=== PATIENT | male | born 1950 | race Caucasian/White ===

== ENCOUNTER 2024-02-10 13:30 | Inpatient (IN) | payer OTHER, SELFPAY ==
[2024-02-10] VITALS (14 sets, daily range): BP systolic 127–181; BP diastolic 72–92; BMI 24.4; BMI 24.9
--- NOTE | 2024-02-10 11:52 | ED.GENMED ---
History of Present Illness
General
Chief Complaint: Skin Problem
Source: patient
Time Seen by Provider: 02/10/24 11:40
History of Present Illness
History of Present Illness:
73yoM with no significant past medical history presenting for evaluation of left great toe discoloration. He started with a small scab/wound to the distal aspect of the L great toe about 1.5 weeks ago. He started to notice the toe become black in
color over the past few days. He does not have any sensation in the toe. He denies any fevers or chills. He is not currently on any medications. He denies any history of diabetes or peripheral vascular disease.
Phy Exam
General Physical Exam
General Presentation: well appearing and no apparent distress
General age: appears stated age
General Skin: warm and dry
General Habitus: normal
General Mental: alert
Cardiovascular Exam
Cardiovascular Exam: regular rate/rhythm
Pulmonary Exam
Pulmonary Exam: no respiratory distress
Musculoskeletal Exam
Musculoskeletal Exam: other (Left great toe necrotic with a small area of surrounding cellulitis at the base of the toe. No sensation present to toe. Doppler DP pulse present. )
Psychiatric Exam
Psychiatric Exam: normal mood/affect
Course
Orders/Labs/Results
Orders:
Orders
02/10/24 11:49
CR Foot - Left Min 3 Views Urgent
Comment:
Reason For Exam: Necrotic L great toe
02/10/24 12:05
Complete Blood Count/With Diff Urgent
Comprehensive Metabolic Panel Urgent
PTT Urgent
Prothrombin Time Urgent
02/10/24 12:36
CeFAZolin SODIUM [Ancef] 2,000 mg IM NOW STA
02/10/24 13:13
Admit/Transfer Patient As Directed
Co-Sign Provider:
Level of Care: Inpatient admission
Assign to:: Medical/Surgical
Physician / Group: Hospitalist
Diagnosis: Infection
Reason for Hospitalization: .
Expected length of stay greater than two midnights?: Yes
ELOS- Estimated Length of Stay in days: 3
I certify the patient meets the requirements for IP care: Yes
02/10/24 13:14
CeFAZolin 2 GRAM [Ancef] 2 grams in 10 ml IV NOW
Abnormal Lab Results
02/10/24
12:05
WBC 16.7 H 10^3/uL
(4.8-10.8)
RBC 4.24 L 10^6/uL
(4.70-6.10)
Hgb 11.3 L g/dL
(13.0-18.0)
Hct 33.7 L %
(39.0-52.0)
MCV 79.5 L fL
(80.0-94.0)
MCH 26.7 L pg
(27.0-31.0)
Plt Count 489 H 10^3/uL
(130-400)
Abs Immat Gran (auto) 0.1 H 10^3/uL
(0-0.05)
Absolute Neuts (auto) 11.3 H 10^3/uL
(1.4-6.5)
Absolute Lymphs (auto) 3.9 H 10^3/uL
(1.2-3.4)
Absolute Monos (auto) 1.1 H 10^3/uL
(0.1-0.6)
Sodium 132 L mmol/L
(135-145)
Glucose 214 H mg/dl
(70-99)
02/10/24 12:05
02/10/24 12:05
Vital Signs
Initial and Last Documented VS:
Initial Vital Signs
Temp Pulse Resp BP Pulse Ox
97.2 F 98 18 127/89 98
02/10/24 11:04 02/10/24 11:04 02/10/24 11:04 02/10/24 11:04 02/10/24 11:04
Last Documented Vital Signs
Temp Pulse Resp BP Pulse Ox
97.2 F 79 18 179/92 99
02/10/24 11:04 02/10/24 14:47 02/10/24 14:47 02/10/24 14:47 02/10/24 14:47
MDM/Problems Addressed
Differential Diagnosis Includes:
73yoM here with L great toe discoloration. Started as a scab/small wound about 1.5 weeks ago. No f/c. The L great toe is obviously necrotic on exam and sensation is absent. No crepitus. Doppler DP signal present. Vitals are stable. Differential
diagnosis includes but is not limited to: necrosis, peripheral vascular disease, cellulitis, NSTI
Initial ED plan: Check CBC, CMP, coags, and left foot x-rays.
*Critical Care Note
Total Time (30-74mins, 75-104mins- exclusive of procedures): Not Applicable
Update Note
Update Note:
Labs reveal a leukocytosis with a WBC of 16.7. Glucose is 214, no known history of diabetes. No acute abnormalities or soft tissue gas on x-ray. Patient given IV Ancef and was admitted for further management.
ED Attending Note
-
Portions of this chart may have been created with voice recognition software.� Occasional wrong word or��sound alike� substitutions may have occurred due to the inherent limitations of voice recognition software.
Discharge Plan
Departure
Patient Disposition: Admit
Date of Disposition: 02/10/24
Time of Disposition: 12:49
Presentation/result/management discussed w/ accepting MD/DO: Hospitalist
Discharge Problem:
Necrosis of toe
Interventions
Interventions:
*Risk Screen - Suicide Last Done: 02/10/24 11:04
*General Assessment Last Done: 02/10/24 11:04
*Neglect/Abuse Screening Last Done: 02/10/24 11:04
ED- Fall Risk Assessment Last Done: 02/10/24 11:47
*ED COVID-19 Vaccine History Last Done: 02/10/24 11:48
*Nursing Disposition Last Done: 02/10/24 15:00
ED-Skin Assessment Last Done: 02/10/24 11:46
Discharge Date and Time
Discharge Date/Time: 02/10/24 15:00
[2024-02-10 12:18] LABS: % Basophils 0.7 % (0-2); % Eosinophils 1.4 % (0-6); % Immature Granulocytes 0.4 % (0-0.5); % Lymphocytes 23.5 % (20.5-51.1); % Monocytes 6.7 % (1.7-9.3); % Neutrophils 67.3 % (42.2-75.2); Absolute Basophils 0.1 10^3/uL (0-0.2); Absolute Eosinophils 0.2 10^3/uL (0-0.7); Absolute Immature Granulocytes 0.1 10^3/uL (0-0.05); Absolute Lymphocytes 3.9 10^3/uL (1.2-3.4); Absolute Monocytes 1.1 10^3/uL (0.1-0.6); Absolute Neutrophils 11.3 10^3/uL (1.4-6.5); Hematocrit 33.7 % (39.0-52.0); Hemoglobin 11.3 g/dL (13.0-18.0); Mean Corp Hgb Conc. 33.5 g/dL (33.0-37.0); Mean Corpuscular Hgb 26.7 pg (27.0-31.0); Mean Corpuscular Volume 79.5 fL (80.0-94.0); Mean Platelet Volume 8.3 fL (7.4-10.4); Nucleated Red Blood Cells % 0 % (-); Platelet Count 489 10^3/uL (130-400); Red Blood Cell Count 4.24 10^6/uL (4.70-6.10); Red Cell Dist. Width 13.7 % (11.5-14.5); White Blood Cell Count 16.7 10^3/uL (4.8-10.8)
[2024-02-10 12:24] LABS: INR 1.08
[2024-02-10 12:25] LABS: APTT 28.4 Sec (23.4-35.0)
[2024-02-10 12:33] LABS: ALT (SGPT) 15 U/L (0-50); AST (SGOT) 21 U/L (17-59); Albumin 3.6 g/dl (3.5-5.0); Alkaline Phosphatase 95 U/L (38-126); Blood Urea Nitrogen 17 mg/dl (9-20); Calcium 9.3 mg/dl (8.4-10.2); Carbon Dioxide 28 mmol/L (22-30); Chloride 98 mmol/L (98-107); Glucose 214 mg/dl (70-99); Potassium 4.8 mmol/L (3.5-5.1); Sodium 132 mmol/L (135-145); Total Bilirubin 0.7 mg/dl (0.2-1.3); Total Protein 6.9 g/dl (6.3-8.2); eGFR > 60.00
--- NOTE | 2024-02-10 13:15 | HPS.HSE ---
Family Physician
-
Family Physician: PHYSICIAN PRIVATE
Chief Complaint
-
Left toe turning black for two weeks duration
History of Present Illness
73 years old male who presented to the ER with left toe turning black. Patient reported that it started as a small black spot then increased to whole toe. Denies fever or chills. Patient initially denied significant medical history with no
medications intake but later reported history of coronary artery disease with stent. He is former smoker. Patient reported family history of diabetes . Patient denied pain in the foot. Denied injury
Medical History
Past Medical History
Past Medical History: Reports CAD
Past Surgical History: Reports Other (No recent major surgery)
Social History
Tobacco: Former Smoker
Alcohol: Former
Drug: None
Personal: Single
Living: Alone
Employment: Retired
Family History
Family History: Diabetes
Allergies / Home Medications
Allergies reflects when Allergies were last updated in [facility].
Home Medications with original date entered in [employer]
Allergy/Medication List:
Allergies
Allergy/AdvReac Type Severity Reaction Status Date / Time
No Known Allergies Allergy Verified 02/10/24 11:04
Home Medications
No Meds [No Current Medications] 02/10/24
Review of Systems
-
History Source: Patient
A 12 point ROS was completed and negative except as noted: Yes
Constitutional: Denies Fever or Chills
EENT: Denies Sore Throat
Respiratory: Denies Cough
Cardiac: Denies Chest Pain
Abdomen/GI: Denies Abdominal Pain
: Denies Dysuria
Musculoskeletal: Reports Other (Left toe discoloration )
Skin: Denies Rash
Neurological: Denies Numbness
Endocrine: Denies Temp Intolerance
Hematologic/Lymphatic: Denies Bruising
Psych: Denies Panic Disorder
Physical Exam
Vital Signs
Vital Signs
Temp Pulse Resp BP Pulse Ox
97.2 F 98 18 127/89 98
02/10/24 11:04 02/10/24 11:04 02/10/24 11:04 02/10/24 11:04 02/10/24 11:04
Physical Exam
General: No Apparent Distress and Comfortable
HEENT: Moist mucous membranes and Atraumatic
Respiratory: Clear
Cardiac: S1/S2
GI: Soft and Non Tender
Rectal: No Maroon Stools
Genito-urinary: No costovertebral tender
Musculoskeletal: Other (left toe dry gangrene )
Skin: Warm and Dry
Neuro: AO x 3 and Nonfocal/grossly intact
Psych: Calm and Intact Judgment/Insight
Laboratory Results
-
02/10/24 12:05
02/10/24 12:05
Laboratory Results
PT 14.0 Sec (11.4-14.6) 02/10/24 12:05
INR 1.08 02/10/24 12:05
APTT 28.4 Sec (23.4-35.0) 02/10/24 12:05
Total Bilirubin 0.7 mg/dl (0.2-1.3) 02/10/24 12:05
AST 21 U/L (17-59) 02/10/24 12:05
ALT 15 U/L (0-50) 02/10/24 12:05
Alkaline Phosphatase 95 U/L (38-126) 02/10/24 12:05
Impression/Plan
-
73 years old male presented with left first toe dry gangrene
#Left big toe dry gangrene
Admit the patient to the hospital
Patient denied fever or chills
Positive leukocytosis on admission
Patient does not follow with doctors. Does not take medications despite history of coronary artery disease
Former smoker
Will consult vascular surgery and podiatry for further intervention
Empiric IV antibiotics
Blood culture
Appreciate podiatry and vascular help
# Leukocytosis, will do blood culture
# Hyponatremia, mild
# Hyperglycemia, possible underlying diabetes undiagnosed. Positive family history. Check hemoglobin A1c
# DVT prophylaxis
Total time spent to see the patient, examine the patient on the floor, review data and lab results, discuss treatment plan with patient, ER doctor, consultants, nursing staff around 75 minutes
[2024-02-10] MEDS: ANCEF 10 IV (13:36)
--- NOTE | 2024-02-10 14:17 | CON.VAS ---
Addendum entered and electronically signed by Jose Luis Vega MD 02/10/24 15:24:
Seen and examined with NABIL Tam. Agree with findings as noted below. 73-year-old male with history of coronary artery disease/coronary stents. Notes that he just found out he was diabetic today on admission but did not have any prior knowledge or
history of this. He was a former tobacco smoker quit in his 60s (about 10 years ago) prior smoking a pack a day. He does have a family history of lower extremity amputation procedures (aunts and uncles). He presents with 10 days of a left first
toe cotton that never healed and then the toe turned black. Therefore presented to the emergency room. No prior lower extremity revascularization procedures. Unclear but he seems to report some prior claudication possibly in both legs.
On exam/she is awake and alert. Head is normocephalic and atraumatic. Eyes are anicteric. Neck is soft without jugular venous distention. Breathing is unlabored. Abdomen is soft. Lower extremity with 2+ femoral pulses palpable bilaterally. 1+
weak popliteal pulses right greater than left. Nonpalpable distally bilaterally. Feet are warm bilaterally. Left first toe clear-cut demarcated dry gangrene. Mild cellulitis at the base of the toe. See picture below.
Plan/ Chronic limb threatening ischemia. Left lower extremity. Discussed recommendation for angiography/revascularization. Discussed procedure at length. Discussed potential outcomes/scenarios to be: #1 successful endovascular revascularization,
#2 need for staged surgical intervention/bypass, #3 no unreconstructable small vessel disease with persistent threat to the limb. Discussed procedural risks including but elevated to bleeding, arterial injury/worsened or acute limb ischemia, renal
failure. He understands all these things and wishes to proceed with left lower extremity arteriogram. Will proceed with the procedure today. Consult podiatry for first toe amputation. Communicated plan with hospitalist.
Original Note:
Consultation
Consultation Request
Date/Time Consultation Performed: 02/10/24 1400
Requesting Provider: Felicia Pineda MD
Performing Provider: Brielle Tam, AUTO REPAIR TECHNICIAN-C for Jose Luis Vega MD
Reason for Consultation: Left hallux dry gangrene
Medical History
-
Chief Complaint: Left foot hallux dry gangrene
History of Present Illness:
This is a 73-year-old male who initially reported no significant past medical history but then did note CAD with cardiac stent placement who presented to [facility] reporting left great hallux wound/infection. Patient notes roughly 10 days ago
he had cut to the distal aspect of his left hallux that continued to progress and nonhealed to the point of complete discoloration, thus prompting him to seek evaluation. He does note that the toe is not painful or have any sensation. He denies
personal history of diabetes or peripheral arterial disease, but does note he had an aunt and uncle with poorly controlled diabetes and peripheral arterial disease which resulted in lower extremity amputations for both family members. He denies
fever, chills, nausea, and vomiting. He endorses that he currently is not on any daily medications.
Past Medical History
Past Medical History: CAD
Past Surgical History: Cardiac (Cardiac catheterization with percutaneous intervention)
Social History
Tobacco: Former Smoker (Reports daily smoker but quit in his early 60s)
Drug: None
Allergies / Home Medications
Allergy/AdvReac Type Severity Reaction Status Date / Time
No Known Allergies Allergy Verified 02/10/24 11:04
�Medication �Instructions �Recorded �Confirmed �Type
No Meds [No Current Medications] 02/10/24 02/10/24 History
Review of Systems
-
History Source: Patient
Constitutional: Reports No Symptoms
EENT: Reports No Symptoms
Respiratory: Reports No Symptoms
Cardiac: Reports No Symptoms
Vascular: Denies Leg Pain / Claudication (But endorses sedentary lifestyle)
Abdomen/GI: Reports No Symptoms
: Reports No Symptoms
Musculoskeletal: Reports No Symptoms
Skin: Reports Other (Left hallux discoloration)
Neurological: Reports No Symptoms
Physical Exam
Vital Signs
Temp Pulse Resp BP Pulse Ox
97.2 F 98 18 127/89 98
07/25/24 11:04 02/10/24 11:04 02/10/24 11:04 02/10/24 11:04 02/10/24 11:04
Lab Results
02/10/24 12:05
02/10/24 12:05
Physical Exam
General: No Apparent Distress and Comfortable
HEENT: Normocephalic, Anicteric and Atraumatic
Respiratory: Negative Non Labored Respirations
Cardiac: Negative JVD
GI: Soft, Non Tender and Non Distended
Musculoskeletal: No Edema and Other (Unable to palpate bilateral PT/DP pulses)
Skin: Warm, Dry and Other (Left hallux with dry gangrene)
Neuro: AO x 3
Pulses: Bilateral Femoral: +1
Assessment / Plan
-
Assessment: 73-year-old male presenting to ER with left hallux dry gangrene, diminished pulse exam at bilateral feet, high suspicion for chronic limb threatening ischemia
Plan:
Recommend urgent arteriogram for evaluation of peripheral arterial disease
N.p.o.
Consultation to podiatry for amputation
IV antibiotics
I performed this shared service with the attending. I evaluated the patient [id number] and have entered clinical documentation as shown in the encounter note. I performed the following component(s): history and physical exam. Note that medical
decision making is not final until attested by vascular attending.
--- NOTE | 2024-02-10 15:25 | W.SUR.PREOP ---
Pre-Operative Surgical Note
-
I have examined this patient prior to the performance of the scheduled procedure.
The patient's condition is unchanged from the time of the current History and
Physical and the patient is able to undergo the scheduled procedure.
--- NOTE | 2024-02-10 16:46 | W.SUR.POST ---
Surgical Immediate Post Op
Note
Pre Op Diagnosis: Necrotic left great toe
Post Op Diagnosis: same
Procedure Performed: LLE angiogram, left common to external iliac balloon angioplasty/stent, SFA balloon angioplasty/stent x2, TP trunk and peroneal angioplasty, anterior tibial long segment angioplasty, right groin Perclose
Primary Surgeon: Gary
Anesthesia: local and sedation
Estimated Blood Loss: <2cc
Fluids: see anesthesia flow sheet
Drains/Shunts: none
Specimens/Cultures: none
Doppler/Duplex/Angio (Y/N): Y
Complications: none
Operative Findings: doppler DP
--- NOTE | 2024-02-10 17:42 | OR.RPT ---
Operative Report
Operative Report
PROCEDURE DATE: 02/10/2024
Preoperative diagnosis:Chronic limb threatening ischemia left lower extremity with dry gangrene left first toe.
Postoperative diagnosis: Same
Procedure:
1. Duplex assisted right common femoral artery cannulation.
2. Aortogram and pelvic angiogram.
3. Left lower extremity arteriogram with third order vessel catheterization of left dorsalis pedis artery via right common femoral artery puncture.
4. Balloon angioplasty of distal superficial femoral artery with 4 mm angioplasty balloon.
5. Placement of Cook Zilver PTX 6 mm x 120 mm drug-eluting self-expanding stent distal superficial femoral artery.
6. Balloon angioplasty and placement of Cook Zilver PTX 6 mm x 40 mm drug-eluting self-expanding stent proximal superficial femoral artery.
7. Balloon angioplasty of tibioperoneal trunk and proximal peroneal artery occlusion with 2.5 mm angioplasty balloon.
8. Balloon angioplasty of long segment anterior tibial artery occlusion/stenoses with 2.5 mm angioplasty balloon.
9. Balloon angioplasty and placement of Cook Zilver PTX 8 mm x 40 mm drug-eluting self-expanding stent left common iliac artery into external iliac artery.
10. Right femoral angiogram and Perclose percutaneous suture closure of right common femoral artery.
11. Supervision and interpretation.
Surgeon: Gary
Chair And Couch Maker: None
Complications: None
Anesthesia: Local, sedation
Fluoroscopy:
19.9 min
95 mGy
19.54 Gy.cm2
Indications for procedure:
Left first toe extensive desiccated dry gangrene. Findings suggestive of peripheral arterial disease. Risk/benefits/alternatives of angiography were fully discussed. Patient understood all wish to proceed.
Description of procedure:
Patient was identified, brought to the operating room. Placed on the table in the supine position. After the adequate administration of anesthesia, the patient was prepped and draped in the standard surgical fashion. A standard preoperative
timeout was undertaken and everybody was in agreement with the plan.
The right common femoral artery was accessed with a micropuncture kit under direct duplex ultrasound guidance. A 5 Australian sheath was then advanced over a 0.035 inch wire, and a mak's hook catheter was advanced into the abdominal aorta.
Aortogram and pelvic angiogram was obtained. Findings as follows:
Infrarenal aorta: Patent distal infrarenal aorta with no significant stenosis.
Right common iliac artery: Patent with no significant stenosis but luminal irregularities and plaque noted.
Right external iliac artery: Patent with luminal irregularities and mild stenosis but no severe stenosis. Moderate atherosclerotic plaque.
Left common iliac artery: Patent with moderate to severe stenosis distal common iliac artery into external iliac artery at the bifurcation.
Left external iliac artery: See above.
Using a floppy angled hydrophilic wire, the left common femoral artery was cannulated and the catheter was advanced. Left lower extremity arteriogram was obtained. Findings as follows:
Common femoral artery: Patent with mild stenosis with atherosclerosis proximally.
Profunda femoris artery: Patent with no significant stenosis.
Superficial femoral artery: Patent with moderate to high-grade proximal stenosis in the proximal third focally over about 2 to 4 cm. The mid to distal superficial femoral artery over the course of about 8 to 10 cm had severe heavy plaque stenosis
diffusely. This extended into an existing distal SFA stent with very proximal severe in-stent restenosis. The remainder of the stent was reasonably patent.
Popliteal artery: Patent with luminal irregularities and mild stenosis above the knee but no severe stenosis.
Anterior tibial artery: Proximally patent for about 4 to 6 cm. Beyond here the artery was occluded with reconstitution in the mid segment with areas of alternating stenoses that were high-grade. Reconstituted more normal flow lumen noted at the
very distal anterior tibial artery at the ankle at the tibial flare. Gave rise to the dorsalis pedis which was a moderate artery into the foot but relatively weak collateralization.
Tibial peroneal trunk: Occluded in its mid segment into the peroneal artery origin.
Peroneal artery: Occluded at the origin with reconstitution just beyond. Other areas of mild stenoses noted but relatively reasonable flow. Relatively poor collateralization distally.
Posterior tibial artery: Occluded throughout its course.
At this point I then selectively cannulated the superficial femoral artery and then exchanged for a Storq wire and then an up and over 6 Australian sheath over the Storq wire. The patient was given 6000 units of intravenous heparin. Next under roadmap
assisted guidance I was able to traverse the severe SFA stenoses with a flopping on hydrophilic wire. With some difficulty I was then able to advance a CXI catheter into the popliteal artery. I exchanged back for a Storq wire. I performed balloon
angioplasty of the severely stenotic area using a 4 mm angioplasty balloon. This was done to predilate the stenosis. Based on the severity of the plaque and the degree of stenosis, I felt stenting was indicated and therefore I used a Cook Zilver
PTX 6 mm x 120 mm self-expanding drug-eluting stent. This was post angioplasty with a 5 mm angioplasty balloon. I then similarly placed a primary Cook Zilver PTX 6 mm x 40 mm stent in the proximal SFA stenosis. This was also post angioplasty with
a 5 mm balloon. Completion angiogram now demonstrated excellent result with excellent flow through the treated SFA segments into the popliteal into the below-knee runoff. Next using a flap angled hydrophilic wire and a CXI catheter I was able to
engage the peroneal artery under roadmap assisted guidance. This proved very challenging because the patient kept moving. Despite adequate sedation he had extensive movement. However I finally was able to gain wire access into the distal peroneal
with the 0.035 inch floppy wire. I try to advance my CXI catheter but was unable to do so due to the severity of the occlusion/stenosis. I therefore then exchanged out for a quick cross catheter. I was able to advance a quick cross distally into
the peroneal artery. I then exchanged for a 0.014 inch EX CHEF wire. I then performed balloon angioplasty of the TP trunk/peroneal artery occlusion area. This was done with a 2.5 mm x 40 mm angioplasty balloon. Completion angiogram demonstrated good
result with good flow through the peroneal. Now I withdrew my wire and exchanged for a 0.014 inch quick cross catheter. I was able to use a steerable 0.014 inch wire now in exchange (Julian wire) and was with some difficulty actually able to gain
wire access into the dorsalis pedis proximally on the foot. I then exchanged for a EX CHEF wire. Next I performed long segment balloon angioplasty of the entire anterior tibial artery back to the point of occlusion with a 2.5 mm angioplasty long
balloon (2.5 mm x 200 mm) with overlapping inflations. Prolonged inflations were undertaken. Completion angiogram demonstrated excellent result with good flow now through the anterior tibial into the dorsalis pedis artery. Again I difficulty
imaging completion due to the patient's excessive movement. However I could see good filling and no severe residual stenosis. At this point I was satisfied. I then withdrew my sheath to the common iliac artery and reimaged the iliac bifurcation
stenosis. I then exchanged for a 0.035 inch wire and placed a MonkeyFinder 8 mm x 40 mm drug-eluting self-expanding stent across the iliac bifurcation. This was post angioplasty with a 7 mm balloon. Completion angiogram demonstrated excellent
result. At this point is very satisfied. I withdrew my sheath to the right external iliac artery. Angiogram demonstrated good puncture in the right common femoral artery. I therefore then used a Perclose percutaneous suture to seal the common
femoral artery. Manual pressure was also applied. Hemostasis was fully achieved.
The patient tolerated procedure well. He had an excellent dopplerable DP signal in the left foot upon completion.
[2024-02-10] MEDS: PROTONIX 40 MG PO (17:57)
[2024-02-10] MEDS: PLAVIX 300 MG PO (17:57)
[2024-02-10] MEDS: NSS 1000 IV (17:59)
[2024-02-10] MEDS: ASPIRIN 325 MG PO (17:59)
[2024-02-10] MEDS: HEPARIN 5000 UNITS SC (20:24)
[2024-02-10] MEDS: LIPITOR 10 MG PO (20:24)
[2024-02-10] MEDS: ANCEF 5 IV (20:25)
[2024-02-10 21:35] LABS: Glucose - Point of Care 177 mg/dl (70-99)
[2024-02-11] VITALS (10 sets, daily range): BP systolic 134–176; BP diastolic 62–81
[2024-02-11] MEDS: ANCEF 5 IV ×3 (04:04→21:39)
--- NOTE | 2024-02-11 07:33 | CON.MD ---
Consultation - Medical
-
CC/HPI: Podiatry consulted for Left hallux dry gangrene. Per Patient, his left toe turning black for two weeks duration. He is a 73 year old male who presented to the ER with left toe turning black. Patient reported that it started as a small
black spot then increased to whole toe. Patient under wnet angioplasty with stenting yesterday with Dr. Vega.
Past Medical History
Reports CAD
Past Surgical History: Angioplasty with stent
Social History
Tobacco: Former Smoker
Alcohol: Former
Drug: None
Personal: Single
Living: Alone
Employment: Retired
Family History
Diabetes
Allergies
Allergy/AdvReac Type Severity Reaction Status Date / Time
No Known Allergies Allergy Verified 02/10/24 11:04
Home Medications
No Meds [No Current Medications] 02/10/24
Vital Signs
Temp Pulse Resp BP Pulse Ox
97.2 F 98 18 127/89 98
02/10/24 11:04 02/10/24 11:04 02/10/24 11:04 02/10/24 11:04 02/10/24 11:04
Physical Exam
Right LE with audible pulses, normal proximal to distal cooling. Left hallux is dry dry and gangrenous. No signs of active infection. It si demarcated at the level of the MPJ
I
-
Impression/Plan:
Left lower extremity with dry gangrene left first toe.
NIDDM
PAD
Discussed results of vascular procedure with Dr. Vega. Plan for left great toe amputation tomorrow morning. Surgical consent reviewed and discussed at bedside.
All questions, concerns, risks, benefits and complications of surgery discussed at bedside.
continue Ancef
[2024-02-11 08:36] LABS: Glucose - Point of Care 217 mg/dl (70-99)
[2024-02-11] MEDS: PLAVIX 75 MG PO (08:40)
[2024-02-11] MEDS: NOVOLOG FLEXPEN-MODERATE RESISTANCE 3 UNITS SC (08:40)
[2024-02-11] MEDS: PROTONIX 40 MG PO (08:40)
[2024-02-11] MEDS: HEPARIN 5000 UNITS SC ×2 (08:40→21:39)
[2024-02-11] MEDS: LOW STRENGTH ASPIRIN 81 MG PO (08:40)
[2024-02-11 09:25] LABS: Glycohemoglobin (HgbA1c) 8.2 % (4.0-5.6)
--- NOTE | 2024-02-11 09:29 | W.PN.HOSP.TC ---
Addendum entered and electronically signed by Kostas Pineda MD 02/11/24 13:26:
Addendum
I spoke with PCP Woodrow Enrique
reviewed PMH and medications
PCP reported an episode of hemoptysis few months ago but patient declined workup
I order chest x-ray, reviewed with radiologist, left lung mass noted
Will do IV fluid and order CT with contrast
Updated Dr. Payton
Will follow
End
Original Note:
Today's Communication/Plan
-
Trying to get records from PCP ( unknown to us)
c/w aspirin, Plavix, Statin
Added ISS, eventual DM TX
Echo of heart
High BP, to treat after echo resulted.
Assessment / Plan
Assessment / Plan
Physical Exam
General: No Apparent Distress and Comfortable
HEENT: Moist mucous membranes and Atraumatic
Respiratory: Clear
Cardiac: S1/S2
GI: Soft and Non Tender
Rectal: No Maroon Stools
Genito-urinary: No costovertebral tender
Musculoskeletal: Other (left toe dry gangrene )
Skin: Warm and Dry
Neuro: AO x 3 and Nonfocal/grossly intact
Psych: Calm and Intact Judgment/Insight
73 years old male presented with left first toe dry gangrene
#Chronic limb threatening ischemia left lower extremity with dry gangrene left first toe.
Status post aortogram/pelvic angiogram/lower extremity arteriogram with balloon angioplasty and stent placement in superficial femoral artery/left common iliac artery by Dr. Vega on 02/09.
No complications reported
c/w Plavix, aspirin, statin therapy
Appreciate vascular surgery help
#Left big toe dry gangrene
Plan for amputation on 02/11
Empiric IV Ancef
Appreciate podiatry help
# Leukocytosis, f/w blood culture
# Essential HTN
I do not think it is newly diagnosed. Pt was on meds post coronary stenting in 2014 but he stopped them ( 3-5 meds at the time)
Will start him on BP meds once I get echo result.
# Hyponatremia, mild
# Newly diagnosed DM
Presented with Hyperglycemia
Positive family history.
Hemoglobin A1c 8.2
Continue ISS for now
# DVT prophylaxis
Total time spent to see the patient, examine the patient on the floor, review data and lab results, discuss treatment plan with patient, nursing staff around 59 minutes
Anticipated Discharge: > 48 hours
Subjective/Interval History
-
Date of Service: February 11, 2024
No pain or sob
No chest pain
Objective Data
-
Vital Signs:
Vital Signs
Temp Pulse Resp BP Pulse Ox
98.3 F 70 18 168/72 98
02/11/24 07:47 02/11/24 07:47 02/11/24 07:47 02/11/24 07:47 02/11/24 07:47
I&O
02/10/24 02/11/24 02/12/24
06:59 06:59 06:59
Intake Total 150 / 150
Balance 150 / 150
--- NOTE | 2024-02-11 09:38 | W.PN.VS ---
Today's Communication / Plan
-
Discussed with Dr. Prater
Assessment/Plan
-
Postop day 1
Left lower extremity arteriogram with third order vessel catheterization of left dorsalis pedis artery via right common femoral artery puncture.
Balloon angioplasty of distal superficial femoral artery with 4 mm angioplasty balloon.
Placement of Cook Zilver PTX 6 mm x 120 mm drug-eluting self-expanding stent distal superficial femoral artery.
Balloon angioplasty and placement of Cook Zilver PTX 6 mm x 40 mm drug-eluting self-expanding stent proximal superficial femoral artery.
Balloon angioplasty of tibioperoneal trunk and proximal peroneal artery occlusion with 2.5 mm angioplasty balloon.
Balloon angioplasty of long segment anterior tibial artery occlusion/stenoses with 2.5 mm angioplasty balloon.
Balloon angioplasty and placement of Cook Zilver PTX 8 mm x 40 mm drug-eluting self-expanding stent left common iliac artery into external iliac artery.
Right femoral angiogram and Perclose percutaneous suture closure of right common femoral artery.
Plan:
-Podiatry for toe amputation
-ABIs and TBI's today for new baseline
-Continue aspirin, Plavix, and statin at home
-Office follow-up added to chart
-Call with questions
Subjective Data
-
Date of Service: February 11, 2024
Patient did bedside this a.m. resting comfortably. Offers no complaints at this time. No events overnight
Objective Data
-
Vital Signs
Temp Pulse Resp BP Pulse Ox
98.3 F 70 18 168/72 98
02/11/24 07:47 02/11/24 07:47 02/11/24 07:47 02/11/24 07:47 02/11/24 07:47
Intake and Output
02/10/24 02/11/24 02/12/24
06:59 06:59 06:59
Intake Total 150 / 150
Balance 150 / 150
Intake:
IV fluids (Total) 150 / 150
NSS 150 / 150
Other:
Number of approximated MODERATE 3
amounts of urine
Lab Results
02/10/24 12:05
02/10/24 12:05
Calcium 9.3 mg/dl (8.4-10.2) 02/10/24 12:05
Total Bilirubin 0.7 mg/dl (0.2-1.3) 02/10/24 12:05
AST 21 U/L (17-59) 02/10/24 12:05
ALT 15 U/L (0-50) 02/10/24 12:05
Alkaline Phosphatase 95 U/L (38-126) 02/10/24 12:05
Total Protein 6.9 g/dl (6.3-8.2) 02/10/24 12:05
Albumin 3.6 g/dl (3.5-5.0) 02/10/24 12:05
Physical Exam
-
AAOx3
No tachypnea
No tachycardia
Abdomen soft
Groin site clean, dry, intact, soft, no drainage
Feet warm
Doppler signal present
[2024-02-11] MEDS: APRESOLINE 5 MG PO ×2 (10:19→22:19)
[2024-02-11] MEDS: TYLENOL 650 MG PO (10:20)
[2024-02-11 12:24] LABS: Glucose - Point of Care 172 mg/dl (70-99)
[2024-02-11] MEDS: NOVOLOG FLEXPEN-MODERATE RESISTANCE SC ×2 (12:42→16:15)
[2024-02-11] MEDS: TOPROL XL 25 MG PO (14:00)
[2024-02-11] MEDS: NSS 1000 IV (14:01)
--- NOTE | 2024-02-11 14:24 | CON.PUL ---
Consultation
Consultation Request
Date/Time Consultation Requested: 02/11/24
Date/Time Consultation Performed: 02/11/24
Performing Provider: Favian
Reason for Consultation: Abnl CXR
Medical History
-
History of Present Illness:
Patient is a 73 year old male with history of CAD, former smoker who presented to the ER with left toe turning black. Patient reported that it started as a small black spot then increased to whole toe. Admitted 02/10/24 and underwent angiogram
02/10/24 showing dry gangrene of L 1st toe. Incidentally noted to have abnormal CXR with ADRIAN opacification.
Denies history of lung disease in past, former smoker of about 40 pack years, quit in 2014 but never underwent yearly screening.
Denies family history of lung cancer.
CT chest obtained confirmed large ADRIAN opacity concerning for mass. He denies any active lung complaints.
Past Medical History
Past Medical History: CAD
Social History
Tobacco: Former Smoker
Alcohol: None
Drug: None
Family History
Family History: Reviewed & Not Pertinent
Allergies / Home Medications
Allergies
Allergy/AdvReac Type Severity Reaction Status Date / Time
No Known Allergies Allergy Verified 02/10/24 11:04
Home Medications
�Medication �Instructions �Recorded �Confirmed �Last Taken �Type
aspirin 81 mg chewable tablet 81 mg PO DAILY #120 tabs 02/11/24 Unknown Rx
atorvastatin 10 mg tablet 10 mg PO QPM #120 tabs 02/11/24 Unknown Rx
clopidogrel 75 mg tablet 75 mg PO DAILY #120 tabs 02/11/24 Unknown Rx
Review of Systems
-
History Source: Patient
All other systems: Negative unless noted
Vitals / Labs / Diagnostic Testing
Vital Signs
Temp Pulse Resp BP Pulse Ox
98.6 F 70 18 166/72 99
02/11/24 12:01 02/11/24 12:01 02/11/24 12:01 02/11/24 12:01 02/11/24 12:01
Lab Data
02/10/24 12:05
02/10/24 12:05
Diagnostic Testing:
Physical Exam
-
HEENT: Normocephalic, Anicteric and Moist Mucous Membranes
Cardiovascular: S1/S2, Regular Rhythm and Murmur
Respiratory: Clear and Non-Labored Respirations
GI: Soft, Non Distended and Non Tender
Neurology: Awake, Alert, Oriented and No Motor Deficits
Skin: Warm, Dry and Good Color
General: Comfortable and Other (NAD)
Assessment
-
Patient is a 73 year old male with history of CAD, former smoker who presented to the ER with left toe turning black. Patient reported that it started as a small black spot then increased to whole toe. Admitted 02/10/24 and underwent angiogram
02/10/24 showing dry gangrene of L 1st toe. Incidentally noted to have abnormal CXR with ADRIAN opacification. We are consulted for evaluation 02/11/24.
Incidental ADRIAN opacification on CXR
L 1st toe dry gangrene
Mild-mod on ECHO, murmur on exam
Conditions present [employer]
CAD s/p stent
Former smoker
Plan
No oxygen was needed on admission, currently saturating >95% on RA
Denies history of lung disease in past, former smoker of about 40 pack years, quit in 2014 but never underwent yearly screening.
Denies family history of lung cancer.
CXR showing incidental finding
CT chest obtained confirmed large ADRIAN opacity concerning for mass. He denies any active lung complaints.
We reviewed need for biopsy, this can be arranged as OP as earliest place on schedule can be done likely late next week
He was in agreement with this
L toe gangrene s/p vasc eval
Pod eval for amputation today
CAD history
Murmur noted on exam
ECHO results are reviewed indicating mild-mod
Needs outpatient cardiac FU
Smoking history noted
Will need outpatient pulmonary evaluation in our office for PFTs and 6MWT
Reviewed with patient
Can discharge post procedure and evaluate for biopsy as OP
Reviewed plan of care with primary team
We will follow
Diagnostic Data
Chest X-Ray: 02/11/24- Approximate 10 cm homogeneous opacity occupying a majority of the apex of the left chest without prior chest radiograph for comparison. Findings could represent a mass. Chest CT with IV contrast recommended for more complete
evaluation.
CT Scan:
Echo: 02/11/24- Normal left ventricular size and systolic function. No regional wall motion abnormalities are seen. LV ejection fraction is 60-65% by Roblero's method of discs. Mild concentric left ventricular hypertrophy. Normal diastolic function.
Normal right ventricular size. Normal right ventricular systolic function. Normal atria. Mild mitral regurgitation. Thickened aortic valve with restricted leaflet motion. Mild to moderate aortic stenosis. Peak/mean gradients are 32/17mmHg. The valve
area by continuity equation is 1.0cm sq. No aortic regurgitation is seen. Trace tricuspid regurgitation. Estimated pulmonary artery pressure of 20-25 mmHg. Assuming a right atrial pressure of 3 mmHg. No prior study for comparison.
PFT's:
Reports and relevant images were personally reviewed.
Total time spent on this consultation __76__ includes review of history, physical exam, medications, laboratory data, personal review of imaging, extensive review of outpatient records, discussion with care team and respiratory therapy.
[2024-02-11 16:17] LABS: Glucose - Point of Care 173 mg/dl (70-99)
[2024-02-11] MEDS: LIPITOR PO (17:05)
[2024-02-11 18:25] LABS: Glucose - Point of Care 172 mg/dl (70-99)
[2024-02-11] MEDS: NSS IV (20:30)
[2024-02-11] MEDS: MELATONIN 3 MG PO (21:56)
[2024-02-11 22:07] LABS: Glucose - Point of Care 260 mg/dl (70-99)
--- NOTE | 2024-02-12 01:34 | PTCARENOTE ---
Pt aaox 3 able to make his needs known.Pt was post op at change of shift pt was encouraged not to get oob without RN help.Upon doing rounds RN saw pt oob to BR without calling for help. Pt stated he forgot. Pt placed on bed alarm. Pt asking for food
upon admission to floor, pt was provided with box lunch & milk. Pt angry & frustrated about meals, nursing care, having issues with old room mate & unable to sleep. Pt wants something for sleep refuses melatonin at first when explained,unable to
give other meds ok to take it. Pt was provided with emotional & psychological support as needed.Explained about post op care, IV antibiotics, pain meds as needed.Weight bearing as tolerated.Call marx in reach.
[2024-02-12 03:00] VITALS: BP 151/58
[2024-02-12] MEDS: NSS IV (04:46)
[2024-02-12] MEDS: ANCEF 5 IV ×3 (05:26→20:06)
[2024-02-12 07:20] VITALS: BP 174/77
[2024-02-12 07:33] LABS: Blood Urea Nitrogen 11 mg/dl (9-20); Calcium 8.6 mg/dl (8.4-10.2); Carbon Dioxide 26 mmol/L (22-30); Chloride 99 mmol/L (98-107); Estimated Creatinine Clearance 106 ml/min; Glucose 168 mg/dl (70-99); Potassium 4.4 mmol/L (3.5-5.1); Sodium 131 mmol/L (135-145); eGFR > 60.00
[2024-02-12 07:41] LABS: Hematocrit 27.2 % (39.0-52.0); Hemoglobin 9.1 g/dL (13.0-18.0); Mean Corp Hgb Conc. 33.5 g/dL (33.0-37.0); Mean Corpuscular Hgb 25.7 pg (27.0-31.0); Mean Corpuscular Volume 76.8 fL (80.0-94.0); Mean Platelet Volume 8.3 fL (7.4-10.4); Platelet Count 356 10^3/uL (130-400); Red Blood Cell Count 3.54 10^6/uL (4.70-6.10); Red Cell Dist. Width 13.8 % (11.5-14.5); White Blood Cell Count 13.6 10^3/uL (4.8-10.8)
[2024-02-12] MEDS: ROXICODONE 5 MG PO ×2 (08:16→16:13)
[2024-02-12] MEDS: PROTONIX 40 MG PO (08:17)
[2024-02-12] MEDS: PLAVIX 75 MG PO (08:17)
[2024-02-12] MEDS: TOPROL XL 25 MG PO (08:18)
[2024-02-12] MEDS: HEPARIN 5000 UNITS SC ×2 (08:19→20:21)
--- NOTE | 2024-02-12 08:24 | W.PN.POD ---
Today's Communication
Today's Communication
S/P left hallux amputation
Assessment / Plan
-
S/P Left hallux amputation
PAD
Type 2 Diabetes - Newly diagnosed
Bandages were changed at bedside.
Weight bear at tolerated in a surgical shoe - limit activity
Patient should follow up with me outpatient next week
Subjective
Chief Complaint
S/P Left hallux amputation
Subjective
Patient seen at bedside - resting comfortably
Objective
Temp Pulse Resp BP Pulse Ox
98.2 F 66 16 174/77 98
02/12/24 07:20 02/12/24 08:18 02/12/24 07:20 02/12/24 08:18 02/12/24 07:20
02/12/24 06:55
02/12/24 06:55
Vital Signs and Lab results were reviewed.
Physical Exam
Physical Exam
Left foot with bandages intact. Small amount of bloody strikethrough present. Sutures are in place along the surgical amputation incision there is a small amount of bloody drainage along the incision line. Foot feels warm and perfused, CFT WNL.
Lesser digital ROM intact. Calves are supple, Non tender no pain with compression
--- NOTE | 2024-02-12 08:30 | W.PN.HOSP.TC ---
Today's Communication/Plan
-
He wants to leave but will need another day for IV Abx, to be able to adjust BP and glucose control
Assessment / Plan
Assessment / Plan
Physical Exam
General: No Apparent Distress and Comfortable
HEENT: Moist mucous membranes and Atraumatic
Respiratory: Clear
Cardiac: S1/S2
GI: Soft and Non Tender
Rectal: No Maroon Stools
Genito-urinary: No costovertebral tender
Musculoskeletal: Left foot dressing.
Skin: Warm and Dry
Neuro: AO x 3 and Nonfocal/grossly intact
Psych: Calm and Intact Judgment/Insight
73 years old male presented with left first toe dry gangrene
#Chronic limb threatening ischemia left lower extremity with dry gangrene left first toe.
Status post aortogram/pelvic angiogram/lower extremity arteriogram with balloon angioplasty and stent placement in superficial femoral artery/left common iliac artery by Dr. Vega on 02/09.
No complications reported
c/w Plavix, aspirin, statin therapy
Appreciate vascular surgery help
# Mild acute blood loss anemia
no hypotension
#Left big toe dry gangrene
S/P left hallux amputation by Dr Smith 02/10
Empiric IV Ancef
Appreciate podiatry help
# Left lung mass
d/w radiologist
Possible malignant with history of heavy tobacco use, infrequent hemoptysis history , weight loss
d/w pulmonary doctor, plan for OP biopsy and work up
# Leukocytosis, f/w blood culture
# Essential HTN
Uncontrolled
Pt was on meds post coronary stenting in 2014 but he stopped them
d/w his PCP, restarted on Toprol
Start also on Lisinopril
# Hyponatremia, mild
# Newly diagnosed DM
Presented with Hyperglycemia
Positive family history.
Hemoglobin A1c 8.2
Continue ISS for now
Start on Januvia
Start the patient on metformin in am ( Allow 48 hours post contrast)
# DVT prophylaxis
Total time spent to see the patient, examine the patient on the floor, review data and lab results, discuss treatment plan with patient, nursing staff around 57 minutes
Anticipated Discharge: Within 24 hours
Subjective/Interval History
-
Date of Service: February 12, 2024
He wants to go home
Pain in foot after dressing change
Objective Data
-
Labs:
Laboratory Results
02/12/24
06:55
WBC 13.6 H
Hgb 9.1 L
Hct 27.2 L
Plt Count 356 D
Sodium 131 L
Potassium 4.4
Chloride 99
Carbon Dioxide 26
BUN 11
Creatinine 0.7
Glucose 168 H
Calcium 8.6
Vital Signs:
Vital Signs
Temp Pulse Resp BP Pulse Ox
98.2 F 66 16 174/77 98
02/12/24 07:20 02/12/24 08:18 02/12/24 07:20 02/12/24 08:18 02/12/24 07:20
I&O
02/11/24 02/12/24 02/13/24
06:59 06:59 06:59
Intake Total 150 / 150 480 / 480
Balance 150 / 150 480 / 480
[2024-02-12] MEDS: LOW STRENGTH ASPIRIN 81 MG PO (09:01)
[2024-02-12 09:20] LABS: Glucose - Point of Care 223 mg/dl (70-99)
[2024-02-12] MEDS: NOVOLOG FLEXPEN-MODERATE RESISTANCE 3 UNITS SC ×2 (09:20→12:16)
[2024-02-12] MEDS: ZESTRIL 5 MG PO (10:44)
[2024-02-12] MEDS: JANUVIA 50 MG PO (10:47)
--- NOTE | 2024-02-12 12:11 | W.PN.PUL.V3 ---
Today's Communication / Plan
-
Respiratory status stable
Outpatient pulmonary follow-up with biopsy
Assessment
-
Patient is a 73 year old male with history of CAD, former smoker who presented to the ER with left toe turning black. Patient reported that it started as a small black spot then increased to whole toe. Admitted 02/10/24 and underwent angiogram
02/10/24 showing dry gangrene of L 1st toe. Incidentally noted to have abnormal CXR with ADRIAN opacification. We are consulted for evaluation 02/11/24.
Incidental ADRIAN opacification on CXR
L 1st toe dry gangrene
Mild-mod on ECHO, murmur on exam
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
CAD s/p stent
Former smoker
Plan
Respiratory status relatively stable
Supplemental oxygen as needed-currently on room air
Nebulizers as needed-currently not bronchospastic
Aspiration precautions
Incentive spirometry
Denies history of lung disease in past, former smoker of about 40 pack years, quit in 2014 but never underwent yearly screening.
Denies family history of lung cancer.
CXR showing incidental finding
CT chest obtained confirmed large ADRIAN opacity concerning for mass. He denies any active lung complaints.
We reviewed need for biopsy, this can be arranged as OP as earliest place on schedule can be done likely late next week
He was in agreement with this
L toe gangrene s/p vasc eval
Podiatry evaluation ongoing
CAD history
Murmur noted on exam
ECHO results are reviewed indicating mild-mod
Needs outpatient cardiac FU
Smoking history noted
Will need outpatient pulmonary evaluation in our office for PFTs and 6MWT
Can discharge post procedure and evaluate for biopsy as OP
Diagnostic Data
Chest X-Ray: 02/11/24- Approximate 10 cm homogeneous opacity occupying a majority of the apex of the left chest without prior chest radiograph for comparison. Findings could represent a mass. Chest CT with IV contrast recommended for more complete
evaluation.
CT Scan: 02/11/2024-Approximate 10 cm 'mass' in the left upper chest with differential slightly low attenuation densities within, slightly greater density centrally than peripherally and which extends to the left hilum. Unfortunately, as a result of
the size of this lesion, determining the exact origin and etiology is somewhat limited, pleural versus parenchymal based. Although this may represent a large lesion such as an atypical hematoma, both benign and malignant masses are also possible
including mesenchymal tumors as there appears to be a few small left hilar lymph nodes. Hemorrhage into a lesion is also possible.
Echo: 02/11/24- Normal left ventricular size and systolic function. No regional wall motion abnormalities are seen. LV ejection fraction is 60-65% by Roblero's method of discs. Mild concentric left ventricular hypertrophy. Normal diastolic function.
Normal right ventricular size. Normal right ventricular systolic function. Normal atria. Mild mitral regurgitation. Thickened aortic valve with restricted leaflet motion. Mild to moderate aortic stenosis. Peak/mean gradients are 32/17mmHg. The valve
area by continuity equation is 1.0cm sq. No aortic regurgitation is seen. Trace tricuspid regurgitation. Estimated pulmonary artery pressure of 20-25 mmHg. Assuming a right atrial pressure of 3 mmHg. No prior study for comparison.
Reports and relevant images were personally reviewed.
Subjective Data
-
Date of Service:
Date of Service: February 12, 2024
Chief Complaint: Pulmonary Follow Up, Dyspnea Follow Up and Other (Lung mass)
Subjective:
Patient denies any worsening shortness of breath, hemoptysis, chest congestion, productive cough, abdominal pain or lower extremity swelling that is increased
Review of Systems
General: Other (Per HPI)
Objective Data
Data Reviewed
Vital Signs / I&O:
Vital Signs
Temp Pulse Resp BP Pulse Ox
98.2 F 63 16 132/50 98
02/12/24 07:20 02/12/24 10:44 02/12/24 07:20 02/12/24 10:44 02/12/24 08:15
Intake and Output
02/11/24 02/12/2424
06:59 06:59 06:59
Intake Total 150 / 150 480 / 480
Balance 150 / 150 480 / 480
SaO2: 98
Physical Exam
General: Respiratory Distress (n) and Comfortable
HEENT: Normocephalic, Anicteric and Moist Mucous Membranes
Cardiovascular: Regular Rhythm
Respiratory: Wheeze (n), Crackles (Few basilar), Rhonchi ( few expiratory), Non-Labored Respirations, Accessory Resp Muscle Use (n) and Stridor (n)
GI: Soft, Non Distended and Non Tender
Neurology: Awake, Alert and No Motor Deficits
Skin: Warm, Good Color, Cyanosis (n), Jaundice (n) and Rash (n)
Labs/Micro/Reports
Lab Data
02/12/24 06:55
02/12/24 06:55
Microbiology
02/10/24 19:46 Blood/Venous Blood Culture - Preliminary
No Growth in 24 hours- Final report to follow
[2024-02-12 12:15] LABS: Glucose - Point of Care 214 mg/dl (70-99)
[2024-02-12 15:15] VITALS: BP 148/66
[2024-02-12 16:28] LABS: Glucose - Point of Care 161 mg/dl (70-99)
--- NOTE | 2024-02-12 16:44 | CM ---
Patient seen at bedside. Patient stated that he lives alone in an apartment 15 steps to enter and PCP is Dr. Briggs. Patient uses [facility] on [address]. Patient friend Tylor helps with needs and driving. CM will continue to follow for discharge planning
needs.
Plan; home with VN/watch for home IV needs vs no needs.
[2024-02-12] MEDS: LIPITOR 20 MG PO (17:41)
[2024-02-12] MEDS: NOVOLOG FLEXPEN-MODERATE RESISTANCE 1 UNITS SC (17:41)
[2024-02-12 21:38] LABS: Glucose - Point of Care 210 mg/dl (70-99)
[2024-02-12] MEDS: MELATONIN 3 MG PO (23:29)
[2024-02-12 23:30] VITALS: BP 129/55
[2024-02-13] MEDS: ANCEF 5 IV (03:42)
[2024-02-13 07:15] VITALS: BP 147/66
[2024-02-13 07:55] LABS: Glucose - Point of Care 184 mg/dl (70-99)
[2024-02-13] MEDS: NOVOLOG FLEXPEN-MODERATE RESISTANCE 1 UNITS SC ×2 (08:43→12:04)
[2024-02-13] MEDS: ZESTRIL 5 MG PO (08:43)
[2024-02-13] MEDS: LOW STRENGTH ASPIRIN 81 MG PO (08:43)
[2024-02-13] MEDS: GLUCOPHAGE 1000 MG PO (08:43)
[2024-02-13] MEDS: HEPARIN 5000 UNITS SC (08:44)
[2024-02-13] MEDS: PLAVIX 75 MG PO (08:44)
[2024-02-13] MEDS: DULCOLAX 10 MG PO (08:44)
[2024-02-13] MEDS: TOPROL XL 25 MG PO (08:44)
[2024-02-13] MEDS: JANUVIA 50 MG PO (08:44)
[2024-02-13] MEDS: PROTONIX 40 MG PO (08:44)
--- NOTE | 2024-02-13 08:45 | W.PN.HOSP.TC ---
Today's Communication/Plan
-
Discharge today
Assessment / Plan
Assessment / Plan
Physical Exam
General: No Apparent Distress and Comfortable
HEENT: Moist mucous membranes and Atraumatic
Respiratory: Clear
Cardiac: S1/S2
GI: Soft and Non Tender
Rectal: No Maroon Stools
Genito-urinary: No costovertebral tender
Musculoskeletal: Left foot dressing.
Skin: Warm and Dry
Neuro: AO x 3 and Nonfocal/grossly intact
Psych: Calm and Intact Judgment/Insight
73 years old male presented with left first toe dry gangrene
#Chronic limb threatening ischemia left lower extremity with dry gangrene left first toe.
Status post aortogram/pelvic angiogram/lower extremity arteriogram with balloon angioplasty and stent placement in superficial femoral artery/left common iliac artery by Dr. Vega on 02/09.
No complications reported
c/w Plavix, aspirin, statin therapy. I re-enforced the need to continue with his treatment and follow with vascular.
Appreciate vascular surgery help
# Mild acute blood loss anemia
no hypotension
#Left big toe dry gangrene
S/P left hallux amputation by Dr Smith 02/10
s/p IV Ancef
dc on oral Keflex to finish 7 total days.
Appreciate podiatry help
# Left lung mass
d/w radiologist and pulmonary doctors.
Possible malignant with history of heavy tobacco use, infrequent hemoptysis history , weight loss
d/w pulmonary doctor, plan for OP biopsy and work up
Pt verbalized under standing to need to follow.
# Leukocytosis, f/w blood culture
# Essential HTN
Was Uncontrolled
Pt was on meds post coronary stenting in 2014 but he stopped them
I d/w his PCP, most recent medicine was Toprol. restarted on Toprol
Started also on Lisinopril
# Hyponatremia, mild
# Newly diagnosed DM
Presented with Hyperglycemia
Positive family history.
Hemoglobin A1c 8.2
Continue ISS for now
Started on Januvia, metformin ( Allowed 48 hours post contrast). he does not wish to be on insulin, also hope he wont need insulin due to compliance issue.
# hx of non compliance
I d/w pt the importance of taking medications, not stopping them without physician's supervision, and following instructions. He verbalized understand
# DVT prophylaxis
6
Total discharge time spent to see the patient, examine the patient on the floor, review data and lab results, discuss discharge plan with patient, nursing staff around 67 minutes
Anticipated Discharge: Today
Subjective/Interval History
-
Date of Service: February 13, 2024
Pain in foot is better controlled
No chest pain
No sob
No abd pain
Objective Data
-
Vital Signs:
Vital Signs
Temp Pulse Resp BP Pulse Ox
98.7 F 63 16 147/66 97
02/13/24 07:15 02/13/24 07:15 02/13/24 07:15 02/13/24 07:15 02/13/24 07:15
I&O
02/12/24 02/13/24 02/14/24
06:59 06:59 06:59
Intake Total 480 / 480 1080 / 1080
Balance 480 / 480 1080 / 1080
--- NOTE | 2024-02-13 10:28 | CM ---
Patient seen at bedside. IMM reviewed patient requested CM email form to him as he does not have his glasses and he states he understood his rights. CM sent referral to [facility] for PT/OT and await response. Patient states he has a ride home and will
call friends. CM will continue to follow for discharge planning needs.
Plan; home with VN to follow pending acceptance
--- NOTE | 2024-02-13 10:47 | W.DCSUMMARY ---
Discharge Summary
Discharge Data
Date of Admission: 02/10/24
Date of Discharge: 02/13/24
-
Pending Results: No
Hospital Course
73 years old male admitted with left toe gangrene. Patient reported that he stopped taking his medications including aspirin while ago. He was not following with his primary care doctor regularly. Patient reported that he had history of
coronary artery disease and had a stent before. Patient was seen immediately by vascular surgeon. He underwent aortogram/pelvic angiogram/lower extremity arteriogram with balloon angioplasty and stent placement in superficial femoral artery/left
common iliac artery by Dr. Vega on 02/09. No complications reported. Patient was started on aspirin and Plavix with statin therapy. He was evaluated by foundry patternmaker and he had left hallux amputation by Dr. Payton on 02/10. Echocardiogram showed
left ventricular ejection fraction of 60 to 65% with no regional wall motion abnormality, mild concentric left ventricular hypertrophy with normal diastolic function, mild mitral regurgitation, mild to moderate aortic stenosis with Peak/mean
gradients are 32/17mmHg. The valve area by continuity equation is 1.0cm sq. No aortic regurgitation is seen.
His primary care doctor was contacted to get more information's about patient's medical history, and he reported that patient was having hemoptysis in the past but he did not follow workup. Chest radiography showed left lung mass. Scan of the chest
with contrast confirmed large left upper lobe opacity concerning for mass. Patient was seen by pulmonary doctor who recommended outpatient follow-up for biopsy. Patient did not have active respiratory complaints. Patient did not have hypoxia or
cough. Patient received intravenous antibiotic for left toe dry gangrene. He was tapered to oral cephalexin to finish 7 days course. Blood culture did not show any growth. Patient was noted to have high blood pressure and was placed back on
metoprolol. Lisinopril was added with good blood pressure control. He was noted to have hyperglycemia and hemoglobin A1c was 8.2. Patient had family history of diabetes. Patient expressed his wishes to avoid insulin treatment. He was started on
oral hypoglycemic agents gradually with good blood glucose control. He was counseled and educated regarding diabetes in addition to potential side effects of the new medications, He verbalized understanding. Patient had noncompliant issue with
medications, he verbalized understanding to the importance of medical compliance. Patient remained hemodynamically stable and was discharged with home care services in a stable condition.
Discharge Plan
-
Patient Disposition: Home with Home Care
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
Primary hypertension.
Newly diagnosed diabetes
Left lung mass, you will need to follow with lung doctor for biopsy.
You were started on new medications:
-Aspirin and Plavix as antiplatelet therapy, SE: Bleeding , gastric irritation.
-Lipitor, Lower the cholesterol
- Toprol, blood pressure medicine. Beta alvin, Potential side effects ( SE): Hypotension, low heart rate, fatigue.
- Lisinopril, blood pressure medicine, EVELYN inhibitor, SE: Hypotension, renal injury, high potassium.
- Keflex( Cephalexin): Antibiotic.
- Januvia, diabetes medicine, SE: low glucose
- Metformin, diabetes medicine, SE: acidosis.
You will need to check your blood pressure daily and keep diary to share it with your family doctor.
You will need to check your blood glucose at least twice a day and share the recording with your family doctor to adjust your medications.
Diet: As tolerated and Diabetic, Carb Controlled
Others Tests: Ultrasound: 03/24 @ 8:00am and 9:00am
Stand Alone Forms: DC Instr - Vascular OR
Referrals:
Bonita Ballesteros DO [Active] - in one to two weeks (PFT, Bronch set up)
Lynn Andrew CRNP [Specified Professional Personl] - 03/27/24 1:30 pm (Vascular follow up)
Woodrow Bynum MD [Non-Admitting Privileges] - in one to two weeks
Prescriptions:
New
aspirin 81 mg Tablet,Chewable
81 mg PO DAILY Qty: 120 0RF
clopidogrel 75 mg Tablet
75 mg PO DAILY Qty: 120 0RF
acetaminophen 325 mg Tablet
650 mg PO Q4HPRN PRN (Reason: mild pain or temp >/= 100.4 F) Qty: 10 0RF
atorvastatin 10 mg Tablet
20 mg PO QPM Qty: 30 0RF
cephalexin 500 mg Capsule
500 mg PO QID Qty: 16 0RF
metformin 1,000 mg Tablet
1,000 mg PO BID@0800,1700 Qty: 60 0RF
metoprolol succinate 25 mg Tablet Extended Release 24 Hr
25 mg PO DAILY Qty: 30 0RF
Januvia 50 mg Tablet
50 mg PO DAILY Qty: 30 0RF
lisinopril 5 mg Tablet
5 mg PO DAILY Qty: 30 0RF
tramadol 50 mg tablet
50 mg PO BID PRN (Reason: moderate to severe pain) Qty: 10 0RF
(DME) Blood Glucose Test Strip
See Rx Instructions .Route Qty: 50 0RF
Rx Instructions:
As directed
(DME) lancet-gluc xbsqw-xgjzlz-wxlpy Kit
See Rx Instructions .Route Qty: 1 0RF
Rx Instructions:
As directed
(DME) blood-glucose meter Misc
See Rx Instructions .Route Qty: 1 0RF
Rx Instructions:
As directed
Discharge Orders:
Discharge Patient (As Directed); Ordered 02/13/24
Ordered By: Kostas Pineda
Discharge Date and Time
Discharge Date/Time: 02/13/24 13:54
Print Language: MOZAMBICAN
--- NOTE | 2024-02-13 11:46 | W.PN.PUL.V3 ---
Today's Communication / Plan
-
Stable for proposed discharge
Outpatient pulmonary follow-up
Assessment
-
Patient is a 73 year old male with history of CAD, former smoker who presented to the ER with left toe turning black. Patient reported that it started as a small black spot then increased to whole toe. Admitted 02/10/24 and underwent angiogram
02/10/24 showing dry gangrene of L 1st toe. Incidentally noted to have abnormal CXR with ADRIAN opacification. We are consulted for evaluation 02/11/24.
Incidental ADRIAN opacification on CXR
L 1st toe dry gangrene
Mild-mod on ECHO, murmur on exam
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
CAD s/p stent
Former smoker
Plan
Respiratory status stable
Supplemental oxygen as needed-currently on room air
Nebulizers as needed-currently not bronchospastic
Aspiration precautions
Incentive spirometry
Denies history of lung disease in past, former smoker of about 40 pack years, quit in 2014 but never underwent yearly screening.
Denies family history of lung cancer.
CXR showing incidental finding
CT chest obtained confirmed large ADRIAN opacity concerning for mass. He denies any active lung complaints.
We reviewed need for biopsy, this can be arranged as OP as earliest place on schedule can be done likely late next week
He was in agreement with this
L toe gangrene s/p vasc eval
Podiatry evaluation ongoing
CAD history
Murmur noted on exam
ECHO results are reviewed indicating mild-mod
Needs outpatient cardiac FU
Smoking history noted
Will need outpatient pulmonary evaluation in our office for PFTs and 6MWT
Can discharge post procedure and evaluate for biopsy as OP
Diagnostic Data
Chest X-Ray: 02/11/24- Approximate 10 cm homogeneous opacity occupying a majority of the apex of the left chest without prior chest radiograph for comparison. Findings could represent a mass. Chest CT with IV contrast recommended for more complete
evaluation.
CT Scan: 02/11/2024-Approximate 10 cm 'mass' in the left upper chest with differential slightly low attenuation densities within, slightly greater density centrally than peripherally and which extends to the left hilum. Unfortunately, as a result of
the size of this lesion, determining the exact origin and etiology is somewhat limited, pleural versus parenchymal based. Although this may represent a large lesion such as an atypical hematoma, both benign and malignant masses are also possible
including mesenchymal tumors as there appears to be a few small left hilar lymph nodes. Hemorrhage into a lesion is also possible.
Echo: 02/11/24- Normal left ventricular size and systolic function. No regional wall motion abnormalities are seen. LV ejection fraction is 60-65% by Roblero's method of discs. Mild concentric left ventricular hypertrophy. Normal diastolic function.
Normal right ventricular size. Normal right ventricular systolic function. Normal atria. Mild mitral regurgitation. Thickened aortic valve with restricted leaflet motion. Mild to moderate aortic stenosis. Peak/mean gradients are 32/17mmHg. The valve
area by continuity equation is 1.0cm sq. No aortic regurgitation is seen. Trace tricuspid regurgitation. Estimated pulmonary artery pressure of 20-25 mmHg. Assuming a right atrial pressure of 3 mmHg. No prior study for comparison.
Reports and relevant images were personally reviewed.
Subjective Data
-
Date of Service:
Date of Service: February 13, 2024
Chief Complaint: Pulmonary Follow Up, Dyspnea Follow Up and Other (Lung mass)
Subjective:
No complaints of worsening shortness of breath, chest congestion, minimal hemoptysis, no abdominal pain
Review of Systems
General: Other (Per HPI)
Objective Data
Data Reviewed
Vital Signs / I&O:
Vital Signs
Temp Pulse Resp BP Pulse Ox
98.7 F 63 16 147/66 97
02/13/24 07:15 02/13/24 08:43 02/13/24 07:15 02/13/24 08:43 02/13/24 08:42
Intake and Output
02/12/24 02/13/24 02/14/24
06:59 06:59 06:59
Intake Total 480 / 480 1080 / 1080
Balance 480 / 480 1080 / 1080
SaO2: 97
Physical Exam
General: Respiratory Distress (n) and Comfortable
HEENT: Normocephalic, Anicteric and Moist Mucous Membranes
Cardiovascular: Regular Rhythm
Respiratory: Wheeze (n), Crackles (Few basilar), Rhonchi ( few expiratory), Non-Labored Respirations, Accessory Resp Muscle Use (n) and Stridor (n)
GI: Soft, Non Distended and Non Tender
Neurology: Awake, Alert and No Motor Deficits
Skin: Warm, Good Color, Cyanosis (n), Jaundice (n) and Rash (n)
Labs/Micro/Reports
Lab Data
02/12/24 06:55
02/12/24 06:55
Microbiology
02/10/24 19:46 Blood/Venous Blood Culture - Preliminary
No Growth in 48 hours- Final report to follow
[2024-02-13 11:53] LABS: Glucose - Point of Care 196 mg/dl (70-99)
[2024-02-13] MEDS: KEFLEX 500 MG PO (13:35)
== END 2024-02-13 13:54 | disposition home health service (06) | DRG 253 ==
LOC: 4 EAST ACU 13:30
PROVIDERS: Physician Assistant; ADMITTING PHYSICIAN Internal Medicine; CONSULT PHYSICIAN Internal Medicine; CONSULT PHYSICIAN Podiatrist; EMERGENCY PHYSICIAN Emergency Medicine; OTHER PHYSICIAN Surgery Vascular Surgery
PROC: 047D34Z Dilation of Left Common Iliac Artery with Drug-eluting Intraluminal Device, Percutaneous Approach (ICD-10-PCS; 2024-02-10)
PROC: 047Q3ZZ Dilation of Left Anterior Tibial Artery, Percutaneous Approach (ICD-10-PCS; 2024-02-10)
PROC: 047L35Z Dilation of Left Femoral Artery with Two Drug-eluting Intraluminal Devices, Percutaneous Approach (ICD-10-PCS; 2024-02-10)
PROC: 047U3ZZ Dilation of Left Peroneal Artery, Percutaneous Approach (ICD-10-PCS; 2024-02-10)
PROC: 0Y6Q0Z0 Detachment at Left 1st Toe, Complete, Open Approach (ICD-10-PCS; 2024-02-10)
PROC: 047N3ZZ Dilation of Left Popliteal Artery, Percutaneous Approach (ICD-10-PCS; 2024-02-10)
PROC: B41D1ZZ Fluoroscopy of Aorta and Bilateral Lower Extremity Arteries using Low Osmolar Contrast (ICD-10-PCS; 2024-02-11)
DX: E11.52 Type 2 diabetes mellitus with diabetic peripheral angiopathy with gangrene (principal); E87.1 Hypo-osmolality and hyponatremia; I70.262 Atherosclerosis of native arteries of extremities with gangrene, left leg; Z87.891 Personal history of nicotine dependence; I10 Essential (primary) hypertension; E11.65 Type 2 diabetes mellitus with hyperglycemia; R91.8 Other nonspecific abnormal finding of lung field; K31.89 Other diseases of stomach and duodenum
CPT/HCPCS: 88305; 88311; 37221; 37226; 37228; 37232; 71046; 71260; 73630; 75625; 75716; 76937; 80048; 80053; 82962; 83036; 85025; 85027; 85610; 85730; 87040; 93306; 93922; 99285; C1725; C1760; C1769; C1874; C1887; C1894; Q9967

== ENCOUNTER 2024-03-01 11:29 | Inpatient (IN) | payer OTHER, SELFPAY ==
[2024-03-01] VITALS (14 sets, daily range): BP systolic 99–170; BP diastolic 55–112; BMI 24.2; BMI 23.6
--- NOTE | 2024-03-01 09:32 | EDRN ---
Dr. Emmanuel in room w/pt at this time.
--- NOTE | 2024-03-01 09:40 | ED.GENMED ---
History of Present Illness
General
Chief Complaint: Chest Pain
Time Seen by Provider: 03/01/24 09:13
History of Present Illness
History of Present Illness:
Patient is a 73-year-old male with history of CAD status post stents, diabetes, recent admission for dry gangrene of his left first toe status post amputation on February 10, angioplasty and stent placement of the left superficial femoral artery/left
common iliac artery, lung mass presenting to the emergency department with chest pain. Patient states that this morning around 3 AM he was trying to go to sleep when he developed midsternal pressure. It did not radiate anywhere. He tried to wait
for the pain to get better however it did not so he called medics this morning around 7 AM. He states that the pain was about 6 out of 10. He was given aspirin and nitro with some improvement to about 2 out of 10. No shortness of breath nausea
vomiting diaphoresis. No radiation. This does feel similar to when he needed the stents placed back in 2014. No leg swelling Hemoptysis orthopnea. No shortness of breath. He has not seen his senior business manager in a few years. Of note he also had a
left great toe amputation on February 10 by podiatry. He states that has been red with some drainage for the past few days. Has been having some pain. No fevers or chills.he has been compliant with the antibiotics he was post to take after discharge
Phy Exam
Physical Exam
Physical Exam:
GENERAL: in no acute distress, pale
HEENT: normocephalic, extraocular movements intact, moist oral mucosa
NECK: normal inspection
RESPIRATORY: no respiratory distress, clear to auscultation bilaterally
CARDIOVASCULAR: regular rate and rhythm, 2+ radial pulses bilaterally
ABDOMEN/: soft, non-distended, non-tender to palpation, no rebound or guarding
EXTREMITIES: Left foot with open wound over the left great toe amputation with surrounding erythema and some purulent drainage. No crepitus. Foot is warm. Cap refill is normal
NEUROLOGIC: awake and alert, moves all extremities
SKIN: warm
Scores
Heart Score for Chest Pain Patients
STEMI patient?: No
History: Slightly or Non-Suspicious
ECG: Significant ST-Depression
Age: >/= 65 years
Risk Factors: >/= 3 Risk Factors or History of CAD
Troponin: >1 - <3 x Normal Limit
Heart Score for Chest Pain Patients: 7
Heart Score Risk: 72.7 % MACE over next 6 weeks
Course
Orders/Labs/Results
Orders:
Orders
03/01/24 09:14
Electrocardiogram (*1) Urgent
Reason for Study: Chest Pain
Cardiac Monitoring- Treatment ONCE
EKG- Treatment ONCE
IV Insert/Care/Rem.- Treatment PRN
03/01/24 09:24
Type+Screen Urgent
Complete Blood Count/With Diff Urgent
Comprehensive Metabolic Panel Urgent
Troponin I Urgent
03/01/24 09:35
CR Chest - 2 Views Urgent
Comment:
Reason For Exam: chest pain
CR Foot - Left 2 Views Urgent
Comment:
Reason For Exam: wound, toe pain s/p amputation
03/01/24 09:54
Cefepime HCl [Maxipime] 2,000 mg IV NOW STA
03/01/24 10:18
Vancomycin [Vancocin] 2,000 mg 0.9% Sodium Chloride 500 ml [Nss] 500 ml IV NOW
03/01/24 10:24
Lactic Acid Urgent
Blood Culture Urgent
JOSHUA Source: Blood/Venous
Specimen Description:
03/01/24 10:33
PTT Urgent
Comment: Obtain baseline before beginning heparin infusion if not already collected
Heparin 4,000 units IV NOW STA
Pharmacy Request to Place See Dose Instructions PO NOW STA
Discontinue all Active Warfarin orders?: Yes
Nursing to Place Non Medication Order As Directed
Physician Order: PTT 6 hours after initial start of Heparin infusion
03/01/24 10:45
Heparin 24216 Units/250 ml 25,000 units in 250 ml IV PER PROTOCOL
Weight to be used for heparin protocol in kilograms (kg):: 81
Protocol:: Cardiac Tx/Acute Coronary
PTT Goal Range to be used:: PTT 73 to 111 seconds
Order type:: Initial
INITIAL Infusion Dose (UNITS/KG/hr) & then follow protocol:: 12 units/kg/hr
Infusion Dose in UNITS/hr & then follow protocol (UNITS/hr):: 950
INFUSION RATE in mL/hr & then follow protocol (mL/hr):: 9.5
PTT less than or equal to 64 seconds:: Increase rate by 200 units/hr (+ 2 mL/hr)
PTT 64.1 to 72.9 seconds:: Increase rate by 100 units/hr (+ 1 mL/hr)
PTT 73 to 111 seconds:: Target Range. No change in rate.
PTT 111.1 to 130.9 seconds:: Decrease rate by 100 units/hr (- 1 mL/hr)
PTT 131 to 199.9 seconds:: HOLD for 1 hr. Then decrease rate by 200 units/hr (- 2 mL/hr)
PTT greater than or equal to 200 seconds:: HOLD for 2 hrs & Notify Provider. Then decrease by 200 units/hr (-
2 mL/hr)
Lab follow-up:: Each change, PTT q6h until 2 consecutive are therapeutic. Then PTT
daily.
03/01/24 11:[address] See Dose Instructions IV DIRECTED
Abnormal Lab Results
03/01/24
09:24
WBC 18.4 H 10^3/uL
(4.8-10.8)
RBC 3.41 L 10^6/uL
(4.70-6.10)
Hgb 8.5 L g/dL
(13.0-18.0)
Hct 26.3 L %
(39.0-52.0)
MCV 77.1 L fL
(80.0-94.0)
MCH 24.9 L pg
(27.0-31.0)
MCHC 32.3 L g/dL
(33.0-37.0)
RDW 15.0 H %
(11.5-14.5)
Plt Count 604 H 10^3/uL
(130-400)
Abs Immat Gran (auto) 0.1 H 10^3/uL
(0-0.05)
Absolute Neuts (auto) 10.8 H 10^3/uL
(1.4-6.5)
Absolute Lymphs (auto) 5.8 H 10^3/uL
(1.2-3.4)
Absolute Monos (auto) 1.1 H 10^3/uL
(0.1-0.6)
Sodium 131 L mmol/L
(135-145)
Glucose 234 H mg/dl
(70-99)
Troponin I 0.078 H* ng/ml
Albumin 3.4 L g/dl
(3.5-5.0)
03/01/24 09:24
03/01/24 09:24
Vital Signs
Initial and Last Documented VS:
Initial Vital Signs
Temp Pulse Resp BP Pulse Ox
97.9 F 85 16 114/99 98
03/01/24 09:15 03/01/24 09:15 03/01/24 09:15 03/01/24 09:15 03/01/24 09:15
Last Documented Vital Signs
Temp Pulse Resp BP Pulse Ox
97.9 F 74 10 99/64 100
03/01/24 09:15 03/01/24 10:04 03/01/24 10:04 03/01/24 10:03 03/01/24 10:04
MDM/Problems Addressed
Differential Diagnosis Includes:
73-year-old male with medical comorbidities including diabetes, CAD with stents, recent angioplasty/stent placement, recent left great toe amputation, new lung mass presenting to the emergency department with chest pain and foot pain. Vitals are
unremarkable and exam does show normal regular rate and rhythm with 2+ radial pulses. On exam of the amputation site it is an open wound with surrounding erythema and purulent drainage with some tenderness but no crepitus. Chest pain does concern
me for ACS or NSTEMI. EKG per my interpretation with lateral depressions. History and exam not consistent with dissection. Less likely to be PE as he is not hypoxic or tachycardic. Could be from anemia given he does appear pale. I am concerned
about an ongoing infection of the amputation site with possible osteomyelitis. Unclear of how long it has been open 4. Will check blood work as well as chest x-ray and foot x-ray. Will discuss with podiatry. Patient will need admission
*Critical Care Note
Total Time (30-74mins, 75-104mins- exclusive of procedures): Not Applicable
Update Note
Update Note:
Blood work is notable for leukocytosis. Will give him IV antibiotics. His hemoglobin is 8.5 which is downtrending. He does not meet criteria for transfusion at this time.
Chest x-ray per my interpretation with stable left lung mass. X-ray of the foot without any gas or signs of osteomyelitis. I did notify podiatry.
Troponin is elevated. No prior to compare to. Given the EKG changes concern for NSTEMI. Discussed with DCA. Heparin started. Discussed with medicine who accepted patient for admission.
ED Attending Note
-
Portions of this chart may have been created with voice recognition software.� Occasional wrong word or��sound alike� substitutions may have occurred due to the inherent limitations of voice recognition software.
Discharge Plan
Departure
Patient Disposition: Admit
Date of Disposition: 03/01/24
Time of Disposition: 10:37
Admit to doctor: Lore
Presentation/result/management discussed w/ accepting MD/DO: Hospitalist
Discharge Problem:
Amputation stump infection, Acute non-ST elevation myocardial infarction (NSTEMI)
Prescriptions:
No Action
aspirin 81 mg Tablet,Chewable
81 mg PO DAILY Qty: 120 0RF
clopidogrel 75 mg Tablet
75 mg PO DAILY Qty: 120 0RF
acetaminophen 325 mg Tablet
650 mg PO Q4HPRN PRN (Reason: mild pain or temp >/= 100.4 F) Qty: 10 0RF
metformin 1,000 mg Tablet
1,000 mg PO BID@0800,1700 Qty: 60 0RF
metoprolol succinate 25 mg Tablet Extended Release 24 Hr
25 mg PO DAILY Qty: 30 0RF
Januvia 50 mg Tablet
50 mg PO DAILY Qty: 30 0RF
lisinopril 5 mg Tablet
5 mg PO DAILY Qty: 30 0RF
atorvastatin 10 mg tablet
20 mg PO DAILY
Referrals:
Woodrow Bynum MD [Family Provider] -
Interventions
Interventions:
*Risk Screen - Suicide Last Done: 03/01/24 09:15
*General Assessment Last Done: 03/01/24 09:15
*Neglect/Abuse Screening Last Done: 03/01/24 09:15
ED- Fall Risk Assessment Last Done: 03/01/24 09:15
*ED COVID-19 Vaccine History Last Done: 03/01/24 09:23
ED- Cardiac Assessment Last Done: 03/01/24 09:30
Discharge Date and Time
Print Language: KAZAKH
[2024-03-01 09:41] LABS: % Basophils 0.8 % (0-2); % Eosinophils 2.4 % (0-6); % Immature Granulocytes 0.5 % (0-0.5); % Lymphocytes 31.6 % (20.5-51.1); % Neutrophils 58.7 % (42.2-75.2); Absolute Basophils 0.1 10^3/uL (0-0.2); Absolute Eosinophils 0.5 10^3/uL (0-0.7); Absolute Immature Granulocytes 0.1 10^3/uL (0-0.05); Absolute Lymphocytes 5.8 10^3/uL (1.2-3.4); Absolute Monocytes 1.1 10^3/uL (0.1-0.6); Absolute Neutrophils 10.8 10^3/uL (1.4-6.5); Hematocrit 26.3 % (39.0-52.0); Hemoglobin 8.5 g/dL (13.0-18.0); Mean Corp Hgb Conc. 32.3 g/dL (33.0-37.0); Mean Corpuscular Hgb 24.9 pg (27.0-31.0); Mean Corpuscular Volume 77.1 fL (80.0-94.0); Mean Platelet Volume 8.3 fL (7.4-10.4); Nucleated Red Blood Cells % 0 % (-); Platelet Count 604 10^3/uL (130-400); Red Blood Cell Count 3.41 10^6/uL (4.70-6.10); White Blood Cell Count 18.4 10^3/uL (4.8-10.8)
[2024-03-01 09:47] LABS: ALT (SGPT) 19 U/L (0-50); AST (SGOT) 25 U/L (17-59); Albumin 3.4 g/dl (3.5-5.0); Alkaline Phosphatase 91 U/L (38-126); Blood Urea Nitrogen 20 mg/dl (9-20); Calcium 9.1 mg/dl (8.4-10.2); Carbon Dioxide 24 mmol/L (22-30); Chloride 100 mmol/L (98-107); Estimated Creatinine Clearance 93 ml/min; Glucose 234 mg/dl (70-99); Potassium 4.6 mmol/L (3.5-5.1); Sodium 131 mmol/L (135-145); Total Bilirubin 0.6 mg/dl (0.2-1.3); Total Protein 6.5 g/dl (6.3-8.2); eGFR > 60.00
[2024-03-01 10:03] LABS: Troponin I 0.078 ng/ml
--- NOTE | 2024-03-01 10:33 | WOUNDNOTE ---
WOUND/SKIN CARE NOTE: Pt identified by name and .
L great toe area 2 weeks post amputation
L great toe post amputation
L great toe amputation wound
[2024-03-01] MEDS: MAXIPIME 2000 MG IV ×2 (10:42→21:30)
[2024-03-01] MEDS: VANCOCIN 540 MG IV (10:45)
[2024-03-01] MEDS: HEPARIN 4000 UNITS IV (10:50)
--- NOTE | 2024-03-01 10:59 | EDRN ---
Dr. Bowers in room w/ pt
[2024-03-01 11:00] LABS: Lactic Acid 1.6 mmol/L (0.7-2.0)
--- NOTE | 2024-03-01 11:07 | HPS.HSE ---
Family Physician
-
Family Physician: Woodrow Bynum
Chief Complaint
-
Chest pain
History of Present Illness
Patient 73 years old male with history of PVD, CAD, diabetes mellitus, hypertension, hyperlipidemia, presented to the hospital with chest pain and found elevated troponin. Patient was recently in the hospital with a left first toe dry gangrene
status post amputation left hallux and was discharged home on 02/12. Patient tells me he had chest pain since last night, moderate to severe intensity, pressure-like on mid sternum, no radiation, associated with shortness of breath, no nausea
vomiting or palpitations or diaphoresis or syncope. Patient also has been dealing with left toe erythema with purulent discharge right after recent amputation and podiatry as outpatient has recommended that he might require further debridement and
might need hospitalization as well. He denies fevers or chills. He currently still has chest pain and has been initiated on heparin drip and cardiology consulted. He was referred to hospitalist for further evaluation.
Medical History
Past Medical History
Past Medical History: Reports Other (Hypertension, hyperlipidemia diabetes mellitus type 2, PVD, probable CAD, recent left toe gangrene.)
Past Surgical History: Reports Other (Left hallux amputation, lower extremities revascularization.)
Social History
Tobacco: Former Smoker
Alcohol: Former
Drug: None
Personal: Single
Living: Alone
Employment: Retired
Family History
Family History: Diabetes
Allergies / Home Medications
Allergies reflects when Allergies were last updated in [employer].
Home Medications with original date entered in [employer]
Allergy/Medication List:
Allergies
Allergy/AdvReac Type Severity Reaction Status Date / Time
No Known Allergies Allergy Verified 03/01/24 09:15
Home Medications
aspirin 81 mg chewable tablet 81 mg PO DAILY #120 tabs 02/11/24
clopidogrel 75 mg tablet 75 mg PO DAILY #120 tabs 02/11/24
acetaminophen 325 mg tablet 650 mg (2 x 325 mg) PO Q4HPRN PRN mild pain or temp >/= 100.4 F #10 tabs 02/13/24
lisinopril 5 mg tablet 5 mg PO DAILY #30 tabs 02/13/24
metformin 1,000 mg tablet 1,000 mg PO BID@0800,1700 #60 tabs 02/13/24
metoprolol succinate 25 mg tablet,extended release 24 hr 25 mg PO DAILY #30 tabs 02/13/24
sitagliptin phosphate 50 mg tablet (Januvia) 50 mg PO DAILY #30 tabs 02/13/24
atorvastatin 10 mg tablet 20 mg PO DAILY 03/01/24
Review of Systems
-
A 12 point ROS was completed and negative except as noted: Yes
Physical Exam
Vital Signs
Vital Signs
Temp Pulse Resp BP Pulse Ox
97.9 F 74 10 99/64 100
03/01/24 09:15 03/01/24 10:04 03/01/24 10:04 03/01/24 10:03 03/01/24 10:04
Physical exam:
General: Acutely ill, toxic appearance
HEENT: Normocephalic, Atraumatic and Moist Mucous Membranes
Respiratory: Clear to Auscultation; Negative Wheezes, Rales or Rhonchi
Cardiac: Regular Rhythm and S1/S2
GI: Soft, Nontender and Nondistended
Musculoskeletal: Left toe with purulent discharge and erythema surrounded postop area. No Clubbing, No Cyanosis and No Edema
Neuro: Awake, Alert and Oriented, no gross neurodeficits
Psych: Calm
Physical Exam
General: Other
Laboratory Results
-
03/01/24 09:24
03/01/24 09:24
Laboratory Results
Lactic Acid 1.6 mmol/L (0.7-2.0) 03/01/24 10:24
Total Bilirubin 0.6 mg/dl (0.2-1.3) 03/01/24 09:24
AST 25 U/L (17-59) 03/01/24 09:24
ALT 19 U/L (0-50) 03/01/24 09:24
Alkaline Phosphatase 91 U/L (38-126) 03/01/24 09:24
Troponin I 0.078 ng/ml H* 03/01/24 09:24
Data Reviewed
-
Diagnostic Radiology: Image Personally Visualized and interpreted
Lab Data: Labs Reviewed by me
Impression/Plan
-
IMPRESSION:
Patient 73 years old male diabetic, recent left toe infection status post partial amputation, PVD, presented to the hospital with chest pain and elevated troponin consistent with acute non-STEMI. Patient also has features of sepsis. Patient
increased risk morbidity mortality due to acute presentation and multiple complex comorbidities therefore he will need to be treated in the hospital and manage accordingly.
PLAN:
Acute NSTEMI:
Heparin drip
If chest pain persists or recurs we will add IV nitroglycerin drip
Beta-blockers if tolerated
Dual antiplatelet aspirin plan
Statin
Keep n.p.o. for now in case he needs to go to cardiac procedure or podiatry needs to take him to the OR.
Cardiology consult-communicated with cardiology today.
Sepsis due to left toe infection:
Check blood cultures and lactate
IV antibiotics, cefepime and vancomycin
Podiatry consult-Might need further amputation down the road
He had a left hallux amputation on 02/[address] Licha Payton-I messaged both Petr and Tata today.
ID consult-texted ID today as well.
Chronic limb ischemia:
Status post vascular intervention on 02/[address] Vega
Diabetes mellitus type 2:
Insulin sliding scale
Last hemoglobin A1c on 02/09 was 8.2
Hold oral hypoglycemics for now
Left lung mass:
Pulmonary saw him during last admission and was going to set up outpatient follow-up. I discussed with pulmonary and there has been some issues with follow-up so that is better to have them on board to iron things out during this hospital stay. I
discussed with pulmonary to have them see him outpatient but they prefer to see him as an inpatient.
Pulm consult as above.
Hypertension:
Continue home antihypertensives.
Monitor blood pressure and adjust medications accordingly.
Hyperlipidemia:
Continue home statins
DVT prophylaxis:
Heparin drip
CODE STATUS:
Full code
Time spent 75 minutes
[2024-03-01 11:16] LABS: APTT 28.1 Sec (23.4-35.0)
[2024-03-01] MEDS: HEPARIN 25000 UNITS/250 ML IV (11:22)
[2024-03-01] MEDS: NSS 1000 IV ×2 (11:41→21:29)
--- NOTE | 2024-03-01 11:47 | EDRN ---
Blue top for PTT lab tube was labeled as drawn at 920.
--- NOTE | 2024-03-01 11:53 | CON.CAR ---
Addendum entered and electronically signed by Patrick Mooney MD 03/01/24 17:04:
I personally performed a history and physical exam of the patient and discussed management with the resident. I reviewed the resident's note and agree with the documented findings and plan of care HPI/CC.
Addendum entered and electronically signed by Patrick Mooney MD 03/01/24 16:56:
I saw and examined the patient.
The Market Developer's note was reviewed and I agree with the note.
Comment: Briefly, 73-year-old man past medical history of coronary artery disease with prior PCI, PAD, recent hospitalization for toe amputation who presents following an episode of substernal chest discomfort
Patient tells me that this morning he developed substernal chest pain which improved with nitroglycerin
Troponin was found to be mildly elevated 0.078 and then trended down to 0.075
Twelve-lead ECG with nonspecific ST changes
Limited echo today with hypokinesis of the septum which is new from prior study
Was resting comfortably at the time of my exam without ongoing chest discomfort
Cont medical management with aspirin/plavix, statin, beta-alvin and heparin drip
Will discuss timing of ischemic evaluation given that he is planned for debridement of his foot wound and also requires biopsy of a large lung mass
Original Note:
Consultation
Consultation Request
Date/Time Consultation Requested: 03/01/24
Date/Time Consultation Performed: 03/01/24
Requesting Provider:
Performing Provider:
Medical History
-
Chief Complaint: chest pain
History of Present Illness:
This is a 73 year old male patient with PMH of PAD, cardiac stent 2016, NIDDM, recent admission for dry gangrene of his left first toe status post amputation on 02/10, cardiac stent in 2016 and stent placement of the left superficial femoral
artery/left common iliac artery in 2017, lung mass with concerns of chest pain. He states that at 3AM he started to feel midsternal chest pain while sleeping which he described as a dull ache. He called EMS and felt that his chest pain improved upon
being given nitroglycerin. He also has concerns of left big toe pain. He denies CP, palpitations, SOB on exertion or dizziness.
His troponin was elevated at 0.078. Cardiology consulted.
Past Medical History
Past Medical History: CAD, NIDDM and Other (PAD)
Past Surgical History: Cardiac (cardiac stent in 2016 and stent placement of the left superficial femoral artery/left common iliac artery in 2017) and Other (hx of lung mass found recently)
Social History
Tobacco: Former Smoker
Alcohol: Occasional
Family History
Family History: Reviewed & Not Pertinent
Allergies / Home Medications
Allergy/AdvReac Type Severity Reaction Status Date / Time
No Known Allergies Allergy Verified 03/01/24 09:15
�Medication �Instructions �Recorded �Confirmed �Type
acetaminophen 325 mg tablet 650 mg (2 x 325 mg) PO Q4HPRN PRN 02/13/24 03/01/24 Rx
mild pain or temp >/= 100.4 F #10
tabs
aspirin 81 mg chewable tablet 81 mg PO DAILY Blood Clot 03/01/24 03/01/24 History
Prevention/Tx
atorvastatin 10 mg tablet 20 mg PO DAILY High Cholesterol 03/01/24 03/01/24 History
clopidogrel 75 mg tablet 75 mg PO DAILY Blood Clot 03/01/24 03/01/24 History
Prevention/Tx
lisinopril 5 mg tablet 5 mg PO DAILY Blood Pressure 03/01/24 03/01/24 History
metformin 1,000 mg tablet 1,000 mg PO BID@0800,1700 Diabetes 03/01/24 03/01/24 History
metoprolol succinate 25 mg 25 mg PO DAILY Blood Pressure 03/01/24 03/01/24 History
tablet,extended release 24 hr
sitagliptin phosphate 50 mg tablet 50 mg PO DAILY Diabetes 03/01/24 03/01/24 History
(Januvia)
Review of Systems
-
Respiratory: No Symptoms
Cardiac: No Symptoms
Abdomen/GI: No Symptoms
Musculoskeletal: Other (left hallux toe pain)
Physical Exam
Vital Signs
Temp Pulse Resp BP Pulse Ox
97.9 F 69 17 122/87 99
03/01/24 09:15 03/01/24 11:15 03/01/24 11:15 03/01/24 11:00 03/01/24 11:15
Lab Results
03/01/24 09:24
03/01/24 09:24
Troponin I 0.078 ng/ml H* 03/01/24 09:24
Physical Exam
General: No Apparent Distress
Respiratory: Clear
Cardiac: S1/S2 and Regular Rhythm
GI: Soft, Non Tender and Non Distended
Musculoskeletal: No Clubbing, No Edema and Other (Left foot with open wound over the left great toe amputation)
Skin: Warm and Dry
Neuro: Awake, Alert and Oriented
Psych: Calm
Impression / Plan
-
Impression: This is a 73 year old male patient with PMH of PAD, cardiac stent 2016, NIDDM, recent admission for dry gangrene of his left first toe status post amputation on 02/10, cardiac stent in 2016 and stent placement of the left superficial
femoral artery/left common iliac artery in 2017, lung mass with concerns of chest pain. He states that at 3AM he started to feel midsternal chest pain while sleeping which he described as a dull ache. He called EMS and felt that his chest pain
improved upon being given nitroglycerin. He also has concerns of left big toe pain. He denies CP, palpitations, SOB on exertion or dizziness.
His troponin was elevated at 0.078. Cardiology consulted.
Assessment:
NSTEMI
Elevated Trop
Left great toe amputation
ADRIAN Lung Mass
PAD
Cardiac stent 2015
Echo on 01/2024: LV ejection fraction is 60-65% by Roblero's method of discs. Mild concentric left ventricular hypertrophy. Mild mitral regurgitation.Mild to moderate aortic stenosis. Trace tricuspid regurgitation. Estimated pulmonary artery pressure
of 20-25 mmHg.
Plan:
- EKG on adm: NSR, ST wave abnormality
- Trend trop ( currently trending down)
- Will try to obtain records regarding stent placement in [facility]
- Continue ASA, statin, lisinopril, metoprolol, plavix, heparin
- Currently asymptomatic regarding chest pain
- Consider catheterization but need to assess lung mass initially as this may be possible partial cause of chest pain
- Limited echo ordered and pending for possible wall motion abnormality
--- NOTE | 2024-03-01 12:20 | EDRN ---
Buttocks were reddened and blanchable. Pt complaining of buttock pain on stretcher since 11:00. Pt stood up twice to relieve the pain in his buttocks.
--- NOTE | 2024-03-01 13:26 | PHA.VAN.IN ---
Assessment
- Assessment
Renal Function: Appears similar to baseline
Concomitant Antimicrobials: cefepime
AUC Dosing Plan
- Dosing Variables
Dosing Weight (kg): 81
Dosing CrCl (ml/min): 93
Vd coefficient (L/kg): 0.7
- Empiric Dosing
Initial / Loading Dose: 2000mg - 03/01 10:45
Maintenance Regimen: Vanc 1000mg Q12H - first dose at 2000 then 03/02 0600
Estimated AUC (mcg*h/mL): 450
Estimated Peak (mcg*h/mL): 28.2
Estimated Trough (mcg/ml): 11.5
Estimated Half Life (H): 8.5
- Monitoring
No levels ordered at this time: consider levels in next few days
Pharmacokinetics Vancomycin I
- -
Patient Age: 73
Patient Sex: Male
Vancomycin Day #: 1
Indication: Skin And Soft Tissue
Requesting Provider: Dr. Chavira
Pertinent Antimicrobial Allergies:
NKDA
Height / Weight:
Height 6 ft
Actual Weight 81 kg
Pertinent Past Medical History: DM
- Vital Signs / Lab Results
Temp Pulse Resp BP Pulse Ox
97.9 F 69 16 148/57 97
03/01/24 09:15 03/01/24 13:00 03/01/24 13:00 03/01/24 13:00 03/01/24 13:00
Lab Results - Hematology
03/01/24
09:24
WBC 18.4 H
Lab Results - Chemistry
03/01/24
09:24
BUN 20
Creatinine 0.8
Estimated Creat Clear 93
Albumin 3.4 L
03/01/24
10:24
Lactic Acid 1.6
Microbiology Results
03/01/24 10:56 Gram Stain - Preliminary
Abscess
[2024-03-01 13:38] LABS: Glucose - Point of Care 169 mg/dl (70-99)
[2024-03-01 13:39] LABS: Troponin I 0.075 ng/ml
--- NOTE | 2024-03-01 14:40 | CON.PUL ---
Consultation
Consultation Request
Date/Time Consultation Requested: 03/01
Date/Time Consultation Performed: 03/01
Reason for Consultation: Abnormal imaging
Medical History
-
History of Present Illness:
History obtained from the chart, patient and reviewing outpatient records. Patient is a pleasant 73-year-old male who was recently hospitalized January 2024, discharged 02/13/2024, treated for left first toe dry gangrene. At that time, patient was
found to have left upper lobe mass, was to follow-up as outpatient for further testing, biopsy. Unfortunately canceled his visit on 02/23, and then was readmitted 03/01 when he presented with increased midsternal chest pressure. There was no
radiation. He called EMS. Was given aspirin, nitroglycerin. Patient states chest discomfort is similar to prior stent placement in 2014. He has persistent left lung mass, we are asked to comment on this. Throughout this he denies fevers,
chills, sweats he admits to mild intermittent hemoptysis which has been present for the last few weeks. Denies any falls, syncope, diarrhea, nausea, abdominal pain. He is lost 100 pounds over the last year, initially intentionally but this
continues. Review of systems otherwise negative
.
PMH: History of peripheral arterial disease, angioplasty/stent with left superficial femoral artery and iliac artery, recent left first toe gangrene status post amputation 02/10, history of coronary disease with stents in 2014, hypertension,
hyperlipidemia, diabetes.
Past Medical History
Past Medical History: None (See above)
Past Surgical History: None (See above)
Social History
Tobacco: Former Smoker (20+ pack-year, quit 2017)
Alcohol: Former (None for past 7 to 8 years)
Drug: None
Personal: Single
Living: Alone
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
Family History
Family History: Other (No children. Father 80s decade from staphylococcal infection/sepsis, mother Alzheimer's dementia 90+. 1 brother healthy)
Allergies / Home Medications
Allergies
Allergy/AdvReac Type Severity Reaction Status Date / Time
No Known Allergies Allergy Verified 03/01/24 09:15
Home Medications
�Medication �Instructions �Recorded �Confirmed �Last Taken �Type
acetaminophen 325 mg tablet 650 mg (2 x 325 mg) PO Q4HPRN PRN 02/13/24 03/01/24 02/29/24 Rx
mild pain or temp >/= 100.4 F #10
tabs
aspirin 81 mg chewable tablet 81 mg PO DAILY Blood Clot 03/01/24 03/01/24 03/01/24 History
Prevention/Tx
atorvastatin 10 mg tablet 20 mg PO DAILY High Cholesterol 03/01/24 03/01/24 03/01/24 History
clopidogrel 75 mg tablet 75 mg PO DAILY Blood Clot 03/01/24 03/01/24 03/01/24 History
Prevention/Tx
lisinopril 5 mg tablet 5 mg PO DAILY Blood Pressure 03/01/24 03/01/24 03/01/24 History
metformin 1,000 mg tablet 1,000 mg PO BID@0800,1700 Diabetes 03/01/24 03/01/24 03/01/24 History
metoprolol succinate 25 mg 25 mg PO DAILY Blood Pressure 03/01/24 03/01/24 03/01/24 History
tablet,extended release 24 hr
sitagliptin phosphate 50 mg tablet 50 mg PO DAILY Diabetes 03/01/24 03/01/24 03/01/24 History
(Januvia)
Review of Systems
-
All other systems: Negative unless noted
Vitals / Labs / Diagnostic Testing
Vital Signs
Temp Pulse Resp BP Pulse Ox
98.0 F 69 16 148/57 97
03/01/24 13:28 03/01/24 13:00 03/01/24 13:00 03/01/24 13:00 03/01/24 13:00
Lab Data
03/01/24 09:24
03/01/24 09:24
Laboratory Results
03/01/24
10:56
APTT 28.1
Microbiology
03/01/24 10:56 Abscess Gram Stain - Preliminary
Diagnostic Testing:
Physical Exam
-
HEENT: Normocephalic and Anicteric
Cardiovascular: S1/S2, Regular Rhythm, Murmur ( 2/6 systolic murmur), Rub (n) and Peripheral Edema (n)
Respiratory: Wheeze (n), Rales (n), Rhonchi (n) and Non-Labored Respirations
GI: Soft, Non Distended and Non Tender
Neurology: Awake, Alert and No Motor Deficits
Skin: Good Color
General: Comfortable
Assessment
-
73-year-old male with history of peripheral arterial disease, status post recent left toe amputation, treated for diagram gain, history of coronary disease with stent placement 2014, and lower extremity PAD stents 2016 at [facility], now
presents with increased chest discomfort similar to prior cardiac pain. Patient started on heparin therapy. We are asked to comment on his pulmonary process
Acute onset midsternal chest discomfort
Elevated troponin
History of coronary disease with stent placement at [facility]
Leukocytosis
Anemia
Peripheral vascular disease
Peripheral arterial disease, stent placement lower extremity 2015 [facility]
Recent left first hallux amputation 02/11/2024
Hyponatremia
Hyperglycemia
10 cm left upper lobe mass
Mild left hilar adenopathy
Hemoptysis times few weeks
Moderate , valve area 1 cm�
Conditions present prior to admission
Hypertension/hyperlipidemia
Diabetes
20+ tobacco history, quit around 2015
100 pound weight loss over the past year
Plan/recommendations
At this time, patient is chest pain-free. He presents with acute onset chest pain this morning, found to have elevated troponin
EKG nonspecific
Presently on heparin therapy. Received aspirin and nitroglycerin in the field
History of coronary disease with stent in the past noted
Moving forward
Reviewed imaging findings with patient. He will require left upper lobe mass biopsy
At this point, I would recommend transthoracic needle biopsy.
Once he is stable from a cardiac standpoint, would like to pursue biopsy prior to discharge
patient canceled outpatient pulmonary appointment 02/23
He may require additional testing in the future such as bronchoscopy but outpatient PET scan will eventually need to be obtained
Reviewed with patient high suspicion for cancer
This also predisposes him to high risk for thromboembolic disease
Check lower extremity Dopplers bilaterally
He remains on heparin therapy
Recent echocardiogram normal RV size function, normal PA pressure
Follow blood sugars
Antibiotics per primary service
Reviewed with patient, primary service, interventional radiology
We will follow
[2024-03-01] MEDS: NOVOLOG FLEXPEN-MODERATE RESISTANCE 1 UNITS SC (14:41)
--- NOTE | 2024-03-01 15:32 | WOUNDNOTE ---
[facility] RN NOTE: Received new consult for left great toe amputation wound. Picture and chart reviewed. At time of assessment patient was about to be transported to [facility]. Dressing was clean, dry and intact. Patient states he follows with Dr. Payton as
an outpatient. A podiatry consult has been ordered for this admission. Plan is for [facility] RN to follow up with patient tomorrow. Will confirm order for Dakins and dry dressing with hospitalist until assessment. WINNIE Borden given update.
--- NOTE | 2024-03-01 16:49 | W.PN.UPDATE ---
Update Note
Progress Note Update
Patient seen at bedside
-Will plan for operative debridement, partial 1st ray amputation tomorrow
-Hold Heparin at 0500
-Strict glycemic control
-ID consult for IV ABx recommendations
-NPO after midnight
[2024-03-01] MEDS: DAKIN'S SOLUTION 0.125% 1/4 STRENGTH TOPICAL (17:19)
[2024-03-01 17:26] LABS: Glucose - Point of Care 141 mg/dl (70-99)
[2024-03-01] MEDS: NOVOLOG FLEXPEN-MODERATE RESISTANCE SC (17:27)
--- NOTE | 2024-03-01 17:28 | PTCARENOTE ---
Received patient from ED into room 3354 approx 1300. Patient is aaox3, pleasant. Heparin gtt infusing per protocol, see flowsheet. Pt denies any chest pain or foot pain. Care performed to wound from L amputated great toe. Patient asking for a diet.
Confirmed with all providers patient is not going for any procedure tonight. Pt given diet. Pt is tentatively going to OR tomorrow per Podiatry, order to hold Heparin at 0500. Assessment, care and VS as charted.
[2024-03-01 17:42] LABS: APTT 41.1 Sec (23.4-35.0)
[2024-03-01 17:51] LABS: Troponin I 0.069 ng/ml
[2024-03-01] MEDS: VANCOCIN 200 IV (20:15)
--- NOTE | 2024-03-01 20:24 | CON.ID ---
Consultation
-
Date/Time Consultation Requested: 03/01/24 13:06
Date/Time Consultation Performed: 03/01/25 17:07
Requesting Provider: Dr Chavira
Performing Provider: Dr Goss
Reason for Consultation: toe infection
Chief Complaint / Past History
Chief Complaint
chest pain
History of Present Illness
Mr Cotton is a 73 year old male with history of PVD/CAD, left upper lobe lung mass undergoing workup, diabetes mellitus, who presented to the hospital with chest pain. He had a recent admission for left first toe dry gangrene status post
amputation left hallux and was discharged home on 02/12. On arrival he reported chest pain constant since the night before , moderate/severe ub intensity, pressure-like on mid sternum without radiation. Also associated with shortness of breath. He
had no nausea vomiting or palpitations or diaphoresis or syncope. Reports 100 lb weight loss over a year - ongoing.
Of note patient also has left toe erythema with purulent discharge at the surgical site and dehiscence of the site. Reportedly his choker hooker has recommended further debridement. He denies fevers or chills.
Past History
Additional Past Medical History:
History of peripheral arterial disease, angioplasty/stent with left superficial femoral artery and iliac artery, recent left first toe gangrene status post amputation 02/10, history of coronary disease with stents in 2014, hypertension,
hyperlipidemia, diabetes.
Additional Past Surgical History:
as above
Allergy History:
No Known Allergies Allergy (Verified 03/01/24 09:15)
Medications Reviewed: Yes
Social History
Tobacco: Former Smoker
Alcohol: None
Drug: None
Family History
Family History: Not Pertinent
Review of Systems
Review of Systems
General: Negative Fever or Chills
All systems: All other systems were reviewed and were negative
Vital Signs
Temp Pulse Resp BP Pulse Ox
98.3 F 71 21 159/68 99
03/01/24 20:09 03/01/24 19:00 03/01/24 19:00 03/01/24 18:00 03/01/24 19:00
Physical Exam
Physical Exam
Constitutional: No Acute Distress
Cardiovascular: Regular Rate and S1/S2; Negative Murmur or Rub
Pulmonary: Clear and Symmetric; Negative Wheezes, Rales or Rhonchi
Gastrointestinal: Soft, Non Tender, Non Distended and Normal Bowel Sounds
Skin: Warm and Dry; Negative Rash or Jaundice
Wound: Other (left first toe surgical site dehisced, red, swollen tender with slough in the wound)
Lab / Diagnostic Study Results
03/01/24 09:24
03/01/24:24
Abs Immat Gran (auto) 0.1 10^3/uL (0-0.05) H 03/01/24 09:24
Absolute Neuts (auto) 10.8 10^3/uL (1.4-6.5) H 03/01/24 09:24
Absolute Lymphs (auto) 5.8 10^3/uL (1.2-3.4) H 03/01/24 09:24
Absolute Monos (auto) 1.1 10^3/uL (0.1-0.6) H 03/01/24 09:24
Absolute Basos (auto) 0.1 10^3/uL (0-0.2) 03/01/24:24
Immature Gran % 0.5 % (0-0.5) 03/01/24:24
Neutrophils % 58.7 % (42.2-75.2) 03/01/24:24
Lymphocytes % 31.6 % (20.5-51.1) 03/01/24:24
Monocytes % 6.0 % (1.7-9.3) 03/01/24:24
Eosinophils % 2.4 % (0-6) 03/01/24:24
Basophils % 0.8 % (0-2) 03/01/24 09:24
Lactic Acid 1.6 mmol/L (0.7-2.0) 03/01/24 10:24
Microbiology Results
Micro:
03/01/24 13:38 MRSA Screen - Pending
Nose
03/01/24 10:56 Wound Culture - Pending
Abscess Gram Stain - Preliminary
03/01/24 10:24 Blood Culture - Pending
Blood/Venous
Assessment / Plan
Diabetic Foot Infection/Surgical Site Infection
DM2 uncontrolled
- single blood culture in progress
- wound culture in progress: gram stain rare GPCs, rare GNR
- MRSA screen pending
- agree with vanc/cefepime; added metronidazole
- agree with amputation, if infection all resected then will stop antibiotics
follow clinically
[2024-03-01] MEDS: STERILE WATER FOR INJECTION 10 ML IV (21:30)
[2024-03-01 21:32] LABS: Glucose - Point of Care 234 mg/dl (70-99)
--- NOTE | 2024-03-01 21:35 | PTCARENOTE ---
Received pt at change of shift. Pt AAOx3. C/o 09/25 chest pain that is consistent but not worsening; no SOB. Heparin gtt running at 1150 u/hr; next PTT scheduled for 00:30. Pt currently coughing up blood but states this is not a new occurrence
and that it's been going on for weeks. Notified house CERTIFIED MASTER LOCKSMITH; specimen cup at bedside to measure amount. Resting in bed with call marx in reach.
[2024-03-01] MEDS: NITROSTAT (SUBLINGUAL) 0.4 MG SL (23:48)
[2024-03-01] MEDS: FLAGYL 500 MG PO (23:48)
[2024-03-01] MEDS: MORPHINE SULFATE 2 MG IV (23:49)
[2024-03-02] VITALS (27 sets, daily range): BP systolic 98–151; BP diastolic 46–89; BMI 25.1
[2024-03-02] MEDS: TYLENOL 650 MG PO
[2024-03-02 00:03] LABS: Glucose - Point of Care 183 mg/dl (70-99)
[2024-03-02] MEDS: NITROSTAT (SUBLINGUAL) 0.4 MG SL ×3 (00:04→06:34)
[2024-03-02 00:33] LABS: APTT 43.6 Sec (23.4-35.0)
[2024-03-02 00:52] LABS: Troponin I 0.072 ng/ml
--- NOTE | 2024-03-02 03:42 | PTCARENOTE ---
Chest pain increased to 7/10 with chest feeling heavy. Rhythm change on tele monitor. Notified House TEST ANALYST. Trop and EKG ordered and obtained. Rectal temp 100.1; Tylenol given. Morphine given for CP (see SEP). Ntg sublingual ordered and
administered (see SEP).
--- NOTE | 2024-03-02 03:45 | PTCARENOTE ---
Order placed for Heparin gtt to be held at 05:00 to prep for OR. PTT cancelled.
[2024-03-02 05:35] LABS: Hematocrit 24.8 % (39.0-52.0); Hemoglobin 8.1 g/dL (13.0-18.0); Mean Corp Hgb Conc. 32.7 g/dL (33.0-37.0); Mean Corpuscular Hgb 24.9 pg (27.0-31.0); Mean Corpuscular Volume 76.3 fL (80.0-94.0); Mean Platelet Volume 8.3 fL (7.4-10.4); Platelet Count 434 10^3/uL (130-400); Red Blood Cell Count 3.25 10^6/uL (4.70-6.10); Red Cell Dist. Width 15.1 % (11.5-14.5); White Blood Cell Count 15.9 10^3/uL (4.8-10.8)
[2024-03-02] MEDS: VANCOCIN 200 IV ×2 (05:38→17:44)
[2024-03-02] MEDS: PROTONIX IV 40 MG IV (05:52)
[2024-03-02] MEDS: MORPHINE SULFATE 2 MG IV ×2 (05:52→13:06)
[2024-03-02 05:59] LABS: Glucose - Point of Care 177 mg/dl (70-99)
[2024-03-02 06:00] LABS: ALT (SGPT) 17 U/L (0-50); AST (SGOT) 29 U/L (17-59); Albumin 3.2 g/dl (3.5-5.0); Alkaline Phosphatase 84 U/L (38-126); Blood Urea Nitrogen 17 mg/dl (9-20); Calcium 8.9 mg/dl (8.4-10.2); Carbon Dioxide 23 mmol/L (22-30); Chloride 103 mmol/L (98-107); Estimated Creatinine Clearance 106 ml/min; Glucose 172 mg/dl (70-99); Potassium 4.6 mmol/L (3.5-5.1); Sodium 132 mmol/L (135-145); Total Bilirubin 0.6 mg/dl (0.2-1.3); Total Protein 6.1 g/dl (6.3-8.2); eGFR > 60.00
[2024-03-02 06:08] LABS: % Basophils 0.8 % (0-2); % Eosinophils 2.7 % (0-6); % Immature Granulocytes 0.4 % (0-0.5); % Lymphocytes 32.2 % (20.5-51.1); % Monocytes 6.5 % (1.7-9.3); % Neutrophils 57.4 % (42.2-75.2); Absolute Basophils 0.1 10^3/uL (0-0.2); Absolute Eosinophils 0.4 10^3/uL (0-0.7); Absolute Immature Granulocytes 0.1 10^3/uL (0-0.05); Absolute Lymphocytes 5.1 10^3/uL (1.2-3.4); Absolute Neutrophils 9.2 10^3/uL (1.4-6.5); Nucleated Red Blood Cells % 0 % (-)
--- NOTE | 2024-03-02 06:15 | PTCARENOTE ---
Pt chest pain increased to 8/10 with SOB. Not diaphoretic. BP 146/66 HR 63 POx 99%; does not appear to be in distress. Notified House TRANSPORTATION SOLUTIONS MANAGER. Morphine given (see MAR) and protonix IV ordered and administered.
--- NOTE | 2024-03-02 06:46 | W.PN.UPDATE ---
Update Note
Progress Note Update
Patient with intermittent CP overnight. Troponin climbed, peaked, went down and then climbed to 1.170. Heparin was held at 0500 for toe amputation but will restart Heparin infusion now.
[2024-03-02 07:21] LABS: APTT 31.2 Sec (23.4-35.0)
--- NOTE | 2024-03-02 07:46 | W.PN.HOSP.TC ---
Today's Communication/Plan
-
IV heparin drip. Nitroglycerin drip. IV antibiotics. Cardiac cath possibly
Assessment / Plan
Assessment / Plan
Physical exam:
General: Acutely ill, toxic appearance
HEENT: Normocephalic, Atraumatic and Moist Mucous Membranes
Respiratory: Clear to Auscultation; Negative Wheezes, Rales or Rhonchi
Cardiac: Regular Rhythm and S1/S2
GI: Soft, Nontender and Nondistended
Musculoskeletal: Left toe with purulent discharge and erythema surrounded postop area. No Clubbing, No Cyanosis and No Edema
Neuro: Awake, Alert and Oriented, no gross neurodeficits
Psych: Calm
A/P:
Acute NSTEMI:
Continue heparin drip
Will add IV nitroglycerin drip
Troponin up to 1.17 today and continue to trend
Seen reviewed twelve-lead EKG ?dynamic changes
Beta-blockers if tolerated
Dual antiplatelet aspirin Plavix
Statin
Keep n.p.o. for now, likely diagnostic cardiac cath today
Discussed with attending RN
Discussed with cardiology today
Transfer to IVU
Sepsis due to left toe infection:
IV antibiotics, cefepime and vancomycin
Podiatry consult-Might need further amputation down the road or local debridement but cardiac issues are a significant priority.
He had a left hallux amputation on 02/[address] Licah Payton-I messaged both Petr and Tata today.
ID consult appreciated continue current antibiotics and added anaerobic coverage, metronidazole
IV fluids
Blood cultures no growth
MRSA screen pending
Wound culture gram-positive cocci and gram-negative rods
Updated podiatry today of his cardiac issues
Chronic limb ischemia:
Status post vascular intervention on 02/[address] Vega
Diabetes mellitus type 2:
Insulin sliding scale
Last hemoglobin A1c on 02/09 was 8.2
Hold oral hypoglycemics for now
Left lung mass:
Pulmonary saw him during last admission and was going to set up outpatient follow-up. I discussed with pulmonary and there has been some issues with follow-up so that is better to have them on board to iron things out during this hospital stay. I
discussed with pulmonary to have them see him outpatient but they prefer to see him as an inpatient.
Pulm consult as above.
Needs to be sort out between cardio and pulmonary in terms of testing and prognosis. Overall a challenging situation.
Hypertension:
Continue home antihypertensives.
Monitor blood pressure and adjust medications accordingly.
Hyperlipidemia:
Continue home statins
DVT prophylaxis:
Heparin drip
CODE STATUS:
Full code
Total time spent on today's encounter was 52 minutes which included time spent in counseling the patient/family regarding diagnosis and treatment plan as listed above, goals of care, and symptom management. Case was discussed with nursing staff,
specialists, and care coordinators/case management. All labs and imaging personally reviewed by me. Remainder the time spent in detailed review of previous records, lab data, imaging, and other medical provider documentation.
Anticipated Discharge: > 48 hours
Subjective/Interval History
-
Date of Service: March 02, 2024
Patient continues to have chest pain. No shortness of breath. Afebrile.
Objective Data
-
Labs:
Laboratory Results
03/02/24 03/02/24 03/02/24
00:10 05:18 06:45
WBC 15.9 H
Hgb 8.1 L
Hct 24.8 L
Plt Count 434 H D
APTT 43.6 H Cancelled
Sodium 132 L
Potassium 4.6
Chloride 103
Carbon Dioxide 23
BUN 17
Creatinine 0.7
Glucose 172 H
Calcium 8.9
Total Bilirubin 0.6
AST 29
ALT 17
Alkaline Phosphatase 84
03/02/24
06:55
WBC
Hgb
Hct
Plt Count
APTT 31.2
Sodium
Potassium
Chloride
Carbon Dioxide
BUN
Creatinine
Glucose
Calcium
Total Bilirubin
AST
ALT
Alkaline Phosphatase
Vital Signs:
Vital Signs
Temp Pulse Resp BP Pulse Ox
97.9 F 80 12 138/57 98
03/02/24 07:00 03/02/24 05:00 03/02/24 05:00 03/02/24 06:34 03/02/24 05:00
I&O
03/01/24 03/02/24 03/03/24
06:59 06:59 06:59
Intake Total 2483 / 2483
Output Total 1200 / 1200
Balance 1283 / 1283
[2024-03-02] MEDS: NOVOLOG FLEXPEN-MODERATE RESISTANCE SC (07:50)
--- NOTE | 2024-03-02 08:04 | VNURNOTE ---
Chart reviewed, [facility] Will continue to follow hospital course.
--- NOTE | 2024-03-02 08:17 | W.PN.CARDCBS ---
Addendum entered and electronically signed by Jennifer Polanoc DO 03/02/24 10:17:
I saw and examined the patient.
The Blue Line Trimmer's note was reviewed and I agree with the note.
Comment: Patient seen and examined with cardiac PA. Reported chest discomfort intermittently overnight and this morning. No discrete pain right now but 'feels his chest '. Ongoing hemoptysis with clots. Case reviewed with pulmonary and
interventional cardiology.
General: No acute distress, AAOX3. On room air laying supine
Neck: Negative JVD
Heart: Regular, positive S1/S2, Negative S4, 2/6 BONIFACIO
Lungs: Bronchovesicular breath sounds, decreased left side. No wheezes. No crackles.
Abd: Positive BS, NT/ND, neg rebound/rigidity/guarding
Ext: No edema
Neuro: nonfocal
Plan:
Known multivessel coronary artery disease with prior multivessel stenting in 2012 at [facility] with PCI to proximal LAD and proximal and distal RCA
-Chest pain suggestive of angina with elevated troponin consistent NSTEMI
-Difficult situation given new left upper lobe lung mass concerning for malignancy and active hemoptysis with microcytic anemia
-Currently nearly chest pain-free.
-Will start IV nitroglycerin. Trend cardiac troponins and serial EKGs.
-Patient is currently on aspirin and Plavix [Plavix started in January following complex s/p left common to external iliac balloon angioplasty/stent, SFA balloon angioplasty/stent x2, TP trunk and peroneal angioplasty, anterior tibial long segment
angioplasty 02/10/24].
-Cautiously continue IV heparin
-Records from [facility] being obtained
-Will need to discuss definitive plan with pulmonary, vascular surgery and interventional cardiology. Consider diagnostic left heart catheterization as patient will need left upper lobe lung mass biopsy which will require 5 days of Plavix washout.
He also is being considered for extension of left hallux amputation for dry gangrene.
Original Note:
Today's Communication / Plan
-
Start Nitro gtt
Move to IVU
Got records from prior operator bearer systems
Impression / Plan
-
PCP: Dr. Woodrow Bynum
Cardiology: Dr. Santosh Zepeda with [facility] associated [phone]
Impression:
Chest pain
NSTEMI with Troponin 1.17 and trending
CAD
s/p 3.5 mm Xience to prox LAD05/12/13
s/p2.75 mm Xience distal RCA 05/12/13
s/p 3.0 mm Xience to prox RCA at [facility] 05/12/13
PAD s/p left common to external iliac balloon angioplasty/stent, SFA balloon angioplasty/stent x2, TP trunk and peroneal angioplasty, anterior tibial long segment angioplasty 02/10/24
s/p left hallux amputation 02/11/24
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
Hemoptysis
Smoker
Echo on 02/11/24: LV ejection fraction is 60-65% by Roblero's method of discs. Mild concentric left ventricular hypertrophy. Mild mitral regurgitation.Mild to moderate aortic stenosis. Trace tricuspid regurgitation. Estimated pulmonary artery
pressure of 20-25 mmHg.
Echo 03/01/24: EF 60-65%, hypokinesis mid to distal septum
Plan:
-Patient with chest pain on admission to [facility] 03/01/24 that he says has been happing intermittently for the last week, but was more intense on the morning of admission. Initial Troponin 0.078 and has trended up to 1.17 on 03/02/24 AM. Patient was
scheduled for a left partial 1st ray amputation 03/02/24 and Heparin gtt was turned off. Patient reports chest pain 03/02/24 from the time he awoke described as a substernal discomfort that improved a bit with resumption of Heparin gtt. No change with
deep breath.
-Start Nitro gtt now
-Transfer orders for IVU written by me
-Check ECG now
-Check next Troponin now
-Called his previous operator bearer systems for records, he has not been seen in their office since 06/22/14. Records including last cath report from 2012 obtained, reviewed and outlined above.
-Hemoptysis and lung mass noted and Pulm note reviewed. Patient will need a lung biopsy, but will have to hold Plavix for 5 days. Biopsy cannot be performed on DAPT.
-Patient also needs left partial 1st ray amputation
-Might need to consider a diagnostic cath
-54 minutes face to face with patient, chart prep, getting old records, talking with Pulm and Hosp attendings
HPI: This is a 73 year old male patient with PMH of PAD, cardiac stent 2016, NIDDM, recent admission for dry gangrene of his left first toe status post amputation on 02/10, cardiac stent in 2015 and stent placement of the left superficial femoral
artery/left common iliac artery in 2017, lung mass with concerns of chest pain. He states that at 3AM he started to feel midsternal chest pain while sleeping which he described as a dull ache. He called EMS and felt that his chest pain improved upon
being given nitroglycerin. He also has concerns of left big toe pain. He denies CP, palpitations, SOB on exertion or dizziness.
His troponin was elevated at 0.078. Cardiology consulted.
Progress Note - Cold Working Inspector
Subjective
Date of Service: March 02, 2024
He has had chest pain since this AM
Objective
Labs:
03/02/24 05:18
03/02/24 05:18
Labs
Hgb 8.1 g/dL (13.0-18.0) L 03/02/24 05:18
Hct 24.8 % (39.0-52.0) L 03/02/24 05:18
Plt Count 434 10^3/uL (130-400) H D 03/02/24 05:18
APTT 31.2 Sec (23.4-35.0) 03/02/24 06:55
Sodium 132 mmol/L (135-145) L 03/02/24 05:18
Potassium 4.6 mmol/L (3.5-5.1) 03/02/24 05:18
BUN 17 mg/dl (9-20) 03/02/24 05:18
Creatinine 0.7 mg/dL (0.7-1.3) 03/02/24 05:18
Glucose 172 mg/dl (70-99) H 03/02/24 05:18
Troponins
03/01/24 03/01/24 03/01/24
09: 12:54 16:00
Troponin I 0.078 H* 0.075 H* Cancelled
03/01/24 03/01/24 03/02/24
17:16 22:00 00:10
Troponin I 0.069 H* Cancelled 0.072 H*
03/02/24
05:18
Troponin I 1.170 H* D
Vital Signs and I&O:
Vital Signs
Temp Pulse Resp BP Pulse Ox
97.9 F 62 11 141/64 97
03/02/24 07:00 03/02/24 07:02 03/02/24 07:02 03/02/24 07:02 03/02/24 07:02
Vital Signs
Temp Pulse Resp BP Pulse Ox
97.9 F 62 11 141/64 97
03/02/24 07:00 03/02/24 07:02 03/02/24 07:02 03/02/24 07:02 03/02/24 07:02
Intake & Output
02/29/24 03/01/24 03/02/24 03/03/24
06:59 06:59 06:59 06:59
Intake Total 2483 / 2483
Output Total 1200 / 1200
Balance 1283 / 1283
Physical Exam
Physical Exam
GEN: AAOx3
HEENT: mmm
LUNGS: No audible wheeze
CV: SR on tele
ABD: ND
EXT: No edema
NEURO: Gross non-focal
SKIN: No rash
[2024-03-02] MEDS: HEPARIN 25000 UNITS/250 ML IV (08:25)
[2024-03-02] MEDS: NSS 1000 IV ×2 (08:27→21:02)
[2024-03-02] MEDS: LOW STRENGTH ASPIRIN 81 MG PO (08:32)
[2024-03-02] MEDS: TOPROL XL 25 MG PO (08:32)
[2024-03-02] MEDS: LIPITOR 20 MG PO (08:32)
[2024-03-02] MEDS: FLAGYL 500 MG PO ×3 (08:32→23:36)
[2024-03-02] MEDS: PLAVIX 75 MG PO (08:32)
--- NOTE | 2024-03-02 08:41 | PTCARENOTE ---
Addendum entered by Jacqueline Celaya 03/02/24 11:21:
Report called to receiving RN. Belongings collected from room. Transferred to 2243 via bed.
Addendum entered by Jacqueline Celaya 03/02/24 09:48:
Order received for Nitro gtt for chest pain. Pt for transfer to IVU per orders. Nitro gtt initiated pending transfer- see intervention. Pt updated on plan of care.
Original Note:
Pt received from welder 2nd shift. Aox3, angry regarding NPO status. Pt educated on plan of care. Reports 7/10 chest pain but denies SOB. Dr. Trejo notified via TT. Currently NSR on tele monitor. Heparin resumed per orders at initial rate of 950u, see
intervention. Medications administered as ordered, see SEP. Cardiology at bedside.
--- NOTE | 2024-03-02 08:43 | W.PN.PUL3 ---
Today's Communication / Plan
-
Quantify hemoptysis
Send sputum for cytology
Treatment for chest pain, cardiology following
Remains on heparin/aspirin/Plavix
Toe amputation has been delayed
Remains on antibiotics
Assessment
-
73-year-old male with history of peripheral arterial disease, status post recent left toe amputation, treated for diagram gain, history of coronary disease with stent placement 2014, and lower extremity PAD stents 2016 at [facility], now
presents with increased chest discomfort similar to prior cardiac pain. Patient started on heparin therapy. We are asked to comment on his pulmonary process
Acute onset midsternal chest discomfort
Elevated troponin
Gross hemoptysis
History of coronary disease with stent placement at [facility]
Leukocytosis
Anemia
Peripheral vascular disease
Peripheral arterial disease, stent placement lower extremity 2015 [facility]
Recent left first hallux amputation 02/11/2024
Hyponatremia
Hyperglycemia
10 cm left upper lobe mass
Mild left hilar adenopathy
Moderate , valve area 1 cm�
Conditions present prior to admission
Hypertension/hyperlipidemia
Diabetes
20+ tobacco history, quit around 2015
100 pound weight loss over the past year
Plan/recommendations
At this time, patient clinical status is tenuous
He appears nontoxic but continues to have intermittent chest pain overnight
Troponin rising, heparin resumed
Hemoptysis quantified at bedside. It is roxanna blood, old blood
This is more bloody than patient description over the past few weeks, described blood mixed with mucus
History of coronary disease with stent in the past noted
Present on aspirin/Plavix/heparin therapy
Moving forward
Reviewed imaging findings with patient. He will require left upper lobe mass biopsy
At this point, I would recommend transthoracic needle biopsy. However per discussion with interventional radiology, they are unable to do this on DAPT
We are also unable to do bronchoscopy on DAPT
Primary goal presently is to stabilize from cardiac standpoint
Echocardiogram with new wall motion abnormalities
Plan for cardiac catheterization per discussion with cardiology
Depending on findings, may need to plan appropriate intervention
Send sputum cytology at bedside
Will not be able to pursue any type of lung/tissue biopsy at this time. This to be an ongoing discussion with cardiology
Reviewed with patient likelihood of underlying cancer
This also predisposes him to high risk for thromboembolic disease
Check lower extremity Dopplers bilaterally, pending
He remains on heparin therapy
Follow blood sugars
Antibiotics per primary service
Reviewed with patient, primary service, interventional radiology, cardiology
Remains high risk situation
Subjective Data
-
Date of Service:
Date of Service: March 02, 2024
Subjective:
Patient continues with intermittent chest discomfort through the night. He denies nausea, abdominal pain, pleurisy. He continues to have hemoptysis. Hemoptysis quantified at the bedside, much worse than description. Appears to be roxanna blood,
hold blood. Patient on room air
Objective Data
Data Reviewed
Vital Signs / I&O / Oxygen:
Vital Signs
Temp Pulse Resp BP Pulse Ox
97.9 F 62 11 151/68 97
03/02/24 07:00 03/02/24 07:02 03/02/24 07:02 03/02/24 08:32 03/02/24 07:02
Intake and Output
03/01/24 03/02/24 03/03/24
06:59 06:59 06:59
Intake Total 2483 / 2483
Output Total 1200 / 1200
Balance 1283 / 1283
SaO2 97
Physical Exam
General: Comfortable
HEENT: Normocephalic and Anicteric
Cardiovascular: S1-S2, Regular Rhythm, Murmur (2/6), Rub (n) and Peripheral Edema (n)
Respiratory: Wheeze (n), Crackles (n), Rhonchi (n), Non-Labored Respirations and Other (Slight decreased left apex)
GI: Soft, Non Distended and Non Tender
Neurology: Awake and Alert
Skin: Cyanosis (n), Jaundice (n), Rash (n) and Other (Did not examine lower extremity toe, socks in place)
Labs/Micro/Reports
Lab Data
03/02/24 05:18
03/02/24 05:18
Laboratory Results
03/01/24 03/01/24 03/02/24
10:56 17:16 00:10
APTT 28.1 41.1 H 43.6 H
03/02/24 03/02/24
06:45 06:55
APTT Cancelled 31.2
Microbiology
03/01/24 10:56 Abscess Wound Culture - Preliminary
03/01/24 10:56 Abscess Gram Stain - Preliminary
[2024-03-02] MEDS: NITROGLYCERIN PREMIX 250 IV (09:41)
[2024-03-02] MEDS: MAXIPIME 2000 MG IV ×2 (09:45→21:26)
[2024-03-02] MEDS: DAKIN'S SOLUTION 0.125% 1/4 STRENGTH 473 ML TOPICAL (09:45)
[2024-03-02] MEDS: STERILE WATER FOR INJECTION 10 ML IV ×2 (09:45→21:22)
--- NOTE | 2024-03-02 10:43 | W.PN.UPDATE ---
Update Note
Progress Note Update
Repeat ECG for this morning reviewed by me, lateral ST changes seen on ECG from yesterday look better to me. Troponin drawn and pending. Nitro gtt started and patient to be moved to IVU shortly.
--- NOTE | 2024-03-02 11:27 | PTCARENOTE ---
Patient admitted to IVU. Nitro and heparin infusing per MAR. Increased Nitro to 20 mcg.min, chest pain 6 out 10. VSS, denies shortness of breath. NPO maintained, call marx in reach
[2024-03-02 11:56] LABS: Glucose - Point of Care 195 mg/dl (70-99)
--- NOTE | 2024-03-02 12:32 | W.PN.UPDATE ---
Update Note
Progress Note Update
Called to see patient for ongoing chest pain. Patient was started on Nitro gtt and moved to IVU 2243. Nitro gtt running at 20 mcg and patient reports minimal improvement in chest pain. Heparin gtt running. ECG without acute ischemic changes.
Troponin was 1.17 early this AM and is now 2.57. Patient is hungry and he is visibly angry about not eating. Tried to talk to patient about complicated medical situation with lung mass concerning for cancer, hemoptysis, toe infection and NSTEMI, but
he is not in a place to have a conversation like that, he just wants to eat. Urgent cup of tea ordered plus diet order placed for him to call down to order, diet order placed at 1249. Will also add morphine 2 mg IV x1 now. 33 minutes face to face
time with patient, talking with his RN, ordering labs and meds.
--- NOTE | 2024-03-02 12:48 | PTCARENOTE ---
Nitroglycerin increased to 25 mcg/min 5 out 10 chest pain
--- NOTE | 2024-03-02 13:01 | W.PN.SURGUPD ---
Surgical Update
Surgical Update
Patient seen and left foot wound evaluated at bedside. WBC improving on IV antibiotics and foot stable at this time with no soft tissue emphysema or palpable fluctuance/crepitus. Given cardiac needs, will defer surgery, tentatively planned for 03/06.
[2024-03-02] MEDS: NOVOLOG FLEXPEN-MODERATE RESISTANCE 1 UNITS SC (13:07)
--- NOTE | 2024-03-02 13:11 | CM ---
Reviewed chart. Mr. Cotton was transferred to IVU. Met with Mr. Cotton to review discharge plans. He states prior to admission he resides alone in a second floor condo with fourteen steps to enter. He states he has a one level once he is in the
condo. He states prior to admission he was independent with ambulation and adls. He states he has a single point cane at home but currently not using it. He states he is current with [facility]. He states he has a prescription plan
and uses [facility]. Will need to see his current functional status to seeif he will have any skilled care needs. Medical work-up in progress. The discharge plan is to return home with resumption of [facility] when medically stable.
--- NOTE | 2024-03-02 13:11 | PTCARENOTE ---
Patient expressing his frustration with not being able to eat. Diet ordered, order placed and physicians at bedside reviewing plan of care. Morphine given for 5 out 10 chest pressure not pain.
--- NOTE | 2024-03-02 14:04 | PTCARENOTE ---
Patient ate lunch in better spirts. Chest pressure improved after morphine but pressure really unchanged when asked him to rate it using a pain scale 'its not pain its pressure' still 4 out of 10. Increased to nitro to 35mcg/min. Patients lights
dimed and wanted to finally get some sleep
--- NOTE | 2024-03-02 15:30 | WOUNDNOTE ---
LEFT GREAT TOE AMPUTATION SITE
--- NOTE | 2024-03-02 15:30 | WOUNDNOTE ---
[facility] RN NOTE: Reviewed chart, met with patient. Podiatry is following and plan is for OR debridement of left great toe amputation site. Per chart review, debridement has been deferred due to cardiac status. Wound currently covered with thick,
adherent yellow slough with scatted black necrotic areas. Wound care provided as ordered. Sacrum and heels intact. Patient turns self and ambulates to . WINNIE Roach given update. Will follow peripherally.
--- NOTE | 2024-03-02 15:35 | PTCARENOTE ---
Patient sent to ultrasound on a stretcher.
--- NOTE | 2024-03-02 15:59 | PHA.VAN.FU ---
Vancomycin Assessment / Plan
- Assessment
Renal Function: Stable
WBC's are: Trending Down
In the past 24 hrs, patient has been: Afebrile
Concomitant Antimicrobials: cefepime, metronidazole
- Dosing Plan
Continue: Vanc 1000mg Q12H
- Monitoring Plan
No level(s) ordered at this time: consider levels in next few days
- Follow Up
Pharmacy will continue to follow.
Vancomycin Follow UP
- -
Patient Age: 73
Patient Sex: Male
Vancomycin Day #: 2
Indication: Skin And Soft Tissue
Requesting Provider: Dr. Chavira
Pertinent Antimicrobial Allergies:
NKDA
Height / Weight:
Height 6 ft
Actual Weight 83.8 kg
Pertinent Past Medical History: DM
- Vital Signs / Lab Results
Temp Pulse Resp BP Pulse Ox
99.2 F 74 20 123/60 99
03/02/24 11:25 03/02/24 14:00 03/02/24 11:25 03/02/24 14:00 03/02/24 11:30
Lab Results - Hematology
03/01/24 03/02/24
05:18
WBC 18.4 H 15.9 H
Lab Results - Chemistry
03/01/24 03/02/24
05:18
BUN 20 17
Creatinine 0.8 0.7
Estimated Creat Clear 93 106
Albumin 3.4 L 3.2 L
03/01/24
10:24
Lactic Acid 1.6
Microbiology Results
03/01/24 13:38 MRSA Screen - Final
Nose No Methicillin Resistant Staphylococcus aureus isolated.
03/01/24 10:24 Blood Culture - Preliminary
Blood/Venous No Growth in 24 hours- Final report to follow
03/01/24 10:56 Wound Culture - Preliminary
Abscess Gram Stain - Preliminary
[2024-03-02 18:01] LABS: Glucose - Point of Care 231 mg/dl (70-99)
[2024-03-02] MEDS: NOVOLOG FLEXPEN-MODERATE RESISTANCE 3 UNITS SC (18:23)
[2024-03-02 18:33] LABS: Hepatitis C Antibody Reactive (Negative)
[2024-03-02] MEDS: COMPAZINE 5 MG IV (21:23)
--- NOTE | 2024-03-02 21:59 | PTCARENOTE ---
Received patient at change of shift. Awake, alert and oriented in bed. Heparin drip running at 1150 units/hr. Nitro running at 35 mcg/min. NSS running at 100mL/hr. HR mid 80s, normal sinus rhythm, BP 127/62 and 144/77. Patient denies any pain at
this time. C/O of nausea. Reached out to Tawanna Qrueshi NP, order for 5mg IV Compazine Q6HPRN-- see SEP. Ambulatory, but to ask for assistance with all drips running. Call marx within reach.
[2024-03-02 22:34] LABS: Glucose - Point of Care 243 mg/dl (70-99)
[2024-03-02 22:54] LABS: APTT 47.8 Sec (23.4-35.0)
[2024-03-02 23:03] LABS: Troponin I 0.924 ng/ml
[2024-03-03] VITALS (38 sets, daily range): BP systolic 93–140; BP diastolic 55–86; BMI 25.5
--- NOTE | 2024-03-03 | PTCARENOTE ---
Addendum entered by Nadira Knox RN 03/03/24 01:29:
Currently HR 90s, BP 114/63, 97% on 2L.
Addendum entered by Nadira Knox RN 03/03/24 01:28:
Patient called RN because he felt like he 'could not catch his breath'. Became tachypnic with belly breathing, respirations 30s-40s. Updated Tawanna Qureshi NP. Came to bedside. Ordered labs and chest x-ray. COVID tested.
Original Note:
Patient called RN c/o 'feeling like something was stuck in his chest and that he needed to vomit,' but nothing to throw up. Pt now tachy 110-115 and his BP dropped (98/46) . On room air he was 88%, put him on oxygen-- 2L and 97%. Temperature 99.0.
He is coughing up some blood, which is not new. He has no chest pain. Tapering down the nitro per order. Updated Tawanna Qureshi NP. Changed NSS rate to 150 mL/hr per IMPERSONATOR CHARACTER. Patient agrees to call nurse with any other changes or pain. Call marx within
reach.
[2024-03-03 00:34] LABS: Hematocrit 25.3 % (39.0-52.0); Hemoglobin 8.3 g/dL (13.0-18.0); Mean Corp Hgb Conc. 32.8 g/dL (33.0-37.0); Mean Corpuscular Hgb 25.6 pg (27.0-31.0); Mean Corpuscular Volume 78.1 fL (80.0-94.0); Mean Platelet Volume 8.5 fL (7.4-10.4); Platelet Count 491 10^3/uL (130-400); Red Blood Cell Count 3.24 10^6/uL (4.70-6.10); Red Cell Dist. Width 15.2 % (11.5-14.5)
[2024-03-03 00:37] LABS: Venous Blood Gas B.E. -4.8 mmol/L (-4 to +4); Venous Blood Gas HCO3 20.4 mmol/L (22-27); Venous Blood Gas O2 Sat % 85.5 %; Venous Blood Gas O2 Therapy 2 L NC; Venous Blood Gas pCO2 37 mmHg (35-48); Venous Blood Gas pH 7.35 (7.32-7.43); Venous Blood Gas pO2 51 mmHg (30-50)
[2024-03-03 00:57] LABS: NT-proBNP 9170 pg/ml
[2024-03-03 01:16] LABS: Lactic Acid 2.6 mmol/L (0.7-2.0)
[2024-03-03 01:25] LABS: COVID-19 Antigen Negative (Negative)
[2024-03-03 01:50] LABS: Blood Urea Nitrogen 18 mg/dl (9-20); Calcium 8.8 mg/dl (8.4-10.2); Carbon Dioxide 18 mmol/L (22-30); Chloride 100 mmol/L (98-107); Estimated Creatinine Clearance 106 ml/min; Glucose 229 mg/dl (70-99); Potassium 4.8 mmol/L (3.5-5.1); Sodium 129 mmol/L (135-145); eGFR > 60.00
[2024-03-03] MEDS: NSS IV (01:53)
[2024-03-03] MEDS: LASIX 20 MG IV (02:34)
--- NOTE | 2024-03-03 03:04 | W.PN.UPDATE ---
Addendum entered and electronically signed by CRISS Marsh 03/03/24 06:05:
HGB 7.6.. 2 units PRBCs ordered. Lasix IV in between. He is awake alert and oriented this morning. Was slightly confused last night thinking he was at his apartment. Prater catheter to be placed.
Original Note:
Update Note
Progress Note Update
NTG and Heparin infusions continue. Earlier he c/o something feeling like being stuck in his chest and he wanted to vomit but was unable. Appears he then had a vagal response with systolic in 90s and HR into low 100s. O2 saturation dropped to 88%
RA. He then felt he was hyperventilating with RR of 30-40. BNP noted 9170, lactic 2.6. EKG shows worsening ST depressions as noted previously. Started with low dose of Lasix 20 mg IV. Stopped IVF for now. COVID negative. PCXR done.
--- NOTE | 2024-03-03 03:12 | PTCARENOTE ---
RN noticed changes on tele monitor. Informed Tawanna Qureshi NP. Ordered an EKG. Also ordered 20 mg Lasix, see MAR. Currently patient denies any CP. Nitro gtt maintained at 5 mcg/min. Patient became disoriented thinking we had just gotten back from
his apartment. Continuing to monitor status.
[place] cath applied for monitoring I&Os.
[2024-03-03] MEDS: OFIRMEV 100 IV (03:23)
--- NOTE | 2024-03-03 03:54 | PTCARENOTE ---
IV Tylenol completed. Patient c/o feeling hot and clammy. Blood sugar checked-- 241. Rectal temp 100.7. Fan provided.
[2024-03-03 03:55] LABS: Glucose - Point of Care 241 mg/dl (70-99)
[2024-03-03 05:12] LABS: % Basophils 0.3 % (0-2); % Eosinophils 0.1 % (0-6); % Immature Granulocytes 0.8 % (0-0.5); % Lymphocytes 20.3 % (20.5-51.1); % Monocytes 6.7 % (1.7-9.3); % Neutrophils 71.8 % (42.2-75.2); Absolute Basophils 0.1 10^3/uL (0-0.2); Absolute Immature Granulocytes 0.2 10^3/uL (0-0.05); Absolute Lymphocytes 3.9 10^3/uL (1.2-3.4); Absolute Monocytes 1.3 10^3/uL (0.1-0.6); Absolute Neutrophils 13.7 10^3/uL (1.4-6.5); Hematocrit 23.1 % (39.0-52.0); Hemoglobin 7.6 g/dL (13.0-18.0); Mean Corp Hgb Conc. 32.9 g/dL (33.0-37.0); Mean Corpuscular Hgb 25.1 pg (27.0-31.0); Mean Corpuscular Volume 76.2 fL (80.0-94.0); Mean Platelet Volume 8.3 fL (7.4-10.4); Nucleated Red Blood Cells % 0 % (-); Platelet Count 432 10^3/uL (130-400); Red Blood Cell Count 3.03 10^6/uL (4.70-6.10); Red Cell Dist. Width 15.3 % (11.5-14.5)
[2024-03-03 05:22] LABS: Lactic Acid 1.8 mmol/L (0.7-2.0)
[2024-03-03 05:28] LABS: B.E. -4.5 mmol/L; HCO3 19.2 mmol/L (21-28); O2 Saturation % 98.5 % (94-98); PCO2 29 mmHg (35-48); PO2 69 mmHg (83-108); pH 7.43 (7.35-7.45)
[2024-03-03 05:29] LABS: APTT 64.4 Sec (23.4-35.0)
[2024-03-03 05:31] LABS: O2 Therapy 2 L NC
[2024-03-03] MEDS: HEPARIN 25000 UNITS/250 ML IV (05:54)
[2024-03-03] MEDS: VANCOCIN 200 IV ×2 (05:55→17:49)
--- NOTE | 2024-03-03 06:05 | PTCARENOTE ---
Orders placed-- will pass onto dayshift nurse.
[2024-03-03 06:21] LABS: Blood Urea Nitrogen 19 mg/dl (9-20); Calcium 8.6 mg/dl (8.4-10.2); Carbon Dioxide 20 mmol/L (22-30); Chloride 98 mmol/L (98-107); Estimated Creatinine Clearance 93 ml/min; Glucose 215 mg/dl (70-99); Magnesium 1.9 mg/dl (1.6-2.3); Potassium 4.6 mmol/L (3.5-5.1); eGFR > 60.00
[2024-03-03 06:30] LABS: Total Iron Binding Capacity 253 ug/dl (261-462)
[2024-03-03 06:40] LABS: Iron 23 ug/dl (49-181); Percent Saturation 9 % (20-50); Sodium 127 mmol/L (135-145)
[2024-03-03 07:46] LABS: Glucose - Point of Care 226 mg/dl (70-99)
--- NOTE | 2024-03-03 07:54 | W.PN.CARDCBS ---
Addendum entered and electronically signed by Woodrow Ortega MD 03/03/24 10:04:
73-year-old man with known multivessel CAD, severe peripheral arterial disease and left upper lobe mass with hemoptysis and microcytic anemia. Was planned for debridement of left lower extremity
PMH/PSH/SH/FH: Reviewed
Allergies none
Outpatient medications: Aspirin/atorvastatin 20 mg a day, Plavix 75 mg a day, lisinopril 5 mg daily, metformin, metoprolol ER 25 mg a day and Januvia
Current medications: Cefepime, aspirin 81 mg a day, atorvastatin 20 mg a day, clopidogrel 75 mg a day, metoprolol ER 25 mg daily, vancomycin, metronidazole, IV nitroglycerin, insulin
ROS: Negative except as above
103/69, 104/70, 93/62, pulse 80s, no acute distress, head neck exam unremarkable, lungs are clear, cardiac exam with systolic murmur base to apex JVD okay, abdomen benign, no edema, left foot is wrapped
Hemoglobin 7.6, currently receiving blood, white count is nineteen 7.43, pCO2 29, pO2 69, sodium 127, potassium 4.6, lactic acid 1.8, iron saturation, proBNP 9170, procalcitonin is 0.2, troponin 3, prior peak was 3.1 iron saturation is 9%
EKG with chest pain marked anterolateral ST segment depression and also in inferior leads to lesser extent, subsequent EKG shows resolution of ST segment changes
Impression:
Non-ST segment elevation AR with troponin [address] depression, resolved
Microcytic anemia, hemoglobin 7 6
CAD
s/p 3.5 mm Xience to prox LAD 05/12/13
s/p2.75 mm Xience distal RCA 05/12/13
s/p 3.0 mm Xience to prox RCA at [facility] 05/12/13
PAD s/p left common to external iliac balloon angioplasty/stent, SFA balloon angioplasty/stent x2, TP trunk and peroneal angioplasty, anterior tibial long segment angioplasty 02/10/24
s/p left hallux amputation 02/11/24
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
Hemoptysis
Smoker
Plan:
Extremely challenging situation, with known CAD and recent stenting of left common and external iliac with SFA balloon angioplasty and stent x 2, with tibioperoneal and peroneal angioplasty as well as left anterior tibial angioplasty January 2024, now
with hemoptysis and concerned about left upper lobe lung mass concerning for malignancy with ST segment elevation AR in the setting of hemoptysis and anemia with dramatic anterolateral ST segment depression. EF was normal as of January with mild
hypokinesis of the mid to distal septum on follow-up study February 2024.
Patient should undergo cardiac catheterization but with anemia and hemoptysis, timing of procedure and management of anticoagulation, etc. is extremely challenging. He could easily have left main disease and probably has severe proximal LAD disease.
For the present, we will discuss with interventional cardiology but will hold off on cardiac catheterization awaiting optimization of hemodynamics and hemoglobin. Would favor increasing metoprolol. Management of anticoagulants is difficult,
concern regarding ongoing bleeding with triple therapy is high so we will continue aspirin and Plavix and stop heparin for now.
Change metoprolol ER from 25 mg a day to metoprolol tartrate 12.5 mg every 6. Control of heart rate may be best way to control angina, along with transfusion to increase oxygen carrying capacity. Continue IV nitro for now, but if hypotensive would
favor continued beta-alvin over nitrates.
Debridement of left foot obviously needs to be canceled for now. Assessment of left upper lobe mass will need to be placed on hold pending cardiac disposition.
Antibiotics per hospitalist.
Original Note:
Today's Communication / Plan
-
Transfusion of 1 unit of blood ongoing
Would give 20 mg IV Lasix following transfusion
Stop IV heparin but continue aspirin Plavix due to anemia
Repeat EKG this a.m.
Repeat troponin
Transition Toprol to Lopressor 12.5 mg every 6 hours for better heart rate control
Keep n.p.o. for now with consideration of diagnostic cardiac catheterization
Consider GI evaluation
Impression / Plan
-
PCP: Dr. Woodrow Bynum
Cardiology: Dr. Santosh Zepeda with [facility] [phone]
Impression:
Chest pain
NSTEMI with Troponin 1.17 and trending
CAD
s/p 3.5 mm Xience to prox LAD 05/12/13
s/p2.75 mm Xience distal RCA 05/12/13
s/p 3.0 mm Xience to prox RCA at [facility] 05/12/13
PAD s/p left common to external iliac balloon angioplasty/stent, SFA balloon angioplasty/stent x2, TP trunk and peroneal angioplasty, anterior tibial long segment angioplasty 02/10/24
s/p left hallux amputation 02/11/24
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
Hemoptysis
Smoker
Echo on 02/11/24: LV ejection fraction is 60-65% by Roblero's method of discs. Mild concentric left ventricular hypertrophy. Mild mitral regurgitation.Mild to moderate aortic stenosis. Trace tricuspid regurgitation. Estimated pulmonary artery
pressure of 20-25 mmHg.
Echo 03/01/24: EF 60-65%, hypokinesis mid to distal septum
Plan:
-Patient with chest pain on admission to [facility] 03/01/24 that he says has been happening intermittently for the last week, but was more intense on the morning of admission. Initial Troponin 0.078 and has trended up to 1.17 on 03/02/24 AM. Patient was
scheduled for a left partial 1st ray amputation 03/02/24 and Heparin gtt was turned off. Patient reports chest pain 03/02/24 from the time he awoke described as a substernal discomfort that improved a bit with resumption of Heparin gtt. No change with
deep breath.
-Reviewed events of late evening 03/02/24 and bending roll hand 03/03/2024 when he c/o feeling of something stuck in his chest and had urge to vomit but was unable. Heart rate increased into 100's-120's associated with mild hypotension. He briefly
desaturated. ECG with episode showed sinus tachycardia with worsening of ST segments most apparent in anterolateral leads. Troponin repeated at 5 AM coming back at 3.020. ProBNP checked 9170. He was provided 20 mg IV Lasix and IV fluids were
stopped.
-Event overnight possibly vasovagal reaction with demand ischemia secondary to ongoing anemia with high clinical suspicion coronary disease. Repeat troponin later this morning.
-EKG has normalized with improvement of heart rate. Remains on NTG gtt and is currently chest pain-free. Will need eventual cardiac catheterization possibly diagnostic
-Given and worsening anemia will hold heparin and continue Plavix and aspirin for now.
-Will change Toprol to Lopressor 12.5 mg every 6 to help with intermittent elevated heart rate
-Echo 03/01/2024 with preserved EF with new hypokinesis to mid and distal septum
-Peak troponin this admission so far is 3.090.
-Known multivessel CAD with previous PCI to proximal LAD, proximal and mid RCA April 2013
-Worsening anemia of unclear etiology. Hemoglobin noted to be 11.3 on 02/10/2024. Hemoglobin was 9.1 on 02/11 and currently trending downward at 7.6.
-Transfusing of 1 unit pRBCs 03/03/2024. Continue to monitor and trend hemoglobin.
-Would give an additional dose of IV Lasix post transfusion
-Consider GI evaluation
-Hemoptysis and lung mass noted and Pulm note reviewed.
-Patient will need a lung biopsy, but will have to hold Plavix for 5 days. Biopsy cannot be performed on DAPT.
-Sputum culture pending
-Discussed again with pulmonary who feels pt needs stabilization of cardiac symptoms. Did discuss option of possible outpatient bronchoscopy with endobronchial exam, brushings/washings
-Of note patient reports 100 pound weight loss over a year, raising concern for malignancy
-Patient also needs left partial 1st ray amputation. This is currently on hold.
-Continue IV antibiotics per primary service and ID
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 Records including last cath report from 2012 obtained, reviewed and outlined above.
Discussed plan with patient, nursing, pulmonary, primary service
HPI: This is a 73 year old male patient with PMH of PAD, cardiac stent 2016, NIDDM, recent admission for dry gangrene of his left first toe status post amputation on 02/10, cardiac stent in 2016 and stent placement of the left superficial femoral
artery/left common iliac artery in 2017, lung mass with concerns of chest pain. He states that at 3AM he started to feel midsternal chest pain while sleeping which he described as a dull ache. He called EMS and felt that his chest pain improved upon
being given nitroglycerin. He also has concerns of left big toe pain. He denies CP, palpitations, SOB on exertion or dizziness.
His troponin was elevated at 0.078. Cardiology consulted.
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
Subjective
Date of Service: March 03, 2024
Patient seen and examined. Patient resting comfortably in bed. Patient currently chest pain-free and denies shortness of breath but still requiring oxygen.
Objective
Labs:
03/03/24 05:03
Labs
Hgb 7.6 g/dL (13.0-18.0) L 03/03/24 05:03
Hct 23.1 % (39.0-52.0) L 03/03/24 05:03
Plt Count 432 10^3/uL (130-400) H 03/03/24 05:03
APTT 64.4 Sec (23.4-35.0) H 03/03/24 05:03
Sodium 127 mmol/L (135-145) L 03/03/24 05:03
Potassium 4.6 mmol/L (3.5-5.1) 03/03/24 05:03
BUN 19 mg/dl (9-20) 03/03/24 05:03
Creatinine 0.8 mg/dL (0.7-1.3) 03/03/24 05:03
Glucose 215 mg/dl (70-99) H 03/03/24 05:03
Troponins
03/01/24 03/01/24 03/01/24
09:24 12:54 16:00
Troponin I 0.078 H* 0.075 H* Cancelled
03/01/24 03/01/24 03/02/24
17:16 22:00 00:10
Troponin I 0.069 H* Cancelled 0.072 H*
03/02/24 03/02/24 03/02/24
05:18 10:07 11:20
Troponin I 1.170 H* D 2.570 H* D Cancelled
03/02/24 03/02/24 03/03/24
14:29 22:34 05:03
Troponin I 3.090 H* 0.924 H* 3.020 H* D
Vital Signs and I&O:
Vital Signs
Temp Pulse Resp BP Pulse Ox
97.5 F 100 24 93/62 98
03/03/24 06:45 03/03/24 05:00 03/03/24 06:45 03/03/24 04:57 03/03/24 06:45
Vital Signs
Temp Pulse Resp BP Pulse Ox
97.5 F 100 24 93/62 98
03/03/24 06:45 03/03/24 05:00 03/03/24 06:45 03/03/24 04:57 03/03/24 06:45
Intake & Output
03/01/24 03/02/24 03/03/24 03/04/24
06:59 06:59 06:59 06:59
Intake Total 2483 / 2483 1300 / 1300
Output Total 1200 / 1200 1725 / 1725
Balance 1283 / 1283 -425 / -425
Physical Exam
Physical Exam
GEN: No distress, awake, Ox3, sitting up in bed wearing oxygen
HEENT: supple, anicteric, mmm
LUNGS: Mildly decreased at bases otherwise CTA, no wheezes/rales; wearing oxygen
CV: Reg, S1/S2, no murmur, rub or gallop
ABD: soft, BS+, NT/ND
EXT: Trace bilateral edema
NEURO: Gross non-focal
SKIN: No rash, warm, dry, pink
--- NOTE | 2024-03-03 08:23 | W.PN.PUL3 ---
Today's Communication / Plan
-
Await sputum cytology
Needs cardiac stability prior to any plans for biopsy
Worst case scenario, can pursue outpatient bronchoscopy with endobronchial exam, brushings/washings
Reviewed with cardiology
Assessment
-
73-year-old male with history of peripheral arterial disease, status post recent left toe amputation, treated for diagram gain, history of coronary disease with stent placement 2014, and lower extremity PAD stents 2016 at [facility], now
presents with increased chest discomfort similar to prior cardiac pain. Patient started on heparin therapy. We are asked to comment on his pulmonary process
Acute onset midsternal chest discomfort
Elevated troponin
Gross hemoptysis
History of coronary disease with stent placement at [facility]
Leukocytosis
Anemia
Peripheral vascular disease
Peripheral arterial disease, stent placement lower extremity 2015 [facility]
Recent left first hallux amputation 02/11/2024
Hyponatremia
Hyperglycemia
10 cm left upper lobe mass
Mild left hilar adenopathy
Moderate , valve area 1 cm�
Conditions present prior to admission
Hypertension/hyperlipidemia
Diabetes
20+ tobacco history, quit around 2015
100 pound weight loss over the past year
Plan/recommendations
At this time, patient presents difficult situation
Requires biopsy of left lung mass but unable to pursue while on ASA/Plavix
This was reviewed with interventional radiology. Needs to be off Plavix for 5 days prior to any transthoracic biopsy
He appears nontoxic but continues to have intermittent chest pain overnight
Troponin rising, heparin resumed
Hemoptysis quantified at bedside. It is roxanna blood, old blood
This is more bloody than patient description over the past few weeks, described blood mixed with mucus
Sputum cytology is pending
History of coronary disease with stent in the past noted
Present on aspirin/Plavix/heparin therapy
Moving forward
Reviewed imaging findings with patient. He will require left upper lobe mass biopsy
I reviewed with him that he likely has underlying cancer
At this point, I would recommend transthoracic needle biopsy. However per discussion with interventional radiology, they are unable to do this on DAPT
We are also unable to do bronchoscopy on DAPT
Await sputum cytology
Primary goal presently is to stabilize from cardiac standpoint
Echocardiogram with new wall motion abnormalities
Plan for cardiac catheterization per discussion with cardiology
Depending on findings, may need to plan appropriate intervention
Unfortunately, will need to address cardiac issues prior to any plans for biopsy
Will have to address limitations down the road with biopsy depending on his clinical status
May require bronchoscopy with endobronchial exam, brushings, washings without biopsy, if unable to pursue transthoracic biopsy while on antiplatelet therapy
This will be an ongoing discussion
His underlying clinical status also predisposes him to high risk for thromboembolic disease
Doppler negative bilaterally for DVT
He remains on heparin therapy
Follow blood sugars
Antibiotics per primary service
Reviewed with patient, primary service, cardiology
Remains high risk situation
Subjective Data
-
Date of Service:
Date of Service: March 03, 2024
Subjective:
Patient appears to be comfortable. Presently he denies any obvious chest pain or chest tightness but has a vague discomfort in the chest. This appears to be chronic. Prior chest discomfort has resolved. Denies shortness of breath. He has mild
hemoptysis, none at the bedside. This appears to have improved
Objective Data
Data Reviewed
Vital Signs / I&O / Oxygen:
Vital Signs
Temp Pulse Resp BP Pulse Ox
97.7 F 83 16 103/69 98
03/03/24 08:07 03/03/24 08:07 03/03/24 08:07 03/03/24 08:07 03/03/24 07:51
Intake and Output
03/02/24 03/03/24 03/04/24
06:59 06:59 06:59
Intake Total 2483 / 2483 1300 / 1300 0 / 0
Output Total 1200 / 1200 1725 / 1725
Balance 1283 / 1283 -425 / -425 0 / 0
SaO2 98
Nasal Cannula flow liters per 4
minute
Physical Exam
General: Comfortable
HEENT: Normocephalic and Anicteric
Cardiovascular: S1-S2, Regular Rhythm, Murmur (2/6), Rub (n) and Peripheral Edema (n)
Respiratory: Wheeze (n), Crackles (n), Rhonchi (n), Non-Labored Respirations and Other (Slight decreased left apex)
GI: Soft, Non Distended and Non Tender
Neurology: Awake and Alert
Skin: Cyanosis (n), Jaundice (n), Rash (n) and Other (Did not examine lower extremity toe, socks in place)
Labs/Micro/Reports
Lab Data
03/03/24 05:03
Laboratory Results
03/02/24 03/02/24 03/03/24
14:29 22:34 05:03
APTT 36.0 H 47.8 H 64.4 H
pH
pCO2
pO2
HCO3
O2 Delivery Level
03/03/24
05:16
APTT
pH 7.43
pCO2 29 L
pO2 69 L
HCO3 19.2 L
O2 Delivery Level 2 l nc
Microbiology
03/01/24 13:38 Nose MRSA Screen - Final
No Methicillin Resistant Staphylococcus aureus isolated.
03/01/24 10:24 Blood/Venous Blood Culture - Preliminary
No Growth in 24 hours- Final report to follow
03/01/24 10:56 Abscess Wound Culture - Preliminary
03/01/24 10:56 Abscess Gram Stain - Preliminary
[2024-03-03] MEDS: NOVOLOG FLEXPEN-MODERATE RESISTANCE 3 UNITS SC ×2 (08:32→16:59)
[2024-03-03] MEDS: DAKIN'S SOLUTION 0.125% 1/4 STRENGTH 473 ML TOPICAL (08:33)
--- NOTE | 2024-03-03 08:44 | W.PN.HOSP.TC ---
Today's Communication/Plan
-
Nitro drip. Lasix. Blood transfusion. Antibiotics.
Assessment / Plan
Assessment / Plan
Physical exam:
General: Acutely ill, toxic appearance
HEENT: Normocephalic, Atraumatic and Moist Mucous Membranes
Respiratory: Clear to Auscultation; Negative Wheezes, Rales or Rhonchi
Cardiac: Regular Rhythm and S1/S2
GI: Soft, Nontender and Nondistended
Musculoskeletal: Left toe with purulent discharge and erythema surrounded postop area. No Clubbing, No Cyanosis and No Edema
Neuro: Awake, Alert and Oriented, no gross neurodeficits
Psych: Calm
A/P:
Acute NSTEMI:
Plan to start heparin drip per cardiology today
IV nitroglycerin drip
Troponin up to 3.02 today
Seen reviewed twelve-lead EKG-dynamic changes
Beta-blockers if tolerated
Dual antiplatelet aspirin Plavix
Statin
Discussed with cardiology today
Discussed with attending RN
Will defer to cardiology in terms of diagnostic cardiac cath intervention
Acute diastolic CHF:
Off IV fluid
Diuretics given
Monitor respiratory status
Sepsis due to left toe infection:
IV antibiotics, cefepime and vancomycin
Podiatry consult-Might need further amputation down the road or local debridement but cardiac issues are a significant priority.
He had a left hallux amputation on 02/[address] Licha Payton-I messaged both Petr and Tata today.
ID consult appreciated continue current antibiotics and added anaerobic coverage, metronidazole
Off IV fluids
Blood cultures no growth
MRSA screen pending
Wound culture gram-positive cocci and gram-negative rods
Updated podiatry today of his cardiac issues
Anemia:
Given degree of worsening anemia along with known lung mass likely malignant, will request hematology oncology consult for further evaluation.
Blood transfusion today
Chronic limb ischemia:
Status post vascular intervention on 02/[address] Vega
Diabetes mellitus type 2:
Insulin sliding scale
Last hemoglobin A1c on 02/09 was 8.2
Hold oral hypoglycemics for now
Left lung mass:
Pulmonary consult appreciated
Pulmonary prefers cardiac stability and worst-case scenario outpatient bronchoscopy
Hypertension:
Continue home antihypertensives.
Monitor blood pressure and adjust medications accordingly.
Hyperlipidemia:
Continue home statins
DVT prophylaxis:
SCDs
CODE STATUS:
Full code
Total time spent on today's encounter was 52 minutes which included time spent in counseling the patient/family regarding diagnosis and treatment plan as listed above, goals of care, and symptom management. Case was discussed with nursing staff,
specialists, and care coordinators/case management. All labs and imaging personally reviewed by me. Remainder the time spent in detailed review of previous records, lab data, imaging, and other medical provider documentation.
Anticipated Discharge: > 48 hours
Subjective/Interval History
-
Date of Service: March 03, 2024
Patient overnight short of breath and also anemic this morning. No chest pain. No shortness of breath this morning.
Objective Data
-
Labs:
Laboratory Results
03/02/24 03/03/24 03/03/24
22:34 00:15 05:03
WBC 21.0 H 19.0 H
Hgb 8.3 L 7.6 L
Hct 25.3 L 23.1 L
Plt Count 491 H 432 H
APTT 47.8 H 64.4 H
HCO3
Sodium 129 L 127 L
Potassium 4.8 4.6
Chloride 100 98
Carbon Dioxide 18 L 20 L
BUN 18 19
Creatinine 0.7 0.8
Glucose 229 H 215 H
Calcium 8.8 8.6
03/03/24 03/03/24
05:16 12:00
WBC
Hgb Pending
Hct Pending
Plt Count
APTT Pending
HCO3 19.2 L
Sodium
Potassium
Chloride
Carbon Dioxide
BUN
Creatinine
Glucose
Calcium
Vital Signs:
Vital Signs
Temp Pulse Resp BP Pulse Ox
97.7 F 83 16 103/69 98
03/03/24 08:07 03/03/24 08:07 03/03/24 08:07 03/03/24 08:07 03/03/24 07:51
I&O
03/02/24 03/03/24 03/04/24
06:59 06:59 06:59
Intake Total 2483 / 2483 1300 / 1300 0 / 0
Output Total 1200 / 1200 1725 / 1725
Balance 1283 / 1283 -425 / -425 0 / 0
[2024-03-03] MEDS: LOW STRENGTH ASPIRIN 81 MG PO (08:46)
[2024-03-03] MEDS: LIPITOR 20 MG PO (08:46)
[2024-03-03] MEDS: FLAGYL 500 MG PO ×2 (08:46→15:47)
[2024-03-03] MEDS: PLAVIX 75 MG PO (08:47)
[2024-03-03] MEDS: TOPROL XL 25 MG PO (08:47)
--- NOTE | 2024-03-03 08:59 | PHA.VAN.FU ---
Vancomycin Assessment / Plan
- Assessment
Renal Function: Stable
WBC's are: Stable (elevated at 19)
In the past 24 hrs, patient has been: Febrile (100.7, tmax)
Concomitant Antimicrobials: cefepime, metronidazole
- Dosing Plan
Continue: vanc 1000mg q12h
- Monitoring Plan
Peak Level: 03/03 2030
Trough Level: 03/04 530
- Follow Up
Pharmacy will continue to follow.
Vancomycin Follow UP
- -
Patient Age: 73
Patient Sex: Male
Vancomycin Day #: 3
Indication: Skin And Soft Tissue
Requesting Provider: Dr. Chavira/ Dr Goss
Pertinent Antimicrobial Allergies:
NKDA
Height / Weight:
Height 6 ft
Actual Weight 85.3 kg
Pertinent Past Medical History: DM
- Vital Signs / Lab Results
Temp Pulse Resp BP Pulse Ox
97.7 F 83 16 103/69 98
03/03/24 08:07 03/03/24 08:07 03/03/24 08:07 03/03/24 08:07 03/03/24 07:51
Lab Results - Hematology
03/01/24 03/02/24 03/03/24
: 05:18 00:15
WBC 18.4 H 15.9 H 21.0 H
03/03/24
05:03
WBC 19.0 H
Lab Results - Chemistry
03/01/24 03/02/24 03/03/24
09: 05:18 00:15
BUN 20 17 18
Creatinine 0.8 0.7 0.7
Estimated Creat Clear 93 106 106
Albumin 3.4 L 3.2 L
03/03/24
05:03
BUN 19
Creatinine 0.8
Estimated Creat Clear 93
Albumin
03/01/24 03/03/24 03/03/24
00:15 05:03
Lactic Acid 1.6 2.6 H 1.8
Microbiology Results
03/01/24 10:56 Wound Culture - Preliminary
Abscess Gram negative bacilli
Pseudomonas aeruginosa
Gram Stain - Preliminary
03/01/24 13:38 MRSA Screen - Final
Nose No Methicillin Resistant Staphylococcus aureus isolated.
03/01/24 10:24 Blood Culture - Preliminary
Blood/Venous No Growth in 24 hours- Final report to follow
--- NOTE | 2024-03-03 09:43 | W.PN.ID1 ---
Date of Service
Date of Service: March 03, 2024
Today's Communication
- c/w vanc/cefepime/metronidazole
- agree with amputation when feasible, no urgent findings on exam
Assessment / Plan
Diabetic Foot Infection/Surgical Site Infection
DM2 uncontrolled
- complicated clinical situation with chest pain with plans for possible cardiac cath, lung mass plans for eventual biopsy and surgical site infection. At this moment no pressing need to prioritize surgical site infection.
- single blood culture in progress - no growth to date
- wound culture in progress: gram stain rare GPCs, rare GNR; GNR and Pseudomonas
- MRSA screen finalized negative
- c/w vanc/cefepime/metronidazole
- agree with amputation when feasible, no urgent findings on exam, if infection all resected then will stop antibiotics
Hyponatremia
- management per primary service
follow clinically
Chief Complaint
-: Other (surgical site infection)
Subjective / Review of Systems
low grade fever noted
consideration of eventual cardiac cath and biopsy of lung mass
defer surgery, tentatively planned for 03/06.
Vital Signs / Physical Exam
Vital Signs
Vital Signs
Temp Pulse Resp BP Pulse Ox
97.7 F 83 16 103/69 98
03/03/24 08:07 03/03/24 08:07 03/03/24 08:07 03/03/24 08:07 03/03/24 07:51
Physical Exam
Constitutional: No Acute Distress and Chronically Ill
Cardiovascular: Regular Rate and S1/S2; Negative Murmur or Rub
Pulmonary: Clear and Symmetric; Negative Wheezes or Rales
Gastrointestinal: Soft, Non Tender, Non Distended and Normal Bowel Sounds
Skin: Warm and Dry; Negative Rash or Jaundice
Wound: Other (L great toe surgical site now mildly pink, minimal serous drainage, slough and developing eschar, no crepitus, no fluctuance)
Objective Data
Lab Data
Lab Results
03/03/24 05:03
APTT 64.4 Sec (23.4-35.0) H 03/03/24 05:03
Estimated Creat Clear 93 ml/min 03/03/24 05:03
Lactic Acid 1.8 mmol/L (0.7-2.0) 03/03/24 05:03
Total Bilirubin 0.6 mg/dl (0.2-1.3) 03/02/24 05:18
AST 29 U/L (17-59) 03/02/24 05:18
ALT 17 U/L (0-50) 03/02/24 05:18
Alkaline Phosphatase 84 U/L (38-126) 03/02/24 05:18
Most recent labs reviewed.
Micro Results:
03/01/24 10:56 Wound Culture - Preliminary
Abscess Gram negative bacilli
Pseudomonas aeruginosa
Gram Stain - Preliminary
03/01/24 13:38 MRSA Screen - Final
Nose No Methicillin Resistant Staphylococcus aureus isolated.
03/01/24 10:24 Blood Culture - Preliminary
Blood/Venous No Growth in 24 hours- Final report to follow
[2024-03-03] MEDS: MAXIPIME 2000 MG IV ×2 (10:18→21:11)
[2024-03-03] MEDS: STERILE WATER FOR INJECTION 10 ML IV ×2 (10:18→21:12)
[2024-03-03] MEDS: LASIX 40 MG IV ×2 (11:10→16:42)
--- NOTE | 2024-03-03 11:46 | PTCARENOTE ---
Patient feeling better today, denies chest pain at present. Di have some intermittent left upper chest pain earlier but resolved in about a minute. OOB to chair this afternoon, chair cushion, sacral foam in place. Dyspneic with ambulation to the
chair, resolves with rest, oxygen at 4 liters NC, POX 98-100%, not coughing up bloody sputum today. Heparin gtt stopped. Nitroglycerin at 5mcg/min infusing. Second until of blood infusing, 40 mg IV Lasix given in between units. Will collect labs
after transfusion is complete. Prater lainey clear urine to gravity, call marx in reach
[2024-03-03] MEDS: LOPRESSOR 12.5 MG PO ×2 (12:36→17:49)
[2024-03-03] MEDS: NOVOLOG FLEXPEN-MODERATE RESISTANCE SC (14:23)
[2024-03-03 14:33] LABS: Glucose - Point of Care 202 mg/dl (70-99)
--- NOTE | 2024-03-03 14:40 | PTCARENOTE ---
Patient rang call marx, complaints of shortness of breath, POX 91-90% on 4 liters increased to 5 liters, 92%, HOB elevated, RR 40, BP 140/77, accu check 202, labs collected. [place] text sent to Saul Chavira
--- NOTE | 2024-03-03 14:47 | CON.ONC ---
Impression
Impression
Microcytic anemia secondary to iron deficiency
Reactive leukocytosis
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
Coronary artery disease with chest discomfort and elevated troponin
Peripheral vascular disease
Recent amputation of the first hallux
Hyponatremia
Diabetes mellitus with hyperglycemia
Hemoptysis
Plan
Plan
If there is no significant risk for further infection parenteral iron resuscitation appropriate
Agree with plan for transthoracic biopsy of the 10 cm mass
GI evaluation appropriate once stable from a cardiothoracic perspective
Obtain CEA
Will follow
Patient History
History of Present Illness
Mr Cototn is a 73 year old male with history of PVD/CAD, left upper lobe lung mass undergoing workup, diabetes mellitus, who presented to the hospital with chest pain. He had a recent admission for left first toe dry gangrene status post
amputation left hallux and was discharged home on 02/12. On arrival he reported chest pain constant since the night before , moderate/severe intensity, pressure-like on mid sternum without radiation. Also associated with shortness of breath. He
had no nausea vomiting or palpitations or diaphoresis or syncope. Reports 100 lb weight loss over a year - ongoing.
Of note patient also has left toe erythema with purulent discharge at the surgical site and dehiscence of the site. Reportedly his geophysics teacher has recommended further debridement. He denies fevers or chills.
Past-Medical/Surgical History
Past Medical History
History of peripheral arterial disease, angioplasty/stent with left superficial femoral artery and iliac artery, recent left first toe gangrene status post amputation 02/10, history of coronary disease with stents in 2014, hypertension,
hyperlipidemia, diabetes.
Social History
Tobacco: Former Smoker
Alcohol: None
Drug: None
Family History
Family History: Not Pertinent
Patient Medication
�Medication �Instructions �Recorded �Confirmed �Last Taken �Type
acetaminophen 325 mg tablet 650 mg (2 x 325 mg) PO Q4HPRN PRN 07/28/24 08/14/24 08/13/24 Rx
mild pain or temp >/= 100.4 F #10
tabs
aspirin 81 mg chewable tablet 81 mg PO DAILY Blood Clot 03/01/24 03/01/24 03/01/24 History
Prevention/Tx
atorvastatin 10 mg tablet 20 mg PO DAILY High Cholesterol 03/01/24 03/01/24 03/01/24 History
clopidogrel 75 mg tablet 75 mg PO DAILY Blood Clot 03/01/24 03/01/24 03/01/24 History
Prevention/Tx
lisinopril 5 mg tablet 5 mg PO DAILY Blood Pressure 03/01/24 03/01/24 03/01/24 History
metformin 1,000 mg tablet 1,000 mg PO BID@0800,1700 Diabetes 03/01/24 03/01/24 03/01/24 History
metoprolol succinate 25 mg 25 mg PO DAILY Blood Pressure 03/01/24 03/01/24 03/01/24 History
tablet,extended release 24 hr
sitagliptin phosphate 50 mg tablet 50 mg PO DAILY Diabetes 03/01/24 03/01/24 03/01/24 History
(Januvia)
Active Medications
Generic Name Dose Route Start Last Admin
Trade Name Freq PRN Reason Stop Dose Admin
Acetaminophen 650 mg 03/01/24 13:22 03/02/24 00:00
Acetaminophen 325 Mg Tablet PO 03/29/24 13:21 650 mg
Q4HPRN PRN Administration
mild pain or temp >/= 100.4 F
Albuterol/Ipratropium 3 ml 03/03/24 00:43
Ipratropium 0.5/Albuterol 3 Mg (3 Ml Ampul) INH
R Q4HPRN PRN
chest tightness
Protocol
Aspirin 81 mg 03/02/24 08:00 03/03/24 08:46
Aspirin 81 Mg Chewable Tablet PO 03/30/24 07:59 81 mg
DAILY OUSMANE Administration
Atorvastatin Calcium 20 mg 03/02/24 08:00 03/03/24 08:46
Atorvastatin (Lipitor) 20 Mg Tablet PO 03/30/24 07:59 20 mg
DAILY OUSMANE Administration
Bisacodyl 10 mg 03/01/24 13:22
Bisacodyl 10 Mg Rectal Suppository RECTAL 03/29/24 13:21
[id number] PRN
constipation
Cefepime HCl 2,000 mg 03/01/24 22:00 03/03/24 10:18
Cefepime Hcl 2,000 Mg/12.5 Ml Vial IV 2,000 mg
Q12H OUSMANE Administration
Clopidogrel Bisulfate 75 mg 03/02/24 08:00 03/03/24 08:47
Clopidogrel 75 Mg Tablet PO 03/30/24 07:59 75 mg
DAILY OUSMANE Administration
Dextrose 12.5 grams 03/01/24 11:11
Dextrose 50% (0.5 Grams/Ml) 50 Ml Syringe IV 03/29/24 11:10
[id number] PRN
hypoglycemia
Protocol
Glucagon 1 mg 03/01/24 11:11
Glucagon 1 Mg Vial IM 03/29/24 11:10
PRN PRN
hypoglycemia
Protocol
Vancomycin HCl 1 gram in 200 mls @ 200 mls/hr 03/01/24 20:00 03/03/24 05:55
Vancocin IV 200 mls
Q12@0600,1800 OUSMANE Administration
Protocol
Nitroglycerin/Dextrose 100 mg in 250 mls @ 0 mls/hr 03/02/24 09:15 03/02/24 09:41
Nitroglycerin Premix IV 250 mls
PER PROTOCOL OUSMANE Administration
Protocol
Per Protocol
Insulin Aspart 0 units 03/03/24 07:30 03/03/24 14:23
Insulin Aspart Moderate Resistance 300 Units/3 Ml Pen.Injctr SC 03/31/24 07:29 Not Given
AC OUSMANE
Protocol
Metoprolol Tartrate 12.5 mg 03/03/24 12:00 03/03/24 12:36
Metoprolol 12.5 Mg Regular Release Dose (1/2 Of 25 Mg Tablet) PO 03/31/24 11:59 12.5 mg
Q6 OUSMANE Administration
Metronidazole 500 mg 03/02/24 00:00 03/03/24 08:46
Metronidazole 500 Mg Tablet PO 500 mg
Q8 OUSMANE Administration
Morphine Sulfate 2 mg 03/01/24 13:22 03/02/24 05:52
Morphine 2 Mg/Ml Syringe IV 03/15/24 13:21 2 mg
Q4HPRN PRN Administration
severe pain
Nitroglycerin 0.4 mg 03/01/24 23:37 03/02/24 06:34
Nitroglycerin 0.4 Mg Sl Tablet SL 03/29/24 23:36 0.4 mg
[id number] PRN Administration
chest pain
Polyethylene Glycol 17 grams 03/01/24 13:22
Polyethylene Glycol Powder 17 Grams Packet PO 03/29/24 13:21
DAILYPRN PRN
constipation
Prochlorperazine Edisylate 5 mg 03/02/24 20:49 03/02/24 21:23
Prochlorperazine 10 Mg/2 Ml Vial IV 03/30/24 20:48 5 mg
Q6HPRN PRN Administration
n/v
Senna/Docusate Sodium 1 tablet 03/01/24 13:22
Docusate W/Senna (Maria-Colace) Tablet PO 03/29/24 13:21
BIDPRN PRN
constipation
Sodium Chloride 0 flush 03/01/24 14:00
Sodium Chloride 0.9% (Flush) Syringe IV 03/29/24 13:59
PER PROTOCOL OUSMANE
Sodium Hypochlorite 0 ml 03/01/24 16:00 03/03/24 08:33
Dakin's Solution 0.125% (1/4 Strength) 473 Ml Bottle TOPICAL 03/29/24 15:59 473 ml
DAILY OUSMANE Administration
Sterile Water 10 ml 03/01/24 22:00 03/03/24 10:18
Sterile Water For Injection 10 Ml Vial IV 03/29/24 21:59 10 ml
Q12H OUSMANE Administration
Review of Systems
-
No recurrence of chest pain. 10 point review of systems fails elicit additional complaints
Physical Exam
-
HEENT: Normocephalic and Anicteric
Cardiovascular: S1/S2, Regular Rhythm, Murmur ( 2/6 systolic murmur), Rub (n) and Peripheral Edema (n)
Respiratory: Wheeze (n), Rales (n), Rhonchi (n) and Non-Labored Respirations
GI: Soft, Non Distended and Non Tender
Neurology: Awake, Alert and No Motor Deficits
Skin: Good Color
General: Comfortable
Labs
Lab Results
WBC 19.0 10^3/uL (4.8-10.8) H 03/03/24 05:03
RBC 3.03 10^6/uL (4.70-6.10) L 03/03/24 05:03
Hgb 7.6 g/dL (13.0-18.0) L 03/03/24 05:03
Hct 23.1 % (39.0-52.0) L 03/03/24 05:03
MCV 76.2 fL (80.0-94.0) L 03/03/24 05:03
MCH 25.1 pg (27.0-31.0) L 03/03/24 05:03
MCHC 32.9 g/dL (33.0-37.0) L 03/03/24 05:03
RDW 15.3 % (11.5-14.5) H 03/03/24 05:03
Plt Count 432 10^3/uL (130-400) H 03/03/24 05:03
MPV 8.3 fL (7.4-10.4) 03/03/24 05:03
Abs Immat Gran (auto) 0.2 10^3/uL (0-0.05) H 03/03/24 05:03
Absolute Neuts (auto) 13.7 10^3/uL (1.4-6.5) H 03/03/24 05:03
Absolute Lymphs (auto) 3.9 10^3/uL (1.2-3.4) H 03/03/24 05:03
Absolute Monos (auto) 1.3 10^3/uL (0.1-0.6) H 03/03/24 05:03
Absolute Eos (auto) 0.0 10^3/uL (0-0.7) 03/03/24 05:03
Absolute Basos (auto) 0.1 10^3/uL (0-0.2) 03/03/24 05:03
Immature Gran % 0.8 % (0-0.5) H 03/03/24 05:03
Neutrophils % 71.8 % (42.2-75.2) 03/03/24 05:03
Lymphocytes % 20.3 % (20.5-51.1) L 03/03/24 05:03
Monocytes % 6.7 % (1.7-9.3) 03/03/24 05:03
Eosinophils % 0.1 % (0-6) 03/03/24 05:03
Basophils % 0.3 % (0-2) 03/03/24 05:03
Creatinine 0.8 mg/dL (0.7-1.3) 03/03/24 05:03
Vital Signs
Vital Signs
Temp Pulse Resp BP Pulse Ox
97.9 F 94 36 138/70 92
03/03/24 14:36 03/03/24 14:30 03/03/24 14:36 03/03/24 14:30 03/03/24 14:36
--- NOTE | 2024-03-03 15:12 | W.PN.UPDATE ---
Update Note
Progress Note Update
Received text from and patient with increased shortness of breath and requiring 6 L of oxygenation. Patient with anemia and received 2 units of PRBC earlier. Patient with complex hospital course so far and already on antibiotics. Patient was also
found to have left upper lobe lung lesion that is being monitored by pulmonary. Evaluated the patient at bedside. Patient is able to speak in complete sentences. States of phlegm. States of heavy history of smoking approximately 1 to 1.5
pack/day for 40 years or more. Received Lasix earlier with significant urinary output and a Prater catheter noted. On auscultation of the lungs patient with decreased breath sounds. No roxanna crackles heard. Cardiac S1-S2. Not in severe
respiratory distress.
Acute hypoxic respiratory failure likely multifactorial suspected COPD versus lung lesion versus fluid overload versus TRALI/TACO versus aspiration pneumonitis
Pro-Otilio was checked earlier at 0.20 and already on a vancomycin, cefepime and Flagyl IV antibiotics
Will start patient on bronchodilators standing AND as needed
Trial of 10 mg of Decadron
Pulmonary has been informed and already following the patient
Check chest x-ray and ABG
If required escalate from nasal cannula to mid flow to high flow if needed.
proBNP was checked earlier this morning with 9170. Received 80 mg of Lasix in total so far.
Can consider additional dose of Lasix. will await further chest x-ray.
Total Critical Care Time_ 32 minutes. I was immediately available to the patient and staff. I personally examined, reviewed labs, diagnostic images/reports, interpretations, treatment plans, discussed patient care with other providers and family
or caregivers (if patient is unable to make decisions), entered orders as appropriate and documented the medical record.
[2024-03-03] MEDS: DUONEB INH (15:17)
[2024-03-03] MEDS: DECADRON 10 MG IV (15:18)
[2024-03-03] MEDS: DUONEB 3 ML INH ×2 (15:19→19:25)
--- NOTE | 2024-03-03 15:27 | PTCARENOTE ---
Patient examined Dr. Torrez. Steroid IV given, Nebulizer given, coughing up blood, feeling like mucous is stuck in the back of throat. Portable CXR completed, ABG to be collected. During episode he did triplets. otherwise NSR HR 85. He was able to
expectorate a large amount of roxanna bloody mucous with some relief, oxygen turned down to 4 liters NC. Patient feeling slightly better
--- NOTE | 2024-03-03 15:48 | CM ---
Reviewed chart. Tried to see Mr. Cotton to review discharge plan. Nurse states he is not feeling well and to come back later. Prior to admission he resdies alone in a second floor condo with fourteen steps to enter. He has a one level
arrangement once up the steps. He states prior to admission he ws independent with ambulation and adls. He states he has a single point cane but currently is not using it. He is current with [facility] and he is agreeable to [facility] again if needed. He has a prescription plan and uses [facility]. Will need to see his current functional level to see if he will have any skilled care needs. Medical work-up in progress. The discharge plan is return home with resumption
of [facility] when medically stable.
[2024-03-03 16:06] LABS: Hematocrit 36.1 % (39.0-52.0); Hemoglobin 11.9 g/dL (13.0-18.0)
--- NOTE | 2024-03-03 16:22 | W.PN.UPDATE ---
Update Note
Progress Note Update
Reviewed case with primary service and cardiology
Events earlier today noted post transfusion. Patient received 1 dose of Decadron and Lasix
He appears to be improved at this time, down to 3 L, in no distress. He denies chest pain likely forward describes a vague chest discomfort
Chest exam with mild crackles at the base
Troponins increasing, now up to 26.9. proBNP 9170. Procalcitonin normal
Unfortunately, this is a difficult situation
I reviewed with patient clinical course and data to date
Unable to safely pursue catheterization per cardiology given ongoing hemoptysis and bleeding in the lung
Unable to safely pursue lung biopsy given need for antiplatelet therapy
No viable options at this time
Reviewed that we will continue with supportive care and hope that overall cardiac status stabilizes with medical therapy, and respiratory status is stable without worsening hemoptysis
Upon reviewing above, discussed risk for cardiac arrest, respiratory failure requiring CPR, shock, mechanical ventilation
He understands risk for despite the above
Patient relayed that he would not want aggressive resuscitation (CPR, shock, mechanical ventilation) given the circumstances and wishes to be DNR
He will contact his family (few cousins)
I offered to contact family to review the above, he declined.
If patient develops frequent worsening of cardiopulmonary status, may need to consider palliative, comfort measures
Updated nursing, primary service, cardiology
Continue with supportive care
--- NOTE | 2024-03-03 16:26 | W.PN.UPDATE ---
Update Note
Progress Note Update
Reviewed events from this afternoon where patient had increased shortness of breath and oxygen requirements post blood transfusion with improvement of hemoglobin, 11.9. Repeat chest x-ray reviewed by pulmonary which showed new right lower
lobe/middle lobe process. Received a dose of steroids and given nebulizers. Continue antibiotics. Noted to have crackles at bases. Will give an additional dose of Lasix 40 mg IV now. Troponin bumped from 3.02-26.9. Will repeat EKG. Patient
currently denying chest pain. Discussed with interventional cardiology who does not feel patient is ideal candidate for Family Psychologist at this time due to multiple ongoing medical conditions.
[2024-03-03 16:54] LABS: Glucose - Point of Care 232 mg/dl (70-99)
[2024-03-03] MEDS: PULMICORT 0.5 MG INH (19:25)
[2024-03-03 21:06] LABS: Vancomycin Peak 25.3 ug/ml (18-26)
[2024-03-03 21:29] LABS: Glucose - Point of Care 419 mg/dl (70-99)
[2024-03-03 21:29] LABS: Glucose - Point of Care 393 mg/dl (70-99)
[2024-03-03 22:09] LABS: Glucose 363 mg/dl (70-99)
[2024-03-03] MEDS: NOVOLOG FLEXPEN 9 UNITS SC (22:19)
[2024-03-04] VITALS (9 sets, daily range): BP systolic 98–125; BP diastolic 56–75
[2024-03-04] MEDS: LOPRESSOR 12.5 MG PO ×5 (00:22→23:11)
[2024-03-04] MEDS: FLAGYL 500 MG PO ×4 (00:22→23:11)
[2024-03-04 00:27] LABS: Glucose - Point of Care 319 mg/dl (70-99)
[2024-03-04] MEDS: NOVOLOG FLEXPEN 7 UNITS SC ×2 (00:55→22:23)
[2024-03-04 03:07] LABS: Glucose - Point of Care 249 mg/dl (70-99)
[2024-03-04 05:49] LABS: % Basophils 0.1 % (0-2); % Immature Granulocytes 0.5 % (0-0.5); % Lymphocytes 21.3 % (20.5-51.1); % Monocytes 5.3 % (1.7-9.3); % Neutrophils 72.8 % (42.2-75.2); Absolute Immature Granulocytes 0.1 10^3/uL (0-0.05); Absolute Lymphocytes 4.9 10^3/uL (1.2-3.4); Absolute Monocytes 1.2 10^3/uL (0.1-0.6); Absolute Neutrophils 16.7 10^3/uL (1.4-6.5); Hematocrit 30.6 % (39.0-52.0); Hemoglobin 10.6 g/dL (13.0-18.0); Mean Corp Hgb Conc. 34.6 g/dL (33.0-37.0); Mean Corpuscular Hgb 26.9 pg (27.0-31.0); Mean Corpuscular Volume 77.7 fL (80.0-94.0); Mean Platelet Volume 8.5 fL (7.4-10.4); Nucleated Red Blood Cells % 0 % (-); Platelet Count 466 10^3/uL (130-400); Red Blood Cell Count 3.94 10^6/uL (4.70-6.10); Red Cell Dist. Width 15.6 % (11.5-14.5)
[2024-03-04 06:16] LABS: Vancomycin Trough 14.2 ug/ml (5-20)
[2024-03-04 06:18] LABS: Blood Urea Nitrogen 22 mg/dl (9-20); Carbon Dioxide 21 mmol/L (22-30); Chloride 101 mmol/L (98-107); Estimated Creatinine Clearance 124 ml/min; Glucose 212 mg/dl (70-99); Potassium 4.6 mmol/L (3.5-5.1); Sodium 129 mmol/L (135-145); eGFR > 60.00
[2024-03-04] MEDS: VANCOCIN 200 IV ×2 (06:22→17:50)
--- NOTE | 2024-03-04 07:37 | PHA.VAN.FU ---
Vancomycin Assessment / Plan
- Assessment
Renal Function: SCR Decreasing
WBC's are: Trending Up
In the past 24 hrs, patient has been: Afebrile
Concomitant Antimicrobials: Cefepime, Metronidazole
- Assessment - Therapeutic Drug Monitoring
Extrapolated Cmax (mcg/mL): 28.3
Peak level was drawn: Appropriately
Extrapolated Cmin (mcg/mL): 10.7
Trough Drawn: Appropriately
Levels were drawn: At steady state
Calculated AUC (mcg*h/mL): 488
Calculated ke: 0.0650
Calculated half life (H): 10.7
Calculated Vd (L): 63.05
Calculated Vanc CL (ml/min): 68.32
- Dosing Plan
Continue: Vanc 1gm IV Q12H
- Monitoring Plan
Level(s) appropriate: Recheck trough at minimum of weekly intervals, Repeat sooner for changes in renal function or clinical status
- Follow Up
Pharmacy will continue to follow.
Vancomycin Follow UP
- -
Patient Age: 73
Patient Sex: Male
Vancomycin Day #: 4
Indication: Skin And Soft Tissue
Requesting Provider: Dr. Chavira/ Dr Goss
Pertinent Antimicrobial Allergies:
NKDA
Height / Weight:
Height 6 ft
Actual Weight 85.3 kg
Pertinent Past Medical History: DM
- Vital Signs / Lab Results
Temp Pulse Resp BP Pulse Ox
97.3 F 65 16 117/71 98
03/04/24 03:02 03/04/24 06:13 03/04/24 03:02 03/04/24 06:13 03/04/24 03:02
Lab Results - Hematology
03/01/24 03/02/24 03/03/24
: 05:18 00:15
WBC 18.4 H 15.9 H 21.0 H
03/03/24 03/04/24
05:03 05:27
WBC 19.0 H 23.0 H
Lab Results - Chemistry
03/01/24 03/02/24 03/03/24
05:18 00:15
BUN 20 17 18
Creatinine 0.8 0.7 0.7
Estimated Creat Clear 93 106 106
Albumin 3.4 L 3.2 L
03/03/24 03/04/24
05:03 05:27
BUN 19 22 H
Creatinine 0.8 0.6 L
Estimated Creat Clear 93 124
Albumin
03/01/24 03/03/24 03/03/24
00:15 05:03
Lactic Acid 1.6 2.6 H 1.8
Microbiology Results
03/01/24 10:56 Wound Culture - Preliminary
Abscess Gram negative bacilli
Pseudomonas aeruginosa
Gram Stain - Preliminary
03/01/24 10:24 Blood Culture - Preliminary
Blood/Venous No Growth in 48 hours- Final report to follow
03/01/24 13:38 MRSA Screen - Final
Nose No Methicillin Resistant Staphylococcus aureus isolated.
Therapeutic Drug Monitoring
Vancomycin Peak 25.3 ug/ml (18-26) 03/03/24 20:34
Vancomycin Trough 14.2 ug/ml (5-20) 03/04/24 05:27
[2024-03-04] MEDS: DUONEB 3 ML INH ×4 (07:43→19:44)
[2024-03-04] MEDS: PULMICORT 0.5 MG INH ×2 (07:43→19:44)
[2024-03-04 07:59] LABS: Glucose - Point of Care 231 mg/dl (70-99)
[2024-03-04] MEDS: NOVOLOG FLEXPEN-MODERATE RESISTANCE 3 UNITS SC (08:39)
[2024-03-04] MEDS: LOW STRENGTH ASPIRIN 81 MG PO (08:41)
[2024-03-04] MEDS: LIPITOR 20 MG PO (08:42)
[2024-03-04] MEDS: PLAVIX 75 MG PO (08:42)
[2024-03-04] MEDS: DAKIN'S SOLUTION 0.125% 1/4 STRENGTH 473 ML TOPICAL (08:42)
--- NOTE | 2024-03-04 09:31 | W.PN.CARDCBS ---
Today's Communication / Plan
-
Will maintain current medical therapy including DAPT, metoprolol and IV nitroglycerin, reassess tomorrow.
Impression / Plan
-
PCP: Dr. Woodrow Bynum
Cardiology: Dr. Santosh Zepeda with [facility] associated [phone]
Impression:
Chest pain
NSTEMI with Troponin peaking at 26.9 on 03/03/24
CAD
s/p 3.5 mm Xience to prox LAD 05/12/13
s/p2.75 mm Xience distal RCA 05/12/13
s/p 3.0 mm Xience to prox RCA at [facility] 05/12/13
PAD s/p left common to external iliac balloon angioplasty/stent, SFA balloon angioplasty/stent x2, TP trunk and peroneal angioplasty, anterior tibial long segment angioplasty 02/10/24
s/p left hallux amputation 02/11/24
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
Hemoptysis
Smoker
Echo on 02/11/24: LV ejection fraction is 60-65% by Roblero's method of discs. Mild concentric left ventricular hypertrophy. Mild mitral regurgitation.Mild to moderate aortic stenosis. Trace tricuspid regurgitation. Estimated pulmonary artery
pressure of 20-25 mmHg.
Echo 03/01/24: EF 60-65%, hypokinesis mid to distal septum
Plan:
-Patient with chest pain on admission to [facility] 03/01/24 and troponin peak at 3.09 on March 02
-Reviewed events of late evening 03/02/24 and double needle stitcher 03/03/2024 when he c/o feeling of something stuck in his chest and had urge to vomit but was unable. Heart rate increased into 100's-120's associated with mild hypotension. He briefly
desaturated.
ECG with episode showed sinus tachycardia with worsening of ST segments most apparent in anterolateral leads.
Troponin peaked to 26.9 at 2 PM March 03
ProBNP checked 9170. He was provided 20 mg IV Lasix and IV fluids were stopped.
Given worsening anemia and need for PRBC, we are now holding heparin and continuing Plavix and aspirin for now.
Continue Lopressor 12.5 mg every 6 hr
Echo 03/01/2024 with preserved EF with new hypokinesis to mid and distal septum
Known multivessel CAD with previous PCI to proximal LAD, proximal and mid RCA April 2013.
Review by interventional cardiology concludes patient is not an interventional candidate and medical management is recommended.
This morning, he is chest pain-free and EKGs improved throughout the day yesterday
Will maintain current medical therapy including DAPT, metoprolol and IV nitroglycerin, reassess tomorrow.
-Hemoptysis and lung mass noted and Pulm note reviewed.
If he proceeds to a lung biopsy will have to hold Plavix for 5 days. Biopsy cannot be performed on DAPT.
Pulmonary recommends stabilization of cardiac symptoms prior to bed bronchoscopy/biopsy and this may be considered as outpatient
Of note patient reports 100 pound weight loss over a year, raising concern for malignancy
IV antibiotics per pulmonary primary service and ID
-Patient also needs left partial 1st ray amputation. This is currently on hold.
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 Records including last cath report from 2012 obtained, reviewed and outlined above.
Discussed plan with patient
Total time 55 min
HPI: This is a 73 year old male patient with PMH of PAD, cardiac stent 2016, NIDDM, recent admission for dry gangrene of his left first toe status post amputation on 02/10, cardiac stent in 2016 and stent placement of the left superficial femoral
artery/left common iliac artery in 2017, lung mass with concerns of chest pain. He states that at 3AM he started to feel midsternal chest pain while sleeping which he described as a dull ache. He called EMS and felt that his chest pain improved upon
being given nitroglycerin. He also has concerns of left big toe pain. He denies CP, palpitations, SOB on exertion or dizziness.
His troponin was elevated at 0.078. Cardiology consulted.
Progress Note - Backwinder
Subjective
Date of Service: March 04, 2024
Denies chest pain shortness of breath palpitations dizziness
Objective
Labs:
03/04/24 05:27
03/04/24 05:27
Labs
Hgb 10.6 g/dL (13.0-18.0) L 03/04/24 05:27
Hct 30.6 % (39.0-52.0) L 03/04/24 05:27
Plt Count 466 10^3/uL (130-400) H 03/04/24 05:27
APTT Cancelled 03/03/24 12:00
Sodium 129 mmol/L (135-145) L 03/04/24 05:27
Potassium 4.6 mmol/L (3.5-5.1) 03/04/24 05:27
BUN 22 mg/dl (9-20) H 03/04/24 05:27
Creatinine 0.6 mg/dL (0.7-1.3) L 03/04/24 05:27
Glucose 212 mg/dl (70-99) H 03/04/24 05:27
Troponins
03/01/24 03/01/24 03/01/24
12:54 16:00
Troponin I 0.078 H* 0.075 H* Cancelled
03/01/24 03/01/24 03/02/24
17:16 22:00 00:10
Troponin I 0.069 H* Cancelled 0.072 H*
03/02/24 03/02/24 03/02/24
05:18 10:07 11:20
Troponin I 1.170 H* D 2.570 H* D Cancelled
03/02/24 03/02/24 03/03/24
14:29 22:34 05:03
Troponin I 3.090 H* 0.924 H* 3.020 H* D
03/03/24 03/03/24 03/04/24
05:55 14:41 05:27
Troponin I Cancelled 26.900 H* 22.600 H*
Vital Signs and I&O:
Vital Signs
Temp Pulse Resp BP Pulse Ox
97.4 F 66 16 117/71 96
03/04/24 08:02 03/04/24 07:46 03/04/24 07:46 03/04/24 06:13 03/04/24 07:46
Vital Signs
Temp Pulse Resp BP Pulse Ox
97.4 F 66 16 117/71 96
03/04/24 08:02 03/04/24 07:46 03/04/24 07:46 03/04/24 06:13 03/04/24 07:46
Intake & Output
03/02/24 03/03/24 03/04/24 03/05/24
06:59 06:59 06:59 06:59
Intake Total 2483 / 2483 2500 / 2500 1440 / 1440
Output Total 1200 / 1200 1725 / 1725 3000 / 3000
Balance 1283 / 1283 775 / 775 -1560 / -1560
Physical Exam
Physical Exam
GEN: No distress, awake, Ox3, sitting up in bed wearing oxygen
HEENT: supple, anicteric, mmm
LUNGS: Mildly decreased at bases otherwise CTA, no wheezes/rales; wearing oxygen
CV: Reg, S1/S2, 1/6 AHSM, no rub or gallop
ABD: soft, BS+, NT/ND
EXT: Trace bilateral edema
NEURO: Gross non-focal
SKIN: No rash, warm, dry, pink
[2024-03-04] MEDS: MAXIPIME 2000 MG IV ×2 (09:52→22:22)
[2024-03-04] MEDS: STERILE WATER FOR INJECTION 10 ML IV ×2 (09:52→22:23)
--- NOTE | 2024-03-04 10:26 | W.PN.PUL3 ---
Today's Communication / Plan
-
Await further cardiac treatment plan before bronchoscopy scheduled
Discussed with family plan of care
Assessment
-
73-year-old male with history of peripheral arterial disease, status post recent left toe amputation, treated for diagram gain, history of coronary disease with stent placement 2014, and lower extremity PAD stents 2016 at [facility], now
presents with increased chest discomfort similar to prior cardiac pain. Patient started on heparin therapy. We are asked to comment on his pulmonary process
Acute onset midsternal chest discomfort
Elevated troponin
Gross hemoptysis
History of coronary disease with stent placement at [facility]
Leukocytosis
Anemia
Peripheral vascular disease
Peripheral arterial disease, stent placement lower extremity 2015 [facility]
Recent left first hallux amputation 02/11/2024
Hyponatremia
Hyperglycemia
10 cm left upper lobe mass
Mild left hilar adenopathy
Moderate , valve area 1 cm�
Conditions present prior to admission
Hypertension/hyperlipidemia
Diabetes
20+ tobacco history, quit around 2015
100 pound weight loss over the past year
Plan/recommendations
At this time, patient presents difficult situation
Requires biopsy of left lung mass but unable to pursue while on ASA/Plavix
This was reviewed with interventional radiology. Needs to be off Plavix for 5 days prior to any transthoracic biopsy
He appears nontoxic but continues to have intermittent chest pain overnight
Troponin rising, heparin resumed
Hemoptysis quantified at bedside. It is roxanna blood, old blood
This is more bloody than patient description over the past few weeks, described blood mixed with mucus
Sputum cytology --Negative for malignant cells. Rare reactive bronchial cells noted. Also noted are benign squamous cells and pulmonary macrophages present in a background of acute inflammation
History of coronary disease with stent in the past noted
Present on aspirin/Plavix/heparin therapy
Procedure can be scheduled when DAPT can be interrupted
Reviewed imaging findings with patient. He will require left upper lobe mass biopsy
I reviewed with him that he likely has underlying cancer
At this point, I would recommend transthoracic needle biopsy. However per discussion with interventional radiology, they are unable to do this on DAPT
We are also unable to do bronchoscopy on DAPT
This was reviewed with patient again and family
Family notes that patient may have cancelled his OP FU due to fear of his diagnosis
They inferred we should try to do this while inpatient
Primary goal presently is to stabilize from cardiac standpoint
Echocardiogram with new wall motion abnormalities
Plan for cardiac catheterization per discussion with cardiology
Depending on findings, may need to plan appropriate intervention
Unfortunately, will need to address cardiac issues prior to any plans for biopsy
Will have to address limitations down the road with biopsy depending on his clinical status
May require bronchoscopy with endobronchial exam, brushings, washings without biopsy, if unable to pursue transthoracic biopsy while on antiplatelet therapy
This will be an ongoing discussion
His underlying clinical status also predisposes him to high risk for thromboembolic disease
Doppler negative bilaterally for DVT
He remains on heparin therapy
Follow blood sugars
Antibiotics per primary service
Reviewed with patient, primary service, cardiology
Remains high risk situation
Subjective Data
-
Date of Service:
Date of Service: March 04, 2024
Chief Complaint: Pulmonary Follow Up
Subjective:
Doing well, no complaints
remains stable on RA
family at bedside
Objective Data
Data Reviewed
Vital Signs / I&O / Oxygen:
Vital Signs
Temp Pulse Resp BP Pulse Ox
97.4 F 66 16 117/71 96
03/04/24 08:02 03/04/24 07:46 03/04/24 07:46 03/04/24 06:13 03/04/24 07:46
Intake and Output
03/03/24 03/04/24 03/05/24
06:59 06:59 06:59
Intake Total 2500 / 2500 1440 / 1440
Output Total 1725 / 1725 3000 / 3000
Balance 775 / 775 -1560 / -1560
SaO2 96
Nasal Cannula flow liters per 3
minute
Physical Exam
General: Comfortable, Good Appetite and Other (NAD)
HEENT: Normocephalic, Anicteric and Moist Mucous Membranes
Cardiovascular: S1-S2, Regular Rhythm, Murmur (2/6), Rub (n) and Peripheral Edema (n)
Respiratory: Clear, Wheeze (n), Crackles (n), Rhonchi (n) and Non-Labored Respirations
GI: Soft, Non Distended and Non Tender
Neurology: Awake, Alert, Oriented, AO x 3 and No Motor Deficits
Skin: Cyanosis (n), Jaundice (n), Rash (n) and Other (Did not examine lower extremity toe, socks in place)
Labs/Micro/Reports
Lab Data
03/04/24 05:27
03/04/24 05:27
Laboratory Results
03/03/24 03/03/24
12:00 15:16
APTT Cancelled
pH Cancelled
pCO2 Cancelled
pO2 Cancelled
HCO3 Cancelled
O2 Delivery Level Cancelled
Microbiology
03/01/24 10:56 Abscess Wound Culture - Final
Enterobacter cloacae
Pseudomonas aeruginosa
03/01/24 10:56 Abscess Gram Stain - Final
03/01/24 10:24 Blood/Venous Blood Culture - Preliminary
No Growth in 48 hours- Final report to follow
03/01/24 13:38 Nose MRSA Screen - Final
No Methicillin Resistant Staphylococcus aureus isolated.
--- NOTE | 2024-03-04 10:30 | W.PN.HOSP.TC ---
Today's Communication/Plan
-
IV nitro drip. IV antibiotics.
Assessment / Plan
Assessment / Plan
Physical exam:
General: Acutely ill, toxic appearance
HEENT: Normocephalic, Atraumatic and Moist Mucous Membranes
Respiratory: Clear to Auscultation; Negative Wheezes, Rales or Rhonchi
Cardiac: Regular Rhythm and S1/S2
GI: Soft, Nontender and Nondistended
Musculoskeletal: Left toe with purulent discharge and erythema surrounded postop area. No Clubbing, No Cyanosis and No Edema
Neuro: Awake, Alert and Oriented, no gross neuro-deficits
Psych: Calm
A/P:
Acute NSTEMI:
Discussed with patient today about goals of care in the setting of limitations we have in terms of management given her multiple complex issues and evaluation and will have hospice to evaluate in light of guarded prognosis. Patient agreeable to
have discussion with hospice. In the meantime, we will continue with aggressive medical treatment as much as patient able to tolerate and we would be able to offer.
Stopped heparin drip per cardiology since 03/03
Troponin 22.6 today
IV nitroglycerin drip
Seen reviewed twelve-lead EKG-dynamic changes
Beta-blockers if tolerated
Dual antiplatelet aspirin Plavix
Statin
Cardiology following
Discussed with attending RN
Will defer to cardiology in terms of diagnostic cardiac cath intervention
Post blood transfusion reaction:
Yesterday he was given IV Lasix, IV steroids, and continue with broad-spectrum antibiotics.
Hospitalist and pulmonary and cardiology reevaluated the patient at the time.
Today appears more stable from that perspective. Still prognosis remains guarded
Acute diastolic CHF:
Off IV fluid
Diuretics given and will continue as needed blood pressure permitting and depending on volume status
Monitor respiratory status
Sepsis due to left toe infection:
IV antibiotics, cefepime and vancomycin
Podiatry consult-Might need further amputation down the road or local debridement but cardiac issues are a significant priority.
He had a left hallux amputation on 02/[address] Licha Payton-I messaged both Petr and Tata today.
ID consult appreciated continue current antibiotics and added anaerobic coverage, metronidazole
Off IV fluids
Blood cultures no growth
MRSA screen pending
Wound culture gram-positive cocci and gram-negative rods
Updated podiatry today of his cardiac issues
Anemia:
Given degree of worsening anemia along with known lung mass likely malignant, requested hematology oncology consult for further evaluation. Hematology input appreciated.
Blood transfusion given
Hemoglobin 10.6 today
Chronic limb ischemia:
Status post vascular intervention on 02/[address] Vega
Diabetes mellitus type 2:
Insulin sliding scale
Last hemoglobin A1c on 02/09 was 8.2
Hold oral hypoglycemics for now
Left lung mass and hemoptysis:
Pulmonary consult appreciated
Pulmonary awaiting for cardiac stability before proceeding with any intervention of lung mass
Pulmonary planning on bronchoscopy depending on clinical course
Hypertension:
Continue home antihypertensives.
Monitor blood pressure and adjust medications accordingly.
Hyperlipidemia:
Continue home statins
DVT prophylaxis:
SCDs
CODE STATUS:
DNR
Total Critical Care Time 35 minutes. I was immediately available to the patient and staff. I personally examined, reviewed labs, diagnostic images/reports, interpretations, treatment plans, discussed patient care with other providers and family
or caregivers (if patient is unable to make decisions), entered orders as appropriate and documented the medical record.
Anticipated Discharge: > 48 hours
Subjective/Interval History
-
Date of Service: March 04, 2024
Patient chest pain and shortness of breath on and off and still having some chest discomfort and shortness of breath although overall less than yesterday. Afebrile. Noticed events yesterday.
Objective Data
-
Labs:
Laboratory Results
03/04/24
05:27
WBC 23.0 H
Hgb 10.6 L
Hct 30.6 L
Plt Count 466 H
Sodium 129 L
Potassium 4.6
Chloride 101
Carbon Dioxide 21 L
BUN 22 H
Creatinine 0.6 L
Glucose 212 H
Calcium 9.0
Vital Signs:
Vital Signs
Temp Pulse Resp BP Pulse Ox
97.4 F 66 16 117/71 96
03/04/24 08:02 03/04/24 07:46 03/04/24 07:46 03/04/24 06:13 03/04/24 07:46
I&O
03/03/24 03/04/24 03/05/24
06:59 06:59 06:59
Intake Total 2500 / 2500 1440 / 1440
Output Total 1725 / 1725 3000 / 3000
Balance 775 / 775 -1560 / -1560
[2024-03-04 12:28] LABS: Glucose - Point of Care 296 mg/dl (70-99)
[2024-03-04] MEDS: NOVOLOG FLEXPEN-MODERATE RESISTANCE 5 UNITS SC ×2 (13:24→17:48)
--- NOTE | 2024-03-04 14:40 | CM ---
spoke to pt in room, hospitalist requested hospice consult. i explained briefly about hospice, he is unsure he is interested but said he will talk to someone if they called him. referral in allscripts for hospice nurse.
--- NOTE | 2024-03-04 15:03 | HOSPNOTE ---
Referral received. Called and spoke to patient directly. He is familiar with hospice services. He stated that he feels better today and wants to do whatever is needed to 'get the hell out of the hospital'. He declined to discuss hospice and or any
questions regarding hospice. He states that he will reach out when he feels hospice services are needed but not at this time. CM and Attending updated. Hospice will sign off at this time.
[2024-03-04 17:57] LABS: Glucose - Point of Care 266 mg/dl (70-99)
[2024-03-04 21:50] LABS: Glucose - Point of Care 315 mg/dl (70-99)
[2024-03-05] VITALS (12 sets, daily range): BP systolic 84–129; BP diastolic 57–80
[2024-03-05 00:24] LABS: Glucose - Point of Care 270 mg/dl (70-99)
--- NOTE | 2024-03-05 01:58 | PTCARENOTE ---
Pt. has had no complaints of CP so far this shift. Noted to go into A-fib rate 90's-110's (had been NSR) at 0050, pt. soundly asleep at the time. BP 122/77, pulse ox 98% RA , pt. denied any symptoms when woken. EKG completed and BEE KEEPER [facility]phz[employer]
notified. Orders placed for lab work; results pending.
[2024-03-05 02:29] LABS: Hematocrit 32.9 % (39.0-52.0); Hemoglobin 11.2 g/dL (13.0-18.0); Mean Corpuscular Hgb 26.5 pg (27.0-31.0); Mean Corpuscular Volume 77.8 fL (80.0-94.0); Mean Platelet Volume 8.6 fL (7.4-10.4); Platelet Count 379 10^3/uL (130-400); Red Blood Cell Count 4.23 10^6/uL (4.70-6.10); Red Cell Dist. Width 15.9 % (11.5-14.5); White Blood Cell Count 19.9 10^3/uL (4.8-10.8)
[2024-03-05 02:44] LABS: Blood Urea Nitrogen 26 mg/dl (9-20); Carbon Dioxide 22 mmol/L (22-30); Chloride 100 mmol/L (98-107); Estimated Creatinine Clearance 106 ml/min; Glucose 276 mg/dl (70-99); Magnesium 2.1 mg/dl (1.6-2.3); Potassium 3.6 mmol/L (3.5-5.1); Sodium 130 mmol/L (135-145); eGFR > 60.00
[2024-03-05] MEDS: LOPRESSOR 2.5 MG IV (03:07)
[2024-03-05 03:14] LABS: TSH Reflex To Free T4 1.32 uIU/ml (0.47-4.68)
--- NOTE | 2024-03-05 03:14 | PTCARENOTE ---
Pt.'s HR maintaining 110's-140's, Afib. Pt. wide awake and anxious/irritated because he was woken out of a sound sleep when he went into A-fib. Hospitalist CRISS Davalos notified, order for Lopressor 2.5 mg IV obtained and administered. HR
currently down to 90's-120's
--- NOTE | 2024-03-05 06:18 | W.PN.UPDATE ---
Update Note
Progress Note Update
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 Patient has no History of Afib. Recent NSTEMI with Troponin peaking 26.9, s/p Heparin drip. on DAPT, metoprolol, IV Nitroglycerin. labs ordered, Also ordered
Metoprolol 2.5mg IV dose x1 as HR went up to 140's. HR A-fib 80's-110 at present. stable VS.
[2024-03-05] MEDS: VANCOCIN 200 IV ×2 (06:19→17:19)
[2024-03-05] MEDS: LOPRESSOR 12.5 MG PO (06:24)
[2024-03-05 07:55] LABS: Glucose - Point of Care 280 mg/dl (70-99)
[2024-03-05] MEDS: DUONEB 3 ML INH ×4 (08:23→19:21)
[2024-03-05] MEDS: PULMICORT 0.5 MG INH ×2 (08:23→19:21)
--- NOTE | 2024-03-05 08:24 | PHA.VAN.FU ---
Vancomycin Assessment / Plan
- Assessment
Renal Function: Stable
WBC's are: Trending Down
In the past 24 hrs, patient has been: Afebrile
Concomitant Antimicrobials: Cefepime, Metronidazole
- Dosing Plan
Continue: Vanc 1000mg IV Q12H
- Monitoring Plan
Level(s) appropriate: Recheck trough at minimum of weekly intervals, Repeat sooner for changes in renal function or clinical status
- Follow Up
Pharmacy will continue to follow.
Vancomycin Follow UP
- -
Patient Age: 73
Patient Sex: Male
Vancomycin Day #: 5
Indication: Skin And Soft Tissue
Requesting Provider: Dr. Chavira/ Dr Goss
Pertinent Antimicrobial Allergies:
NKDA
Height / Weight:
Height 6 ft
Actual Weight 85.3 kg
Pertinent Past Medical History: DM
- Vital Signs / Lab Results
Temp Pulse Resp BP Pulse Ox
98 F 96 20 122/72 98
03/05/24 07:50 03/05/24 06:24 03/05/24 07:50 03/05/24 06:24 03/05/24 07:50
Lab Results - Hematology
03/03/24 03/03/24 03/04/24
00:15 05:03 05:27
WBC 21.0 H 19.0 H 23.0 H
03/05/24 03/05/24
02:13 06:00
WBC 19.9 H Cancelled
Lab Results - Chemistry
03/03/24 03/03/24 03/04/24
00:15 05:03 05:27
BUN 18 19 22 H
Creatinine 0.7 0.8 0.6 L
Estimated Creat Clear 106 93 124
03/05/24 03/05/24
02:13 06:00
BUN 26 H Cancelled
Creatinine 0.7 Cancelled
Estimated Creat Clear 106 Cancelled
03/03/24 03/03/24
00:15 05:03
Lactic Acid 2.6 H 1.8
Microbiology Results
03/01/24 10:24 Blood Culture - Preliminary
Blood/Venous No Growth in 72 hours- Final report to follow
03/01/24 10:56 Wound Culture - Final
Abscess Enterobacter cloacae
Pseudomonas aeruginosa
Gram Stain - Final
Therapeutic Drug Monitoring
Vancomycin Peak 25.3 ug/ml (18-26) 03/03/24 20:34
Vancomycin Trough 14.2 ug/ml (5-20) 03/04/24 05:27
--- NOTE | 2024-03-05 09:16 | W.PN.CARDCBS ---
Today's Communication / Plan
-
03/05/24 he developed atrial fibrillation with mildly rapid ventricular rates, no previous known diagnosis of atrial fibrillation
He does not appear to be candidate for anticoagulation given hemoptysis, roxanna bleeding and severe anemia requiring blood transfusion while we still await definitive treatment of his lung mass
Recurrence of some chest discomfort with atrial fibrillation and rapid rates
Will give 5 mg of intravenous metoprolol now and increase metoprolol from 12.5 4 times daily to 25 mg 4 times daily to obtain better rate control which should alleviate his chest discomfort
Continue IV nitroglycerin
Impression / Plan
-
PCP: Dr. Woodrow Bynum
Cardiology: Dr. Santosh Zepeda with [facility] [phone]
Impression:
Chest pain
NSTEMI with Troponin peaking at 26.9 on 03/03/24
CAD
s/p 3.5 mm Xience to prox LAD 05/12/13
s/p2.75 mm Xience distal RCA 05/12/13
s/p 3.0 mm Xience to prox RCA at [facility] 05/12/13
PAD s/p left common to external iliac balloon angioplasty/stent, SFA balloon angioplasty/stent x2, TP trunk and peroneal angioplasty, anterior tibial long segment angioplasty 02/10/24
s/p left hallux amputation 02/11/24
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
Hemoptysis
Smoker
Echo on 02/11/24: LV ejection fraction is 60-65% by Roblero's method of discs. Mild concentric left ventricular hypertrophy. Mild mitral regurgitation.Mild to moderate aortic stenosis. Trace tricuspid regurgitation. Estimated pulmonary artery
pressure of 20-25 mmHg.
Echo 03/01/24: EF 60-65%, hypokinesis mid to distal septum
Plan:
-Patient with chest pain on admission to [facility] 03/01/24 and troponin peak at 3.09 on March 02
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 Heart rate increased into 100's-120's associated with mild hypotension. He briefly
desaturated.
ABN ECG ST segments most apparent in anterolateral leads.
Troponin peaked to 26.9 at 2 PM March 03
ProBNP checked 9170. He was provided 20 mg IV Lasix and IV fluids were stopped.
Given worsening anemia and need for PRBC, we are now holding heparin and continuing Plavix and aspirin for now.
Continue Lopressor 12.5 mg every 6 hr
Echo 03/01/2024 with preserved EF with new hypokinesis to mid and distal septum
Known multivessel CAD with previous PCI to proximal LAD, proximal and mid RCA April 2013.
Review by interventional cardiology concludes patient is not an interventional candidate and medical management is recommended.
Will maintain current medical therapy including DAPT, metoprolol, statin and IV nitroglycerin, reassess tomorrow.
-Hemoptysis and lung mass noted and Pulm note reviewed.
If he proceeds to a lung biopsy will have to hold Plavix for 5 days. Biopsy cannot be performed on DAPT.
Pulmonary recommends stabilization of cardiac symptoms prior to bronchoscopy/biopsy and this may be considered as outpatient
Of note patient reports 100 pound weight loss over a year, raising concern for malignancy
IV antibiotics per pulmonary primary service and ID
- 03/05/24 he developed atrial fibrillation with mildly rapid ventricular rates, no previous known diagnosis of atrial fibrillation
He was treated acutely with IV metoprolol
Heparin was discontinued in the face of acute coronary syndrome/non-ST segment elevation NV given his hemoptysis with roxanna bleeding. Ideally would be on oral anticoagulation for stroke risk reduction however
He does not appear to be candidate for anticoagulation given hemoptysis, roxanna bleeding and severe anemia requiring blood transfusion while we still await definitive treatment of his lung mass
Recurrence of some chest discomfort with atrial fibrillation and rapid rates
Will give 5 mg of intravenous metoprolol now and increase metoprolol from 12.5 4 times daily to 25 mg 4 times daily to obtain better rate control which should alleviate his chest discomfort
Continue IV nitroglycerin
Cont DAPT
-Patient also needs left partial 1st ray amputation. This is currently on hold.
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 Records including last cath report from 2012 obtained, reviewed and outlined above.
Discussed plan with patient and with nursing
Total time 54 min
HPI: This is a 73 year old male patient with PMH of PAD, cardiac stent 2016, NIDDM, recent admission for dry gangrene of his left first toe status post amputation on 02/10, cardiac stent in 2016 and stent placement of the left superficial femoral
artery/left common iliac artery in 2017, lung mass with concerns of chest pain. He states that at 3AM he started to feel midsternal chest pain while sleeping which he described as a dull ache. He called EMS and felt that his chest pain improved upon
being given nitroglycerin. He also has concerns of left big toe pain. He denies CP, palpitations, SOB on exertion or dizziness.
His troponin was elevated at 0.078. Cardiology consulted.
Progress Note - [employer]
Subjective
Date of Service: March 05, 2024
He tells me that with the onset of atrial fibrillation he has noted slight chest pressure but nowhere near as bad as he had several days ago.
Objective
Labs:
03/05/24 06:00
03/05/24 06:00
Labs
Hgb Cancelled 03/05/24 06:00
Hct Cancelled 03/05/24 06:00
Plt Count Cancelled 03/05/24 06:00
APTT Cancelled 03/03/24 12:00
Sodium Cancelled 03/05/24 06:00
Potassium Cancelled 03/05/24 06:00
BUN Cancelled 03/05/24 06:00
Creatinine Cancelled 03/05/24 06:00
Glucose Cancelled 03/05/24 06:00
Troponins
03/02/24 03/02/24 03/02/24
10:07 11:20 14:29
Troponin I 2.570 H* D Cancelled 3.090 H*
03/02/24 03/03/24 03/03/24
22:34 05:03 05:55
Troponin I 0.924 H* 3.020 H* D Cancelled
03/03/24 03/04/24 03/05/24
14:41 05:27 02:13
Troponin I 26.900 H* 22.600 H* 10.000 H*
Vital Signs and I&O:
Vital Signs
Temp Pulse Resp BP Pulse Ox
98 F 86 16 122/72 97
03/05/24 07:50 03/05/24 08:25 03/05/24 08:25 03/05/24 06:24 03/05/24 08:25
Vital Signs
Temp Pulse Resp BP Pulse Ox
98 F 86 16 122/72 97
03/05/24 07:50 03/05/24 08:25 03/05/24 08:25 03/05/24 06:24 03/05/24 08:25
Intake & Output
03/03/24 03/04/24 03/05/24 03/06/24
06:59 06:59 06:59 06:59
Intake Total 2500 / 2500 1440 / 1440 1335 / 1335
Output Total 1725 / 1725 3000 / 3000 1050 / 1050
Balance 775 / 775 -1560 / -1560 285 / 285
Physical Exam
Physical Exam
GEN: No distress, awake, Ox3, sitting up in bed wearing oxygen
HEENT: supple, anicteric, mmm
LUNGS: Mildly decreased at bases otherwise CTA, no wheezes/rales; wearing oxygen
CV: Reg, S1/S2, 1/6 AHSM, no rub or gallop
ABD: soft, BS+, NT/ND
EXT: Trace bilateral edema
NEURO: Gross non-focal
SKIN: No rash, warm, dry, pink
[2024-03-05] MEDS: NOVOLOG FLEXPEN-MODERATE RESISTANCE 5 UNITS SC (09:20)
[2024-03-05] MEDS: PLAVIX 75 MG PO (09:25)
[2024-03-05] MEDS: FLAGYL 500 MG PO ×2 (09:25→16:14)
[2024-03-05] MEDS: MAXIPIME 2000 MG IV ×2 (09:26→22:24)
[2024-03-05] MEDS: STERILE WATER FOR INJECTION 10 ML IV ×2 (09:26→22:25)
[2024-03-05] MEDS: LOW STRENGTH ASPIRIN 81 MG PO (09:26)
[2024-03-05] MEDS: LIPITOR 20 MG PO (09:26)
--- NOTE | 2024-03-05 09:38 | W.PN.HOSP.TC ---
Today's Communication/Plan
-
IV nitro. Metoprolol. IV antibiotics
Assessment / Plan
Assessment / Plan
Physical exam:
General: Acutely ill, toxic appearance
HEENT: Normocephalic, Atraumatic and Moist Mucous Membranes
Respiratory: Clear to Auscultation; Negative Wheezes, Rales or Rhonchi
Cardiac: Regular Rhythm and S1/S2
GI: Soft, Nontender and Nondistended
Musculoskeletal: Left toe with purulent discharge and erythema surrounded postop area. No Clubbing, No Cyanosis and No Edema
Neuro: Awake, Alert and Oriented, no gross neuro-deficits
Psych: Calm
A/P:
Acute NSTEMI:
Patient decided not to pursue hospice. He does want to keep CODE STATUS DNR. Patient also understand the complexity of his medical problems and the limitations in terms of options.
Stopped heparin drip per cardiology since 03/03
Monitor cardiac enzymes as needed
IV nitroglycerin drip ordered but not on IV nitro today per RN on 03/05 and she will clarify with cardiology
Seen reviewed twelve-lead EKG-dynamic changes
Beta-blockers if tolerated
Dual antiplatelet aspirin Plavix
Statin
Cardiology following
Discussed with attending RN
Will defer to cardiology in terms of diagnostic cardiac cath intervention
Atrial fibrillation rapid reticular response, new onset:
Started on rate control, IV metoprolol and now standing doses of oral metoprolol per cardio
Not a candidate for anticoagulation due to ongoing anemia, hemoptysis, upcoming procedures, etc.
Continue cardiac monitoring
Acute diastolic CHF:
Off IV fluid
Diuretics given and will continue as needed blood pressure permitting and depending on volume status
Monitor respiratory status
Sepsis due to left toe infection:
IV antibiotics, cefepime and vancomycin
Podiatry consult-Might need further amputation down the road or local debridement but cardiac issues are a significant priority.
He had a left hallux amputation on 02/[address] Licha Payton-I messaged both Petr and Tata today.
ID consult appreciated continue current antibiotics and added anaerobic coverage, metronidazole
Off IV fluids
Blood cultures no growth
MRSA screen pending
Wound culture gram-positive cocci and gram-negative rods
Updated podiatry today of his cardiac issues
Anemia:
Given degree of worsening anemia along with known lung mass likely malignant, requested hematology oncology consult for further evaluation. Hematology input appreciated.
Blood transfusion given
Hemoglobin 11.2 today
Post blood transfusion reaction on 03/03:
He was given IV Lasix, IV steroids, and continue with broad-spectrum antibiotics.
Hospitalist and pulmonary and cardiology reevaluated the patient at the time.
Today appears more stable from that perspective.
Chronic limb ischemia:
Status post vascular intervention on 02/[address] Vega
Diabetes mellitus type 2:
Insulin sliding scale
Last hemoglobin A1c on 02/09 was 8.2
Hold oral hypoglycemics for now
Left lung mass and hemoptysis:
Pulmonary consult appreciated
Pulmonary awaiting for cardiac stability before proceeding with any intervention of lung mass
Pulmonary planning on bronchoscopy depending on clinical course
Hypertension:
Continue home antihypertensives.
Monitor blood pressure and adjust medications accordingly.
Hyperlipidemia:
Continue home statins
DVT prophylaxis:
SCDs
CODE STATUS:
DNR
Total time spent on today's encounter was 52 minutes which included time spent in counseling the patient/family regarding diagnosis and treatment plan as listed above, goals of care, and symptom management. Case was discussed with nursing staff,
specialists, and care coordinators/case management. All labs and imaging personally reviewed by me. Remainder the time spent in detailed review of previous records, lab data, imaging, and other medical provider documentation.
Anticipated Discharge: > 48 hours
Subjective/Interval History
-
Date of Service: March 05, 2024
Patient still having some chest discomfort although minimal as per patient description. No worsening shortness of breath. Patient went into atrial fibrillation today. Afebrile
Objective Data
-
Labs:
Laboratory Results
03/05/24 03/05/24
02:13 06:00
WBC 19.9 H Cancelled
Hgb 11.2 L Cancelled
Hct 32.9 L Cancelled
Plt Count 379 Cancelled
Sodium 130 L Cancelled
Potassium 3.6 Cancelled
Chloride 100 Cancelled
Carbon Dioxide 22 Cancelled
BUN 26 H Cancelled
Creatinine 0.7 Cancelled
Glucose 276 H Cancelled
Calcium 9.0 Cancelled
Vital Signs:
Vital Signs
Temp Pulse Resp BP Pulse Ox
98 F 86 16 122/72 97
03/05/24 07:50 03/05/24 08:25 03/05/24 08:25 03/05/24 06:24 03/05/24 08:25
I&O
03/04/24 03/05/24 03/06/24
06:59 06:59 06:59
Intake Total 1440 / 1440 1335 / 1335
Output Total 3000 / 3000 1050 / 1050
Balance -1560 / -1560 285 / 285
[2024-03-05] MEDS: LOPRESSOR 5 MG IV (09:51)
[2024-03-05] MEDS: LOPRESSOR 25 MG PO ×2 (09:51→17:27)
--- NOTE | 2024-03-05 10:00 | W.PN.PUL3 ---
Today's Communication / Plan
-
Active cardiac issues being managed
We discussed timing of bronch which may need to be postponed as OP
Family prefers to do this inpatient when stable from cardiac perspective
We will reassess this week
Assessment
-
73-year-old male with history of peripheral arterial disease, status post recent left toe amputation, treated for diagram gain, history of coronary disease with stent placement 2014, and lower extremity PAD stents 2016 at [facility], now
presents with increased chest discomfort similar to prior cardiac pain. Patient started on heparin therapy. We are asked to comment on his pulmonary process
Acute onset midsternal chest discomfort
Elevated troponin
Gross hemoptysis
History of coronary disease with stent placement at [facility]
Leukocytosis
Anemia
Peripheral vascular disease
Peripheral arterial disease, stent placement lower extremity 2015 [facility]
Recent left first hallux amputation 02/11/2024
Hyponatremia
Hyperglycemia
10 cm left upper lobe mass
Mild left hilar adenopathy
Moderate , valve area 1 cm�
New onset AFib
Conditions present prior to admission
Hypertension/hyperlipidemia
Diabetes
20+ tobacco history, quit around 2015
100 pound weight loss over the past year
Plan/recommendations
At this time, patient presents difficult situation
Requires biopsy of left lung mass but unable to pursue while on ASA/Plavix
This was reviewed with interventional radiology. Needs to be off Plavix for 5 days prior to any transthoracic biopsy
He appears nontoxic but continues to have intermittent chest pain overnight
Troponin rising, heparin resumed
Hemoptysis quantified at bedside. It is roxanna blood, old blood
This is more bloody than patient description over the past few weeks, described blood mixed with mucus
Sputum cytology --Negative for malignant cells. Rare reactive bronchial cells noted. Also noted are benign squamous cells and pulmonary macrophages present in a background of acute inflammation
History of coronary disease with stent in the past noted
Present on aspirin/Plavix/heparin therapy
Procedure can be scheduled when DAPT can be interrupted
Reviewed imaging findings with patient. He will require left upper lobe mass biopsy
I reviewed with him that he likely has underlying cancer
At this point, I would recommend transthoracic needle biopsy. However per discussion with interventional radiology, they are unable to do this on DAPT
We are also unable to do bronchoscopy on DAPT
This was reviewed with patient again and family
Family notes that patient may have cancelled his OP FU due to fear of his diagnosis
They inferred we should try to do this while inpatient
New onset AFib
Events noted, cards managing
Primary goal presently is to stabilize from cardiac standpoint
Echocardiogram with new wall motion abnormalities
Plan for cardiac catheterization per discussion with cardiology
Depending on findings, may need to plan appropriate intervention
Unfortunately, will need to address cardiac issues prior to any plans for biopsy
Will have to address limitations down the road with biopsy depending on his clinical status
May require bronchoscopy with endobronchial exam, brushings, washings without biopsy, if unable to pursue transthoracic biopsy while on antiplatelet therapy
This will be an ongoing discussion
His underlying clinical status also predisposes him to high risk for thromboembolic disease
Doppler negative bilaterally for DVT
He remains on heparin therapy
Follow blood sugars
Antibiotics per primary service
Reviewed with patient, primary service, cardiology
Remains high risk situation
Subjective Data
-
Date of Service:
Date of Service: March 05, 2024
Chief Complaint: Pulmonary Follow Up
Subjective:
Afib events noted
Feels better, some dull chest pain this AM 10/26
No SOB
Objective Data
Data Reviewed
Vital Signs / I&O / Oxygen:
Vital Signs
Temp Pulse Resp BP Pulse Ox
98 F 98 16 118/80 97
03/05/24 07:50 03/05/24 09:51 03/05/24 08:25 03/05/24 09:51 03/05/24 08:25
Intake and Output
03/04/24 03/05/24 03/06/24
06:59 06:59 06:59
Intake Total 1440 / 1440 1335 / 1335
Output Total 3000 / 3000 1050 / 1050
Balance -1560 / -1560 285 / 285
SaO2 97
Nasal Cannula flow liters per 2
minute
Physical Exam
General: Comfortable, Good Appetite and Other (NAD)
HEENT: Normocephalic, Anicteric and Moist Mucous Membranes
Cardiovascular: S1-S2, Regular Rhythm, Murmur (2/6), Rub (n) and Peripheral Edema (n)
Respiratory: Clear, Wheeze (n), Crackles (n), Rhonchi (n) and Non-Labored Respirations
GI: Soft, Non Distended and Non Tender
Neurology: Awake, Alert, Oriented, AO x 3 and No Motor Deficits
Skin: Cyanosis (n), Jaundice (n), Rash (n) and Other (Did not examine lower extremity toe, socks in place)
Labs/Micro/Reports
Lab Data
03/05/24 06:00
03/05/24 06:00
Microbiology
03/01/24 10:24 Blood/Venous Blood Culture - Preliminary
No Growth in 72 hours- Final report to follow
03/01/24 10:56 Abscess Wound Culture - Final
Enterobacter cloacae
Pseudomonas aeruginosa
03/01/24 10:56 Abscess Gram Stain - Final
03/01/24 13:38 Nose MRSA Screen - Final
No Methicillin Resistant Staphylococcus aureus isolated.
[2024-03-05] MEDS: NOVOLOG FLEXPEN-MODERATE RESISTANCE 7 UNITS SC ×2 (12:26→17:28)
[2024-03-05] MEDS: DAKIN'S SOLUTION 0.125% 1/4 STRENGTH 473 ML TOPICAL (12:26)
[2024-03-05 12:30] LABS: Glucose - Point of Care 322 mg/dl (70-99)
--- NOTE | 2024-03-05 13:26 | PTCARENOTE ---
Pt converted back to NSR at 1202. Will monitor.
[2024-03-05] MEDS: TYLENOL 650 MG PO (16:14)
[2024-03-05 16:50] LABS: Glucose - Point of Care 322 mg/dl (70-99)
[2024-03-05 21:32] LABS: Glucose - Point of Care 261 mg/dl (70-99)
[2024-03-06] VITALS (23 sets, daily range): BP systolic 60–147; BP diastolic 43–91; BMI 25.6
[2024-03-06] MEDS: FLAGYL 500 MG PO ×4 (00:21→23:58)
[2024-03-06] MEDS: LOPRESSOR 25 MG PO ×4 (00:22→23:20)
[2024-03-06 05:34] LABS: % Basophils 0.4 % (0-2); % Eosinophils 3.4 % (0-6); % Immature Granulocytes 0.4 % (0-0.5); % Lymphocytes 28.3 % (20.5-51.1); % Monocytes 6.3 % (1.7-9.3); % Neutrophils 61.2 % (42.2-75.2); Absolute Basophils 0.1 10^3/uL (0-0.2); Absolute Eosinophils 0.5 10^3/uL (0-0.7); Absolute Immature Granulocytes 0.1 10^3/uL (0-0.05); Absolute Lymphocytes 4.5 10^3/uL (1.2-3.4); Absolute Neutrophils 9.6 10^3/uL (1.4-6.5); Hematocrit 30.1 % (39.0-52.0); Hemoglobin 10.2 g/dL (13.0-18.0); Mean Corp Hgb Conc. 33.9 g/dL (33.0-37.0); Mean Corpuscular Volume 76.8 fL (80.0-94.0); Mean Platelet Volume 8.6 fL (7.4-10.4); Nucleated Red Blood Cells % 0 % (-); Platelet Count 396 10^3/uL (130-400); Red Blood Cell Count 3.92 10^6/uL (4.70-6.10); Red Cell Dist. Width 16.2 % (11.5-14.5); White Blood Cell Count 15.7 10^3/uL (4.8-10.8)
--- NOTE | 2024-03-06 06:01 | PTCARENOTE ---
Pt. received at change of shift. VSS, NSR on tele with no complaints of CP or SOB. Pt. voiding without difficulty s/p elmore catheter removal. Ambulating independently with rolling walker. Plan of care discussed and pt. verbalizes understanding.
Remains NPO since midnight per orders. Can make needs known. Call marx within reach.
[2024-03-06 06:03] LABS: Blood Urea Nitrogen 25 mg/dl (9-20); Calcium 8.5 mg/dl (8.4-10.2); Carbon Dioxide 22 mmol/L (22-30); Chloride 100 mmol/L (98-107); Estimated Creatinine Clearance 106 ml/min; Glucose 239 mg/dl (70-99); Potassium 4.5 mmol/L (3.5-5.1); Sodium 129 mmol/L (135-145); eGFR > 60.00
[2024-03-06] MEDS: VANCOCIN 200 IV ×2 (06:21→18:09)
[2024-03-06 06:50] LABS: Glucose - Point of Care 251 mg/dl (70-99)
[2024-03-06] MEDS: DUONEB 3 ML INH ×4 (07:11→19:17)
[2024-03-06] MEDS: PULMICORT 0.5 MG INH ×2 (07:11→19:17)
--- NOTE | 2024-03-06 07:17 | PTCARENOTE ---
Patient with complaint of 3/10 nonradiating midsternal 'chest pressure.' Per orders, respiratory contacted to administer Neb treatment to patient.
--- NOTE | 2024-03-06 08:19 | W.PN.HOSP.TC ---
Addendum entered and electronically signed by Saul Chavira MD 03/06/24 15:33:
updated [email or web address].
Original Note:
Today's Communication/Plan
-
Continue cardiac medications. IV antibiotics.
Assessment / Plan
Assessment / Plan
Physical exam:
General: Acutely ill, toxic appearance
HEENT: Normocephalic, Atraumatic and Moist Mucous Membranes
Respiratory: Clear to Auscultation; Negative Wheezes, Rales or Rhonchi
Cardiac: Regular Rhythm and S1/S2
GI: Soft, Nontender and Nondistended
Musculoskeletal: Left toe with purulent discharge and erythema surrounded postop area. No Clubbing, No Cyanosis and No Edema
Neuro: Awake, Alert and Oriented, no gross neuro-deficits
Psych: Calm
A/P:
Acute NSTEMI:
Patient decided not to pursue hospice. He does want to keep CODE STATUS DNR. Patient also understand the complexity of his medical problems and the limitations in terms of options.
Stopped heparin drip per cardiology since 03/03
Monitor cardiac enzymes as needed
IV nitroglycerin drip ordered but not on IV nitro today per RN on 03/05 and she will clarify with cardiology
Seen reviewed twelve-lead EKG-dynamic changes
Beta-blockers if tolerated
Dual antiplatelet aspirin Plavix
Statin
Cardiology following
Discussed with attending RN
Will defer to cardiology in terms of diagnostic cardiac cath intervention
Discussed with cardiology today--> plan to allow podiatry and pulmonary interventions and continue with medical management and reevaluate afterwards.
Atrial fibrillation rapid reticular response, new onset:
Started on rate control, IV metoprolol and now standing doses of oral metoprolol per cardio
Not a candidate for anticoagulation due to ongoing anemia, hemoptysis, upcoming procedures, etc.
Continue cardiac monitoring
Acute diastolic CHF:
Off IV fluid
Diuretics given and will continue as needed blood pressure permitting and depending on volume status
Monitor respiratory status
Sepsis due to left toe infection:
IV antibiotics, cefepime and vancomycin
Podiatry consult-Might need further amputation down the road or local debridement but cardiac issues are a significant priority.
He had a left hallux amputation on 02/[address] Licha Payton-I messaged both Petr and Tata today.
ID consult appreciated continue current antibiotics and added anaerobic coverage, metronidazole
Off IV fluids
Blood cultures no growth
MRSA screen pending
Wound culture gram-positive cocci and gram-negative rods
Updated podiatry today of his cardiac issues
Anemia:
Given degree of worsening anemia along with known lung mass likely malignant, requested hematology oncology consult for further evaluation. Hematology input appreciated.
Blood transfusion given
Hemoglobin 11.2 today
Post blood transfusion reaction on 03/03:
He was given IV Lasix, IV steroids, and continue with broad-spectrum antibiotics.
Hospitalist and pulmonary and cardiology reevaluated the patient at the time.
Today appears more stable from that perspective.
Chronic limb ischemia:
Status post vascular intervention on 02/[address] Vega
Diabetes mellitus type 2:
Insulin sliding scale
Last hemoglobin A1c on 02/09 was 8.2
Hold oral hypoglycemics for now
Left lung mass and hemoptysis:
Pulmonary consult appreciated
Pulmonary awaiting for cardiac stability before proceeding with any intervention of lung mass
Pulmonary planning on bronchoscopy depending on clinical course
Hypertension:
Continue home antihypertensives.
Monitor blood pressure and adjust medications accordingly.
Hyperlipidemia:
Continue home statins
DVT prophylaxis:
SCDs
CODE STATUS:
DNR
Total time spent on today's encounter was 52 minutes which included time spent in counseling the patient/family regarding diagnosis and treatment plan as listed above, goals of care, and symptom management. Case was discussed with nursing staff,
specialists, and care coordinators/case management. All labs and imaging personally reviewed by me. Remainder the time spent in detailed review of previous records, lab data, imaging, and other medical provider documentation.
Anticipated Discharge: > 48 hours
Subjective/Interval History
-
Date of Service: March 06, 2024
Patient denies chest pain or shortness of breath today. Afebrile
Objective Data
-
Labs:
Laboratory Results
03/06/24
05:16
WBC 15.7 H
Hgb 10.2 L
Hct 30.1 L
Plt Count 396
Sodium 129 L
Potassium 4.5
Chloride 100
Carbon Dioxide 22
BUN 25 H
Creatinine 0.7
Glucose 239 H
Calcium 8.5
Vital Signs:
Vital Signs
Temp Pulse Resp BP Pulse Ox
98.2 F 67 18 144/75 97
03/06/24 07:15 03/06/24 07:12 03/06/24 07:15 03/06/24 07:09 03/06/24 07:15
I&O
03/05/24 03/06/24 03/07/24
06:59 06:59 06:59
Intake Total 1335 / 1335 560 / 560
Output Total 1050 / 1050 1225 / 1225
Balance 285 / 285 -665 / -665
--- NOTE | 2024-03-06 08:19 | PTCARENOTE ---
Assumed care of pt from prev nsg shift; Pt AAOX3 w/no c/o CP or SOB. Pt currently receiving PRN neb treatment from respiratory. Pt's IV Vancomycin completed & IV line flushed. Pt's VS stable w/HR 60's, BP 144/75. Pt NPO this AM. Pt w/call marx
within reach & plan of care ongoing.
--- NOTE | 2024-03-06 09:02 | PHA.VAN.FU ---
Vancomycin Assessment / Plan
- Assessment
Renal Function: Stable
WBC's are: Trending Down
In the past 24 hrs, patient has been: Afebrile
Concomitant Antimicrobials: Cefepime, Metronidazole
- Dosing Plan
Continue: 1000mg Q12H
- Monitoring Plan
Level(s) appropriate: Recheck trough at minimum of weekly intervals, Repeat sooner for changes in renal function or clinical status
- Follow Up
Pharmacy will continue to follow.
Vancomycin Follow UP
- -
Patient Age: 73
Patient Sex: Male
Vancomycin Day #: 6
Indication: Skin And Soft Tissue
Requesting Provider: Dr. Chavira/ Dr Goss
Pertinent Antimicrobial Allergies:
NKDA
Height / Weight:
Height 6 ft
Actual Weight 85.4 kg
Pertinent Past Medical History: DM
- Vital Signs / Lab Results
Temp Pulse Resp BP Pulse Ox
98.2 F 67 18 144/75 97
03/06/24 07:15 03/06/24 07:12 03/06/24 07:15 03/06/24 07:09 03/06/24 07:15
Lab Results - Hematology
03/04/24 03/05/24 03/05/24
05:27 02:13 06:00
WBC 23.0 H 19.9 H Cancelled
03/06/24
05:16
WBC 15.7 H
Lab Results - Chemistry
03/04/24 03/05/24 03/05/24
05:27 02:13 06:00
BUN 22 H 26 H Cancelled
Creatinine 0.6 L 0.7 Cancelled
Estimated Creat Clear 124 106 Cancelled
03/06/24
05:16
BUN 25 H
Creatinine 0.7
Estimated Creat Clear 106
Microbiology Results
03/01/24 10:24 Blood Culture - Preliminary
Blood/Venous No Growth in 4 days- Final report to follow
03/01/24 10:56 Wound Culture - Final
Abscess Enterobacter cloacae
Pseudomonas aeruginosa
Gram Stain - Final
Therapeutic Drug Monitoring
Vancomycin Peak 25.3 ug/ml (18-26) 03/03/24 20:34
Vancomycin Trough 14.2 ug/ml (5-20) 03/04/24 05:27
--- NOTE | 2024-03-06 09:39 | W.PN.ID1 ---
Addendum entered and electronically signed by Jennie Goss MD 03/06/24 10:31:
discussed plans for OR with Dr Chavira
Original Note:
Date of Service
Date of Service: March 06, 2024
Today's Communication
- c/w vanc/cefepime/metronidazole for today
Assessment / Plan
Left Diabetic Foot Infection/Surgical Site Infection
DM2 uncontrolled
- complicated clinical situation with ongoing chest pain with plans for possible cardiac cath, lung mass plans for eventual biopsy and surgical site infection. At this moment no pressing need to prioritize surgical site infection.
- single blood culture in progress - no growth to date, will finalize today
- wound culture in progress: gram stain rare GPCs, rare GNR; Enterobacter and Pseudomonas
- MRSA screen finalized negative
- QTc 435 in NSR on the monitor
- c/w vanc/cefepime/metronidazole for today
- agree with amputation when feasible, no urgent findings on exam, if infection all resected then will stop antibiotics
Hyponatremia
- management per primary service
follow clinically
Chief Complaint
-: Other (surgical site infection)
Subjective / Review of Systems
remains afebrile
still with chest pain
elmore removed
Vital Signs / Physical Exam
Vital Signs
Vital Signs
Temp Pulse Resp BP Pulse Ox
98.2 F 67 18 144/75 97
03/06/24 07:15 03/06/24 07:12 03/06/24 07:15 03/06/24 07:09 03/06/24 07:15
Physical Exam
Constitutional: No Acute Distress
Cardiovascular: Regular Rate and S1/S2; Negative Murmur or Rub
Pulmonary: Clear and Symmetric; Negative Wheezes or Rales
Gastrointestinal: Soft, Non Tender, Non Distended and Normal Bowel Sounds
Skin: Warm and Dry; Negative Rash or Jaundice
Wound: Other (left foot surgical site dehisced, visible metatarsal head - firm, some surroudning eschar, mild erythema around the site - improved from previous, moderate serous drainage)
Objective Data
Lab Data
Lab Results
03/06/24 05:16
03/06/24 05:16
APTT Cancelled 03/03/24 12:00
Estimated Creat Clear 106 ml/min 03/06/24 05:16
Lactic Acid 1.8 mmol/L (0.7-2.0) 03/03/24 05:03
Total Bilirubin 0.6 mg/dl (0.2-1.3) 03/02/24 05:18
AST 29 U/L (17-59) 03/02/24 05:18
ALT 17 U/L (0-50) 03/02/24 05:18
Alkaline Phosphatase 84 U/L (38-126) 03/02/24 05:18
Most recent labs reviewed as above and in addition:
wbc down trending 23 -> 19 -> 16
hgb 10
plt 396
no L shift
cr 0.7
Wound/abscess/other Cult Final 03/04/24-834
Few Enterobacter cloacae
Few Pseudomonas aeruginosa
Organism 1 Enterobacter cloacae
Organism 2 Pseudomonas aeruginosa
E.CLOACAE P.AERU
M.I.C. RX M.I.C. RX
--------- --- --------- ---
Amoxicillin/Potas. Clavulanate >16/8 R
Ampicillin >16 R
Ampicillin/Sulbactam 16/8 R
Aztreonam <=4 S <=4 S
Cefazolin >16 R
Cefepime <=2 S <=2 S
Ceftazidime <=1 S 4 S
Ceftriaxone <=1 S
Ertapenem <=0.5 S
Ciprofloxacin <=0.25 S <=0.25 S
Gentamicin <=2 S
Meropenem <=1 S <=1 S
Piperacillin/Tazobactam <=8 S <=8 S
Tetracycline <=4 S
Tobramycin <=2 S <=2 S
Trimethoprim/Sulfamethoxazole <=2/38 S
Micro Results:
03/01/24 10:24 Blood Culture - Preliminary
Blood/Venous No Growth in 4 days- Final report to follow
03/01/24 10:56 Wound Culture - Final
Abscess Enterobacter cloacae
Pseudomonas aeruginosa
Gram Stain - Final
03/01/24 13:38 MRSA Screen - Final
Nose No Methicillin Resistant Staphylococcus aureus isolated.
--- NOTE | 2024-03-06 09:44 | W.PN.PUL.V3 ---
Today's Communication / Plan
-
Empiric antibiotics
Plavix on hold
IR lung biopsy after Plavix washout
Probable eventual cardiac catheterization once pulmonary prognosis known
Assessment
-
73-year-old male with history of peripheral arterial disease, status post recent left toe amputation, treated for diagram gain, history of coronary disease with stent placement 2014, and lower extremity PAD stents 2016 at [facility], now
presents with increased chest discomfort similar to prior cardiac pain. Patient started on heparin therapy. We are asked to comment on his pulmonary process
Acute onset midsternal chest discomfort
Elevated troponin
Gross hemoptysis
History of coronary disease with stent placement at [facility]
Leukocytosis
Anemia
Peripheral vascular disease
Peripheral arterial disease, stent placement lower extremity 2015 [facility]
Recent left first hallux amputation 02/11/2024
Hyponatremia
Hyperglycemia
10 cm left upper lobe mass
Mild left hilar adenopathy
Moderate , valve area 1 cm�
New onset AFib
Conditions present prior to admission
Hypertension/hyperlipidemia
Diabetes
20+ tobacco history, quit around 2015
100 pound weight loss over the past year
Plan
Respiratory status stable but tenuous
Wean oxygen
Continue nebulizers
Quantify hemoptysis
Sputum cytology negative for malignant cells
Lung mass on the left-requires biopsy-unable to immediately pursue while on aspirin/Plavix
Reviewed with interventional radiology-needs to be off Plavix 5 days prior to transthoracic biopsy
Patient has been told he likely has underlying cancer
Family notes that patient may have cancelled his OP FU due to fear of his diagnosis
They inferred we should try to do this while inpatient
Might require bronchoscopy with endobronchial exam/brushing/washings without biopsy if unable to pursue transthoracic biopsy while on antiplatelet therapy
Cardiology following-reviewed with them personally
Troponin trended
Eventual cardiac catheterization-in part due to expected prognosis-ideally lung biopsy would be performed to help assess prognosis
Heparin continues
Plavix on hold
New onset AFib-rate controlled and anticoagulation
His underlying clinical status also predisposes him to high risk for thromboembolic disease
Doppler negative bilaterally for DVT
He remains on heparin therapy
Monitor blood sugars
Check cultures
Empiric antibiotics
DVT prophylaxis-on anticoagulation
Nutrition
Reviewed with nursing and cardiology
Subjective Data
-
Date of Service:
Date of Service: March 06, 2024
Chief Complaint: Pulmonary Follow Up and Dyspnea Follow Up
Subjective:
Complains of intermittent blood-tinged sputum, still has some atypical chest pressures but no shortness of breath, wheezing, abdominal pain
Review of Systems
General: Other (Per HPI)
Objective Data
Data Reviewed
Vital Signs / I&O:
Vital Signs
Temp Pulse Resp BP Pulse Ox
98.2 F 67 18 144/75 97
03/06/24 07:15 03/06/24 07:12 03/06/24 07:15 03/06/24 07:09 03/06/24 07:15
Intake and Output
03/05/24 03/06/24 03/07/24
06:59 06:59 06:59
Intake Total 1335 / 1335 560 / 560
Output Total 1050 / 1050 1225 / 1225
Balance 285 / 285 -665 / -665
SaO2: 97
Nasal Cannula flow liters per minute: 3
Physical Exam
General: Respiratory Distress (n), Comfortable, Good Appetite and Other (NAD)
HEENT: Normocephalic, Anicteric and Moist Mucous Membranes
Cardiovascular: Regular Rhythm, Murmur (2/6), Rub (n) and Peripheral Edema (n)
Respiratory: Clear, Wheeze (n), Crackles (n), Rhonchi (n) and Non-Labored Respirations
GI: Soft, Non Distended and Non Tender
Neurology: Awake, Alert, Oriented, AO x 3 and No Motor Deficits
Skin: Warm, Good Color, Cyanosis (n), Jaundice (n), Rash (n) and Other (Did not examine lower extremity toe, socks in place)
Labs/Micro/Reports
Lab Data
03/06/24 05:16
03/06/24 05:16
Microbiology
03/01/24 10:24 Blood/Venous Blood Culture - Preliminary
No Growth in 4 days- Final report to follow
03/01/24 10:56 Abscess Wound Culture - Final
Enterobacter cloacae
Pseudomonas aeruginosa
03/01/24 10:56 Abscess Gram Stain - Final
--- NOTE | 2024-03-06 09:45 | PTCARENOTE ---
This RN spoke w/Ortho re: ASA & Plavix w/pt's planned OR procedure for today at noon. Rec'd telephone order to hold ASA & Plavix for today. This RN also spoke with Cardiology re: plan of care & they were to speak w/the hospitalist to confirm plan of
debridement today. Pt advised of plan for OR around noon. Pt very agitated this AM w/NPO status and lack of sleep the last week here at the hospital. Emotional support provided & Drs notified of pt's concerns.
[2024-03-06] MEDS: NOVOLOG FLEXPEN-MODERATE RESISTANCE SC (10:01)
[2024-03-06] MEDS: DAKIN'S SOLUTION 0.125% 1/4 STRENGTH 1 ML TOPICAL (10:24)
[2024-03-06] MEDS: MAXIPIME 2000 MG IV ×2 (10:25→23:21)
[2024-03-06] MEDS: FLUSH (NSS) 2 FLUSH IV ×3 (10:25→18:50)
[2024-03-06] MEDS: LIPITOR PO (10:25)
[2024-03-06] MEDS: STERILE WATER FOR INJECTION 10 ML IV ×2 (10:26→23:22)
--- NOTE | 2024-03-06 11:25 | W.PN.CARDCBS ---
Addendum entered and electronically signed by Tyler Bernard DO 03/06/24 12:49:
I saw and examined the patient.
The Reimbursement Specialist's note was reviewed and I agree with the note.
Comment:
Plan:
Stable CV status for potential debridement today.
Resume aspirin today and IV heparin next 24 hours.
Continue to hold Plavix in anticipation of IR related lung biopsy for lung mass later this week after Plavix washout.
Once pathology and extent of lung mass and prognosis is known, potential eventual consideration for cardiac catheterization.
Heart rate and blood pressure remained stable.
Appreciate oncology input
Patient understands and agrees with current status and plan of care.
Discussed with pulmonary and primary service and nursing.
Original Note:
Today's Communication / Plan
-
OR today for first ray debridement
Hold Plavix with washout in anticipation of IR guided lung biopsy later this week
Would resume IV heparin drip while off Plavix once stable from podiatry standpoint following debridement
Continue ASA and Lopressor
Impression / Plan
-
PCP: Dr. Woodrow Bynum
Cardiology: Dr. Santosh Zepeda with [facility] associated [phone]
Impression:
Chest pain
NSTEMI with Troponin peaking at 26.9 on 03/03/24
CAD
s/p 3.5 mm Xience to prox LAD 05/12/13
s/p2.75 mm Xience distal RCA 05/12/13
s/p 3.0 mm Xience to prox RCA at [facility] 05/12/13
PAD s/p left common to external iliac balloon angioplasty/stent, SFA balloon angioplasty/stent x2, TP trunk and peroneal angioplasty, anterior tibial long segment angioplasty 02/10/24
s/p left hallux amputation 02/11/24
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
Hemoptysis
Smoker
Echo on 02/11/24: LV ejection fraction is 60-65% by Roblero's method of discs. Mild concentric left ventricular hypertrophy. Mild mitral regurgitation.Mild to moderate aortic stenosis. Trace tricuspid regurgitation. Estimated pulmonary artery
pressure of 20-25 mmHg.
Echo 03/01/24: EF 60-65%, hypokinesis mid to distal septum
Plan:
-Patient with chest pain on admission to [facility] 03/01/24 and troponin peak at 3.09 on March 02
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 Heart rate increased into 100's-120's associated with mild hypotension. He briefly
desaturated.
ABN ECG ST segments most apparent in anterolateral leads.
Troponin peaked to 26.9 at 2 PM March 03
ProBNP checked 9170. He was provided 20 mg IV Lasix and IV fluids were stopped. Now appears euvolemic
Given worsening anemia and need for PRBC, heparin stopped and he was continued on Plavix and aspirin. Will hold Plavix starting 03/06/2024 in anticipation of IR guided lung biopsy. Restart IV heparin within next 24 hours once cleared by podiatry
after 1st Ray amputation
Continue Lopressor 12.5 mg every 6 hr
Echo 03/01/2024 with preserved EF with new hypokinesis to mid and distal septum
Known multivessel CAD with previous PCI to proximal LAD, proximal and mid RCA April 2013.
Review by interventional cardiology concludes patient is not an interventional candidate and medical management is recommended.
Now off NTG gtt. Occasional twinges of chest pressure but very brief and self limiting. ECG 03/06/24 shows sinus rhythm with nonspecific ST-T wave abnormality which appears to be at baseline
Will continue current medical therapy including metoprolol, statin, antiplatelet therapy and possibly OAC given A-fib this admission
-Hemoptysis and lung mass noted and Pulm note reviewed.
Decision to proceed with inpatient IR guided lung biopsy after Plavix washout. Biopsy cannot be performed on DAPT.
Of note patient reports 100 pound weight loss over a year, raising concern for malignancy
IV antibiotics per pulmonary primary service and ID
- 03/05/24 he developed atrial fibrillation with mildly rapid ventricular rates, no previous known diagnosis of atrial fibrillation
He was treated acutely with IV metoprolol
Heparin was discontinued in the face of acute coronary syndrome/non-ST segment elevation OK given his hemoptysis with roxanna bleeding. Ideally would be on oral anticoagulation for stroke risk reduction however
He does not appear to be ideal candidate for anticoagulation given hemoptysis, roxanna bleeding and severe anemia requiring blood transfusion this admission while we still await definitive treatment of his lung mass. Resume IV heparin in
next 24 hours if okay with podiatry
Recurrence of some chest discomfort with atrial fibrillation and rapid rates
Tolerating increased metoprolol from 12.5 4 times daily to 25 mg 4 times daily to obtain better rate control which should alleviate his chest discomfort
-Patient also needs left partial 1st ray amputation. To OR 03/06/2024
Would like to resume IV heparin postoperatively when cleared by podiatry
Continue IV antibiotics per ID/primary service
-Reviewed previous cardiology records, he has not been seen in their office since 06/22/14. Records including last cath report from 2012 obtained, reviewed and outlined above.
Discussed plan with patient, pulmonary, primary service, nursing
spent 52 minutes with coordination of care with multiple specialists
HPI: This is a 73 year old male patient with PMH of PAD, cardiac stent 2016, NIDDM, recent admission for dry gangrene of his left first toe status post amputation on 02/10, cardiac stent in 2016 and stent placement of the left superficial femoral
artery/left common iliac artery in 2017, lung mass with concerns of chest pain. He states that at 3AM he started to feel midsternal chest pain while sleeping which he described as a dull ache. He called EMS and felt that his chest pain improved upon
being given nitroglycerin. He also has concerns of left big toe pain. He denies CP, palpitations, SOB on exertion or dizziness.
His troponin was elevated at 0.078. Cardiology consulted.
Progress Note - Vice President Payer
Subjective
Date of Service: March 06, 2024
Patient seen and examined. Patient resting comfortably in bed. Patient now off oxygen. Patient frustrated that he is not sleeping well at night. Eager to have debridement of foot wound today.
Objective
Labs:
03/06/24 05:16
03/06/24 05:16
Labs
Hgb 10.2 g/dL (13.0-18.0) L 03/06/24 05:16
Hct 30.1 % (39.0-52.0) L 03/06/24 05:16
Plt Count 396 10^3/uL (130-400) 03/06/24 05:16
APTT Cancelled 03/03/24 12:00
Sodium 129 mmol/L (135-145) L 03/06/24 05:16
Potassium 4.5 mmol/L (3.5-5.1) 03/06/24 05:16
BUN 25 mg/dl (9-20) H 03/06/24 05:16
Creatinine 0.7 mg/dL (0.7-1.3) 03/06/24 05:16
Glucose 239 mg/dl (70-99) H 03/06/24 05:16
Troponins
03/03/24 03/03/24 03/04/24
05:55 14:41 05:27
Troponin I Cancelled 26.900 H* 22.600 H*
03/05/24
02:13
Troponin I 10.000 H*
Vital Signs and I&O:
Vital Signs
Temp Pulse Resp BP Pulse Ox
98.2 F 67 18 144/75 97
03/06/24 07:15 03/06/24 07:12 03/06/24 07:15 03/06/24 07:09 03/06/24 09:44
Vital Signs
Temp Pulse Resp BP Pulse Ox
98.2 F 67 18 144/75 97
03/06/24 07:15 03/06/24 07:12 03/06/24 07:15 03/06/24 07:09 03/06/24 09:44
Intake & Output
03/04/24 03/05/24 03/06/24 03/07/24
06:59 06:59 06:59 06:59
Intake Total 1440 / 1440 1335 / 1335 560 / 560
Output Total 3000 / 3000 1050 / 1050 1225 / 1225
Balance -1560 / -1560 285 / 285 -665 / -665
Physical Exam
Physical Exam
GEN: No distress, awake, Ox3
HEENT: supple, anicteric, mmm
LUNGS: Mildly decreased at bases otherwise CTA, no wheezes/rales
CV: Reg, S1/S2, 1/6 faint syst murmur
ABD: soft, BS+, NT/ND
EXT: trace edema, clubbing or cyanosis
NEURO: Gross non-focal
SKIN: No rash, warm, dry, pink
--- NOTE | 2024-03-06 11:46 | W.PN.ONC ---
Today's Communication / Plan
-
IV iron resuscitation appropriate only in the absence of acute infection
Plan for transthoracic biopsy of 10 cm mass
Plavix on hold
IR lung biopsy after Plavix washout per Pulmonary
Probable eventual cardiac catheterization once pulmonary prognosis known
CEA level pending
Antibiotics per ID
We will follow. Await path
Impression
Impression
Microcytic anemia secondary to iron deficiency
Reactive leukocytosis
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
Coronary artery disease with chest discomfort and elevated troponin
Peripheral vascular disease
Recent amputation of the first hallux
Hyponatremia
Diabetes mellitus with hyperglycemia
Hemoptysis
Subjective/Objective
Subjective/Objective
Vital Signs:
Vital Signs
Temp Pulse Resp BP Pulse Ox
98.4 F 67 16 137/79 98
03/06/24 11:33 03/06/24 11:34 03/06/24 11:34 03/06/24 11:29 03/06/24 11:34
physical exam unchanged.
Lab Results:
Laboratory Data
WBC 15.7 10^3/uL (4.8-10.8) H 03/06/24 05:16
Hgb 10.2 g/dL (13.0-18.0) L 03/06/24 05:16
Plt Count 396 10^3/uL (130-400) 03/06/24 05:16
APTT Cancelled 03/03/24 12:00
eGFR > 60.00 03/06/24 05:16
--- NOTE | 2024-03-06 11:54 | PTCARENOTE ---
Report given to Lucita in the OR; Pt transported in bed to OR w/transport & coronary care unit nurse.
--- NOTE | 2024-03-06 12:40 | CM ---
Chart reviewed. Patient is going for a debridement. Patient lives in a 2nd floor condo with 14 [address], ambulates with a SPC. Patient is current with [facility]. Plan is for the patient to return home with [facility]. CM to follow
[2024-03-06 13:21] LABS: Glucose - Point of Care 248 mg/dl (70-99)
--- NOTE | 2024-03-06 13:43 | W.PN.UPDATE ---
Update Note
Progress Note Update
s/p left partial first ray ampuation
-Heel weight bearing surgical shoe
-Abx per ID, presummed surgical cure, anticipate 2 weeks for soft tissue coverage
-Home nursing 1-2 times per week for local wound care
-Okay to D/C per pods/ortho
[2024-03-06] MEDS: NOVOLOG vial 2 UNITS SC (13:46)
--- NOTE | 2024-03-06 14:30 | PTCARENOTE ---
Rec'd report from Lisy in the PACU; Rec'd pt back AAOx3 w/no c/o L foot pain at this time. Pt's VS stable. Pt remains SR on telemetry monitoring. This RN discussed weight bearing status & order for him to wear surgical shoe when OOB & to call for
staff assistance when getting up. Pt verbalized his understanding. Plan of care ongoing.
[2024-03-06] MEDS: NOVOLOG FLEXPEN-MODERATE RESISTANCE 2 UNITS SC (14:34)
[2024-03-06] MEDS: LOPRESSOR PO (14:35)
--- NOTE | 2024-03-06 16:34 | W.PN.UPDATE ---
Update Note
Progress Note Update
Patient to follow-up with Dr. Payton upon discharge for post-operative care s/p left partial first ray amputation.
[2024-03-06 17:49] LABS: Glucose - Point of Care 267 mg/dl (70-99)
[2024-03-06] MEDS: NOVOLOG FLEXPEN-MODERATE RESISTANCE 5 UNITS SC (18:04)
[2024-03-06] MEDS: MORPHINE SULFATE 2 MG IV ×2 (18:50→23:58)
[2024-03-06 20:41] LABS: CEA 2.76 ng/ml
[2024-03-06] MEDS: BENADRYL 25 MG PO (23:19)
[2024-03-06] MEDS: TYLENOL 650 MG PO (23:19)
[2024-03-06] MEDS: MELATONIN PO (23:22)
[2024-03-06 23:32] LABS: Glucose - Point of Care 255 mg/dl (70-99)
[2024-03-07] VITALS (12 sets, daily range): BP systolic 104–143; BP diastolic 51–91; PULSE 64; O2SAT 99; BMI 25.7
--- NOTE | 2024-03-07 00:28 | PTCARENOTE ---
pt with increased pain through out shift- pain medications provided per SEP. L foot elevated up on a pillow to elevate swelling. Plan of care discussed- SR on the monitor.
[2024-03-07] MEDS: MORPHINE SULFATE 0.5 MG IV (02:30)
[2024-03-07 02:51] LABS: % Basophils 0.6 % (0-2); % Eosinophils 3.4 % (0-6); % Immature Granulocytes 0.4 % (0-0.5); % Lymphocytes 28.8 % (20.5-51.1); % Monocytes 8.1 % (1.7-9.3); % Neutrophils 58.7 % (42.2-75.2); Absolute Basophils 0.1 10^3/uL (0-0.2); Absolute Eosinophils 0.6 10^3/uL (0-0.7); Absolute Immature Granulocytes 0.1 10^3/uL (0-0.05); Absolute Lymphocytes 4.7 10^3/uL (1.2-3.4); Absolute Monocytes 1.3 10^3/uL (0.1-0.6); Absolute Neutrophils 9.5 10^3/uL (1.4-6.5); Hematocrit 31.7 % (39.0-52.0); Hemoglobin 10.7 g/dL (13.0-18.0); Mean Corp Hgb Conc. 33.8 g/dL (33.0-37.0); Mean Corpuscular Volume 77.1 fL (80.0-94.0); Mean Platelet Volume 8.3 fL (7.4-10.4); Nucleated Red Blood Cells % 0 % (-); Platelet Count 384 10^3/uL (130-400); Red Blood Cell Count 4.11 10^6/uL (4.70-6.10); Red Cell Dist. Width 16.4 % (11.5-14.5); White Blood Cell Count 16.2 10^3/uL (4.8-10.8)
[2024-03-07 03:13] LABS: Blood Urea Nitrogen 22 mg/dl (9-20); Calcium 8.7 mg/dl (8.4-10.2); Carbon Dioxide 23 mmol/L (22-30); Chloride 98 mmol/L (98-107); Estimated Creatinine Clearance 106 ml/min; Glucose 225 mg/dl (70-99); Potassium 4.5 mmol/L (3.5-5.1); Sodium 128 mmol/L (135-145); eGFR > 60.00
--- NOTE | 2024-03-07 03:44 | PTCARENOTE ---
CORRECTIONS OFFICER Hephzipa aware that pt was having increased pain management issues. L toes still with good cap refill. Post tibial pulse + with Doppler. VSS. x1 does of morphine given and emotional support provided. Pt appears to be resting following
administration.
[2024-03-07] MEDS: LOPRESSOR 25 MG PO ×4 (06:27→23:04)
[2024-03-07] MEDS: TYLENOL 650 MG PO (06:27)
[2024-03-07] MEDS: VANCOCIN 200 IV (06:28)
[2024-03-07 07:02] LABS: Glucose - Point of Care 232 mg/dl (70-99)
[2024-03-07] MEDS: DUONEB 3 ML INH ×4 (07:48→19:18)
[2024-03-07] MEDS: PULMICORT 0.5 MG INH ×2 (07:48→19:18)
--- NOTE | 2024-03-07 08:30 | PTCARENOTE ---
Assumed care of pt from prev nsg shift; Pt AAOX3 w/no c/o CP or SOB. Pt's IV Vancomycin completed & IV line flushed. Pt's VS stable w/HR 60's, BP 142/81. Pt assisted to BR w/RW & surgical shoe in place; pt able to ambulate successfully w/contact
guard assist. Pt w/call marx within reach & plan of care ongoing.
--- NOTE | 2024-03-07 08:46 | PHA.VAN.FU ---
Vancomycin Assessment / Plan
- Assessment
Renal Function: Stable
WBC's are: Stable
In the past 24 hrs, patient has been: Afebrile
Concomitant Antimicrobials: cefepime, metronidazole
- Dosing Plan
Continue: Vanc 1000mg Q12H
- Monitoring Plan
Level(s) appropriate: Recheck trough at minimum of weekly intervals, Repeat sooner for changes in renal function or clinical status
Next Level Due (Date): ~03/11
- Follow Up
Pharmacy will continue to follow.
Vancomycin Follow UP
- -
Patient Age: 73
Patient Sex: Male
Vancomycin Day #: 7
Indication: Skin And Soft Tissue
Requesting Provider: Dr. Chavira/ Dr Goss
Pertinent Antimicrobial Allergies:
NKDA
Height / Weight:
Height 6 ft
Actual Weight 86 kg
Pertinent Past Medical History: DM
- Vital Signs / Lab Results
Temp Pulse Resp BP Pulse Ox
98.3 F 63 16 130/70 98
03/07/24 06:54 03/07/24 07:49 03/07/24 07:49 03/07/24 06:27 03/07/24 06:54
Lab Results - Hematology
03/05/24 03/05/24 03/06/24
02:13 06:00 05:16
WBC 19.9 H Cancelled 15.7 H
03/07/24
02:38
WBC 16.2 H
Lab Results - Chemistry
03/05/24 03/05/24 03/06/24
02:13 06:00 05:16
BUN 26 H Cancelled 25 H
Creatinine 0.7 Cancelled 0.7
Estimated Creat Clear 106 Cancelled 106
03/07/24
02:38
BUN 22 H
Creatinine 0.7
Estimated Creat Clear 106
Microbiology Results
03/06/24 Unknown Gram Stain - Preliminary
Toe
03/01/24 10:24 Blood Culture - Final
Blood/Venous No Growth - Final Report
Therapeutic Drug Monitoring
Vancomycin Peak 25.3 ug/ml (18-26) 03/03/24 20:34
Vancomycin Trough 14.2 ug/ml (5-20) 03/04/24 05:27
--- NOTE | 2024-03-07 09:12 | W.PN.ID1 ---
Date of Service
Date of Service: March 07, 2024
Today's Communication
- start ciprofloxacin and augmentin x 14 more days through 03/19
- a1c was 8.2
- metformin and sitagliptin on hold, now on insulin
- on dc would hold sitagliptin, decrease metformin dose to 500 mg PO BID given prior A1c 8
- recheck QTc tomorrow am
Assessment / Plan
Left Diabetic Foot Infection/Surgical Site Infection
DM2 uncontrolled
- s/p 1st ray amputation 03/06
- agree presumed surgical cure and plan 2 weeks of oral antibiotics for skin/soft tissue
- OR culture 03/06 Pseudomonas and a GNR
- 03/01 superficial culture Pseudomonas and Enterobacter - suspect these will correlate with OR cultures
- QTc 440 in NSR
- start ciprofloxacin and augmentin x 14 more days through 03/19
- a1c was 8.2
- metformin and sitagliptin on hold, now on insulin
- on dc would hold sitagliptin, decrease metformin dose to 500 mg PO BID given prior A1c 8
- recheck QTc tomorrow am
- elevated CEA per hematology
follow clinically
Chief Complaint
-: Other (surgical site infection)
Subjective / Review of Systems
afebrile
was agitated re: NPO status yesterday
now s/p left partial first ray amputation - cultures were taken
Vital Signs / Physical Exam
Vital Signs
Vital Signs
Temp Pulse Resp BP Pulse Ox
98.3 F 63 16 130/70 98
03/07/24 06:54 03/07/24 07:49 03/07/24 07:49 03/07/24 06:27 03/07/24 06:54
Physical Exam
Constitutional: No Acute Distress and Chronically Ill
Cardiovascular: Regular Rate
Pulmonary: Symmetric, Rales and Non Labored
Skin: Dry; Negative Rash or Jaundice
Wound: Other (dressing take down deferred to surgery)
Neurological: Awake
Objective Data
Lab Data
Lab Results
03/07/24 02:38
03/07/24 02:38
APTT Cancelled 03/03/24 12:00
Estimated Creat Clear 106 ml/min 03/07/24 02:38
Lactic Acid 1.8 mmol/L (0.7-2.0) 03/03/24 05:03
Total Bilirubin 0.6 mg/dl (0.2-1.3) 03/02/24 05:18
AST 29 U/L (17-59) 03/02/24 05:18
ALT 17 U/L (0-50) 03/02/24 05:18
Alkaline Phosphatase 84 U/L (38-126) 03/02/24 05:18
Most recent labs reviewed.
Micro Results:
03/06/24 Unknown Wound Culture - Pending
Toe Gram Stain - Preliminary
03/06/24 Unknown Anaerobic Culture - Pending
Toe
03/01/24 10:24 Blood Culture - Final
Blood/Venous No Growth - Final Report
03/01/24 10:56 Wound Culture - Final
Abscess Enterobacter cloacae
Pseudomonas aeruginosa
Gram Stain - Final
03/01/24 13:38 MRSA Screen - Final
Nose No Methicillin Resistant Staphylococcus aureus isolated.
--- NOTE | 2024-03-07 09:16 | W.PN.PUL.V3 ---
Today's Communication / Plan
-
Antibiotics
Plavix washout
Lung biopsy-earliest Wednesday-Dr. Levy notified interventional radiology and reconsulted them
Cardiology following-eventual catheterization
Assessment
-
73-year-old male with history of peripheral arterial disease, status post recent left toe amputation, treated for diagram gain, history of coronary disease with stent placement 2014, and lower extremity PAD stents 2016 at [facility], now
presents with increased chest discomfort similar to prior cardiac pain. Patient started on heparin therapy. We are asked to comment on his pulmonary process
Acute onset midsternal chest discomfort
Elevated troponin
Gross hemoptysis
History of coronary disease with stent placement at [facility]
Leukocytosis
Anemia
Peripheral vascular disease
Peripheral arterial disease, stent placement lower extremity 2015 [facility]
Recent left first hallux amputation 02/11/2024
Hyponatremia
Hyperglycemia
10 cm left upper lobe mass
Mild left hilar adenopathy
Moderate , valve area 1 cm�
New onset AFib
Conditions present prior to admission
Hypertension/hyperlipidemia
Diabetes
20+ tobacco history, quit around 2015
100 pound weight loss over the past year
Plan
Respiratory status stable
Wean oxygen
Continue nebulizers
Follow hemoptysis
Sputum cytology negative for malignant cells
Lung mass on the left-requires biopsy-unable to immediately pursue while on aspirin/Plavix
Reviewed with interventional radiology-needs to be off Plavix 5 days prior to transthoracic biopsy-Dr. Levy notified interventional radiology 03/07/2024-biopsy may be attempted on 03/10/2024
Patient has been told he likely has underlying cancer
Family notes that patient may have cancelled his OP FU due to fear of his diagnosis
They inferred we should try to do this while inpatient
Might require bronchoscopy with endobronchial exam/brushing/washings without biopsy if unable to pursue transthoracic biopsy while on antiplatelet therapy
Cardiology following-reviewed with them personally
Troponin trended
Eventual cardiac catheterization-in part due to expected prognosis-ideally lung biopsy would be performed to help assess prognosis
Heparin continues
Plavix on hold
New onset AFib-rate controlled and anticoagulation
His underlying clinical status also predisposes him to high risk for thromboembolic disease
Doppler negative bilaterally for DVT
He remains on heparin therapy
Orthopedics following-status post debridement and partial amputation 03/06/2024
Monitor blood sugars
Check cultures
Empiric antibiotics
Infectious disease following-correspondence reviewed
DVT prophylaxis-on anticoagulation
Nutrition
Reviewed with nursing and cardiology
Subjective Data
-
Date of Service:
Date of Service: March 07, 2024
Chief Complaint: Pulmonary Follow Up and Dyspnea Follow Up
Subjective:
Slept better, felt better after eating breakfast, no complaints of shortness of breath, productive cough, ongoing mild hemoptysis, no abdominal pain
Review of Systems
General: Other (Per HPI)
Objective Data
Data Reviewed
Vital Signs / I&O:
Vital Signs
Temp Pulse Resp BP Pulse Ox
98.3 F 67 16 142/81 98
03/07/24 06:54 03/07/24 09:00 03/07/24 07:49 03/07/24 06:56 03/07/24 06:56
Intake and Output
03/06/24 03/07/24 03/08/24
06:59 06:59 06:59
Intake Total 560 / 560 690 / 690
Output Total 1225 / 1225 1550 / 1550
Balance -665 / -665 -860 / -860
SaO2: 98
Nasal Cannula flow liters per minute: 3
Physical Exam
General: Respiratory Distress (n), Comfortable, Good Appetite and Other (NAD)
HEENT: Normocephalic, Anicteric and Moist Mucous Membranes
Cardiovascular: Regular Rhythm, Murmur (2/6), Rub (n) and Peripheral Edema (n)
Respiratory: Clear, Wheeze (n), Crackles (n), Rhonchi (n) and Non-Labored Respirations
GI: Soft, Non Distended and Non Tender
Neurology: Awake, Alert, Oriented, AO x 3 and No Motor Deficits
Skin: Warm, Good Color, Cyanosis (n), Jaundice (n), Rash (n) and Other (Did not examine lower extremity toe, socks in place)
Labs/Micro/Reports
Lab Data
03/07/24 02:38
03/07/24 02:38
Microbiology
03/06/24 Unknown Toe Gram Stain - Preliminary
03/01/24 10:24 Blood/Venous Blood Culture - Final
No Growth - Final Report
03/01/24 10:56 Abscess Wound Culture - Final
Enterobacter cloacae
Pseudomonas aeruginosa
03/01/24 10:56 Abscess Gram Stain - Final
--- NOTE | 2024-03-07 09:20 | WOUNDNOTE ---
LIZZY RN NOTE: Patient is s/p L partial ray amputation by Dr. Humphreys, closed with sutures. Wound care per Podiatry, to follow up with Dr. Payton post discharge and VN per Dr. Humphreys's note.
[2024-03-07] MEDS: LIPITOR 20 MG PO (09:37)
[2024-03-07] MEDS: NOVOLOG FLEXPEN-MODERATE RESISTANCE 3 UNITS SC ×2 (09:38→18:36)
[2024-03-07] MEDS: LOW STRENGTH ASPIRIN 81 MG PO (09:38)
[2024-03-07] MEDS: FLAGYL 500 MG PO (09:38)
[2024-03-07] MEDS: MAXIPIME 2000 MG IV (09:39)
[2024-03-07] MEDS: FLUSH (NSS) 2 FLUSH IV (09:39)
--- NOTE | 2024-03-07 11:10 | CM ---
Chart reviewed. Patient is independent of ADLS, lives in a 2nd floor condo, [address], ambulates with a SPC. Patient is current with [facility]. Plan is for the patient to return home with [facility]. CM to follow
--- NOTE | 2024-03-07 11:44 | W.PN.CARDCBS ---
Addendum entered and electronically signed by Tyler Bernard DO 03/07/24 16:13:
I saw and examined the patient.
The Rotary Envelope Machine Operator's note was reviewed and I agree with the note.
Comment:
Plan:
Remains overall stable from a cardiovascular standpoint. Heart rate and blood pressure stable.
Continue Plavix washout in anticipation of lung biopsy with IR later this week
Continue aspirin. Resume IV heparin.
Once pathology of lung mass and prognosis is known, potential eventual consideration for cardiac catheterization.
s/p left partial 1st ray amputation 03/06/2024.
Tolerated procedure well. Okay to resume IV heparin as per podiatry. Eventual transition to oral anticoagulation once lung mass biopsy is completed
Appreciate oncology, pulmonary, podiatry input.
Original Note:
Today's Communication / Plan
-
Overall stable from cardiac standpoint
Continue Plavix washout in anticipation of lung biopsy earliest 03/10/2024 with IR
Cleared by podiatry to resume IV heparin as patient is postop day 1 s/p left partial first ray amputation
Impression / Plan
-
PCP: Dr. Woodrow Bynum
Cardiology: Dr. Santosh Zepeda with [facility] associated [phone]
Impression:
Chest pain
NSTEMI with Troponin peaking at 26.9 on 03/03/24
CAD
s/p 3.5 mm Xience to prox LAD 05/12/13
s/p2.75 mm Xience distal RCA 05/12/13
s/p 3.0 mm Xience to prox RCA at [facility] 05/12/13
PAD s/p left common to external iliac balloon angioplasty/stent, SFA balloon angioplasty/stent x2, TP trunk and peroneal angioplasty, anterior tibial long segment angioplasty 02/10/24
s/p left hallux amputation 02/11/24
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
Hemoptysis
Smoker
Echo on 02/11/24: LV ejection fraction is 60-65% by Roblero's method of discs. Mild concentric left ventricular hypertrophy. Mild mitral regurgitation.Mild to moderate aortic stenosis. Trace tricuspid regurgitation. Estimated pulmonary artery
pressure of 20-25 mmHg.
Echo 03/01/24: EF 60-65%, hypokinesis mid to distal septum
Plan:
-Patient with chest pain on admission to [facility] 03/01/24 and troponin peak at 3.09 on March 02
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 Heart rate increased into 100's-120's associated with mild hypotension. He briefly
desaturated.
ABN ECG ST segments most apparent in anterolateral leads.
Troponin peaked to 26.9 at 2 PM March 03
ProBNP checked 9170. He was provided 20 mg IV Lasix and IV fluids were stopped. Now appears euvolemic
Given worsening anemia and need for PRBC, heparin stopped and he was continued on Plavix and aspirin.
Plavix stopped 03/06/2024 in anticipation of IR guided lung biopsy. Resume IV heparin 03/07/24 cleared by podiatry
Continue Lopressor 25 mg every 6 hr
Echo 03/01/2024 with preserved EF with new hypokinesis to mid and distal septum
Known multivessel CAD with previous PCI to proximal LAD, proximal and mid RCA April 2013.
Review by interventional cardiology concludes patient is not an interventional candidate and medical management is recommended. If additional chest pain can consider cath after biopsy/evaluation of lung mass.
Remains off NTG gtt. Occasional twinges of chest pressure but very brief and self limiting. ECG 03/06/24 shows sinus rhythm with nonspecific ST-T wave abnormality which appears to be at baseline
Will continue current medical therapy including metoprolol, statin, antiplatelet therapy and possibly OAC given A-fib this admission
-Hemoptysis and lung mass noted and Pulm note reviewed.
Decision to proceed with inpatient IR guided lung biopsy after Plavix washout. Biopsy tentatively scheduled for 03/10/24 at earliest. IR has been reconsulted.
Of note patient reports 100 pound weight loss over a year, raising concern for malignancy
IV antibiotics per pulmonary primary service and ID
- 03/05/24 he developed atrial fibrillation with mildly rapid ventricular rates, no previous known diagnosis of atrial fibrillation
He was treated acutely with IV metoprolol
Heparin was discontinued in the face of acute coronary syndrome/non-ST segment elevation GA given his hemoptysis with roxanna bleeding. Ideally would be on oral anticoagulation for stroke risk reduction however
He does not appear to be ideal candidate for anticoagulation given hemoptysis, roxanna bleeding and severe anemia requiring blood transfusion this admission while we still await definitive treatment of his lung mass. Resume IV heparin in
next 24 hours if okay with podiatry
Recurrence of some chest discomfort with atrial fibrillation and rapid rates
Tolerating increased metoprolol from 12.5 4 times daily to 25 mg 4 times daily to obtain better rate control which should alleviate his chest discomfort
-S/p left partial 1st ray amputation 03/06/2024
He is now almost 24 hours post left partial first ray amputation.
Cleared with podiatry to resume IV heparin 03/07/24
Continue IV antibiotics per ID/primary service (continue ciprofloxacin and augmentin x 14 more days through 03/19)
Check ECG 03/08/24 to monitor QTc given antibiotics
Anemia post 2 units of RBC, Hgb stable 10.7
-Reviewed previous cardiology records, he has not been seen in their office since 06/22/14. Records including last cath report from 2012 obtained, reviewed and outlined above.
Discussed with patient, nursing, podiatry, primary service
HPI: This is a 73 year old male patient with PMH of PAD, cardiac stent 2016, NIDDM, recent admission for dry gangrene of his left first toe status post amputation on 02/10, cardiac stent in 2016 and stent placement of the left superficial femoral
artery/left common iliac artery in 2017, lung mass with concerns of chest pain. He states that at 3AM he started to feel midsternal chest pain while sleeping which he described as a dull ache. He called EMS and felt that his chest pain improved upon
being given nitroglycerin. He also has concerns of left big toe pain. He denies CP, palpitations, SOB on exertion or dizziness.
His troponin was elevated at 0.078. Cardiology consulted.
Progress Note - Roll Scale Worker
Subjective
Date of Service: March 07, 2024
Patient seen and examined. Patient sitting up in chair reports he feels well. He was able to get good amount of sleep last night. He notes occasional vague chest twinges that last a second or 2 and are worse when he is sedentary or takes a deep
breath.
Objective
Labs:
03/07/24 02:38
03/07/24 02:38
Labs
Hgb 10.7 g/dL (13.0-18.0) L 03/07/24 02:38
Hct 31.7 % (39.0-52.0) L 03/07/24 02:38
Plt Count 384 10^3/uL (130-400) 03/07/24 02:38
APTT Cancelled 03/03/24 12:00
Sodium 128 mmol/L (135-145) L 03/07/24 02:38
Potassium 4.5 mmol/L (3.5-5.1) 03/07/24 02:38
BUN 22 mg/dl (9-20) H 03/07/24 02:38
Creatinine 0.7 mg/dL (0.7-1.3) 03/07/24 02:38
Glucose 225 mg/dl (70-99) H 03/07/24 02:38
Troponins
03/05/24
02:13
Troponin I 10.000 H*
Vital Signs and I&O:
Vital Signs
Temp Pulse Resp BP Pulse Ox
98.3 F 68 16 142/81 98
03/07/24 06:54 03/07/24 11:22 03/07/24 11:22 03/07/24 06:56 03/07/24 11:22
Vital Signs
Temp Pulse Resp BP Pulse Ox
98.3 F 68 16 142/81 98
03/07/24 06:54 03/07/24 11:22 03/07/24 11:22 03/07/24 06:56 03/07/24 11:22
Intake & Output
03/05/24 03/06/24 03/07/24 03/08/24
06:59 06:59 06:59 06:59
Intake Total 1335 / 1335 560 / 560 690 / 690
Output Total 1050 / 1050 1225 / 1225 1550 / 1550
Balance 285 / 285 -665 / -665 -860 / -860
Physical Exam
Physical Exam
GEN: No distress, awake, Ox3
HEENT: supple, anicteric, mmm
LUNGS: Mildly decreased at bases otherwise CTA, no wheezes/rales
CV: Reg, S1/S2, 1/6 faint syst murmur
ABD: soft, BS+, NT/ND
EXT: trace edema, clubbing or cyanosis; Left foot wrapped in Ronaldo dressing
NEURO: Gross non-focal
SKIN: No rash, warm, dry, pink
--- NOTE | 2024-03-07 12:38 | W.PN.UPDATE ---
Update Note
Progress Note Update
Chart reviewed including oncology consultation and prior progress notes
Iron studies are c/w anemia in chronic disease, NOT iron deficiency as previously suspected.
CEA is normal, no indication for GI w/u or iron supplementation
Awaiting left lung mass biopsy, likely Wednesday. Will follow peripherally.
[2024-03-07 12:50] LABS: Glucose - Point of Care 254 mg/dl (70-99)
[2024-03-07] MEDS: NOVOLOG FLEXPEN-MODERATE RESISTANCE 5 UNITS SC (12:59)
[2024-03-07 13:24] LABS: Hematocrit 31.5 % (39.0-52.0); Hemoglobin 10.5 g/dL (13.0-18.0); Mean Corp Hgb Conc. 33.3 g/dL (33.0-37.0); Mean Platelet Volume 8.3 fL (7.4-10.4); Platelet Count 367 10^3/uL (130-400); Red Blood Cell Count 4.04 10^6/uL (4.70-6.10); Red Cell Dist. Width 16.6 % (11.5-14.5); White Blood Cell Count 14.8 10^3/uL (4.8-10.8)
[2024-03-07] MEDS: FLUSH (NSS) 1 FLUSH IV (13:35)
[2024-03-07 13:36] LABS: APTT 32.2 Sec (23.4-35.0)
[2024-03-07] MEDS: HEPARIN 25000 UNITS/250 ML IV (13:36)
--- NOTE | 2024-03-07 13:55 | PTCARENOTE ---
CBC & PTT drawn & sent as ordered. Pt restarted on IV Heparin at 950 units/hr as ordered through patent R hand IV line. Next PTT ordered for 1935 this evening. Plan of care ongoing.
--- NOTE | 2024-03-07 15:51 | W.PN.HOSP.TC ---
Today's Communication/Plan
-
Heparin drip. Oral antibiotics. Plan for lung biopsy.
Assessment / Plan
Assessment / Plan
Physical exam:
General: Acutely ill, Non-toxic appearance today
HEENT: Normocephalic, Atraumatic and Moist Mucous Membranes
Respiratory: Clear to Auscultation; Negative Wheezes, Rales or Rhonchi
Cardiac: Regular Rhythm and S1/S2
GI: Soft, Nontender and Nondistended
Musculoskeletal: Left toe status post postop findings wrapped up. No Clubbing, No Cyanosis and No Edema
Neuro: Awake, Alert and Oriented, no gross neuro-deficits
Psych: Calm
A/P:
Acute NSTEMI:
Cardiac status stabilizing
Continue aspirin
Restart heparin drip today
Off Plavix for lung biopsy
Continue beta-blockers and statin and nitrates as needed
Discussed with cardiology today
Plan for further cardiac workup depending on pulmonary prognosis
Left lung mass and hemoptysis:
Pulmonary consult appreciated
Pulmonary discussed with IR, plan for biopsy this coming Wednesday
Sepsis due to left toe infection:
Improving
ID changing antibiotics to ciprofloxacin and Augmentin today through 03/19
Status post left partial first ray amputation on 03/06 by podiatry
Paroxysmal atrial fibrillation, new onset:
On rate control, metoprolol titrate 25 mg every 6 hours
On IV heparin drip
Acute diastolic CHF:
Off IV fluid
Diuretics given and will continue as needed blood pressure permitting and depending on volume status
Monitor respiratory status
Anemia of chronic disease:
Hematology consult appreciated
Blood transfusion given
Hemoglobin 10.5 today
Post blood transfusion reaction on 03/03:
He was given IV Lasix, IV steroids, and continue with broad-spectrum antibiotics.
Chronic limb ischemia:
Status post vascular intervention on 02/[address] Vega
Diabetes mellitus type 2:
Insulin sliding scale
Last hemoglobin A1c on 02/09 was 8.2
Resume metformin and Januvia
Monitor blood sugars and adjust medications accordingly
Hypertension:
Continue current antihypertensives.
Monitor blood pressure and adjust medications accordingly.
Hyperlipidemia:
Continue statins
DVT prophylaxis:
On heparin drip
CODE STATUS:
DNR
Total time spent on today's encounter was 52 minutes which included time spent in counseling the patient/family regarding diagnosis and treatment plan as listed above, goals of care, and symptom management. Case was discussed with nursing staff,
specialists, and care coordinators/case management. All labs and imaging personally reviewed by me. Remainder the time spent in detailed review of previous records, lab data, imaging, and other medical provider documentation.
Anticipated Discharge: > 48 hours
Subjective/Interval History
-
Date of Service: March 07, 2024
Patient seen earlier this morning. Denies chest pain or shortness of breath today. Afebrile
Objective Data
-
Labs:
Laboratory Results
03/07/24 03/07/24
13:15 19:35
WBC 14.8 H
Hgb 10.5 L
Hct 31.5 L
Plt Count 367
APTT 32.2 Pending
Vital Signs:
Vital Signs
Temp Pulse Resp BP Pulse Ox
98.1 F 68 18 104/51 98
03/07/24 15:19 03/07/24 15:21 03/07/24 15:19 03/07/24 15:21 03/07/24 15:19
I&O
03/06/24 03/07/24 03/08/24
06:59 06:59 06:59
Intake Total 560 / 560 690 / 690
Output Total 1225 / 1225 1550 / 1550
Balance -665 / -665 -860 / -860
[2024-03-07] MEDS: GLUCOPHAGE 1000 MG PO (17:34)
[2024-03-07] MEDS: JANUVIA 50 MG PO (17:34)
[2024-03-07 17:39] LABS: Glucose - Point of Care 231 mg/dl (70-99)
[2024-03-07 20:17] LABS: APTT 36.8 Sec (23.4-35.0)
[2024-03-07] MEDS: CIPRO 500 MG PO (20:45)
[2024-03-07] MEDS: AUGMENTIN 875 MG/125 MG 1 TABLET PO (20:45)
--- NOTE | 2024-03-07 22:11 | PTCARENOTE ---
Pt rec'd at change of shift back in bed after ambulating with pct to bathroom. Pt with surgical shoe on left foot, wiggles toes and states pain is at a minimal amt. sinus on telemetry. Heparin gtt adjusted for ptt 36.8. currently infusing at 1150
units/hr. Pt states 'All I want is a good nights sleep'.
call marx within reach.
[2024-03-07] MEDS: MELATONIN 3 MG PO (23:04)
[2024-03-07 23:09] LABS: Glucose - Point of Care 187 mg/dl (70-99)
[2024-03-08] VITALS (8 sets, daily range): BP systolic 111–137; BP diastolic 61–85; BMI 25.6
[2024-03-08 03:07] LABS: % Basophils 0.6 % (0-2); % Eosinophils 3.2 % (0-6); % Immature Granulocytes 0.6 % (0-0.5); % Lymphocytes 31.2 % (20.5-51.1); % Monocytes 7.9 % (1.7-9.3); % Neutrophils 56.5 % (42.2-75.2); Absolute Basophils 0.1 10^3/uL (0-0.2); Absolute Eosinophils 0.5 10^3/uL (0-0.7); Absolute Immature Granulocytes 0.1 10^3/uL (0-0.05); Absolute Lymphocytes 4.5 10^3/uL (1.2-3.4); Absolute Monocytes 1.2 10^3/uL (0.1-0.6); Absolute Neutrophils 8.2 10^3/uL (1.4-6.5); Hematocrit 30.9 % (39.0-52.0); Hemoglobin 10.1 g/dL (13.0-18.0); Mean Corp Hgb Conc. 32.7 g/dL (33.0-37.0); Mean Corpuscular Hgb 26.3 pg (27.0-31.0); Mean Corpuscular Volume 80.5 fL (80.0-94.0); Mean Platelet Volume 8.5 fL (7.4-10.4); Nucleated Red Blood Cells % 0 % (-); Platelet Count 354 10^3/uL (130-400); Red Blood Cell Count 3.84 10^6/uL (4.70-6.10); Red Cell Dist. Width 16.7 % (11.5-14.5); White Blood Cell Count 14.6 10^3/uL (4.8-10.8)
[2024-03-08 03:19] LABS: APTT 47.6 Sec (23.4-35.0)
[2024-03-08 03:54] LABS: Blood Urea Nitrogen 19 mg/dl (9-20); Calcium 8.7 mg/dl (8.4-10.2); Carbon Dioxide 26 mmol/L (22-30); Chloride 99 mmol/L (98-107); Estimated Creatinine Clearance 106 ml/min; Glucose 187 mg/dl (70-99); Potassium 4.3 mmol/L (3.5-5.1); Sodium 128 mmol/L (135-145); eGFR > 60.00
--- NOTE | 2024-03-08 04:21 | DOWNTIME ---
There was a [employer] Client Shoe Lay Out Planner Downtime on 03/08/2024 from 0100 to 03/08/2024 at 0252. Downtime documentation of patient's care, including medication administrations, has been reconciled in the electronic record per guidelines. Refer to the
patient's paper chart under the miscellaneous tab to see printed paper medication records and downtime forms.
[2024-03-08] MEDS: LOPRESSOR 25 MG PO ×3 (05:57→17:48)
[2024-03-08] MEDS: PULMICORT 0.5 MG INH ×2 (08:23→19:59)
[2024-03-08] MEDS: DUONEB 3 ML INH ×4 (08:23→19:59)
[2024-03-08] MEDS: GLUCOPHAGE 1000 MG PO ×2 (08:27→17:48)
[2024-03-08] MEDS: LOW STRENGTH ASPIRIN 81 MG PO (08:27)
[2024-03-08] MEDS: AUGMENTIN 875 MG/125 MG 1 TABLET PO ×2 (08:27→19:34)
[2024-03-08] MEDS: JANUVIA 50 MG PO (08:27)
[2024-03-08] MEDS: CIPRO 500 MG PO ×2 (08:27→19:34)
[2024-03-08] MEDS: LIPITOR 20 MG PO (08:27)
--- NOTE | 2024-03-08 08:31 | W.PN.UPDATE ---
Update Note
Progress Note Update
qtc acceptable
AW
--- NOTE | 2024-03-08 08:58 | W.PN.PUL.V3 ---
Today's Communication / Plan
-
Plavix washout
Continue antibiotics
IR lung biopsy Wednesday
Eventual cardiac catheterization
Assessment
-
73-year-old male with history of peripheral arterial disease, status post recent left toe amputation, treated for diagram gain, history of coronary disease with stent placement 2014, and lower extremity PAD stents 2016 at [facility], now
presents with increased chest discomfort similar to prior cardiac pain. Patient started on heparin therapy. We are asked to comment on his pulmonary process
Acute onset midsternal chest discomfort
Elevated troponin
Gross hemoptysis
History of coronary disease with stent placement at [facility]
Leukocytosis
Anemia
Peripheral vascular disease
Peripheral arterial disease, stent placement lower extremity 2015 [facility]
Recent left first hallux amputation 02/11/2024
Hyponatremia
Hyperglycemia
10 cm left upper lobe mass
Mild left hilar adenopathy
Moderate , valve area 1 cm�
New onset AFib
Conditions present prior to admission
Hypertension/hyperlipidemia
Diabetes
20+ tobacco history, quit around 2015
100 pound weight loss over the past year
Plan
Respiratory status remains stable
Wean oxygen-now on room air
Continue nebulizers as needed
Follow hemoptysis-minimal
Note: Sputum cytology negative for malignant cells
Lung mass on the left-requires biopsy-unable to immediately pursue while on aspirin/Plavix
Reviewed with interventional radiology-needs to be off Plavix 5 days prior to transthoracic biopsy-Dr. Levy notified interventional radiology 03/07/2024-biopsy may be attempted on 03/10/2024
Patient has been told he likely has underlying cancer
Family notes that patient may have cancelled his OP FU due to fear of his diagnosis
They inferred we should try to do this while inpatient
Might require bronchoscopy with endobronchial exam/brushing/washings without biopsy if unable to pursue transthoracic biopsy while on antiplatelet therapy
Cardiology following-correspondence reviewed
Troponin trended
Eventual cardiac catheterization-in part due to expected prognosis-ideally lung biopsy would be performed to help assess prognosis
Heparin continues
Plavix on hold
New onset AFib-rate controlled and anticoagulation
Orthopedics following-status post debridement and partial amputation 03/06/2024
Monitor blood sugars
Insulin supplementation as needed
Cultures reviewed
Wound cultures with Pseudomonas and Enterobacter
Empiric antibiotics per infectious disease
Infectious disease following-correspondence reviewed
DVT prophylaxis-on anticoagulation
Nutrition
Reviewed with nursing
Subjective Data
-
Date of Service:
Date of Service: March 08, 2024
Chief Complaint: Pulmonary Follow Up and Dyspnea Follow Up
Subjective:
Slept at least 4 hours, no complaints of shortness of breath, on room air, no chest pain or abdominal pain
Review of Systems
General: Other (Per HPI)
Objective Data
Data Reviewed
Vital Signs / I&O:
Vital Signs
Temp Pulse Resp BP Pulse Ox
98.2 F 58 16 111/61 98
03/08/24 06:57 03/08/24 08:26 03/08/24 08:26 03/08/24 06:56 03/08/24 06:57
Intake and Output
03/07/24 03/08/24 03/09/24
06:59 06:59 06:59
Intake Total 690 / 690 1063 / 1063
Output Total 1550 / 1550
Balance -860 / -860 1063 / 1063
SaO2: 98
Nasal Cannula flow liters per minute: 2
Physical Exam
General: Respiratory Distress (n), Comfortable, Good Appetite and Other (NAD)
HEENT: Normocephalic, Anicteric and Moist Mucous Membranes
Cardiovascular: Regular Rhythm, Murmur (2/6), Rub (n) and Peripheral Edema (n)
Respiratory: Clear, Wheeze (n), Crackles (n), Rhonchi (n) and Non-Labored Respirations
GI: Soft, Non Distended and Non Tender
Neurology: Awake, Alert, Oriented, AO x 3 and No Motor Deficits
Skin: Warm, Good Color, Cyanosis (n), Jaundice (n), Rash (n) and Other (Did not examine lower extremity toe, socks in place)
Labs/Micro/Reports
Lab Data
03/08/24 02:57
03/08/24 02:57
Laboratory Results
03/07/24 03/07/24 03/08/24
13:15 19:42 02:57
APTT 32.2 36.8 H 47.6 H
Microbiology
03/06/24 Unknown Toe Wound Culture - Preliminary
Pseudomonas aeruginosa
Gram negative bacilli
03/06/24 Unknown Toe Gram Stain - Preliminary
03/06/24 Unknown Toe Anaerobic Culture - Preliminary
Culture pending. Anaerobic cultures are examined after 3
days incubation. Additional information to follow.
03/01/24 10:24 Blood/Venous Blood Culture - Final
No Growth - Final Report
--- NOTE | 2024-03-08 09:17 | W.PN.CARDCBS ---
Addendum entered and electronically signed by Jaydon Trejo MD 03/08/24 12:47:
I saw and examined the patient.
The [employer]'s note was reviewed and I agree with the note.
Comment:
GEN: No distress, awake, Ox3
HEENT: supple, anicteric, mmm
LUNGS: CTA, no wheezes/rales
CV: Reg, S1/S2, 1/6 syst LSB, no gallop
ABD: soft, BS+, NT/ND
EXT: No edema
NEURO: Gross non-focal
SKIN: No rash
Plan:
Remains on Heparin. Plan for IR biopsy on Wednesday for lung mass
Would likely consider cardiac cath Wednesday.
Cont ASA, atorvastatin, metoprolol, Heparin
Cont Abx.
Original Note:
Today's Communication / Plan
-
Heparin gtt, consideration for eventual OAC pending work-up for lung mass, hemoptysis
Transthoracic biopsy in IR Wednesday and if unable then bronch with washings
Pending above would plan on cardiac cath Wednesday or Wednesday
Impression / Plan
-
PCP: Dr. Woodrow Bynum
Cardiology: Dr. Santosh Zepeda with [facility] associated [phone]
Impression:
Chest pain
NSTEMI with Troponin peaking at 26.9 on 03/03/24
CAD
s/p 3.5 mm Xience to prox LAD 05/12/13
s/p2.75 mm Xience distal RCA 05/12/13
s/p 3.0 mm Xience to prox RCA at [facility] 05/12/13
PAD s/p left common to external iliac balloon angioplasty/stent, SFA balloon angioplasty/stent x2, TP trunk and peroneal angioplasty, anterior tibial long segment angioplasty 02/10/24
s/p left hallux amputation 02/11/24
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
Hemoptysis
Smoker
Newly diagnosed paroxysmal Afib 03/05/24
Echo on 02/11/24: LV ejection fraction is 60-65% by Roblero's method of discs. Mild concentric left ventricular hypertrophy. Mild mitral regurgitation.Mild to moderate aortic stenosis. Trace tricuspid regurgitation. Estimated pulmonary artery
pressure of 20-25 mmHg.
Echo 03/01/24: EF 60-65%, hypokinesis mid to distal septum
Plan:
-Patient with chest pain on admission to [facility] 03/01/24. Initial Troponin 0.078 and peaked at 26.9. Heparin gtt started 03/01/24 and still running. Patient denies chest pain.
-Cont aspirin 81 mg daily
-Patient was taking Plavix prior to admission for recent [employer] and stent 02/10/24. Plavix needs to be held for lung biopsy, last dose of Plavix 03/05/24.
-Patient with known CAD and PCI as noted above. 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 Records including last cath report from 2012 obtained, reviewed and outlined above.
-Pulmonology and oncology following for suspected lung cancer. Biopsy in IR planned for Wednesday. If transthoracic biopsy cannot be performed then Pulm is considering bronch with washings. Hemoptysis is stable and Hgb stable.
-Patient had left hallux amputation 02/11/24, but due to poor healing he had partial 1st ray amputation 03/07/24. Podiatry feels patient has presumed surgical cure and ID is recommending antibiotics through 03/19/24
-Patient with new paroxysmal Afib on 03/05/24 that spontaneously converted to SR with Lopressor IV. Remains in SR. OAC is contraindicated due to upcoming biopsy and hemoptysis, but should be considered for the future given SRI Vasc of 4.
-Outpatient dose of Toprol XL 25 mg daily changed to Lopressor 25 mg PO q 6 hours.
HPI: This is a 73 year old male patient with PMH of PAD, cardiac stent 2016, NIDDM, recent admission for dry gangrene of his left first toe status post amputation on 02/10, cardiac stent in 2016 and stent placement of the left superficial femoral
artery/left common iliac artery in 2017, lung mass with concerns of chest pain. He states that at 3AM he started to feel midsternal chest pain while sleeping which he described as a dull ache. He called EMS and felt that his chest pain improved upon
being given nitroglycerin. He also has concerns of left big toe pain. He denies CP, palpitations, SOB on exertion or dizziness.
His troponin was elevated at 0.078. Cardiology consulted.
Progress Note - Chief Safety Officer
Subjective
Date of Service: March 08, 2024
No chest pain
Objective
Labs:
03/08/24 02:57
03/08/24 02:57
Labs
Hgb 10.1 g/dL (13.0-18.0) L 03/08/24 02:57
Hct 30.9 % (39.0-52.0) L 03/08/24 02:57
Plt Count 354 10^3/uL (130-400) 03/08/24 02:57
APTT 47.6 Sec (23.4-35.0) H 03/08/24 02:57
Sodium 128 mmol/L (135-145) L 03/08/24 02:57
Potassium 4.3 mmol/L (3.5-5.1) 03/08/24 02:57
BUN 19 mg/dl (9-20) 03/08/24 02:57
Creatinine 0.7 mg/dL (0.7-1.3) 03/08/24 02:57
Glucose 187 mg/dl (70-99) H 03/08/24 02:57
Vital Signs and I&O:
Vital Signs
Temp Pulse Resp BP Pulse Ox
98.2 F 58 16 111/61 98
03/08/24 06:57 03/08/24 08:26 03/08/24 08:26 03/08/24 06:56 03/08/24 08:58
Vital Signs
Temp Pulse Resp BP Pulse Ox
98.2 F 58 16 111/61 98
03/08/24 06:57 03/08/24 08:26 03/08/24 08:26 03/08/24 06:56 03/08/24 08:58
Intake & Output
03/06/24 03/07/24 03/08/24 03/09/24
06:59 06:59 06:59 06:59
Intake Total 560 / 560 690 / 690 1063 / 1063
Output Total 1225 / 1225 1550 / 1550
Balance -665 / -665 -860 / -860 1063 / 1063
Physical Exam
Physical Exam
GEN: AAOx3
HEENT: mmm
LUNGS: No audible wheeze
CV: SR on tele
ABD: ND
EXT: Left foot wrapped. No edema
NEURO: Gross non-focal
SKIN: No rash
[2024-03-08 09:21] LABS: Glucose - Point of Care 191 mg/dl (70-99)
[2024-03-08] MEDS: NOVOLOG FLEXPEN-MODERATE RESISTANCE 1 UNITS SC (09:21)
[2024-03-08] MEDS: HEPARIN 25000 UNITS/250 ML IV (09:58)
--- NOTE | 2024-03-08 10:08 | W.PN.HOSP.TC ---
Today's Communication/Plan
-
Hyponatremia workup
Add basal/bolus insulin
Assessment / Plan
Assessment / Plan
General: Acutely ill, Non-toxic appearance today
HEENT: Normocephalic, Atraumatic and Moist Mucous Membranes
Respiratory: Clear to Auscultation; Negative Wheezes, Rales or Rhonchi
Cardiac: Regular Rhythm and S1/S2
GI: Soft, Nontender and Nondistended
Musculoskeletal: Left toe status post postop findings wrapped up. No Clubbing, No Cyanosis and No Edema
Neuro: Awake, Alert and Oriented, no gross neuro-deficits
Psych: Calm
NSTEMI
Cardiac status stabilizing
Continue aspirin
Off Plavix for lung biopsy
Plan for further cardiac workup depending on pulmonary prognosis
Left lung mass and hemoptysis:
Pulmonary consult appreciated
Pulmonary discussed with IR, plan for biopsy this coming Wednesday
Sepsis due to left toe infection:
Improving
ID changing antibiotics to ciprofloxacin and Augmentin today through 03/19
Status post left partial first ray amputation on 03/06 by podiatry
Paroxysmal atrial fibrillation, new onset:
On rate control, metoprolol titrate 25 mg every 6 hours
On IV heparin drip
Acute diastolic CHF:
Off IV fluid
Diuretics given and will continue as needed blood pressure permitting and depending on volume status
Monitor respiratory status
Anemia of chronic disease:
Hematology consult appreciated
Blood transfusion given
Hemoglobin 10.1 today
Post blood transfusion reaction on 03/03:
He was given IV Lasix, IV steroids, and continue with broad-spectrum antibiotics.
Chronic hyponatremia -sodium 128. TSH is normal. Check urine studies, serum osmolarity.
Chronic limb ischemia:
Status post vascular intervention on 02/[address] Vega
DM2 with hyperglycemia -currently on moderate resistance aspart scale. Metformin resumed. Prior to admission he was on metformin and sitagliptin. Glucose 187 this morning. Add aspart standing dose with meals, Lantus daily.
Last hemoglobin A1c on 02/09 was 8.2%
He is now on ciprofloxacin which could potentially interact with sitagliptin. Will discontinue sitagliptin and monitor closely.
Essential hypertension:
Continue current antihypertensives.
Monitor blood pressure and adjust medications accordingly.
Hyperlipidemia:
Continue statins
DVT prophylaxis:
On heparin drip
DNR
Anticipated Discharge: > 48 hours
Subjective/Interval History
-
Date of Service: March 08, 2024
Patient seen and examined. Transient episode of substernal chest pain this morning lasting a few seconds. Now resolved.
Objective Data
-
Labs:
Laboratory Results
03/08/24 03/08/24
02:57 10:15
WBC 14.6 H
Hgb 10.1 L
Hct 30.9 L
Plt Count 354
APTT 47.6 H Pending
Sodium 128 L
Potassium 4.3
Chloride 99
Carbon Dioxide 26
BUN 19
Creatinine 0.7
Glucose 187 H
Calcium 8.7
Vital Signs:
Vital Signs
Temp Pulse Resp BP Pulse Ox
98.2 F 60 16 111/61 98
03/08/24 06:57 03/08/24 09:00 03/08/24 08:26 03/08/24 06:56 03/08/24 08:58
I&O
03/07/24 03/08/24 03/09/24
06:59 06:59 06:59
Intake Total 690 / 690 1063 / 1063
Output Total 1550 / 1550
Balance -860 / -860 1063 / 1063
Review of Systems
-
History Source: Patient
All other systems: Reviewed and negative
[2024-03-08] MEDS: MIRALAX 17 GRAMS PO (10:14)
--- NOTE | 2024-03-08 10:36 | W.CHA2DS2VAS ---
[id number] Score
Score
Age in Years (65=0, 65-74=1, >/=75=2): 65-74
Sex (Female=+1): Male
Congestive Heart Failure History (Yes=+1): No
Hypertension History (Yes=+1): Yes
Stroke/TIA/Thromboembolism History (Yes=+2): No
Vascular Disease History (Yes=+1): Yes
Diabetes Mellitus (Yes=+1): Yes
Score >/=2 is otherwise an anticoagulation candidate: 4
[2024-03-08 10:49] LABS: APTT 59.7 Sec (23.4-35.0)
--- NOTE | 2024-03-08 11:13 | CM ---
Chart reviewed. Patient is independent of ADLS, lives alone in a 2nd floor condo, [address], ambulates with a SPC. Patient is current with [facility]. Plan is for the patient to return home with [facility]. CM to follow
--- NOTE | 2024-03-08 11:34 | PTCARENOTE ---
Patient comfortable at rest. Denies shortness of breath or chest pain. SR HR in the 60's. Left foot dressing CDI. Walking to the bathroom using rolling walker. Call marx in reach
[2024-03-08 11:36] LABS: Osmolality Serum 279 mOsm/kg (275-300)
[2024-03-08] MEDS: NOVOLOG FLEXPEN 5 UNITS SC (14:24)
[2024-03-08 14:25] LABS: Glucose - Point of Care 179 mg/dl (70-99)
[2024-03-08] MEDS: NOVOLOG FLEXPEN-LOW RESISTANCE 1 UNITS SC (14:25)
--- NOTE | 2024-03-08 14:34 | PTCARENOTE ---
Patient awake, ordered lunch late. Insulin given per MAR, blood sugar 179
[2024-03-08 18:24] LABS: APTT 74.4 Sec (23.4-35.0)
[2024-03-08] MEDS: NOVOLOG FLEXPEN-LOW RESISTANCE SC (18:45)
[2024-03-08 18:46] LABS: Glucose - Point of Care 146 mg/dl (70-99)
[2024-03-08] MEDS: NOVOLOG FLEXPEN SC (19:14)
[2024-03-08] MEDS: TYLENOL 650 MG PO (19:33)
[2024-03-08] MEDS: SENOKOT-S 1 TABLET PO (19:34)
[2024-03-08 22:15] LABS: Glucose - Point of Care 134 mg/dl (70-99)
[2024-03-08] MEDS: LANTUS 0.08 UNITS SC (22:15)
[2024-03-08] MEDS: MELATONIN 3 MG PO (22:16)
[2024-03-09] VITALS (24 sets, daily range): BP systolic 84–133; BP diastolic 55–104; BMI 25.8
[2024-03-09] MEDS: LOPRESSOR 25 MG PO ×4 (00:18→19:35)
[2024-03-09 00:43] LABS: Osmolality Urine 398 mOsm/kg (300-900)
[2024-03-09 00:49] LABS: APTT 86.1 Sec (23.4-35.0)
[2024-03-09 00:51] LABS: Urine Sodium 34 mmol/L (30-90)
[2024-03-09] MEDS: HEPARIN 25000 UNITS/250 ML IV ×2 (02:18→19:13)
--- NOTE | 2024-03-09 03:06 | PTCARENOTE ---
Rec'd pt at 1900. Pt on TELE monitor in NSR, VSS, and AAOx3. Pt complained of pain in left lower foot from amputation site and tylenol was given per order. Pt denied any chest pain and currently has heparin infusing at 1550 units per hour. Pt
agreed to call for help before ambulating. Pt resting with call marx in reach.
[2024-03-09 06:40] LABS: Hemoglobin 9.8 g/dL (13.0-18.0); Mean Corp Hgb Conc. 32.7 g/dL (33.0-37.0); Mean Corpuscular Hgb 25.5 pg (27.0-31.0); Mean Corpuscular Volume 77.9 fL (80.0-94.0); Mean Platelet Volume 8.7 fL (7.4-10.4); Platelet Count 382 10^3/uL (130-400); Red Blood Cell Count 3.85 10^6/uL (4.70-6.10); White Blood Cell Count 14.7 10^3/uL (4.8-10.8)
[2024-03-09 06:43] LABS: APTT 87.9 Sec (23.4-35.0)
[2024-03-09 07:12] LABS: Glucose - Point of Care 166 mg/dl (70-99)
[2024-03-09] MEDS: PULMICORT 0.5 MG INH (07:39)
[2024-03-09] MEDS: DUONEB 3 ML INH ×2 (07:39→11:21)
[2024-03-09 07:59] LABS: Glucose - Point of Care 159 mg/dl (70-99)
[2024-03-09] MEDS: MIRALAX 17 GRAMS PO (08:16)
[2024-03-09] MEDS: SENOKOT-S 1 TABLET PO ×2 (08:17→19:36)
[2024-03-09] MEDS: CIPRO 500 MG PO ×2 (08:17→19:36)
[2024-03-09] MEDS: LOW STRENGTH ASPIRIN 81 MG PO (08:17)
[2024-03-09] MEDS: GLUCOPHAGE 1000 MG PO ×2 (08:17→17:18)
[2024-03-09] MEDS: LIPITOR 20 MG PO (08:17)
[2024-03-09] MEDS: AUGMENTIN 875 MG/125 MG 1 TABLET PO ×2 (08:17→19:35)
--- NOTE | 2024-03-09 08:44 | W.PN.ONC2 ---
Today's Communication / Plan
-
IR lung biopsy Wednesday
Eventual cardiac catheterization
Will follow for pathology
Impression
Impression
Microcytic anemia, iron studies c/w AOCD
possible transfusion reaction 03/03
Reactive leukocytosis +/- sepsis d/t left toe infection
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
CAD, NSTEMI, PAF, HFpEF, HTN, HLD, Moderate
PAD s/p left common to external iliac balloon angioplasty/stent, SFA balloon angioplasty/stent x2, TP trunk and peroneal angioplasty, anterior tibial long segment angioplasty 02/10/24
Amputation of the first hallux 02/11/2024
Hyponatremia
Diabetes mellitus with hyperglycemia
Hemoptysis
100lb weight loss
Plan
Plan
Agree with plan for transthoracic biopsy of the 10 cm mass
Eventual cardiac cath
Will follow for pathology
Subjective/Objective
Chief Complaint
afebrile, no hypoxia or hypotension
Pain controlled
using bowel regimen for constipation
denies overt bleeding
AF RVR this morning
Subjective
no new complaints
Vital Signs:
Vital Signs
Temp Pulse Resp BP Pulse Ox
98.2 F 62 16 125/73 98
03/09/24 07:35 03/09/24 07:42 03/09/24 07:42 03/09/24 05:47 03/09/24 07:42
Lab Results:
Laboratory Data
WBC 14.7 10^3/uL (4.8-10.8) H 03/09/24 06:09
Hgb 9.8 g/dL (13.0-18.0) L 03/09/24 06:09
Plt Count 382 10^3/uL (130-400) 03/09/24 06:09
APTT 87.9 Sec (23.4-35.0) H 03/09/24 06:09
eGFR > 60.00 03/08/24 02:57
Physical Exam
HEENT: Normocephalic and Anicteric
Cardiovascular: S1/S2, irreg/irreg, Murmur ( 2/6 systolic murmur)
Respiratory: Non-Labored Respirations
GI: Soft, Non Distended and Non Tender
Neurology: Awake, Alert
Skin: Good Color
Review of Systems
Review of Systems
Review of systems notable for subjective, otherwise negative
--- NOTE | 2024-03-09 09:09 | W.PN.HOSP.TC ---
Today's Communication/Plan
-
Lung biopsy tomorrow
Assessment / Plan
Assessment / Plan
General: Acutely ill, Non-toxic appearance today
HEENT: Normocephalic, Atraumatic and Moist Mucous Membranes
Respiratory: Clear to Auscultation; Negative Wheezes, Rales or Rhonchi
Cardiac: Regular Rhythm and S1/S2
GI: Soft, Nontender and Nondistended
Musculoskeletal: Left toe status post postop findings wrapped up. No Clubbing, No Cyanosis and No Edema
Neuro: Awake, Alert and Oriented, no gross neuro-deficits
Psych: Calm
NSTEMI
Cardiac status stabilizing
Continue aspirin
Off Plavix for lung biopsy
Cardiology recommends cardiac catheterization possibly Wednesday. I will discuss with them whether it is feasible to do next week as an outpatient as patient is feeling frustrated about his prolonged hospitalization. Complaining of insomnia.
Left lung mass and hemoptysis:
Pulmonary consult appreciated
Pulmonary discussed with IR, plan for biopsy this coming Wednesday. Will confirm with IR today. N.p.o. after midnight.
Sepsis due to left toe infection: Wound culture shows Pseudomonas and Enterobacter.
Improving
ID changing antibiotics to ciprofloxacin and Augmentin through 03/19
Status post left partial first ray amputation on 03/06 by podiatry
Paroxysmal atrial fibrillation, new onset:
On rate control, metoprolol titrate 25 mg every 6 hours
On IV heparin drip
Acute diastolic CHF:
Off IV fluid
Diuretics given and will continue as needed blood pressure permitting and depending on volume status
Monitor respiratory status
Anemia of chronic disease:
Hematology consult appreciated
Blood transfusion given
Hemoglobin 10.1 today
Post blood transfusion reaction on 03/03:
He was given IV Lasix, IV steroids, and continue with broad-spectrum antibiotics.
Chronic hyponatremia -sodium 128. TSH is normal. Check urine studies, serum osmolarity.
Chronic limb ischemia:
Status post vascular intervention on 02/[address] Vega
DM2 with hyperglycemia - Prior to admission he was on metformin and sitagliptin. Glucose 166 this morning. Continue Lantus 8 units at bedtime, NovoLog 5 units AC, low resistance corrective scale.
Last hemoglobin A1c on 02/09 was 8.2%
He is now on ciprofloxacin which could potentially interact with sitagliptin. Sitagliptin discontinued. Continue metformin. Hold if plans for cardiac catheterization.
Essential hypertension:
Continue current antihypertensives.
Monitor blood pressure and adjust medications accordingly.
Hyperlipidemia:
Continue statins
DVT prophylaxis:
On heparin drip
DNR
Dispo - will clarify with cardiology timing of cardiac catheterization.
Anticipated Discharge: Within 24 hours
Subjective/Interval History
-
Date of Service: March 09, 2024
Patient seen and examined. Complaining of insomnia, frequent sleep disruption. Feeling frustrated.
Objective Data
-
Labs:
Laboratory Results
03/09/24 03/09/24 03/09/24
00:28 00:37 06:09
WBC 14.7 H
Hgb 9.8 L
Hct 30.0 L
Plt Count 382
APTT 86.1 H 87.9 H
Potassium Cancelled
Vital Signs:
Vital Signs
Temp Pulse Resp BP Pulse Ox
98.2 F 69 16 121/67 98
03/09/24 07:35 03/09/24 09:00 03/09/24 07:42 03/09/24 07:38 03/09/24 07:42
I&O
03/08/24 03/09/24 03/10/24
06:59 06:59 06:59
Intake Total 1063 / 1063 600 / 600 120 / 120
Balance 1063 / 1063 600 / 600 120 / 120
Review of Systems
-
History Source: Patient
All other systems: Reviewed and negative
[2024-03-09] MEDS: PACERONE 400 MG PO (09:52)
--- NOTE | 2024-03-09 09:57 | PTCARENOTE ---
Patient angry this morning, expressing frustrations. Now in Rapid A-Fib with some chest pain. 5 mg of IV Lopressor given, PO amiodarone given. BP 131/87
[2024-03-09 10:09] LABS: Glucose - Point of Care 176 mg/dl (70-99)
[2024-03-09] MEDS: NOVOLOG FLEXPEN 5 UNITS SC (10:09)
[2024-03-09] MEDS: NOVOLOG FLEXPEN-LOW RESISTANCE 1 UNITS SC ×2 (10:09→17:16)
--- NOTE | 2024-03-09 10:10 | W.PN.PUL.V3 ---
Today's Communication / Plan
-
IR lung biopsy tomorrow
Plavix washout underway
Rapid atrial fibrillation rate control
Assessment
-
73-year-old male with history of peripheral arterial disease, status post recent left toe amputation, treated for diagram gain, history of coronary disease with stent placement 2014, and lower extremity PAD stents 2016 at [facility], now
presents with increased chest discomfort similar to prior cardiac pain. Patient started on heparin therapy. We are asked to comment on his pulmonary process
Acute onset midsternal chest discomfort
Elevated troponin
Gross hemoptysis
History of coronary disease with stent placement at [facility]
Leukocytosis
Anemia
Peripheral vascular disease
Peripheral arterial disease, stent placement lower extremity 2015 [facility]
Recent left first hallux amputation 02/11/2024
Hyponatremia
Hyperglycemia
10 cm left upper lobe mass
Mild left hilar adenopathy
Moderate , valve area 1 cm�
New onset AFib
Conditions present prior to admission
Hypertension/hyperlipidemia
Diabetes
20+ tobacco history, quit around 2015
100 pound weight loss over the past year
Plan
Respiratory status continues to be stable
Wean oxygen-now on room air
Continue nebulizers as needed
Follow hemoptysis-minimal
Note: Sputum cytology negative for malignant cells
Lung mass on the left-requires biopsy-unable to immediately pursue while on aspirin/Plavix
Reviewed with interventional radiology-needs to be off Plavix 5 days prior to transthoracic biopsy-Dr. Levy notified interventional radiology 03/07/2024-biopsy planned for 03/10/2024-Dr. Levy confirmed 03/09/2024
Patient has been told he likely has underlying cancer
Family notes that patient may have cancelled his OP FU due to fear of his diagnosis
They inferred we should try to do this while inpatient
Might require bronchoscopy with endobronchial exam/brushing/washings without biopsy if unable to pursue transthoracic biopsy while on antiplatelet therapy
Cardiology following-correspondence reviewed
Troponin trended
Eventual cardiac catheterization-in part due to expected prognosis-ideally lung biopsy would be performed to help assess prognosis
Heparin continues
Plavix on hold
New onset AFib-rapid a.m. 03/09/2024-rate control and anticoagulation
Orthopedics following-status post debridement and partial amputation 03/06/2024
Monitor blood sugars
Insulin supplementation as needed
Cultures reviewed
Wound cultures with Pseudomonas and Enterobacter
Empiric antibiotics per infectious disease
Infectious disease following-correspondence reviewed
DVT prophylaxis-on anticoagulation
Nutrition
Reviewed with nursing
Subjective Data
-
Date of Service:
Date of Service: March 09, 2024
Chief Complaint: Pulmonary Follow Up and Dyspnea Follow Up
Subjective:
Frustrated, wants to go home, did not sleep well, no complaints of increasing shortness of breath, rapid atrial fibrillation this morning, no abdominal pain
Review of Systems
General: Other (Per HPI)
Objective Data
Data Reviewed
Vital Signs / I&O:
Vital Signs
Temp Pulse Resp BP Pulse Ox
98.2 F 112 16 133/82 98
03/09/24 07:35 03/09/24 09:52 03/09/24 07:42 03/09/24 09:52 03/09/24 07:42
Intake and Output
03/08/24 03/09/24 03/10/24
06:59 06:59 06:59
Intake Total 1063 / 1063 600 / 600 120 / 120
Balance 1063 / 1063 600 / 600 120 / 120
SaO2: 98
Nasal Cannula flow liters per minute: 2
Physical Exam
General: Respiratory Distress (n), Comfortable, Good Appetite and Other (NAD)
HEENT: Normocephalic, Anicteric and Moist Mucous Membranes
Cardiovascular: Regular Rhythm, Murmur (2/6), Rub (n) and Peripheral Edema (n)
Respiratory: Clear, Wheeze (n), Crackles (n), Rhonchi (n) and Non-Labored Respirations
GI: Soft, Non Distended and Non Tender
Neurology: Awake, Alert, Oriented, AO x 3 and No Motor Deficits
Skin: Warm, Good Color, Cyanosis (n), Jaundice (n), Rash (n) and Other (Did not examine lower extremity toe, socks in place)
Labs/Micro/Reports
Lab Data
03/09/24 06:09
03/09/24 00:37
Laboratory Results
03/08/24 03/08/24 03/09/24
10:23 18:04 00:28
APTT 59.7 H 74.4 H 86.1 H
03/09/24
06:09
APTT 87.9 H
Microbiology
03/06/24 Unknown Toe Wound Culture - Preliminary
Pseudomonas aeruginosa
Enterobacter cloacae
03/06/24 Unknown Toe Gram Stain - Preliminary
03/06/24 Unknown Toe Anaerobic Culture - Preliminary
Culture pending. Anaerobic cultures are examined after 3
days incubation. Additional information to follow.
03/01/24 10:24 Blood/Venous Blood Culture - Final
No Growth - Final Report
--- NOTE | 2024-03-09 10:11 | W.PN.CARDCBS ---
Addendum entered and electronically signed by Jennifer Polanco DO 03/09/24 15:45:
I saw and examined the patient.
The Channel Director's note was reviewed and I agree with the note.
Comment: Patient seen and examined. Overall not feeling well today noted to be in rapid atrial fibrillation with some complaints of chest tightness. No further hemoptysis.
GEN: Appears fatigued, room air satting 98%, appears older than stated age.
HEENT: mmm
LUNGS: Bronchovesicular breath sounds decreased bases. No wheezes.
CV: Irregularly irregular, tachycardic. Positive S1-S2. No murmurs.
ABD: Soft, mildly distended. Positive bowel sounds
EXT: Left foot wrapped. No edema
Plan:
Recurrent rapid atrial fibrillation
-IV Lopressor given at bedside with slowing of rates but no conversion
-Started oral amiodarone however patient remains in rapid atrial fibrillation so we will discontinue and start IV amiodarone drip
-Continue Lopressor 25 mg every 6 hours
-Continue IV heparin awaiting upcoming biopsy and hemoptysis. Consider future oral anticoagulation if able, SRI Vasc of 4.
Coronary artery disease with abnormal EKG particularly with rapid heart rates and recurrent episodes of chest tightness
-Patient with chest pain on admission to [facility] 03/01/24. Initial Troponin 0.078 and peaked at 26.9. Patient with known CAD and previous PCI. Pending suspect lung cancer biopsy will consider C early next week.
-Cont aspirin 81 mg daily; continue IV heparin
PAD status post complex left common to external iliac balloon angioplasty/stent, SFA balloon angioplasty/stent x2, TP trunk and peroneal angioplasty, anterior tibial long segment angioplasty 02/10/24
-Patient was taking Plavix prior to admission for recent LLE BILLET HEATER and stent 02/10/24. Plavix needs to be held for lung biopsy, last dose of Plavix 03/05/24.
-s/p partial 1st ray amputation 03/06/24. Podiatry feels patient has presumed surgical cure and ID is recommending antibiotics through 03/19/24
-Pulmonology and oncology following for suspected lung cancer. Biopsy in IR planned for Wednesday. If transthoracic biopsy cannot be performed then Pulm is considering bronch with washings. Hemoptysis is stable and Hgb stable.
Original Note:
Today's Communication / Plan
-
Start amiodarone 400 mg PO TID, if HRs remain uncontrolled then will need to start amiodarone gtt
Cont Heparin gtt
Impression / Plan
-
PCP: Dr. Woodrow Bynum
Cardiology: Dr. Santosh Zepeda with [facility] [phone]
Impression:
Chest pain
NSTEMI with Troponin peaking at 26.9 on 03/03/24
CAD
s/p 3.5 mm Xience to prox LAD 05/12/13
s/p2.75 mm Xience distal RCA 05/12/13
s/p 3.0 mm Xience to prox RCA at [facility] 05/12/13
PAD s/p left common to external iliac balloon angioplasty/stent, SFA balloon angioplasty/stent x2, TP trunk and peroneal angioplasty, anterior tibial long segment angioplasty 02/10/24
s/p left hallux amputation 02/11/24
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
Hemoptysis
Smoker
DM 2
Newly diagnosed paroxysmal Afib 03/05/24
Echo on 02/11/24: LV ejection fraction is 60-65% by Roblero's method of discs. Mild concentric left ventricular hypertrophy. Mild mitral regurgitation.Mild to moderate aortic stenosis. Trace tricuspid regurgitation. Estimated pulmonary artery
pressure of 20-25 mmHg.
Echo 03/01/24: EF 60-65%, hypokinesis mid to distal septum
Plan:
-Recurred with Afib 03/09/24 AM. He is having chest discomfort. Will try adding amiodarone 400 mg PO now and then TID. If HRs remain difficult to control then will add amiodarone gtt.
-Paroxysmal Afib is a new diagnosis this admission and patient previously converted to SR with Lopressor IV x1.
-Cont Heparin gtt. OAC is contraindicated due to upcoming biopsy and hemoptysis, but should be considered for the future given SRI Vasc of 4.
-Outpatient dose of Toprol XL 25 mg daily changed to Lopressor 25 mg PO q 6 hours.
-Patient with chest pain on admission to [facility] 03/01/24. Initial Troponin 0.078 and peaked at 26.9. Patient with known CAD and previous PCI. Pending suspect lung cancer biopsy will consider [facility] early next week.
-Cont aspirin 81 mg daily
-Patient was taking Plavix prior to admission for recent LLE BILLET HEATER and stent 02/10/24. Plavix needs to be held for lung biopsy, last dose of Plavix 03/05/24.
-Pulmonology and oncology following for suspected lung cancer. Biopsy in IR planned for Wednesday. If transthoracic biopsy cannot be performed then Pulm is considering bronch with washings. Hemoptysis is stable and Hgb stable.
-Patient had left hallux amputation 02/11/24, but due to poor healing he had partial 1st ray amputation 03/07/24. Podiatry feels patient has presumed surgical cure and ID is recommending antibiotics through 03/19/24
HPI: This is a 73 year old male patient with PMH of PAD, cardiac stent 2016, NIDDM, recent admission for dry gangrene of his left first toe status post amputation on 02/10, cardiac stent in 2016 and stent placement of the left superficial femoral
artery/left common iliac artery in 2017, lung mass with concerns of chest pain. He states that at 3AM he started to feel midsternal chest pain while sleeping which he described as a dull ache. He called EMS and felt that his chest pain improved upon
being given nitroglycerin. He also has concerns of left big toe pain. He denies CP, palpitations, SOB on exertion or dizziness.
His troponin was elevated at 0.078. Cardiology consulted.
Progress Note - Jewel Sawyer
Subjective
Date of Service: March 09, 2024
He has persistent chest pain
Objective
Labs:
03/09/24 06:09
03/09/24 00:37
Labs
Hgb 9.8 g/dL (13.0-18.0) L 03/09/24 06:09
Hct 30.0 % (39.0-52.0) L 03/09/24 06:09
Plt Count 382 10^3/uL (130-400) 03/09/24 06:09
APTT 87.9 Sec (23.4-35.0) H 03/09/24 06:09
Sodium 128 mmol/L (135-145) L 03/08/24 02:57
Potassium Cancelled 03/09/24 00:37
BUN 19 mg/dl (9-20) 03/08/24 02:57
Creatinine 0.7 mg/dL (0.7-1.3) 03/08/24 02:57
Glucose 187 mg/dl (70-99) H 03/08/24 02:57
Vital Signs and I&O:
Vital Signs
Temp Pulse Resp BP Pulse Ox
98.2 F 112 16 133/82 98
03/09/24 07:35 03/09/24 09:52 03/09/24 07:42 03/09/24 09:52 03/09/24 10:10
Vital Signs
Temp Pulse Resp BP Pulse Ox
98.2 F 112 16 133/82 98
03/09/24 07:35 03/09/24 09:52 03/09/24 07:42 03/09/24 09:52 03/09/24 10:10
Intake & Output
03/07/24 03/08/24 03/09/24 03/10/24
06:59 06:59 06:59 06:59
Intake Total 690 / 690 1063 / 1063 600 / 600 120 / 120
Output Total 1550 / 1550
Balance -860 / -860 1063 / 1063 600 / 600 120 / 120
Physical Exam
Physical Exam
GEN: AAOx3
HEENT: mmm
LUNGS: No audible wheeze
CV: Afib on tele
ABD: ND
EXT: Left foot wrapped. No edema
NEURO: Gross non-focal
SKIN: No rash
[2024-03-09] MEDS: MORPHINE SULFATE 2 MG IV (10:51)
--- NOTE | 2024-03-09 10:56 | PTCARENOTE ---
5 out 10 left side chest pain. 2 mg IV morphine given
--- NOTE | 2024-03-09 11:54 | CM ---
Chart reviewed. Patient is independent of ADLS, lives alone in a 2nd floor condo with 14 MATT, ambulates with a SPC. Plan is for the patient to return [facility] with [id number]. CM to follow
--- NOTE | 2024-03-09 13:03 | PTCARENOTE ---
Patient awake and alert. Wanted to walk to the bathroom to void, explained that his HR is elevated and BP is low and he needed to use the urinal for now. Patient remains angry but cooperative with care thus far. A-Fb HR 150's-120's, BP 103/82, POX
on 2 liters NC 100%
[2024-03-09] MEDS: NOVOLOG FLEXPEN SC ×2 (13:18→18:39)
[2024-03-09] MEDS: NOVOLOG FLEXPEN-LOW RESISTANCE SC (13:18)
--- NOTE | 2024-03-09 13:29 | W.PN.ID1 ---
Date of Service
Date of Service: March 09, 2024
Today's Communication
tolerating cipro/augmentin - continue
Assessment / Plan
Left Diabetic Foot Infection/Surgical Site Infection
DM2 uncontrolled
- s/p 1st ray amputation 03/06
- agree presumed surgical cure and plan 2 weeks of oral antibiotics for skin/soft tissue
- OR culture 03/06 Pseudomonas and Enterobacter
- 03/01 superficial culture Pseudomonas and Enterobacter
- c/w ciprofloxacin and augmentin x 14 more days through 03/19
- a1c was 8.2
- metformin and sitagliptin on hold, now on insulin
- on dc would hold sitagliptin, decrease metformin dose to 500 mg PO BID given prior A1c 8
- QTc remained acceptable on 03/08 while in NSR, now in afib
- tolerating antibiotics
Chief Complaint
-: Other (surgical site infection)
Subjective / Review of Systems
afebrile
starting amidodarone for afib
for lung biopsy tomorrow
for lung biopsy
'I absolutely wont pee in the bottle' offered straight caths
Vital Signs / Physical Exam
Vital Signs
Vital Signs
Temp Pulse Resp BP Pulse Ox
97.4 F 142 18 103/75 100
03/09/24 12:11 03/09/24 12:08 03/09/24 12:11 03/09/24 12:08 03/09/24 12:11
Physical Exam
Constitutional: No Acute Distress
Cardiovascular: Regular Rate and S1/S2; Negative Murmur or Rub
Pulmonary: Clear and Symmetric; Negative Wheezes or Rales
Gastrointestinal: Soft, Non Tender, Non Distended and Normal Bowel Sounds
Skin: Warm and Dry; Negative Rash or Jaundice
Objective Data
Lab Data
Lab Results
03/09/24 06:09
03/09/24 00:37
APTT 87.9 Sec (23.4-35.0) H 03/09/24 06:09
Estimated Creat Clear 106 ml/min 03/08/24 02:57
Lactic Acid 1.8 mmol/L (0.7-2.0) 03/03/24 05:03
Total Bilirubin 0.6 mg/dl (0.2-1.3) 03/02/24 05:18
AST 29 U/L (17-59) 03/02/24 05:18
ALT 17 U/L (0-50) 03/02/24 05:18
Alkaline Phosphatase 84 U/L (38-126) 03/02/24 05:18
Most recent labs reviewed.
Micro Results:
03/06/24 Unknown Anaerobic Culture - Preliminary
Toe Culture pending. Anaerobic cultures are examined after 3
days incubation. Additional information to follow.
03/06/24 Unknown Wound Culture - Preliminary
Toe Pseudomonas aeruginosa
Enterobacter cloacae
Gram Stain - Preliminary
03/01/24 10:24 Blood Culture - Final
Blood/Venous No Growth - Final Report
03/01/24 10:56 Wound Culture - Final
Abscess Enterobacter cloacae
Pseudomonas aeruginosa
Gram Stain - Final
03/01/24 13:38 MRSA Screen - Final
Nose No Methicillin Resistant Staphylococcus aureus isolated.
Care Review
Plan reviewed with: Nurse (bladder scans)
--- NOTE | 2024-03-09 13:53 | PTCARENOTE ---
Patient BP 120/82, walked to the bathroom, voided. PO lopressor 25mg given. HR 120-140's. Denies lightheadedness
[2024-03-09] MEDS: CORDARONE 518 MG IV (14:31)
--- NOTE | 2024-03-09 14:45 | PTCARENOTE ---
New #22 placed in right forearm. Amnio gtt started, BP 101/81, HR 120-140
--- NOTE | 2024-03-09 15:44 | PTCARENOTE ---
TR band off, dry sterile dressing applied with Tegaderm. Walked to the bathroom, call marx in reach
[2024-03-09 16:45] LABS: Glucose - Point of Care 173 mg/dl (70-99)
[2024-03-09] MEDS: TYLENOL 650 MG PO (19:36)
[2024-03-09] MEDS: COMPAZINE 5 MG IV (19:45)
[2024-03-09 21:08] LABS: Glucose - Point of Care 167 mg/dl (70-99)
[2024-03-09] MEDS: MELATONIN 3 MG PO ×2 (22:15)
[2024-03-09 22:23] LABS: Glucose - Point of Care 169 mg/dl (70-99)
[2024-03-09] MEDS: LANTUS 0.04 UNITS SC (22:54)
[2024-03-10] VITALS (13 sets, daily range): BP systolic 66–142; BP diastolic 55–105; BMI 25.8
[2024-03-10] MEDS: LOPRESSOR PO (01:03)
[2024-03-10] MEDS: XOPENEX 0.63 MG INHALANT SOLUTION INH ×3 (03:09→23:39)
--- NOTE | 2024-03-10 03:25 | W.PN.UPDATE ---
Update Note
Progress Note Update
-Patient is hypoxic with SPO2 in 80s, complaining of SOB. afebrile, bp 135/75, hr 76. Coarse lung sound on exam.
-Xopenex PRN was given with no relief.
-CBC, BMP, Pro BNP, bladder scan, abg, chest x-ray ordered.
Bladder scan over 400cc
-Pro BNP trending up from 9170 to 2700 will order one time Lasix 20mg.
[2024-03-10 03:36] LABS: B.E. -2.9 mmol/L; HCO3 20.8 mmol/L (21-28); O2 Saturation % 95.2 % (94-98); PCO2 32 mmHg (35-48); PO2 67 mmHg (83-108); pH 7.42 (7.35-7.45)
[2024-03-10 03:43] LABS: INR 1.08
[2024-03-10 03:45] LABS: APTT 79.6 Sec (23.4-35.0)
--- NOTE | 2024-03-10 03:52 | PTCARENOTE ---
43 Rec'd pt at 19:00. Pt AAOx3 and on TELE monitor shows AFIB with HR in the 70s and hypotensive BP's (see flowchart documentation). Amio currently infusing at 0.5mcg/min per order. Pt complained of 'chest pressure' at 20:08 describing
discomfort a 6/10 at the mid-sternal. Pt was given Tylenol per order and Dr Trejo was notified. EKG was obtained. Pt c/o nausea and had an unmeasurable episode of emesis. Pt w/ relief and was no longer nauseous and 'chest pressure' rating was
going down.
At 21:16 pt spontaneously converted back to NSR, confirmed by EKG and pt did report having no chest pain at that time. Pt had another episodes of nausea and vomiting. Emesis appeared brown with muscous sediment. Regional Sales Representative Libby Molina was
notified. Pt reported some relief from nausea after episodes. Pt agreed to report any further pain or discomfort immediately to RN. Pt aware of NPO at midnight for lung mass biopsy tomorrow. Call marx in reach.
[2024-03-10 04:01] LABS: Blood Urea Nitrogen 24 mg/dl (9-20); Calcium 9.2 mg/dl (8.4-10.2); Carbon Dioxide 20 mmol/L (22-30); Chloride 96 mmol/L (98-107); Estimated Creatinine Clearance 93 ml/min; Glucose 213 mg/dl (70-99); Magnesium 2.2 mg/dl (1.6-2.3); Potassium 4.9 mmol/L (3.5-5.1); Sodium 131 mmol/L (135-145); eGFR > 60.00
[2024-03-10 04:20] LABS: Hematocrit 34.7 % (39.0-52.0); Hemoglobin 11.3 g/dL (13.0-18.0); Mean Corp Hgb Conc. 32.6 g/dL (33.0-37.0); Mean Corpuscular Hgb 25.3 pg (27.0-31.0); Mean Corpuscular Volume 77.8 fL (80.0-94.0); Mean Platelet Volume 8.9 fL (7.4-10.4); Platelet Count 571 10^3/uL (130-400); Red Blood Cell Count 4.46 10^6/uL (4.70-6.10); Red Cell Dist. Width 17.2 % (11.5-14.5); White Blood Cell Count 21.6 10^3/uL (4.8-10.8)
[2024-03-10 04:28] LABS: NT-proBNP > 27000 pg/ml
[2024-03-10 04:34] LABS: Urine Albumin 2+ (Neg - Trace); Urine Bilirubin Negative (Negative); Urine Character Clear (Clear); Urine Color Amber; Urine Glucose Negative (Negative); Urine Ketone Negative (Negative); Urine Leukocyte Trace (Negative); Urine Nitrite Negative (Negative); Urine Occult Blood Negative (Negative); Urine Urobilinogen 1+ (Neg - 1+)
[2024-03-10 05:12] LABS: % Basophils 0.4 % (0-2); % Eosinophils 1.3 % (0-6); % Immature Granulocytes 0.6 % (0-0.5); % Lymphocytes 29.5 % (20.5-51.1); % Neutrophils 63.2 % (42.2-75.2); Absolute Basophils 0.1 10^3/uL (0-0.2); Absolute Eosinophils 0.3 10^3/uL (0-0.7); Absolute Immature Granulocytes 0.1 10^3/uL (0-0.05); Absolute Lymphocytes 6.4 10^3/uL (1.2-3.4); Absolute Monocytes 1.1 10^3/uL (0.1-0.6); Absolute Neutrophils 13.6 10^3/uL (1.4-6.5); Anisocytosis 1+; Normal RBC Morphology No; Nucleated Red Blood Cells % 0 % (-); Ovalocytes 1+; Stomatocytes 1+; Target Cells Occasional
[2024-03-10 05:13] LABS: Polychromasia Occasional
[2024-03-10] MEDS: LASIX 20 MG IV (05:39)
--- NOTE | 2024-03-10 05:58 | PTCARENOTE ---
At approx 03:00 patient with an episode of SOB. Pt states 'Can't catch my breath'. Pulse ox in the 80's on RA. 2L of O2 applied, and instructed patient to perform deep breathing exercises. Pt became anxious. Morning EKG obtained per order. Resp
Therapist made aware and at bedside. PRN Xopenex administered. Libby Townsend made aware. Orders obtained for lab draw, portable xray. Bladder scan performed w/ a result of 468ml. Straight cath patient for 350mls of lainey color urine. Pt
tolerated treatment. Pt w/ good relief. Pulse ox sating 98% on 2L of O2 currently. HEATING AND VENTILATION ENGINEER aware of BNP level result of 27,000. HEATING AND VENTILATION ENGINEER ordered one time dose of IV Lasix 20mg, medication administered.
[2024-03-10 06:29] LABS: Urine Amorphous Seen
[2024-03-10 06:30] LABS: Urine Bacteria Moderate (Negative); Urine Hyaline Cast 0-2 /LPF (0-2); Urine Mucus Moderate; Urine Squamous Cell 21-25 /LPF (Few)
[2024-03-10 06:31] LABS: Urine Red Blood Cell 0-2 /HPF (0-2)
[2024-03-10 06:34] LABS: Glucose - Point of Care 202 mg/dl (70-99)
[2024-03-10] MEDS: LOPRESSOR 25 MG PO ×3 (06:34→18:18)
[2024-03-10] MEDS: NOVOLOG FLEXPEN SC ×4 (06:36→16:44)
[2024-03-10] MEDS: NOVOLOG FLEXPEN-LOW RESISTANCE 2 UNITS SC (06:39)
--- NOTE | 2024-03-10 07:32 | W.PN.CARDCBS ---
Addendum entered and electronically signed by Jennifer Polanco DO 03/10/24 11:02:
I saw and examined the patient.
The High Lighter's note was reviewed and I agree with the note.
Comment: Patient seen and examined this morning with plan for lung biopsy today. Overnight shortness of breath which was relieved with IV Lasix. Fortunately he converted to sinus rhythm on IV amiodarone. This morning denies worsening shortness of
breath. No further chest pain complaints. No further hemoptysis
GEN: No distress, awake, alert, oriented x3
HEENT: mmm
LUNGS: CTA b/l, no wheezes/rales
CV: Reg, S1/S2, no murmur
EXT: No edema.
NEURO: Gross non-focal
SKIN: L foot wrapped.
Plan:
Recurrent symptomatic rapid atrial fibrillation with conversion to sinus rhythm on IV amiodarone
-Continue IV amiodarone pending lung biopsy today and then transition to oral amiodarone following biopsy
-Continue Lopressor
-Continue IV heparin awaiting upcoming biopsy and hemoptysis. Consider future oral anticoagulation if able, SRI Vasc of 4.
Heart failure with preserved ejection fraction with decompensation in the setting of rapid atrial fibrillation
-Will transition oral back to IV Lasix for the next 24-48 hours and monitor response
-Attempt to maintain sinus rhythm
-Optimize medical therapy as able
Coronary artery disease with abnormal EKG particularly with rapid heart rates and recurrent episodes of chest tightness
-Patient with chest pain on admission to [facility] 03/01/24. Initial Troponin 0.078 and peaked at 26.9. Patient with known CAD and previous PCI.
-Tentative plan for left heart catheterization early next week, tentatively Wednesday if patient is cleared from pulmonary/oncology for dual antiplatelet therapy.
-Cont aspirin 81 mg daily; continue IV heparin
PAD status post complex left common to external iliac balloon angioplasty/stent, SFA balloon angioplasty/stent x2, TP trunk and peroneal angioplasty, anterior tibial long segment angioplasty 02/10/24
-Patient was taking Plavix prior to admission for recent LLE DICE MAKER and stent 02/10/24. Plavix needs to be held for lung biopsy, last dose of Plavix 03/05/24.
-s/p partial 1st ray amputation 03/06/24. Podiatry feels patient has presumed surgical cure and ID is recommending antibiotics through 03/19/24
-Pulmonology and oncology following for suspected lung cancer.
-No further hemoptysis. Hemoglobin stable
-Biopsy in IR planned today
- if transthoracic biopsy cannot be performed then Pulm is considering bronch with washings.
Original Note:
Today's Communication / Plan
-
Planned for lung biopsy today
Pending results, may consider [facility] next week
Continue IV heparin
Will transition from IV amiodarone to PO amiodarone 400mg TID after biopsy.
Impression / Plan
-
PCP: Dr. Woodrow Bynum
Cardiology: Dr. Santosh Zepeda with [facility] ([phone])
Impression:
Chest pain
NSTEMI with Troponin peaking at 26.9 on 03/03/24
CAD
s/p 3.5 mm Xience to prox LAD 05/12/13
s/p2.75 mm Xience distal RCA 05/12/13
s/p 3.0 mm Xience to prox RCA at [facility] 05/12/13
PAD s/p left common to external iliac balloon angioplasty/stent, SFA balloon angioplasty/stent x2, TP trunk and peroneal angioplasty, anterior tibial long segment angioplasty 02/10/24
s/p left hallux amputation 02/11/24
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
Hemoptysis
Smoker
DM 2
Newly diagnosed paroxysmal Afib 03/05/24
Echo on 02/11/24: LV ejection fraction is 60-65% by Roblero's method of discs. Mild concentric left ventricular hypertrophy. Mild mitral regurgitation.Mild to moderate aortic stenosis. Trace tricuspid regurgitation. Estimated pulmonary artery
pressure of 20-25 mmHg.
Echo 03/01/24: EF 60-65%, hypokinesis mid to distal septum
Plan:
-Presented with chest pain. Troponin peaked at 26.9. Patient has known CAD and prior PCI. Consideration for eventual LHC, possibly early next week, however now also w/ ADRIAN lung mass which is being worked up.
-Lung biopsy planned for today, 03/10. Await results. Pending results, may consider for LHC next week.
-Newly diagnosed atrial fibrillation this admission. IV amio started 03/09. Will transition to PO amiodarone 400mg TID after biopsy. Converted to SR overnight and remains in SR this AM.
-HR stable. Continue lopressor 25mg Q6H. As OP was on Toprol 25mg daily.
-Continue heparin gtt for now. Eventual consideration of OAC given CHADsVASC score 4. Will need to use caution w/ hemoptysis.
-Did have some increased SOB overnight which improved with single dose of IV lasix this AM. ProBNP >27,000. Reports his breathing is improved. Creat stable at 0.8. Weight down to 189 lbs.
-Cont aspirin 81 mg daily. Patient was taking Plavix prior to admission for recent LLE DICE MAKER and stent 02/10/24. Plavix on hold for lung biopsy, last dose of Plavix 03/05/24.
-Pulmonology and oncology following for suspected lung cancer. Biopsy in IR planned for today. If transthoracic biopsy cannot be performed then Pulm is considering bronch with washings. Hemoptysis is stable and Hgb stable.
-Patient had left hallux amputation 02/11/24, but due to poor healing he had partial 1st ray amputation 03/07/24. Podiatry feels patient has presumed surgical cure and ID is recommending antibiotics through 03/19/24.
HPI: This is a 73 year old male patient with PMH of PAD, cardiac stent 2016, NIDDM, recent admission for dry gangrene of his left first toe status post amputation on 02/10, cardiac stent in 2015 and stent placement of the left superficial femoral
artery/left common iliac artery in 2017, lung mass with concerns of chest pain. He states that at 3AM he started to feel midsternal chest pain while sleeping which he described as a dull ache. He called EMS and felt that his chest pain improved upon
being given nitroglycerin. He also has concerns of left big toe pain. He denies CP, palpitations, SOB on exertion or dizziness.
His troponin was elevated at 0.078. Cardiology consulted.
Progress Note - Tunnel Man
Subjective
Date of Service: March 10, 2024
SOB overnight, improved following dose of IV lasix.
Objective
Labs:
03/10/24 03:40
03/10/24 03:10
Labs
Hgb 11.3 g/dL (13.0-18.0) L 03/10/24 03:40
Hct 34.7 % (39.0-52.0) L 03/10/24 03:40
Plt Count 571 10^3/uL (130-400) H D 03/10/24 03:40
PT 14.0 Sec (11.4-14.6) 03/10/24 03:10
INR 1.08 03/10/24 03:10
APTT 79.6 Sec (23.4-35.0) H 03/10/24 03:10
Sodium 131 mmol/L (135-145) L 03/10/24 03:10
Potassium 4.9 mmol/L (3.5-5.1) 03/10/24 03:10
BUN 24 mg/dl (9-20) H 03/10/24 03:10
Creatinine 0.8 mg/dL (0.7-1.3) 03/10/24 03:10
Glucose 213 mg/dl (70-99) H 03/10/24 03:10
Vital Signs and I&O:
Vital Signs
Temp Pulse Resp BP Pulse Ox
97.9 F 74 16 140/81 97
03/10/24 06:59 03/10/24 07:00 03/10/24 03:11 03/10/24 06:34 03/10/24 05:00
Vital Signs
Temp Pulse Resp BP Pulse Ox
97.9 F 74 16 140/81 97
03/10/24 06:59 03/10/24 07:00 03/10/24 03:11 03/10/24 06:34 03/10/24 05:00
Intake & Output
03/08/24 03/09/24 03/10/24 03/11/24
06:59 06:59 06:59 06:59
Intake Total 1063 / 1063 600 / 600 460 / 460
Output Total 550 / 550
Balance 1063 / 1063 600 / 600 -90 / -90
Physical Exam
Physical Exam
GEN: No distress, awake, alert, oriented x3
HEENT: supple, anicteric, mmm
LUNGS: CTA b/l, no wheezes/rales
CV: Reg, S1/S2, no murmur
EXT: No clubbing, cyanosis, or edema
NEURO: Gross non-focal
SKIN: Warm, dry, no rash. L foot wrapped.
[2024-03-10] MEDS: SENOKOT-S 1 TABLET PO (08:38)
[2024-03-10] MEDS: CIPRO 500 MG PO ×2 (08:38→20:33)
[2024-03-10] MEDS: AUGMENTIN 875 MG/125 MG 1 TABLET PO ×2 (08:38→20:33)
[2024-03-10] MEDS: LOW STRENGTH ASPIRIN 81 MG PO (08:38)
[2024-03-10] MEDS: LIPITOR 20 MG PO (08:38)
[2024-03-10] MEDS: FLUSH (NSS) 2 FLUSH IV (08:39)
--- NOTE | 2024-03-10 08:54 | W.PN.HOSP.TC ---
Today's Communication/Plan
-
Start Lasix
Lung biopsy
Assessment / Plan
Assessment / Plan
General: Acutely ill, Non-toxic appearance today
HEENT: Normocephalic, Atraumatic and Moist Mucous Membranes
Respiratory: Clear to Auscultation; Negative Wheezes, Rales or Rhonchi
Cardiac: Regular Rhythm and S1/S2
GI: Soft, Nontender and Nondistended
Musculoskeletal: Left toe status post postop findings wrapped up. No Clubbing, No Cyanosis and No Edema
Neuro: Awake, Alert and Oriented, no gross neuro-deficits
Psych: Calm
Acute hypoxic respiratory insufficiency -hypoxic overnight with pulse ox in the 80% range due to acute pulmonary edema. Treated with IV Lasix with improvement in respiratory status. Shortness of breath resolved. Currently stable on room air.
Chest x-ray overnight showed stable opacification of the left upper lobe consistent with underlying lung mass. Progressed right infrahilar airspace disease. Suspect this represents asymmetric pulmonary edema.
NSTEMI
Cardiac status stabilizing
Continue aspirin
Off Plavix for lung biopsy
Cardiology recommends cardiac catheterization possibly Wednesday. I will discuss with them whether it is feasible to do next week as an outpatient as patient is feeling frustrated about his prolonged hospitalization. Complaining of insomnia.
Left lung mass and hemoptysis:
Pulmonary consult appreciated
Pulmonary discussed with IR, plan for biopsy today.
Sepsis due to left toe infection: Wound culture shows Pseudomonas and Enterobacter.
Improving
ID changing antibiotics to ciprofloxacin and Augmentin through 03/19
Status post left partial first ray amputation on 03/06 by podiatry
Paroxysmal atrial fibrillation, new onset:
On rate control, metoprolol titrate 25 mg every 6 hours
On IV heparin drip
Acute diastolic CHF -start oral Lasix. Events overnight noted.
Anemia of chronic disease:
Hematology consult appreciated
Blood transfusion given
Hemoglobin 10.1 today
Post blood transfusion reaction on 03/03:
He was given IV Lasix, IV steroids, and continue with broad-spectrum antibiotics.
Chronic hyponatremia -sodium 131. TSH is normal. Check urine studies, serum osmolarity.
Chronic limb ischemia:
Status post vascular intervention on 02/[address] Vega
DM2 with hyperglycemia - Prior to admission he was on metformin and sitagliptin. Glucose 166 this morning. Continue Lantus 8 units at bedtime, NovoLog 5 units AC, low resistance corrective scale.
Last hemoglobin A1c on 02/09 was 8.2%
He is now on ciprofloxacin which could potentially interact with sitagliptin. Sitagliptin discontinued. Continue metformin. Hold if plans for cardiac catheterization.
Essential hypertension:
Continue current antihypertensives.
Monitor blood pressure and adjust medications accordingly.
Hyperlipidemia:
Continue statins
DVT prophylaxis:
On heparin drip
DNR
Dispo -cardiology plans on cardiac catheterization on Wednesday.
Anticipated Discharge: > 48 hours
Subjective/Interval History
-
Date of Service: March 10, 2024
Patient seen and examined. Feels better now, denies shortness of breath. Events overnight noted.
Objective Data
-
Labs:
Laboratory Results
03/10/24 03/10/24 03/10/24
03:10 03:28 03:40
WBC 21.6 H
Hgb 11.3 L
Hct 34.7 L
Plt Count 571 H D
PT 14.0
INR 1.08
APTT 79.6 H
HCO3 20.8 L
Sodium 131 L
Potassium 4.9
Chloride 96 L
Carbon Dioxide 20 L
BUN 24 H
Creatinine 0.8
Glucose 213 H
Calcium 9.2
Vital Signs:
Vital Signs
Temp Pulse Resp BP Pulse Ox
97.9 F 74 18 114/71 95
03/10/24 06:59 03/10/24 07:00 03/10/24 06:59 03/10/24 06:59 03/10/24 06:59
I&O
03/09/24 03/10/24 03/11/24
06:59 06:59 06:59
Intake Total 600 / 600 460 / 460
Output Total 550 / 550
Balance 600 / 600 -90 / -90
Review of Systems
-
History Source: Patient
All other systems: Reviewed and negative
--- NOTE | 2024-03-10 09:10 | PTCARENOTE ---
While assessing the patient I noted wheezing throughout his lungs with BB crackles. I notified the RT and asked for a Xopenex treatment. The RT in to give him his neb.
The patient has no complains of discomfort, SOB, nausea, or vomiting. NSR is noted on the monitor. His vitals are stable and 95% on RA. Heparin gtt is running at 1500 units/hr. His Amiodarone gtt is running at 16.7 ml/hr thru a rt forearm IV. No
redness or discomfort is noted at that site. His left foot dressing is c/d/i.
--- NOTE | 2024-03-10 09:54 | W.PN.PUL.V3 ---
Today's Communication / Plan
-
Diuresis
IR lung biopsy
Eventual cardiac catheterization
Assessment
-
73-year-old male with history of peripheral arterial disease, status post recent left toe amputation, treated for diagram gain, history of coronary disease with stent placement 2014, and lower extremity PAD stents 2016 at [facility], now
presents with increased chest discomfort similar to prior cardiac pain. Patient started on heparin therapy. We are asked to comment on his pulmonary process
Acute onset midsternal chest discomfort
Elevated troponin
Gross hemoptysis
History of coronary disease with stent placement at [facility]
Diastolic CHF
Leukocytosis
Anemia
Peripheral vascular disease
Peripheral arterial disease, stent placement lower extremity 2015 [facility]
Recent left first hallux amputation 02/11/2024
Hyponatremia
Hyperglycemia
10 cm left upper lobe mass
Mild left hilar adenopathy
Moderate , valve area 1 cm�
New onset AFib
Conditions present prior to admission
Hypertension/hyperlipidemia
Diabetes
20+ tobacco history, quit around 2015
100 pound weight loss over the past year
Plan
Respiratory status stable, however, overnight had flash pulmonary edema responding to Lasix and nebulizer-now back on room air
Wean oxygen-currently on room air
Continue nebulizers as needed
Follow hemoptysis-minimal
Note: Sputum cytology negative for malignant cells
Lung mass on the left-requires biopsy-unable to immediately pursue while on aspirin/Plavix
Reviewed with interventional radiology-needs to be off Plavix 5 days prior to transthoracic biopsy-Dr. Levy notified interventional radiology 03/07/2024-biopsy planned for 03/10/2024-Dr. Levy confirmed 03/09/[address] needle biopsy 03/10/2024-pending
Patient has been told he likely has underlying cancer
Family notes that patient may have cancelled his OP FU due to fear of his diagnosis
They inferred we should try to do this while inpatient
Cardiology following-correspondence reviewed
Troponin trended
Eventual cardiac catheterization-in part due to expected prognosis-ideally lung biopsy would be performed to help assess prognosis
Heparin continues
Plavix on hold for lung biopsy
New onset AFib-rapid a.m. 03/09/2024-rate control and anticoagulation
Diuresis as tolerated
Monitor renal function, electrolytes, intake/output, lower extremity edema and weight
Replace electrolytes as needed
Orthopedics following-status post debridement and partial amputation 03/06/2024
Monitor blood sugars
Insulin supplementation as needed
Cultures reviewed
Wound cultures with Pseudomonas and Enterobacter
Empiric antibiotics per infectious disease
Infectious disease following-correspondence reviewed
DVT prophylaxis-on anticoagulation
Nutrition
Reviewed with nursing
Subjective Data
-
Date of Service:
Date of Service: March 10, 2024
Chief Complaint: Pulmonary Follow Up and Dyspnea Follow Up
Subjective:
Episode of significant shortness of breath responding to Lasix, now on room air, no complaints of shortness of breath, chest pain, productive cough, pleurisy, abdominal pain
Review of Systems
General: Other (Per HPI)
Objective Data
Data Reviewed
Vital Signs / I&O:
Vital Signs
Temp Pulse Resp BP Pulse Ox
97.9 F 67 14 114/71 95
03/10/24 06:59 03/10/24 09:01 03/10/24 09:01 03/10/24 06:59 03/10/24 06:59
Intake and Output
03/09/24 03/10/24 03/11/24
06:59 06:59 06:59
Intake Total 600 / 600 460 / 460
Output Total 550 / 550
Balance 600 / 600 -90 / -90
SaO2: 95
Nasal Cannula flow liters per minute: 2
Physical Exam
General: Respiratory Distress (n), Comfortable, Good Appetite and Other (NAD)
HEENT: Normocephalic, Anicteric and Moist Mucous Membranes
Cardiovascular: Regular Rhythm, Murmur (2/6), Rub (n) and Peripheral Edema (n)
Respiratory: Clear, Wheeze (n), Crackles (n), Rhonchi (n) and Non-Labored Respirations
GI: Soft, Non Distended and Non Tender
Neurology: Awake, Alert, Oriented, AO x 3 and No Motor Deficits
Skin: Warm, Good Color, Cyanosis (n), Jaundice (n), Rash (n) and Other (Did not examine lower extremity toe, socks in place)
Labs/Micro/Reports
Lab Data
03/10/24 03:40
03/10/24 03:10
Laboratory Results
03/10/24 03/10/24
03:10 03:28
PT 14.0
INR 1.08
APTT 79.6 H
pH 7.42
pCO2 32 L
pO2 67 L
HCO3 20.8 L
O2 Delivery Level
Microbiology
03/06/24 Unknown Toe Anaerobic Culture - Preliminary
NO ANAEROBES ISOLATED
03/06/24 Unknown Toe Wound Culture - Preliminary
Pseudomonas aeruginosa
Enterobacter cloacae
03/06/24 Unknown Toe Gram Stain - Preliminary
--- NOTE | 2024-03-10 11:55 | CM ---
Chart reviewed. Patient is independent of ADLS, lives alone in a 2nd floor condo, [address], ambulates with a SPC. Patient going for a lung biopsy today and waiting on [facility] on Wednesday. Plan is for the [facility] CM to follow
--- NOTE | 2024-03-10 12:07 | W.PN.UPDATE ---
Update Note
Progress Note Update
CT guided ADRIAN mass biopsy performed. Specimens were necrotic as per pathologist, despite repositioning of the needle multiple times.
If final pathology is necrotic (nondiagnostic), PET CT may be helpful to help target non necrotic area of the tumor for biopsy.
--- NOTE | 2024-03-10 12:44 | PTCARENOTE ---
Received the patient from IR in a stretcher. The patient is aaox3, vss, 98% on RA. NSR on the monitor. Left upper back band-aid has scant shadowing. His lungs sounds have fine bb crackles. He has no complaints of pain. He did however become
nauseated after walking from the stretcher to the bed and then vomited a clear/brownish fluid. Claire nicole given for nausea. His call marx is within reach.
[2024-03-10] MEDS: PACERONE 400 MG PO ×3 (13:12→22:18)
[2024-03-10] MEDS: GLUCOPHAGE 1000 MG PO ×2 (13:12→16:43)
[2024-03-10] MEDS: MIRALAX 17 GRAMS PO (13:12)
[2024-03-10] MEDS: FLUSH (NSS) 1 FLUSH IV (13:13)
--- NOTE | 2024-03-10 13:21 | PTCARENOTE ---
Right forearm IV removed as IV Amiodarone therapy is complete.
[2024-03-10 14:02] LABS: Glucose - Point of Care 198 mg/dl (70-99)
[2024-03-10] MEDS: NOVOLOG FLEXPEN-LOW RESISTANCE 1 UNITS SC ×2 (14:07→16:43)
[2024-03-10] MEDS: HEPARIN 25000 UNITS/250 ML IV (14:35)
--- NOTE | 2024-03-10 15:37 | W.PN.ID1 ---
Date of Service
Date of Service: March 10, 2024
Today's Communication
- c/w ciprofloxacin and augmentin x 14 days through 03/19
- a1c was 8.2
- metformin and sitagliptin on hold, now on insulin
- on dc would hold sitagliptin, decrease metformin dose to 500 mg PO BID given prior A1c 8
ID service will no longer actively follow this patient please recall for further questions
Assessment / Plan
Left Diabetic Foot Infection/Surgical Site Infection
DM2 uncontrolled
- s/p 1st ray amputation 03/06
- agree presumed surgical cure and plan 2 weeks of oral antibiotics for skin/soft tissue
- OR culture 03/06 Pseudomonas and Enterobacter
- 03/01 superficial culture Pseudomonas and Enterobacter
- c/w ciprofloxacin and augmentin x 14 days through 03/19
- a1c was 8.2
- metformin and sitagliptin on hold, now on insulin
- on dc would hold sitagliptin, decrease metformin dose to 500 mg PO BID given prior A1c 8
ID service will no longer actively follow this patient please recall for further questions
Chief Complaint
-: Other (surgical site infection)
Subjective / Review of Systems
afebrile
'I want to sleep'
Vital Signs / Physical Exam
Vital Signs
Vital Signs
Temp Pulse Resp BP Pulse Ox
98.1 F 80 16 130/61 97
03/10/24 12:12 03/10/24 12:46 03/10/24 12:46 03/10/24 12:46 03/10/24 12:46
Physical Exam
Constitutional: No Acute Distress
Cardiovascular: Regular Rate and S1/S2; Negative Murmur or Rub
Pulmonary: Clear and Symmetric; Negative Wheezes or Rales
Gastrointestinal: Soft, Non Tender, Non Distended and Normal Bowel Sounds
Skin: Warm and Dry; Negative Rash or Jaundice
Wound: Other (dressing clean, dry, intact)
Objective Data
Lab Data
Lab Results
03/10/24 03:40
03/10/24 03:10
PT 14.0 Sec (11.4-14.6) 03/10/24 03:10
INR 1.08 03/10/24 03:10
APTT 79.6 Sec (23.4-35.0) H 03/10/24 03:10
Estimated Creat Clear 93 ml/min 03/10/24 03:10
Lactic Acid 1.8 mmol/L (0.7-2.0) 03/03/24 05:03
Total Bilirubin 0.6 mg/dl (0.2-1.3) 03/02/24 05:18
AST 29 U/L (17-59) 03/02/24 05:18
ALT 17 U/L (0-50) 03/02/24 05:18
Alkaline Phosphatase 84 U/L (38-126) 03/02/24 05:18
Most recent labs reviewed.
Micro Results:
03/06/24 Unknown Anaerobic Culture - Preliminary
Toe NO ANAEROBES ISOLATED
03/10/24 03:47 Urine Culture - Pending
Urine
03/06/24 Unknown Wound Culture - Preliminary
Toe Pseudomonas aeruginosa
Enterobacter cloacae
Gram Stain - Preliminary
03/01/24 10:24 Blood Culture - Final
Blood/Venous No Growth - Final Report
03/01/24 10:56 Wound Culture - Final
Abscess Enterobacter cloacae
Pseudomonas aeruginosa
Gram Stain - Final
03/01/24 13:38 MRSA Screen - Final
Nose No Methicillin Resistant Staphylococcus aureus isolated.
[2024-03-10 16:39] LABS: Glucose - Point of Care 157 mg/dl (70-99)
--- NOTE | 2024-03-10 18:51 | PTCARENOTE ---
The patient has had no appetite all shift and has refused all meals. I reached out to Dr. Tello, Elvis Enlive ordered TID
[2024-03-10] MEDS: SENOKOT-S PO (20:33)
[2024-03-10 21:49] LABS: Glucose - Point of Care 151 mg/dl (70-99)
[2024-03-10] MEDS: LANTUS 0.08 UNITS SC (22:18)
[2024-03-10] MEDS: MELATONIN 3 MG PO (22:18)
[2024-03-11] VITALS (15 sets, daily range): BP systolic 90–152; BP diastolic 54–95; PULSE 64; BMI 26.0
[2024-03-11] MEDS: LOPRESSOR 25 MG PO ×5 (00:23→23:14)
--- NOTE | 2024-03-11 00:58 | PTCARENOTE ---
Pt. c/o SOB post ambulation. PlOx 89-90% on RA, tachypneic. Pt. placed on 3L and respiratory Tx given with positive result. O2 removed and pt. remaining 94-96% on RA
--- NOTE | 2024-03-11 02:53 | PTCARENOTE ---
pt with decreased output. Bladder scan for 619ml and straight cath for 675ml
[2024-03-11] MEDS: MORPHINE SULFATE 1 MG IV (03:19)
[2024-03-11 03:33] LABS: Hematocrit 36.1 % (39.0-52.0); Hemoglobin 11.9 g/dL (13.0-18.0); Mean Corpuscular Hgb 26.3 pg (27.0-31.0); Mean Corpuscular Volume 79.7 fL (80.0-94.0); Mean Platelet Volume 8.5 fL (7.4-10.4); Platelet Count 513 10^3/uL (130-400); Red Blood Cell Count 4.53 10^6/uL (4.70-6.10); Red Cell Dist. Width 17.2 % (11.5-14.5)
[2024-03-11] MEDS: XOPENEX 0.63 MG INHALANT SOLUTION INH (03:38)
[2024-03-11 03:44] LABS: APTT 73.6 Sec (23.4-35.0)
[2024-03-11] MEDS: HEPARIN 25000 UNITS/250 ML IV ×2 (06:12→20:50)
--- NOTE | 2024-03-11 07:27 | W.PN.CARDCBS ---
Addendum entered and electronically signed by Jennifer Polanco DO 03/11/24 10:21:
I saw and examined the patient.
The Opener's note was reviewed and I agree with the note.
Comment: Patient seen and examined. Lying supine on room air and appears comfortable. No chest pain or pressure. No shortness of breath. No dizziness. No further hemoptysis.
GEN: No distress, awake, alert, oriented x3
HEENT: supple, anicteric, mmm
LUNGS: CTA b/l, no wheezes/rales
CV: Reg, S1/S2, no murmur
EXT: No edema. L foot wrapped.
Plan:
Recurrent symptomatic rapid atrial fibrillation with conversion to sinus rhythm on IV amiodarone 03/09/2024
-Maintaining sinus rhythm. Continue oral amiodarone load 400 mg 3 times daily started 03/10/2024
-Repeat twelve-lead EKG today with stable QTc, 442 ms
-Continue Lopressor 25 mg every 6 hours; will transition to twice daily dosing once closer to discharge
-Continue IV heparin awaiting upcoming biopsy and hemoptysis. Consider future oral anticoagulation if able, SRI Vasc of 4.
Heart failure with preserved ejection fraction with decompensation in the setting of rapid atrial fibrillation
-Will continue IV Lasix but increase to 40 mg daily
-Follow creatinine and electrolytes. Correct as needed
-Follow weights, I's and O's
-Attempt to maintain sinus rhythm
-Optimize medical therapy as able
Coronary artery disease with abnormal EKG particularly with rapid heart rates and recurrent episodes of chest tightness
-Patient with chest pain on admission to [facility] 03/01/24. Initial Troponin 0.078 and peaked at 26.9. Patient with known CAD and previous PCI.
-Tentative plan for left heart catheterization early next week, once cleared from pulmonary/oncology for dual antiplatelet therapy.
-Cont aspirin 81 mg daily; continue IV heparin
-Continue to hold Plavix for now until cleared by pulmonary/oncology awaiting biopsy results from yesterday
-Continue statin
PAD status post complex left common to external iliac balloon angioplasty/stent, SFA balloon angioplasty/stent x2, TP trunk and peroneal angioplasty, anterior tibial long segment angioplasty 02/10/24
-Patient was taking Plavix prior to admission for recent [employer] and stent 02/10/24. Plavix needs to be held for lung biopsy, last dose of Plavix 03/05/24.
-s/p partial 1st ray amputation 03/06/24. Podiatry feels patient has presumed surgical cure and ID is recommending antibiotics through 03/19/24
-Pulmonology and oncology following for suspected lung cancer.
-No further hemoptysis. Hemoglobin stable
-IR CT-guided left upper lobe mass biopsy performed yesterday with reports from pathology that specimens were necrotic.
- Awaiting final pathology report to determine if further procedures needed
Will follow with you
Original Note:
Today's Communication / Plan
-
Await BMP results
If creat stable, would increase lasix to 40mg daily
Await pathology results
Resume Plavix as long as ok per pulm post biopsy.
Impression / Plan
-
PCP: Dr. Woodrow Bynum
Cardiology: Dr. Santosh Zepeda with [facility] ([phone])
Impression:
Chest pain
NSTEMI with Troponin peaking at 26.9 on 03/03/24
CAD
s/p 3.5 mm Xience to prox LAD 05/12/13
s/p2.75 mm Xience distal RCA 05/12/13
s/p 3.0 mm Xience to prox RCA at [facility] 05/12/13
PAD s/p left common to external iliac balloon angioplasty/stent, SFA balloon angioplasty/stent x2, TP trunk and peroneal angioplasty, anterior tibial long segment angioplasty 02/10/24
s/p left hallux amputation 02/11/24
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
Hemoptysis
Smoker
DM 2
Newly diagnosed paroxysmal Afib 03/05/24
Echo on 02/11/24: LV ejection fraction is 60-65% by Roblero's method of discs. Mild concentric left ventricular hypertrophy. Mild mitral regurgitation.Mild to moderate aortic stenosis. Trace tricuspid regurgitation. Estimated pulmonary artery
pressure of 20-25 mmHg.
Echo 03/01/24: EF 60-65%, hypokinesis mid to distal septum
Plan:
-Presented with chest pain. Troponin peaked at 26.9. Patient has known CAD and prior PCI.
-Consideration for eventual LHC, possibly early next week, however now also w/ ADRIAN lung mass which is being worked up.
-Lung biopsy performed 03/10. Per pathology, specimens were necrotic. Will await final pathology, however if final pathology is necrotic/nondiagnostic, may do PET CT to target non-necrotic area for biopsy.
-Newly diagnosed atrial fibrillation this admission. IV amio started 03/09 and transitioned to PO amiodarone 400mg TID 03/10.
-Remains in SR on review of telemetry overnight. HR stable.
-Continue lopressor 25mg Q6H. As OP was on Toprol 25mg daily.
-Continue heparin gtt for now given plan for procedures/LHC next week. Eventual consideration of OAC given CHADsVASC score 4. Will need to use caution w/ hemoptysis.
-Diuresing with IV lasix as proBNP >27,000 03/10. Weight up to 191 lbs 03/11. Will increase dose of lasix to 40mg daily as long as creat stable. Check BMP.
-Cont aspirin 81 mg daily. Patient was taking Plavix prior to admission for recent [employer] and stent 02/10/24. Plavix on hold for lung biopsy, last dose of Plavix 03/05/24. Resume as long as pulm feels is safe following biopsy.
-Patient had left hallux amputation 02/11/24, but due to poor healing he had partial 1st ray amputation 03/07/24. Podiatry feels patient has presumed surgical cure and ID is recommending antibiotics through 03/19/24.
HPI: This is a 73 year old male patient with PMH of PAD, cardiac stent 2016, NIDDM, recent admission for dry gangrene of his left first toe status post amputation on 02/10, cardiac stent in 2016 and stent placement of the left superficial femoral
artery/left common iliac artery in 2017, lung mass with concerns of chest pain. He states that at 3AM he started to feel midsternal chest pain while sleeping which he described as a dull ache. He called EMS and felt that his chest pain improved upon
being given nitroglycerin. He also has concerns of left big toe pain. He denies CP, palpitations, SOB on exertion or dizziness.
His troponin was elevated at 0.078. Cardiology consulted.
Progress Note - Fuse [employer]
Subjective
Date of Service: March 11, 2024
Did have some SOB overnight, however not as bad as previously.
Objective
Labs:
03/11/24 03:16
03/10/24 03:10
Labs
Hgb 11.9 g/dL (13.0-18.0) L 03/11/24 03:16
Hct 36.1 % (39.0-52.0) L 03/11/24 03:16
Plt Count 513 10^3/uL (130-400) H 03/11/24 03:16
PT 14.0 Sec (11.4-14.6) 03/10/24 03:10
INR 1.08 03/10/24 03:10
APTT 73.6 Sec (23.4-35.0) H 03/11/24 03:16
Sodium 131 mmol/L (135-145) L 03/10/24 03:10
Potassium 4.9 mmol/L (3.5-5.1) 03/10/24 03:10
BUN 24 mg/dl (9-20) H 03/10/24 03:10
Creatinine 0.8 mg/dL (0.7-1.3) 03/10/24 03:10
Glucose 213 mg/dl (70-99) H 03/10/24 03:10
Vital Signs and I&O:
Vital Signs
Temp Pulse Resp BP Pulse Ox
97.8 F 69 20 120/67 94
03/11/24 03:07 03/11/24 06:17 03/11/24 03:39 03/11/24 06:17 03/11/24 03:08
Vital Signs
Temp Pulse Resp BP Pulse Ox
97.8 F 69 20 120/67 94
03/11/24 03:07 03/11/24 06:17 03/11/24 03:39 03/11/24 06:17 03/11/24 03:08
Intake & Output
03/09/24 03/10/24 03/11/24 03/12/24
06:59 06:59 06:59 06:59
Intake Total 600 / 600 460 / 460 455 / 455
Output Total 550 / 550 675 / 675
Balance 600 / 600 -90 / -90 -220 / -220
Physical Exam
Physical Exam
GEN: No distress, awake, alert, oriented x3
HEENT: supple, anicteric, mmm
LUNGS: CTA b/l, no wheezes/rales
CV: Reg, S1/S2, no murmur
EXT: No clubbing, cyanosis, or edema
NEURO: Gross non-focal
SKIN: Warm, dry, no rash. L foot wrapped.
[2024-03-11 08:21] LABS: Glucose - Point of Care 164 mg/dl (70-99)
--- NOTE | 2024-03-11 08:49 | W.PN.HOSP.TC ---
Today's Communication/Plan
-
Out of bed to chair
Assessment / Plan
Assessment / Plan
General: Acutely ill, Non-toxic appearance today
HEENT: Normocephalic, Atraumatic and Moist Mucous Membranes
Respiratory: Clear to Auscultation; Negative Wheezes, Rales or Rhonchi
Cardiac: Regular Rhythm and S1/S2
GI: Soft, Nontender and Nondistended
Musculoskeletal: Left toe status post postop findings wrapped up. No Clubbing, No Cyanosis and No Edema
Neuro: Awake, Alert and Oriented, no gross neuro-deficits
Psych: Calm
Acute hypoxic respiratory insufficiency -due to heart failure induced pulmonary edema. Oxygenation stable on 1 L nasal cannula, wean down as able.
NSTEMI
Cardiac status stabilizing
Continue aspirin
Plavix resumed this morning, discussed with interventional radiology.
Cardiology recommends cardiac catheterization possibly Wednesday.
Left lung mass and hemoptysis:
Pulmonary consult appreciated. Underwent lung biopsy on March 10, path pending.
Sepsis due to left toe infection: Wound culture shows Pseudomonas and Enterobacter.
Improving
ID changing antibiotics to ciprofloxacin and Augmentin through 03/19
Status post left partial first ray amputation on 03/06 by podiatry
Paroxysmal atrial fibrillation, new onset:
On rate control, metoprolol titrate 25 mg every 6 hours
On IV heparin drip
Acute diastolic CHF -IV Lasix resumed by cardiology. Await labs today. Weight has plateaued at 86 kg.
Anemia of chronic disease:
Hematology consult appreciated
Blood transfusion given
Hemoglobin stable.
Post blood transfusion reaction on 03/03:
He was given IV Lasix, IV steroids, and continue with broad-spectrum antibiotics.
Chronic hyponatremia -sodium pending for today. TSH is normal. Suspect SIADH induced hyponatremia. Urine osmolality 398, urine sodium 34.
Chronic limb ischemia:
Status post vascular intervention on 02/[address] Vega
DM2 with hyperglycemia - Prior to admission he was on metformin and sitagliptin. Glucose 166 this morning. Continue Lantus 8 units at bedtime, NovoLog 5 units AC, low resistance corrective scale.
Last hemoglobin A1c on 02/09 was 8.2%
He is now on ciprofloxacin which could potentially interact with sitagliptin. Sitagliptin discontinued. Continue metformin. Hold if plans for cardiac catheterization.
Essential hypertension:
Continue current antihypertensives.
Monitor blood pressure and adjust medications accordingly.
Hyperlipidemia:
Continue statins
DVT prophylaxis:
On heparin drip
DNR
Encourage out of bed to chair. Discussed with nursing.
Dispo -cardiology plans on cardiac catheterization on Wednesday.
Anticipated Discharge: > 48 hours
Subjective/Interval History
-
Date of Service: March 11, 2024
Patient seen and examined. No complaints.
Objective Data
-
Labs:
Laboratory Results
03/11/24 03/11/24
03:16 07:31
WBC 22.0 H
Hgb 11.9 L
Hct 36.1 L
Plt Count 513 H
APTT 73.6 H
Sodium Pending
Potassium Pending
Chloride Pending
Carbon Dioxide Pending
BUN Pending
Creatinine Pending
Glucose Pending
Calcium Pending
Vital Signs:
Vital Signs
Temp Pulse Resp BP Pulse Ox
97.7 F 72 20 114/69 98
03/11/24 07:29 03/11/24 07:28 03/11/24 07:29 03/11/24 07:28 03/11/24 07:29
I&O
03/10/24 03/11/24 03/12/24
06:59 06:59 06:59
Intake Total 460 / 460 455 / 455
Output Total 550 / 550 675 / 675
Balance -90 / -90 -220 / -220
Review of Systems
-
History Source: Patient
All other systems: Reviewed and negative
[2024-03-11] MEDS: NOVOLOG FLEXPEN SC ×3 (08:59→17:01)
[2024-03-11] MEDS: NOVOLOG FLEXPEN-LOW RESISTANCE 1 UNITS SC ×3 (08:59→17:00)
[2024-03-11] MEDS: PACERONE 400 MG PO ×3 (09:00→22:26)
[2024-03-11] MEDS: LOW STRENGTH ASPIRIN 81 MG PO (09:00)
[2024-03-11] MEDS: LIPITOR 20 MG PO (09:00)
[2024-03-11] MEDS: AUGMENTIN 875 MG/125 MG 1 TABLET PO ×2 (09:00→20:31)
[2024-03-11] MEDS: CIPRO 500 MG PO ×2 (09:00→20:31)
[2024-03-11] MEDS: GLUCOPHAGE 1000 MG PO ×2 (09:00→16:43)
[2024-03-11] MEDS: SENOKOT-S 1 TABLET PO (09:00)
[2024-03-11] MEDS: MIRALAX 17 GRAMS PO (09:01)
[2024-03-11] MEDS: PLAVIX 75 MG PO (09:02)
--- NOTE | 2024-03-11 09:06 | PTCARENOTE ---
The patient has not voided since he was straight cath this morning at 0250. He stated that he has no urge to go. Bladder scanned him for 84ml of urine.
--- NOTE | 2024-03-11 09:22 | W.PN.PUL3 ---
Today's Communication / Plan
-
Diuresis
Follow up path from IR lung biopsy done on 03/10
Plavix resumed today
Heparin gtt
Eventual cardiac catheterization
Assessment
-
73-year-old male with history of peripheral arterial disease, status post recent left toe amputation, treated for diagram gain, history of coronary disease with stent placement 2014, and lower extremity PAD stents 2016 at [facility], now
presents with increased chest discomfort similar to prior cardiac pain. Patient started on heparin therapy. We are asked to comment on his pulmonary process
Impression:
Acute onset midsternal chest discomfort
Elevated troponin
NSTEMI
Gross hemoptysis - improved
History of coronary disease with stent placement at [facility]
Diastolic CHF
Leukocytosis
Anemia
Peripheral vascular disease
Peripheral arterial disease, stent placement lower extremity 2015 [facility]
Recent left first hallux amputation 02/11/2024
Hyponatremia
Hyperglycemia
10 cm left upper lobe mass s/p IR CT guided Bx (03/10/2024)
Mild left hilar adenopathy
Moderate , valve area 1 cm�
New onset AFib
Conditions present prior to admission
Hypertension/hyperlipidemia
Diabetes
20+ tobacco history, quit around 2015
100 pound weight loss over the past year
Plan
Respiratory status stable on room air although he does endorse L-sided chest pain/back pain currently
Keep SpO2 >94%
Continue nebulizers as needed
Follow hemoptysis-minimal
Note: Sputum cytology negative for malignant cells
Lung mass on the left-requires biopsy-unable to immediately pursue while on aspirin/Plavix
Reviewed with interventional radiology-needed to be off Plavix 5 days prior to transthoracic biopsy-Dr. Levy notified interventional radiology 03/07/2024-biopsy performed on 03/10
- Follow up final pathology from Bx
Patient has been told he likely has underlying cancer
Family notes that patient may have cancelled his OP FU due to fear of his diagnosis
They inferred we should try to do this while inpatient
Cardiology following-correspondence reviewed
Troponin trended � peaked at 26.9 on 03/03/2024
Eventual cardiac catheterization-in part due to expected prognosis
Continue heparin gtt
Plavix restarted today (03/11)
New onset AFib-rapid a.m. 03/09/2024-rate control and anticoagulation
Diuresis as tolerated
Monitor renal function, electrolytes, intake/output, lower extremity edema and weight
Replace electrolytes as needed
Orthopedics following-status post debridement and partial amputation 03/06/2024
Monitor blood sugars with goal >100 and <180
Insulin supplementation as needed
Cultures reviewed
Wound cultures with Pseudomonas and Enterobacter
Empiric antibiotics per infectious disease - currently on Augmentin + cipro
Infectious disease following-correspondence reviewed
DVT prophylaxis-heparin gtt
Nutrition
Reviewed with nursing
Pulmonary service will continue to follow along.
Total time spent today was 50 minutes for this encounter. Time includes reviewing laboratory test/imaging results, reviewing pertinent medical records, obtaining and reviewing medical history, performing an appropriate exam, ordering medications,
tests and procedures. Time also includes documentation of this encounter, coordinating patient care and communicating with other healthcare professionals. Total time does not include separately billed tests performed on this date of service.
Subjective Data
-
Date of Service:
Date of Service: March 11, 2024
Chief Complaint: Pulmonary Follow Up and Dyspnea Follow Up
Subjective:
Patient seen and evaluated today at bedside. He is sitting in chair in no acute distress. He endorses left-sided backslash chest pain. No shortness of breath or shoulder pain. He is on room air saturating 94%, heart rate 67, BP 116/71. He
denies KOENIG, abdominal pain, nausea, fevers or chills. Afebrile overnight.
Review of Systems
General: Other (Negative unless mentioned above)
Objective Data
Data Reviewed
Vital Signs / I&O / Oxygen:
Vital Signs
Temp Pulse Resp BP Pulse Ox
97.7 F 72 20 114/69 98
03/11/24 07:29 03/11/24 07:28 03/11/24 07:29 03/11/24 07:28 03/11/24 07:29
Intake and Output
03/10/24 03/11/24 03/12/24
06:59 06:59 06:59
Intake Total 460 / 460 455 / 455
Output Total 550 / 550 675 / 675
Balance -90 / -90 -220 / -220
SaO2 98
Nasal Cannula flow liters per 1
minute
Physical Exam
General: Respiratory Distress (n), Comfortable, Good Appetite and Other (NAD)
HEENT: Normocephalic, Anicteric and Moist Mucous Membranes
Cardiovascular: S1-S2, Regular Rhythm, Murmur (BONIFACIO heard best ar RUSB, grade II/), Rub (n) and Peripheral Edema (n)
Respiratory: Wheeze (n), Crackles (Bibasilar), Rhonchi (n) and Non-Labored Respirations
GI: Soft, Non Distended, Non Tender and Normal Bowel Sounds
Neurology: AO x 3 and Tremors (n)
Skin: Warm, Dry, Cyanosis (n), Jaundice (n) and Rash (n)
Labs/Micro/Reports
Lab Data
03/11/24 03:16
03/11/24 09:38
Laboratory Results
03/11/24
03:16
APTT 73.6 H
Microbiology
03/06/24 Unknown Toe Wound Culture - Final
Pseudomonas aeruginosa
Enterobacter cloacae
03/06/24 Unknown Toe Gram Stain - Final
03/06/24 Unknown Toe Anaerobic Culture - Final
NO ANAEROBES ISOLATED
--- NOTE | 2024-03-11 09:32 | PTCARENOTE ---
Attempted to get the patient OB and to the chair however he refused. I explained the benefits of being OOB and the risks of staying in the bed too long. He said he understood but didn't want to get out just yet. He said he will get oob later.
[2024-03-11 10:24] LABS: Blood Urea Nitrogen 36 mg/dl (9-20); Calcium 8.9 mg/dl (8.4-10.2); Carbon Dioxide 24 mmol/L (22-30); Chloride 95 mmol/L (98-107); Estimated Creatinine Clearance 93 ml/min; Glucose 184 mg/dl (70-99); Sodium 130 mmol/L (135-145); eGFR > 60.00
[2024-03-11] MEDS: FLUSH (NSS) 2 FLUSH IV ×2 (10:41→14:21)
[2024-03-11] MEDS: LASIX 40 MG IV (10:41)
[2024-03-11 12:47] LABS: Glucose - Point of Care 175 mg/dl (70-99)
--- NOTE | 2024-03-11 13:45 | PTCARENOTE ---
The patient voided a moderate amount of lainey colored urine in the toilet. He refuses to use the urinal.
--- NOTE | 2024-03-11 13:54 | PTCARENOTE ---
The patient refused lunch again. He stated that whenever he thinks of eating he 'feels ill.' He has been sitting in the dark and has been putting off getting out of bed. 'I'll get out later.' I had a long talk about his declining activity and flat
affect. He stated that he's 'depressed.' He said that he feels he'll never get out of here. I explained to him that he is tentative to go to the [facility] on Wednesday. I explained to him that he needs to get out of bed and move more if he plans on
going home. We talk about his nutrition status and the importance of eating to keep up his energy and healing. I asked him if he wanted someone to talk with about his depressive state but he refused the consult. He did agree to have to shades opened
to get some light in. In addition, he agreed to work with physical therapy. Physical therapy called.
[2024-03-11] MEDS: MORPHINE SULFATE 2 MG IV (14:20)
--- NOTE | 2024-03-11 14:26 | PTCARENOTE ---
Ten minutes after working with PT and getting in the chair, the patient rang his call marx. He asked to get back in bed because he was having pain in his left chest that went straight through to his back. He described it as 'pressure' and rated it a
7/10 on scale. 2mg of Morphine was given as ordered. While I was administering his pain medication, he asked to get in bed again and said 'I'm so uncomfortable.' I assisted the patient back to bed as requested.
[2024-03-11 16:44] LABS: Glucose - Point of Care 166 mg/dl (70-99)
[2024-03-11] MEDS: NITROSTAT (SUBLINGUAL) 0.4 MG SL (17:08)
--- NOTE | 2024-03-11 17:19 | W.PN.UPDATE ---
Update Note
Progress Note Update
I was alerted by nursing at 1700 that the patient was complaining of chest pain that started after he worked with physical therapy earlier. I was immediately available at the bedside to evaluate. The patient was calm, in no acute distress upon my
arrival
He is unable to really describe the quality of his pain, unable to compare it with the chest pain that brought him into the hospital. Denies any radiation to the arm or neck, some radiation to the back. He gets frustrated by questioning of his
pain's characteristics.
Upon my arrival he was hemodynamically stable with heart rate 61/min per monitor, no signs of respiratory distress. Upon exam he has regular rate and rhythm with systolic murmur, equal pulses bilaterally. Blood pressures were equal in the
extremities. No cyanosis or mottling noted. He did have reduced sounds at the left apex though no obvious crackles, wheezes or rhonchi at this time. Currently on IV Lasix for pulmonary edema. Does not appear grossly volume overloaded.
Suspect that this is related to the NSTEMI for which he is admitted for, coronary angiography planned for Wednesday
Plan:
-Will continue with IV heparin drip
-Order ECG, troponin trend
-Ordered chest x-ray, consider extra dose of Lasix
-Give sublingual nitroglycerin now
--- NOTE | 2024-03-11 17:52 | PTCARENOTE ---
While giving the patient his medications, he stated that he was still having chest discomfort that goes straight through to his back. He rated it a 6 and could not described it, 'it's just pain.' BP rt arm 121/73, HR 63, RR 16, pulse ox on RA 95.
Lungs diminished bb, upper left lung clear. Stryker text Dr. Tello and Dr. Hdz (he was in the room when the patient complained of pain originally). I forward the text message to Dr. Ray, the [facility] hospitalist per Dr. Tello's
request. Dr. Ray came in to assess the patient.
Left arm BP110/61, SL nitro given, portable CXR done, ECG done, Troponin done. Heparin gtt continues to run at 1550 units/hr. Patient appears relaxed in bed.
--- NOTE | 2024-03-11 18:26 | PTCARENOTE ---
The patient states that he's feeling better and wants to take a nap.
[2024-03-11] MEDS: SENOKOT-S PO (20:32)
[2024-03-11 21:02] LABS: Glucose - Point of Care 154 mg/dl (70-99)
[2024-03-11] MEDS: LANTUS 0.08 UNITS SC (21:30)
[2024-03-11] MEDS: MELATONIN 3 MG PO ×2 (22:26)
[2024-03-12] VITALS (10 sets, daily range): BP systolic 114–122; BP diastolic 60–76; BMI 25.4
--- NOTE | 2024-03-12 02:13 | PTCARENOTE ---
Pt. has had no complaints of CP or SOB so far this shift. VSS, NSR on telemetry. Encouraged to get OOB to use bathroom but pt. refused, stated he didn't want to get up and he didn't feel the urge. Bladder scanned for 296 ml. Complaining that he
he is constantly getting woken up and can't sleep due to interruptions and his own anxiety. Hospitalist CRISS Souza notified and order for additional melatonin obtained (pt. stated already ordered 3mg doesn't 'do anything'). Dose given; pt. appears
to be sleeping. Wound care provided to left foot prior to bedtime.
--- NOTE | 2024-03-12 03:02 | PTCARENOTE ---
Pt. ambulated to BR with one assist and RW, voided large amount lainey urine. Gait quite steady, no SOB or CP.
[2024-03-12 03:22] LABS: APTT 89.5 Sec (23.4-35.0)
[2024-03-12 03:32] LABS: Blood Urea Nitrogen 41 mg/dl (9-20); Calcium 9.3 mg/dl (8.4-10.2); Carbon Dioxide 23 mmol/L (22-30); Chloride 94 mmol/L (98-107); Estimated Creatinine Clearance 83 ml/min; Glucose 174 mg/dl (70-99); Sodium 128 mmol/L (135-145); eGFR > 60.00
[2024-03-12] MEDS: LOPRESSOR 25 MG PO ×3 (06:21→20:11)
[2024-03-12] MEDS: LASIX 40 MG IV (07:57)
[2024-03-12] MEDS: LIPITOR 20 MG PO (07:58)
[2024-03-12] MEDS: AUGMENTIN 875 MG/125 MG 1 TABLET PO ×2 (07:58→20:11)
[2024-03-12] MEDS: SENOKOT-S 1 TABLET PO ×2 (07:58→20:12)
[2024-03-12] MEDS: PACERONE 400 MG PO (07:58)
[2024-03-12] MEDS: CIPRO 500 MG PO ×2 (07:58→20:11)
[2024-03-12] MEDS: LOW STRENGTH ASPIRIN 81 MG PO (07:58)
[2024-03-12] MEDS: PLAVIX 75 MG PO (07:58)
[2024-03-12] MEDS: GLUCOPHAGE 1000 MG PO ×2 (07:59→17:03)
[2024-03-12] MEDS: MIRALAX PO (08:00)
[2024-03-12] MEDS: NOVOLOG FLEXPEN SC ×4 (08:00→17:32)
[2024-03-12 08:12] LABS: Glucose - Point of Care 192 mg/dl (70-99)
[2024-03-12] MEDS: NOVOLOG FLEXPEN-LOW RESISTANCE 1 UNITS SC (08:13)
--- NOTE | 2024-03-12 09:09 | W.PN.HOSP.TC ---
Today's Communication/Plan
-
N.p.o. after midnight
Assessment / Plan
Assessment / Plan
General: Acutely ill, Non-toxic appearance today
HEENT: Normocephalic, Atraumatic and Moist Mucous Membranes
Respiratory: Clear to Auscultation; Negative Wheezes, Rales or Rhonchi
Cardiac: Regular Rhythm and S1/S2
GI: Soft, Nontender and Nondistended
Musculoskeletal: Left toe status post postop findings wrapped up. No Clubbing, No Cyanosis and No Edema
Neuro: Awake, Alert and Oriented, no gross neuro-deficits
Psych: Calm
Acute hypoxic respiratory insufficiency -due to heart failure induced pulmonary edema. Oxygenation improved, now on room air.
NSTEMI -still with intermittent resting chest pain, nonpleuritic. Troponins trended down. EKG last evening shows normal sinus rhythm, septal infarct age undetermined, ST and T wave abnormality. No significant change compared to previous EKG.
Repeat chest x-ray this morning shows no pneumothorax.
Continue aspirin
Plavix resumed this morning, discussed with interventional radiology.
Cardiology recommends cardiac catheterization possibly Wednesday.
Left lung mass and hemoptysis:
Pulmonary consult appreciated. Underwent lung biopsy on March 10, path pending.
Sepsis due to left toe infection: Wound culture shows Pseudomonas and Enterobacter.
Improving
ID changing antibiotics to ciprofloxacin and Augmentin through 03/19
Status post left partial first ray amputation on 03/06 by podiatry
Paroxysmal atrial fibrillation, new onset:
On rate control, metoprolol titrate 25 mg every 6 hours
On IV heparin drip
Acute diastolic CHF -IV Lasix resumed by cardiology. Await labs today. Weight has plateaued at 86 kg.
Anemia of chronic disease:
Hematology consult appreciated
Blood transfusion given
Hemoglobin stable.
Post blood transfusion reaction on 03/03:
He was given IV Lasix, IV steroids, and continue with broad-spectrum antibiotics.
Chronic hyponatremia -sodium pending for today. TSH is normal. Suspect SIADH induced hyponatremia. Urine osmolality 398, urine sodium 34.
Chronic limb ischemia:
Status post vascular intervention on 02/[address] Vega
DM2 with hyperglycemia - Prior to admission he was on metformin and sitagliptin. Glucose 166 this morning. Continue Lantus 8 units at bedtime, NovoLog 5 units AC, low resistance corrective scale.
Last hemoglobin A1c on 02/09 was 8.2%
He is now on ciprofloxacin which could potentially interact with sitagliptin. Sitagliptin discontinued. Continue metformin. Hold if plans for cardiac catheterization.
Essential hypertension:
Continue current antihypertensives.
Monitor blood pressure and adjust medications accordingly.
Hyperlipidemia:
Continue statins
DVT prophylaxis:
On heparin drip
DNR
Encourage out of bed to chair. Discussed with nursing.
Dispo -cardiology plans on cardiac catheterization on Wednesday.
Anticipated Discharge: > 48 hours
Subjective/Interval History
-
Date of Service: March 12, 2024
Patient seen and examined. Complaining of ongoing chest pain. Looks comfortable.
Objective Data
-
Labs:
Laboratory Results
03/12/24
02:48
APTT 89.5 H
Sodium 128 L
Potassium 5.0
Chloride 94 L
Carbon Dioxide 23
BUN 41 H
Creatinine 0.9
Glucose 174 H
Calcium 9.3
Vital Signs:
Vital Signs
Temp Pulse Resp BP Pulse Ox
97.8 F 61 16 117/67 92
03/12/24 07:50 03/12/24 07:00 03/12/24 07:50 03/12/24 06:21 03/12/24 07:50
I&O
03/11/24 03/12/24 03/13/24
06:59 06:59 06:59
Intake Total 455 / 455 240 / 240
Output Total 675 / 675
Balance -220 / -220 240 / 240
Review of Systems
-
History Source: Patient
All other systems: Reviewed and negative
--- NOTE | 2024-03-12 10:46 | W.PN.PUL3 ---
Today's Communication / Plan
-
Diuresis
Follow up path from IR lung biopsy done on 03/10
Plavix resumed yesterday --> if repeat lung Bx is needed then will need to stop plavix again
Heparin gtt
Eventual cardiac catheterization assuming no pulmonary/thoracic procedures planned in near future
Start Buspar for depression
Pulmonary service will continue to follow along
Assessment
-
73-year-old male with history of peripheral arterial disease, status post recent left toe amputation, treated for diagram gain, history of coronary disease with stent placement 2014, and lower extremity PAD stents 2016 at [facility], now
presents with increased chest discomfort similar to prior cardiac pain. Patient started on heparin therapy. We are asked to comment on his pulmonary process
Impression:
Acute onset midsternal chest discomfort
NSTEMI
Gross hemoptysis - improved
History of coronary disease with stent placement at [facility]
Diastolic CHF
Leukocytosis
Anemia
Peripheral vascular disease
Peripheral arterial disease, stent placement lower extremity 2015 [facility]
Recent left first hallux amputation 02/11/2024
Hyponatremia
Hyperglycemia
10 cm left upper lobe mass s/p IR CT guided Bx (03/10/2024)
Mild left hilar adenopathy
Moderate , valve area 1 cm�
New onset AFib
Conditions present prior to admission
Hypertension/hyperlipidemia
Diabetes
20+ tobacco history, quit around 2015
100 pound weight loss over the past year
Plan
Respiratory status stable on room air although he does endorse L-sided chest pain/back pain which is intermittent today; no evidence of PTX on CXR from yesterday or today; EKG from 03/11/2024 without new acute changes
Keep SpO2 >94%
Continue nebulizers as needed
Follow hemoptysis-minimal
Note: Sputum cytology negative for malignant cells
Lung mass on the left-requires biopsy-unable to immediately pursue while on aspirin/Plavix
Reviewed with interventional radiology-needed to be off Plavix 5 days prior to transthoracic biopsy-Dr. Levy notified interventional radiology 03/07/2024-biopsy performed on 03/10
- Follow up final pathology from Bx
Patient has been told he likely has underlying cancer
Family notes that patient may have cancelled his OP FU due to fear of his diagnosis
They inferred we should try to do this while inpatient
Cardiology following-correspondence reviewed
Troponin trended � peaked at 26.9 on 03/03/2024
Eventual cardiac catheterization-in part due to expected prognosis
Continue heparin gtt
Plavix restarted on 03/11/2024
New onset AFib-rapid a.m. 03/09/2024-rate control and anticoagulation
Diuresis as tolerated
Monitor renal function, electrolytes, intake/output, lower extremity edema and weight
Replace electrolytes as needed
Orthopedics following-status post debridement and partial amputation 03/06/2024
He endorses depression likely due to adjustment disorder
- Start Buspar 10mg BID, and raise or lower dose as needed
- Recommend outpatient follow up with PCP +/- psychologist/psychiatrist
Monitor blood sugars with goal >100 and <180
Insulin supplementation as needed
Cultures reviewed
Wound cultures with Pseudomonas and Enterobacter
Empiric antibiotics per infectious disease - currently on Augmentin + cipro
Infectious disease following-correspondence reviewed
DVT prophylaxis-heparin gtt
Nutrition
Reviewed with nursing
Pulmonary service will continue to follow along.
Total time spent today was 50 minutes for this encounter. Time includes reviewing laboratory test/imaging results, reviewing pertinent medical records, obtaining and reviewing medical history, performing an appropriate exam, ordering medications,
tests and procedures. Time also includes documentation of this encounter, coordinating patient care and communicating with other healthcare professionals. Total time does not include separately billed tests performed on this date of service.
Subjective Data
-
Date of Service:
Date of Service: March 12, 2024
Chief Complaint: Pulmonary Follow Up and Dyspnea Follow Up
Subjective:
Patient seen and evaluated today at bedside. He feels very depressed. Currently on room air breathing comfortably. Saturating 94%, heart rate 62, afebrile overnight and BP 120/76. He has intermittent left-sided chest/back pain, but he does not
have any currently when I am interviewing him. He denies SOB, KOENIG, nausea, fevers or chills.
Review of Systems
General: Other (Negative unless mentioned above)
Objective Data
Data Reviewed
Vital Signs / I&O / Oxygen:
Vital Signs
Temp Pulse Resp BP Pulse Ox
97.8 F 61 16 117/67 92
03/12/24 07:50 03/12/24 07:00 03/12/24 07:50 03/12/24 06:21 03/12/24 07:50
Intake and Output
03/11/24 03/12/24 03/13/24
06:59 06:59 06:59
Intake Total 455 / 455 240 / 240
Output Total 675 / 675
Balance -220 / -220 240 / 240
SaO2 92
Nasal Cannula flow liters per 1
minute
Physical Exam
General: Respiratory Distress (n), Comfortable, Good Appetite and Other (NAD)
HEENT: Normocephalic, Anicteric and Moist Mucous Membranes
Cardiovascular: S1-S2, Murmur (BONIFACIO heard best ar RUSB, grade II/), Rub (n) and Peripheral Edema (n)
Respiratory: Wheeze (n), Crackles (negative), Rhonchi (n) and Non-Labored Respirations
GI: Soft, Non Distended, Non Tender and Normal Bowel Sounds
Neurology: AO x 3 and Tremors (n)
Skin: Warm, Dry, Cyanosis (n), Jaundice (n) and Rash (n)
Labs/Micro/Reports
Lab Data
03/11/24 03:16
03/12/24 02:48
Laboratory Results
03/12/24
02:48
APTT 89.5 H
Microbiology
03/10/24 03:47 Urine Urine Culture - Final
NO GROWTH
03/06/24 Unknown Toe Wound Culture - Final
Pseudomonas aeruginosa
Enterobacter cloacae
03/06/24 Unknown Toe Gram Stain - Final
03/06/24 Unknown Toe Anaerobic Culture - Final
NO ANAEROBES ISOLATED
[2024-03-12 12:08] LABS: Glucose - Point of Care 166 mg/dl (70-99)
[2024-03-12] MEDS: NOVOLOG FLEXPEN-LOW RESISTANCE 166 UNITS SC (12:19)
[2024-03-12] MEDS: HEPARIN 25000 UNITS/250 ML IV (13:58)
--- NOTE | 2024-03-12 14:25 | W.PN.CARDCBS ---
Today's Communication / Plan
-
Continue IV heparin
Transition Lopressor from every 6 hours to twice daily
Continue amiodarone load and check EKG in the morning
Awaiting final pathology from lung biopsy on Wednesday. Will need to determine if further procedures are planned prior to proceeding with left heart catheterization
Impression / Plan
-
PCP: Dr. Woodrow Bynum
Cardiology: Dr. Santosh Zepeda with [facility] ([phone])
Impression:
Chest pain
NSTEMI with Troponin peaking at 26.9 on 03/03/24
CAD
s/p 3.5 mm Xience to prox LAD 05/12/13
s/p2.75 mm Xience distal RCA 05/12/13
s/p 3.0 mm Xience to prox RCA at [facility] 05/12/13
PAD s/p left common to external iliac balloon angioplasty/stent, SFA balloon angioplasty/stent x2, TP trunk and peroneal angioplasty, anterior tibial long segment angioplasty 02/10/24
s/p left hallux amputation 02/11/24
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
Hemoptysis
Smoker
DM 2
Newly diagnosed paroxysmal Afib 03/05/24
Echo on 02/11/24: LV ejection fraction is 60-65% by Roblero's method of discs. Mild concentric left ventricular hypertrophy. Mild mitral regurgitation.Mild to moderate aortic stenosis. Trace tricuspid regurgitation. Estimated pulmonary artery
pressure of 20-25 mmHg.
Echo 03/01/24: EF 60-65%, hypokinesis mid to distal septum
Plan:
Recurrent symptomatic rapid atrial fibrillation with conversion to sinus rhythm on IV amiodarone 03/09/2024
-Maintaining sinus rhythm. Continue oral amiodarone load 400 mg TID started 03/10/2024
-Repeat twelve-lead EKG in the morning to reassess QTc
-Transition Lopressor to every 12 hours
-Continue IV heparin until it is determined whether repeat lung biopsy will be required.
-Eventual transition to oral anticoagulation if able, SRI Vasc of 4.
Heart failure with preserved ejection fraction with decompensation in the setting of rapid atrial fibrillation
-Continue Lasix IV 40 mg daily
-Follow creatinine and electrolytes. Correct as needed
-Follow weights, I's and O's
-Attempt to maintain sinus rhythm
-Optimize medical therapy as able
Coronary artery disease with abnormal EKG particularly with rapid heart rates and recurrent episodes of chest tightness
-Patient with chest pain on admission to [facility] 03/01/24. Initial Troponin 0.078 and peaked at 26.9. Patient with known CAD and previous PCI.
-Cont aspirin 81 mg daily; continue IV heparin
-Hospitalist service restarted Plavix 03/11/2024-discussed with both hospitalist and pulmonary.
-Awaiting final pathology to determine whether a repeat lung biopsy will be required and whether or not patient will need a chemotherapy port inserted.
-Tentative plan for left heart catheterization early next week, once cleared from pulmonary/oncology for uninterrupted dual antiplatelet therapy.
-Continue statin
PAD status post complex left common to external iliac balloon angioplasty/stent, SFA balloon angioplasty/stent x2, TP trunk and peroneal angioplasty, anterior tibial long segment angioplasty 02/10/24
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
-Plavix resumed by primary service 03/11/2024
-s/p partial 1st ray amputation 03/06/24. Podiatry feels patient has presumed surgical cure and ID is recommending antibiotics through 03/19/24
-Pulmonology and oncology following for suspected lung cancer.
-No further hemoptysis. Hemoglobin stable
-IR CT-guided left upper lobe mass biopsy performed 03/10/2024 with reports from pathology that specimens were necrotic.
-Awaiting final pathology report to determine if further procedures needed
Will follow with you
HPI: This is a 73 year old male patient with PMH of PAD, cardiac stent 2016, NIDDM, recent admission for dry gangrene of his left first toe status post amputation on 02/10, cardiac stent in 2016 and stent placement of the left superficial femoral
artery/left common iliac artery in 2017, lung mass with concerns of chest pain. He states that at 3AM he started to feel midsternal chest pain while sleeping which he described as a dull ache. He called EMS and felt that his chest pain improved upon
being given nitroglycerin. He also has concerns of left big toe pain. He denies CP, palpitations, SOB on exertion or dizziness.
His troponin was elevated at 0.078. Cardiology consulted.
Progress Note - Art Model
Subjective
Date of Service: March 12, 2024
Seen and examined. Overnight had some chest pain now comfortable lying supine. Does state he feels slight discomfort if he takes a deep breath then. No shortness of breath. No further hemoptysis.
Objective
Labs:
03/11/24 03:16
03/12/24 02:48
Labs
Hgb 11.9 g/dL (13.0-18.0) L 03/11/24 03:16
Hct 36.1 % (39.0-52.0) L 03/11/24 03:16
Plt Count 513 10^3/uL (130-400) H 03/11/24 03:16
PT 14.0 Sec (11.4-14.6) 03/10/24 03:10
INR 1.08 03/10/24 03:10
APTT 89.5 Sec (23.4-35.0) H 03/12/24 02:48
Sodium 128 mmol/L (135-145) L 03/12/24 02:48
Potassium 5.0 mmol/L (3.5-5.1) 03/12/24 02:48
BUN 41 mg/dl (9-20) H 03/12/24 02:48
Creatinine 0.9 mg/dL (0.7-1.3) 03/12/24 02:48
Glucose 174 mg/dl (70-99) H 03/12/24 02:48
Troponins
03/11/24 03/12/24
17:31 02:48
Troponin I 1.640 H* 1.450 H*
Vital Signs and I&O:
Vital Signs
Temp Pulse Resp BP Pulse Ox
97.6 F 61 20 117/67 96
03/12/24 11:43 03/12/24 07:00 03/12/24 11:43 03/12/24 06:21 03/12/24 11:43
Vital Signs
Temp Pulse Resp BP Pulse Ox
97.6 F 61 20 117/67 96
03/12/24 11:43 03/12/24 07:00 03/12/24 11:43 03/12/24 06:21 03/12/24 11:43
Intake & Output
03/10/24 03/11/24 03/12/24 03/13/24
06:59 06:59 06:59 06:59
Intake Total 460 / 460 455 / 455 240 / 240
Output Total 550 / 550 675 / 675
Balance -90 / -90 -220 / -220 240 / 240
Physical Exam
Physical Exam
GEN: No distress, awake, alert, oriented x3
HEENT: supple, anicteric, mmm
LUNGS: CTA b/l, no wheezes/rales
CV: Reg, S1/S2, no murmur
EXT: No edema. L foot wrapped.
[2024-03-12] MEDS: BUSPAR 10 MG PO (16:59)
[2024-03-12] MEDS: PACERONE 200 MG PO ×2 (17:02→21:59)
[2024-03-12 17:16] LABS: Glucose - Point of Care 145 mg/dl (70-99)
[2024-03-12] MEDS: NOVOLOG FLEXPEN-LOW RESISTANCE SC (17:32)
--- NOTE | 2024-03-12 17:38 | PTCARENOTE ---
Pt received this am with no c/o of any pain or nausea. Refuses to eat or order meals. Pt did agree to drink the ensure x 2. Assisted to the bathroom with the walker and voided 400ml lainey urine. Encouraged to sit oob in the chair which pt tolerated
for 10 min and wanted to go back to bed.
[2024-03-12] MEDS: BUSPAR PO (21:19)
[2024-03-12] MEDS: MELATONIN 3 MG PO (22:01)
[2024-03-12 22:05] LABS: Glucose - Point of Care 160 mg/dl (70-99)
[2024-03-12] MEDS: LANTUS 0.08 UNITS SC (22:05)
[2024-03-13] VITALS (9 sets, daily range): BP systolic 114–127; BP diastolic 53–74; BMI 25.5
--- NOTE | 2024-03-13 02:06 | PTCARENOTE ---
Rec'd pt at 1900 on TELE monitor with pt in NSR and VSS (see flowchart). Pt AAox3 and denies any pain or discomfort. Pt agreed to report any changes in pain or discomfort to RN immediately. Pt NPO at midnight for possible heart cath tomorrow. Pt
had one episode of N/V followed by emesis, pt refused any medication for nausea relief. IV Heparin gtt infusing at 15.5ml/hr. Left foot dressing changed per order, see nursing documentation for further assessment. Pt resting with call marx in reach.
[2024-03-13] MEDS: XOPENEX 0.63 MG INHALANT SOLUTION INH (04:41)
[2024-03-13 06:07] LABS: Glucose - Point of Care 168 mg/dl (70-99)
[2024-03-13] MEDS: NOVOLOG FLEXPEN SC ×2 (06:09→12:48)
[2024-03-13] MEDS: NOVOLOG FLEXPEN-LOW RESISTANCE 1 UNITS SC ×3 (06:10→17:31)
[2024-03-13 06:11] LABS: APTT 79.4 Sec (23.4-35.0); Hematocrit 30.3 % (39.0-52.0); Hemoglobin 10.3 g/dL (13.0-18.0); Mean Corpuscular Hgb 26.1 pg (27.0-31.0); Mean Corpuscular Volume 76.7 fL (80.0-94.0); Mean Platelet Volume 8.8 fL (7.4-10.4); Platelet Count 401 10^3/uL (130-400); Red Blood Cell Count 3.95 10^6/uL (4.70-6.10); Red Cell Dist. Width 17.3 % (11.5-14.5); White Blood Cell Count 21.4 10^3/uL (4.8-10.8)
[2024-03-13 06:24] LABS: ALT (SGPT) 13 U/L (0-50); AST (SGOT) 24 U/L (17-59); Albumin 3.1 g/dl (3.5-5.0); Alkaline Phosphatase 67 U/L (38-126); Blood Urea Nitrogen 46 mg/dl (9-20); Calcium 8.9 mg/dl (8.4-10.2); Carbon Dioxide 23 mmol/L (22-30); Chloride 95 mmol/L (98-107); Estimated Creatinine Clearance 93 ml/min; Glucose 153 mg/dl (70-99); Potassium 4.5 mmol/L (3.5-5.1); Sodium 128 mmol/L (135-145); Total Bilirubin 0.8 mg/dl (0.2-1.3); eGFR > 60.00
[2024-03-13] MEDS: HEPARIN 25000 UNITS/250 ML IV (07:15)
[2024-03-13] MEDS: AUGMENTIN 875 MG/125 MG 1 TABLET PO ×2 (08:06→19:40)
[2024-03-13] MEDS: PLAVIX 75 MG PO (08:06)
[2024-03-13] MEDS: LOW STRENGTH ASPIRIN 81 MG PO (08:07)
[2024-03-13] MEDS: PACERONE 200 MG PO ×3 (08:07→22:42)
[2024-03-13] MEDS: LOPRESSOR 25 MG PO ×2 (08:08→19:41)
[2024-03-13] MEDS: SENOKOT-S 1 TABLET PO ×2 (08:08→19:40)
[2024-03-13] MEDS: LIPITOR 20 MG PO (08:08)
[2024-03-13] MEDS: BUSPAR 10 MG PO ×2 (08:08→19:40)
--- NOTE | 2024-03-13 08:08 | W.PN.CARDCBS ---
Addendum entered and electronically signed by Jennifer Polanco DO 03/13/24 11:02:
I saw and examined the patient.
The Costume Draper's note was reviewed and I agree with the note.
Comment: Patient seen and examined sitting out of bed to chair. Frustrated and depressed about ongoing hospitalization with multiple medical concerns
GEN: No distress, awake, alert, oriented x3
HEENT: supple, anicteric, mmm
LUNGS: CTA b/l, no wheezes/rales
CV: Reg, S1/S2, no murmur
EXT: No edema. L foot wrapped.
Plan:
Recurrent symptomatic rapid atrial fibrillation with conversion to sinus rhythm on IV amiodarone 03/09/2024
-Maintaining sinus rhythm. Continue oral amiodarone load, started 03/10/2024
-Remains in SR on review of telemetry overnight. HR stable. EKG reviewed, QTc stable at 472 ms.
-Continue lopressor 25mg BID. As OP was on Toprol 25mg daily.
-Continue IV heparin until it is determined whether repeat lung biopsy will be required.
-Eventual transition to oral anticoagulation if able, SRI Vasc of 4.
Heart failure with preserved ejection fraction with decompensation in the setting of rapid atrial fibrillation
-Continue Lasix IV 40 mg daily
-Weight down to 187 lbs 03/13. Creat stable.
-Follow creatinine and electrolytes. Correct as needed
-Follow weights, I's and O's
-Attempt to maintain sinus rhythm
-Optimize medical therapy as able
Coronary artery disease with abnormal EKG particularly with rapid heart rates and recurrent episodes of chest tightness
-Patient with chest pain on admission to [facility] 03/01/24. Initial Troponin 0.078 and peaked at 26.9. Patient with known CAD and previous PCI.
-Cont aspirin 81 mg daily; continue IV heparin
-Hospitalist service restarted Plavix 03/11/2024-discussed with both hospitalist and pulmonary.
-Awaiting final pathology to determine whether a repeat lung biopsy will be required and whether or not patient will need a chemotherapy port inserted.
-Tentative plan for left heart catheterization early next week, once cleared from pulmonary/oncology for uninterrupted dual antiplatelet therapy.
-Continue statin
PAD status post complex left common to external iliac balloon angioplasty/stent, SFA balloon angioplasty/stent x2, TP trunk and peroneal angioplasty, anterior tibial long segment angioplasty 02/10/24
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
-Plavix resumed by primary service 03/11/2024
-s/p partial 1st ray amputation 03/06/24. Podiatry feels patient has presumed surgical cure and ID is recommending antibiotics through 03/19/24
-Pulmonology and oncology following for suspected lung cancer.
-No further hemoptysis. Hemoglobin stable
-IR CT-guided left upper lobe mass biopsy performed 03/10/2024 with reports from pathology that specimens were necrotic.
-Awaiting final pathology report to determine if further procedures needed
Will follow with you
Original Note:
Today's Communication / Plan
-
Await pathology report.
Continue IV lasix
Continue heparin gtt
Impression / Plan
-
PCP: Dr. Woodrow Bynum
Cardiology: Dr. Santosh Zepeda with [facility] ([phone])
Impression:
Chest pain
NSTEMI with Troponin peaking at 26.9 on 03/03/24
CAD
s/p 3.5 mm Xience to prox LAD 05/12/13
s/p2.75 mm Xience distal RCA 05/12/13
s/p 3.0 mm Xience to prox RCA at [facility] 05/12/13
PAD s/p left common to external iliac balloon angioplasty/stent, SFA balloon angioplasty/stent x2, TP trunk and peroneal angioplasty, anterior tibial long segment angioplasty 02/10/24
s/p left hallux amputation 02/11/24
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
Hemoptysis
Smoker
DM 2
Newly diagnosed paroxysmal Afib 03/05/24
Echo on 02/11/24: LV ejection fraction is 60-65% by Roblero's method of discs. Mild concentric left ventricular hypertrophy. Mild mitral regurgitation.Mild to moderate aortic stenosis. Trace tricuspid regurgitation. Estimated pulmonary artery
pressure of 20-25 mmHg.
Echo 03/01/24: EF 60-65%, hypokinesis mid to distal septum
Plan:
-Presented with chest pain. Troponin peaked at 26.9. Patient has known CAD and prior PCI.
-There is consideration for eventual LHC, however now also w/ ADRIAN lung mass which is being worked up. Will need to be cleared for DAPT by pulm/oncology.
-Lung biopsy performed 03/10. Per pathology, specimens were necrotic. Awaiting final pathology, however if final pathology is necrotic/nondiagnostic, may do PET CT to target non-necrotic area for biopsy.
-Newly diagnosed atrial fibrillation this admission. IV amio started 03/09 and transitioned to PO amiodarone 03/10.
-Remains in SR on review of telemetry overnight. HR stable. EKG reviewed, QTc stable at 472 ms.
-Continue lopressor 25mg BID. As OP was on Toprol 25mg daily.
-Continue heparin gtt for now given plan for procedures/LHC next week. Eventual consideration of OAC given CHADsVASC score 4. Will need to use caution w/ hemoptysis.
-Diuresing with IV lasix 40mg daily. Weight down to 187 lbs 03/13. Creat stable.
-Cont aspirin 81 mg daily. Plavix resumed 03/11. Continue lipitor 20mg daily.
-Patient had left hallux amputation 02/11/24, but due to poor healing he had partial 1st ray amputation 03/07/24. Podiatry feels patient has presumed surgical cure and ID is recommending antibiotics through 03/19/24.
HPI: This is a 73 year old male patient with PMH of PAD, cardiac stent 2016, NIDDM, recent admission for dry gangrene of his left first toe status post amputation on 02/10, cardiac stent in 2016 and stent placement of the left superficial femoral
artery/left common iliac artery in 2017, lung mass with concerns of chest pain. He states that at 3AM he started to feel midsternal chest pain while sleeping which he described as a dull ache. He called EMS and felt that his chest pain improved upon
being given nitroglycerin. He also has concerns of left big toe pain. He denies CP, palpitations, SOB on exertion or dizziness.
His troponin was elevated at 0.078. Cardiology consulted.
Progress Note - Case Management Associate
Subjective
Date of Service: March 13, 2024
Some recurrent chest pain this AM.
Objective
Labs:
03/13/24 05:37
03/13/24 05:37
Labs
Hgb 10.3 g/dL (13.0-18.0) L 03/13/24 05:37
Hct 30.3 % (39.0-52.0) L 03/13/24 05:37
Plt Count 401 10^3/uL (130-400) H D 03/13/24 05:37
PT 14.0 Sec (11.4-14.6) 03/10/24 03:10
INR 1.08 03/10/24 03:10
APTT 79.4 Sec (23.4-35.0) H 03/13/24 05:37
Sodium 128 mmol/L (135-145) L 03/13/24 05:37
Potassium 4.5 mmol/L (3.5-5.1) 03/13/24 05:37
BUN 46 mg/dl (9-20) H 03/13/24 05:37
Creatinine 0.8 mg/dL (0.7-1.3) 03/13/24 05:37
Glucose 153 mg/dl (70-99) H 03/13/24 05:37
Troponins
03/11/24 03/12/24
17:31 02:48
Troponin I 1.640 H* 1.450 H*
Vital Signs and I&O:
Vital Signs
Temp Pulse Resp BP Pulse Ox
97.7 F 67 18 127/71 93
03/13/24 07:08 03/13/24 05:00 03/13/24 07:08 03/13/24 04:22 03/13/24 07:08
Vital Signs
Temp Pulse Resp BP Pulse Ox
97.7 F 67 18 127/71 93
03/13/24 07:08 03/13/24 05:00 03/13/24 07:08 03/13/24 04:22 03/13/24 07:08
Intake & Output
03/11/24 03/12/24 03/13/24 03/14/24
06:59 06:59 06:59 06:59
Intake Total 455 / 455 240 / 240 306 / 306
Output Total 675 / 675 575 / 575
Balance -220 / -220 240 / 240 -269 / -269
Physical Exam
Physical Exam
GEN: No distress, awake, alert, oriented x3
HEENT: supple, anicteric, mmm
LUNGS: CTA b/l, no wheezes/rales
CV: Reg, S1/S2, no murmur
EXT: No edema. L foot wrapped.
[2024-03-13] MEDS: CIPRO 500 MG PO ×2 (08:09→19:40)
[2024-03-13] MEDS: GLUCOPHAGE 1000 MG PO ×2 (08:21→18:06)
[2024-03-13] MEDS: MIRALAX PO (08:21)
[2024-03-13] MEDS: LASIX 40 MG IV (08:21)
[2024-03-13] MEDS: MORPHINE SULFATE 2 MG IV (08:33)
--- NOTE | 2024-03-13 08:49 | W.PN.HOSP.TC ---
Today's Communication/Plan
-
Heparin drip, DAPT, biopsy pending, antibiotics.
Assessment / Plan
Assessment / Plan
General: Acutely ill, Non-toxic appearance today
HEENT: Normocephalic, Atraumatic and Moist Mucous Membranes
Respiratory: Clear to Auscultation; Negative Wheezes, Rales or Rhonchi
Cardiac: Regular Rhythm and S1/S2
GI: Soft, Nontender and Nondistended
Musculoskeletal: Left toe status post postop findings wrapped up. No Clubbing, No Cyanosis and No Edema
Neuro: Awake, Alert and Oriented, no gross neuro-deficits
Psych: Calm
A/P:
Acute hypoxic respiratory insufficiency -due to heart failure induced pulmonary edema. Continue IV Lasix. Oxygenation improved, now on room air.
NSTEMI -still with intermittent resting chest pain, nonpleuritic. Troponins trended down. EKG last evening shows normal sinus rhythm, septal infarct age undetermined, ST and T wave abnormality. No significant change compared to previous EKG.
Repeat chest x-ray this morning shows no pneumothorax.
Continue aspirin
Plavix resumed over the weekend by Dr. Phillips. Discussed with cardiology and pulmonary and oncology today on 03/13 and will continue with DAPT for now but might hold Plavix again depending on course.
Morphine as needed for pain
Plan for cardiac cath after lung biopsy resulted and we know more about prognosis.
Left lung mass and hemoptysis:
Pulmonary consult appreciated. Underwent lung biopsy on March 10, path pending. Unclear if enough sample.
Discussed with oncology as well today on 03/13
Sepsis due to left toe infection: Wound culture shows Pseudomonas and Enterobacter.
Improving
ID changed antibiotics to ciprofloxacin and Augmentin through 03/19
Status post left partial first ray amputation on 03/06 by podiatry
Paroxysmal atrial fibrillation, new onset:
On rate control, metoprolol tartrate 25 mg every 12 hours
On amiodarone 200 mg p.o. 3 times daily
On IV heparin drip
Acute diastolic CHF -IV Lasix 40 mg daily by cardiology. Weight has plateaued at 86 kg. Today 85.2 kg.
Anemia of chronic disease:
Hematology consult appreciated
Blood transfusion given
Hemoglobin stable.
Post blood transfusion reaction on 03/03:
He was given IV Lasix, IV steroids, and continue with broad-spectrum antibiotics.
Chronic hyponatremia -sodium 128 today. TSH is normal. Suspect SIADH induced hyponatremia. Urine osmolality 398, urine sodium 34.
Chronic limb ischemia:
Status post vascular intervention on 02/[address] Vega
DM2 with hyperglycemia - Prior to admission he was on metformin and sitagliptin. Glucose 166 this morning. Continue Lantus 8 units at bedtime, NovoLog 5 units AC, low resistance corrective scale.
Last hemoglobin A1c on 02/09 was 8.2%
He is now on ciprofloxacin which could potentially interact with sitagliptin. Sitagliptin discontinued. Continue metformin.
Essential hypertension:
Continue current antihypertensives.
Monitor blood pressure and adjust medications accordingly.
Hyperlipidemia:
Continue statins
DVT prophylaxis:
On heparin drip
CODE STATUS-DNR
Total time spent on today's encounter was 52 minutes which included time spent in counseling the patient/family regarding diagnosis and treatment plan as listed above, goals of care, and symptom management. Case was discussed with nursing staff,
specialists, and care coordinators/case management. All labs and imaging personally reviewed by me. Remainder the time spent in detailed review of previous records, lab data, imaging, and other medical provider documentation.
Anticipated Discharge: > 48 hours
Subjective/Interval History
-
Date of Service: March 13, 2024
Still having chest pain on and off. Denies shortness of breath. Afebrile
Objective Data
-
Labs:
Laboratory Results
03/13/24
05:37
WBC 21.4 H
Hgb 10.3 L
Hct 30.3 L
Plt Count 401 H D
APTT 79.4 H
Sodium 128 L
Potassium 4.5
Chloride 95 L
Carbon Dioxide 23
BUN 46 H
Creatinine 0.8
Glucose 153 H
Calcium 8.9
Total Bilirubin 0.8
AST 24
ALT 13
Alkaline Phosphatase 67
Vital Signs:
Vital Signs
Temp Pulse Resp BP Pulse Ox
97.7 F 67 18 127/71 93
03/13/24 07:08 03/13/24 05:00 03/13/24 07:08 03/13/24 04:22 03/13/24 07:08
I&O
03/12/24 03/13/24 03/14/24
06:59 06:59 06:59
Intake Total 240 / 240 306 / 306
Output Total 575 / 575
Balance 240 / 240 -269 / -269
--- NOTE | 2024-03-13 09:32 | W.PN.PUL3 ---
Today's Communication / Plan
-
Path pending, biopsy notes per IR indicating various sites of necrosis
If additional biopsy needed, may need PET/CT imaging to determine higher yield location
Ongoing cardiac management per team, remains on IV heparin
If this requires resuming care as OP, DAPT may need to be interrupted in the future
Will discuss with care team
Assessment
-
73-year-old male with history of peripheral arterial disease, status post recent left toe amputation, treated for diagram gain, history of coronary disease with stent placement 2014, and lower extremity PAD stents 2016 at [facility], now
presents with increased chest discomfort similar to prior cardiac pain. Patient started on heparin therapy. We are asked to comment on his pulmonary process
Impression:
Acute onset midsternal chest discomfort
NSTEMI
Gross hemoptysis - improved
History of coronary disease with stent placement at [facility]
Diastolic CHF
Leukocytosis
Anemia
Peripheral vascular disease
Peripheral arterial disease, stent placement lower extremity 2015 [facility]
Recent left first hallux amputation 02/11/2024
Hyponatremia
Hyperglycemia
10 cm left upper lobe mass s/p IR CT guided Bx (03/10/2024)
Mild left hilar adenopathy
Moderate , valve area 1 cm�
New onset AFib
Conditions present prior to admission
Hypertension/hyperlipidemia
Diabetes
20+ tobacco history, quit around 2015
100 pound weight loss over the past year
Plan
Respiratory status stable on room air although he does endorse L-sided chest pain/back pain which is intermittent today; no evidence of PTX on CXR from yesterday or today; EKG from 03/11/2024 without new acute changes
Keep SpO2 >94%
Continue nebulizers as needed
Follow hemoptysis-minimal
Note: Sputum cytology negative for malignant cells
Lung mass on the left-requires biopsy-unable to immediately pursue while on aspirin/Plavix
Reviewed with interventional radiology-needed to be off Plavix 5 days prior to transthoracic biopsy-Dr. Levy notified interventional radiology 03/07/2024-biopsy performed on 03/10
Follow up final pathology from Bx--necrosis shown
IR indicates specimens were necrotic according to the on-site pathologist, despite repositioning the biopsy needle multiple times.
6 specimens were obtained. If final pathology is necrotic/nondiagnostic, consider PET/CT of the lesion to determine the areas of viable tumor in order to direct future biopsy.
May need to be continued as OP for PET/CT planning
Cardiology following-correspondence reviewed
Troponin trended � peaked at 26.9 on 03/03/2024
Eventual cardiac catheterization-in part due to expected prognosis
Continue heparin gtt
Plavix restarted on 03/11/2024
New onset AFib-rapid a.m. 03/09/2024-rate control and anticoagulation
Diuresis as tolerated
Monitor renal function, electrolytes, intake/output, lower extremity edema and weight
Replace electrolytes as needed
Orthopedics following-status post debridement and partial amputation 03/06/2024
He endorses depression likely due to adjustment disorder
Continue Buspar 10mg BID, and raise or lower dose as needed
Recommend outpatient follow up with PCP +/- psychologist/psychiatrist
Monitor blood sugars with goal >100 and <180
Insulin supplementation as needed
Cultures reviewed
Wound cultures with Pseudomonas and Enterobacter
Empiric antibiotics per infectious disease - currently on Augmentin + cipro
Infectious disease following-correspondence reviewed
DVT prophylaxis-heparin gtt
Nutrition
Reviewed with nursing
Diagnostic Data
CXR 03/12/24- No pneumothorax. Stable left upper lobe opacification. New right perihilar infrahilar airspace disease concerning for pneumonia. Pulmonary edema not excluded but less likely.
03/03/24- Similar appearance of the left upper lobe consolidation. Some minimal patchy opacities within the right lung base, likely atelectasis.
CT Chest 02/11/24- Approximate 10 cm 'mass' in the left upper chest with differential slightly low attenuation densities within, slightly greater density centrally than peripherally and which extends to the left hilum. Unfortunately, as a result of
the size of this lesion, determining the exact origin and etiology is somewhat limited, pleural versus parenchymal based. Although this may represent a large lesion such as an atypical hematoma, both benign and malignant masses are also possible
including mesenchymal tumors as there appears to be a few small left hilar lymph nodes. Hemorrhage into a lesion is also possible.
ECHO 03/01/24- Limited echo performed to assess for wall motion abnormalities. Normal left ventricular size and systolic function. LV ejection fraction is 60-65% by Roblero's method of discs. Hypokinesis of the mid to distal septum. Compared to
prior study dated 02/11/2024 which was directly reviewed, septal hypokinesis is new.
-----
Total time spent today was 51 minutes for this encounter. Time includes reviewing laboratory test/imaging results, reviewing pertinent medical records, obtaining and reviewing medical history, performing an appropriate exam, ordering medications,
tests and procedures. Time also includes documentation of this encounter, coordinating patient care via TT and communicating with other healthcare professionals. Total time does not include separately billed tests performed on this date of service.
Subjective Data
-
Date of Service:
Date of Service: March 13, 2024
Chief Complaint: Pulmonary Follow Up and Dyspnea Follow Up
Subjective:
no events ON, resumed on plavix 03/11
stable on RA, anxious about plan
s/p biopsy, path pending
Objective Data
Data Reviewed
Vital Signs / I&O / Oxygen:
Vital Signs
Temp Pulse Resp BP Pulse Ox
97.7 F 67 18 127/71 93
03/13/24 07:08 03/13/24 05:00 03/13/24 07:08 03/13/24 04:22 03/13/24 07:08
Intake and Output
03/12/24 03/13/24 03/14/24
06:59 06:59 06:59
Intake Total 240 / 240 306 / 306
Output Total 575 / 575
Balance 240 / 240 -269 / -269
SaO2 93
Nasal Cannula flow liters per 2
minute
Physical Exam
General: Respiratory Distress (n), Comfortable, Good Appetite and Other (NAD)
HEENT: Normocephalic, Anicteric and Moist Mucous Membranes
Cardiovascular: S1-S2, Murmur (BONIFACIO heard best ar RUSB, grade II/), Rub (n) and Peripheral Edema (n)
Respiratory: Clear, Wheeze (n), Crackles (negative), Rhonchi (n) and Non-Labored Respirations
GI: Soft, Non Distended, Non Tender and Normal Bowel Sounds
Neurology: Awake, Alert, Oriented, AO x 3 and Tremors (n)
Skin: Warm, Dry, Cyanosis (n), Jaundice (n) and Rash (n)
Labs/Micro/Reports
Lab Data
03/13/24 05:37
03/13/24 05:37
Laboratory Results
03/13/24
05:37
APTT 79.4 H
Microbiology
03/10/24 03:47 Urine Urine Culture - Final
NO GROWTH
03/06/24 Unknown Toe Wound Culture - Final
Pseudomonas aeruginosa
Enterobacter cloacae
03/06/24 Unknown Toe Gram Stain - Final
03/06/24 Unknown Toe Anaerobic Culture - Final
NO ANAEROBES ISOLATED
--- NOTE | 2024-03-13 11:08 | W.PN.ONC2 ---
Today's Communication / Plan
-
follow for lung pathology
monitor for infection with rising WBC/ANC/ALC
Impression
Impression
Microcytic anemia, iron studies c/w AOCD
possible transfusion reaction 03/03
Reactive leukocytosis +/- sepsis d/t left toe infection - rising over weekend
Left upper lobe mass likely malignancy, biopsy path pending
CAD, NSTEMI, PAF, HFpEF, HTN, HLD, Moderate
PAD s/p left common to external iliac balloon angioplasty/stent, SFA balloon angioplasty/stent x2, TP trunk and peroneal angioplasty, anterior tibial long segment angioplasty 02/10/24
Amputation of the first hallux 02/11/2024
Hyponatremia
Diabetes mellitus with hyperglycemia
Hemoptysis
100lb weight loss
Plan
Plan
s/p transthoracic biopsy of the 10 cm mass, follow for pathology
worsening leukocytosis/ANC/ALC over weekend, monitor for infection
Eventual cardiac cath
AF w RVR, HFpEF, CAD management per cardiology
partial 1st ray amputation 03/06/24, on abx through 03/19
Subjective/Objective
Chief Complaint
rising WBC/ALC/ANC over weekend, afebrile
continues with scant hemoptysis
Subjective
no new complaints
Vital Signs:
Vital Signs
Temp Pulse Resp BP Pulse Ox
97.8 F 67 18 127/71 94
03/13/24 11:02 03/13/24 05:00 03/13/24 11:02 03/13/24 04:22 03/13/24 11:02
Lab Results:
Laboratory Data
WBC 21.4 10^3/uL (4.8-10.8) H 03/13/24 05:37
Hgb 10.3 g/dL (13.0-18.0) L 03/13/24 05:37
Plt Count 401 10^3/uL (130-400) H D 03/13/24 05:37
PT 14.0 Sec (11.4-14.6) 03/10/24 03:10
INR 1.08 03/10/24 03:10
APTT 79.4 Sec (23.4-35.0) H 03/13/24 05:37
eGFR > 60.00 03/13/24 05:37
Physical Exam
HEENT: Normocephalic and Anicteric
Cardiovascular: S1/S2, bradycardia, ( 2/6 systolic murmur)
Respiratory: Non-Labored Respirations
GI: Soft, Non Distended and Non Tender
Neurology: Awake, Alert
Skin: Good Color, toe ampuation
Review of Systems
Review of Systems
ROS notable for subjective, otherwise negative
[2024-03-13 12:47] LABS: Glucose - Point of Care 182 mg/dl (70-99)
--- NOTE | 2024-03-13 13:11 | PTCARENOTE ---
Pt assisted OOB to BR to void x3, voiding lainey urine
--- NOTE | 2024-03-13 16:26 | CM ---
Chart reviewed. Patient is independent of ADLS, lives alone in a 2nd floor condo, [address], ambulates with a SPC. Patient is current with [facility]. Plan is for the patient to return home. Patient's Goddaughter is coming in from [place] to stay
with the patient when he goes home. CM to follow
[2024-03-13 17:29] LABS: Glucose - Point of Care 152 mg/dl (70-99)
[2024-03-13] MEDS: NOVOLOG FLEXPEN 5 UNITS SC (17:30)
[2024-03-13 22:28] LABS: Glucose - Point of Care 110 mg/dl (70-99)
[2024-03-13] MEDS: LANTUS 0.08 UNITS SC (22:41)
[2024-03-13] MEDS: DESYREL 12.5 MG PO (22:42)
[2024-03-14] VITALS (8 sets, daily range): BP systolic 116–133; BP diastolic 62–74; PULSE 81; O2SAT 94; BMI 25.2
[2024-03-14] MEDS: HEPARIN 25000 UNITS/250 ML IV ×2 (01:54→19:07)
[2024-03-14 05:26] LABS: Blood Urea Nitrogen 33 mg/dl (9-20); Calcium 8.7 mg/dl (8.4-10.2); Carbon Dioxide 25 mmol/L (22-30); Chloride 95 mmol/L (98-107); Estimated Creatinine Clearance 93 ml/min; Glucose 115 mg/dl (70-99); Potassium 4.1 mmol/L (3.5-5.1); Sodium 129 mmol/L (135-145); eGFR > 60.00
--- NOTE | 2024-03-14 05:33 | PTCARENOTE ---
Patient had an incontinent episode of stool in bed. Shortly after patient reports the need to go to the bathroom to move his bowels again. While returning back to bed pt complained of chest pain at 23:40, rating pain at a 6/10. Pt described the
pain as radiating from left chest to back and explained 'pain comes with activity.' 2L of oxygen applied, bp taken (114/64) and EKG obtained (see reports). Pt was offered morphine for pain as ordered, but refused. No new ekg readings were
reported. After resting for 5 minutes with oxygen on pt then estimated pain at a 5/10. Patient continued to rest and reported pain at 0/10 at 23:57. Pt on TELE monitor in NSR and resting with call marx in reach. IV heparin gtt remains at
15.5ml/hr.
[2024-03-14 05:45] LABS: Hematocrit 30.9 % (39.0-52.0); Hemoglobin 10.4 g/dL (13.0-18.0); Mean Corp Hgb Conc. 33.7 g/dL (33.0-37.0); Mean Corpuscular Hgb 26.5 pg (27.0-31.0); Mean Corpuscular Volume 78.6 fL (80.0-94.0); Mean Platelet Volume 8.4 fL (7.4-10.4); Platelet Count 351 10^3/uL (130-400); Red Blood Cell Count 3.93 10^6/uL (4.70-6.10); Red Cell Dist. Width 17.3 % (11.5-14.5); White Blood Cell Count 20.8 10^3/uL (4.8-10.8)
[2024-03-14 06:21] LABS: APTT 94.2 Sec (23.4-35.0)
[2024-03-14 06:55] LABS: % Basophils 0.1 % (0-2); % Eosinophils 1.4 % (0-6); % Immature Granulocytes 0.7 % (0-0.5); % Lymphocytes 27.4 % (20.5-51.1); % Monocytes 5.9 % (1.7-9.3); % Neutrophils 64.5 % (42.2-75.2); Absolute Eosinophils 0.3 10^3/uL (0-0.7); Absolute Immature Granulocytes 0.2 10^3/uL (0-0.05); Absolute Lymphocytes 5.7 10^3/uL (1.2-3.4); Absolute Monocytes 1.2 10^3/uL (0.1-0.6); Absolute Neutrophils 13.4 10^3/uL (1.4-6.5); Nucleated Red Blood Cells % 0 % (-)
[2024-03-14 08:08] LABS: Glucose - Point of Care 114 mg/dl (70-99)
[2024-03-14] MEDS: AUGMENTIN 875 MG/125 MG 1 TABLET PO ×2 (08:50→20:07)
[2024-03-14] MEDS: PLAVIX 75 MG PO (08:50)
[2024-03-14] MEDS: CIPRO 500 MG PO ×2 (08:51→20:07)
[2024-03-14] MEDS: LOPRESSOR 25 MG PO ×2 (08:51→20:08)
[2024-03-14] MEDS: PACERONE 200 MG PO ×3 (08:51→23:14)
[2024-03-14] MEDS: LOW STRENGTH ASPIRIN 81 MG PO (08:51)
[2024-03-14] MEDS: GLUCOPHAGE 1000 MG PO ×2 (08:52→17:22)
[2024-03-14] MEDS: BUSPAR 10 MG PO ×2 (08:52→20:08)
[2024-03-14] MEDS: LIPITOR 20 MG PO (08:52)
[2024-03-14] MEDS: LASIX 40 MG IV (08:53)
[2024-03-14] MEDS: NOVOLOG FLEXPEN-LOW RESISTANCE SC ×3 (08:53→17:22)
[2024-03-14] MEDS: MIRALAX PO (08:53)
[2024-03-14] MEDS: NOVOLOG FLEXPEN 5 UNITS SC (08:54)
[2024-03-14] MEDS: SENOKOT-S PO (08:54)
--- NOTE | 2024-03-14 09:05 | W.PN.HOSP.TC ---
Today's Communication/Plan
-
IV Lasix. Oral antibiotics. Heparin drip/DAPT.
Assessment / Plan
Assessment / Plan
General: Acutely ill, Non-toxic appearance today
HEENT: Normocephalic, Atraumatic and Moist Mucous Membranes
Respiratory: Clear to Auscultation; Negative Wheezes, Rales or Rhonchi
Cardiac: Regular Rhythm and S1/S2
GI: Soft, Nontender and Nondistended
Musculoskeletal: Left toe status post postop findings wrapped up. No Clubbing, No Cyanosis and No Edema
Neuro: Awake, Alert and Oriented, no gross neuro-deficits
Psych: Calm
A/P:
Acute hypoxic respiratory insufficiency -due to heart failure induced pulmonary edema. Continue IV Lasix. Oxygenation improved, now on room air.
NSTEMI -still with intermittent resting chest pain, nonpleuritic. Troponins trended down. EKG last evening shows normal sinus rhythm, septal infarct age undetermined, ST and T wave abnormality. No significant change compared to previous EKG.
Repeat chest x-ray this morning shows no pneumothorax.
Continue aspirin
Plavix resumed over the weekend by Dr. Phillips. Discussed with cardiology and pulmonary and oncology today on 03/13 and will continue with DAPT for now but might hold Plavix again depending on course.
Morphine as needed for pain
Cardiology discussing with oncology and pulmonary about the best timing to move forward with invasive cardiac procedure taking into account that if he needs cardiac stenting then might not be able to stop Plavix.
Left lung mass and hemoptysis:
Pulmonary consult appreciated. Underwent lung biopsy on March 10, path pending. Unclear if enough sample.
Discussed with oncology as well on 03/13
Biopsy revealed necrotic tissues, nondiagnostic. Awaiting for oncology and pulmonary for further steps.
Sepsis due to left toe infection: Wound culture shows Pseudomonas and Enterobacter.
Improving
ID changed antibiotics to ciprofloxacin and Augmentin through 03/19
Status post left partial first ray amputation on 03/06 by podiatry
I asked ID to reevaluate on 03/13 due to concerns by hematology oncology about rising leukocytosis
Paroxysmal atrial fibrillation, new onset:
On rate control, metoprolol tartrate 25 mg every 12 hours
On amiodarone 200 mg p.o. 3 times daily
On IV heparin drip
Acute diastolic CHF -IV Lasix 40 mg daily by cardiology. Weight continues to trend down. Today 84.2 kg.
Anemia of chronic disease:
Hematology consult appreciated
Blood transfusion given
Hemoglobin stable.
Post blood transfusion reaction on 03/03:
He was given IV Lasix, IV steroids, and continue with broad-spectrum antibiotics.
Chronic hyponatremia -sodium 129 today. TSH is normal. Suspect SIADH induced hyponatremia. Urine osmolality 398, urine sodium 34.
Chronic limb ischemia:
Status post vascular intervention on 02/[address] Vega
DM2 with hyperglycemia - Prior to admission he was on metformin and sitagliptin. Glucose 166 this morning. Continue Lantus 8 units at bedtime, NovoLog 5 units AC, low resistance corrective scale.
Last hemoglobin A1c on 02/09 was 8.2%
He is now on ciprofloxacin which could potentially interact with sitagliptin. Sitagliptin discontinued. Continue metformin.
Essential hypertension:
Continue current antihypertensives.
Monitor blood pressure and adjust medications accordingly.
Hyperlipidemia:
Continue statins
DVT prophylaxis:
On heparin drip
CODE STATUS-DNR
Total time spent on today's encounter was 52 minutes which included time spent in counseling the patient/family regarding diagnosis and treatment plan as listed above, goals of care, and symptom management. Case was discussed with nursing staff,
specialists, and care coordinators/case management. All labs and imaging personally reviewed by me. Remainder the time spent in detailed review of previous records, lab data, imaging, and other medical provider documentation.
Anticipated Discharge: 24 - 48 hours
Subjective/Interval History
-
Date of Service: March 14, 2024
Patient is still having chest pain on and off, it peaks and intensity about 4 out of 10. No shortness of breath. Afebrile
Objective Data
-
Labs:
Laboratory Results
03/14/24
04:50
WBC 20.8 H
Hgb 10.4 L
Hct 30.9 L
Plt Count 351
APTT 94.2 H
Sodium 129 L
Potassium 4.1
Chloride 95 L
Carbon Dioxide 25
BUN 33 H
Creatinine 0.8
Glucose 115 H
Calcium 8.7
Vital Signs:
Vital Signs
Temp Pulse Resp BP Pulse Ox
97.8 F 66 18 126/67 93
03/14/24 06:55 03/14/24 03:00 03/14/24 06:55 03/14/24 03:00 03/14/24 06:55
I&O
03/13/24 03/14/24 03/15/24
06:59 06:59 06:59
Intake Total 306 / 306 426 / 426
Output Total 575 / 575
Balance -269 / -269 426 / 426
--- NOTE | 2024-03-14 09:06 | W.PN.PUL3 ---
Today's Communication / Plan
-
Reviewed with care team extensively
Obtain more detailed scan to evaluate for alternate site of biopsy which may yield non-necrotic tissue
Once obtained, can pursue prior to cardiac intervention
Then can proceed with planned cath
I reviewed this in detail with patient
Encouraged OOB/ambulation as he seemingly is appearing depressed
Assessment
-
73-year-old male with history of peripheral arterial disease, status post recent left toe amputation, treated for diagram gain, history of coronary disease with stent placement 2014, and lower extremity PAD stents 2016 at [facility], now
presents with increased chest discomfort similar to prior cardiac pain. Patient started on heparin therapy. We are asked to comment on his pulmonary process
Impression:
Acute onset midsternal chest discomfort
NSTEMI
Gross hemoptysis - improved
History of coronary disease with stent placement at [facility]
Diastolic CHF
Leukocytosis
Anemia
Peripheral vascular disease
Peripheral arterial disease, stent placement lower extremity 2015 [facility]
Recent left first hallux amputation 02/11/2024
Hyponatremia
Hyperglycemia
10 cm left upper lobe mass s/p IR CT guided Bx (03/10/2024)
Mild left hilar adenopathy
Moderate , valve area 1 cm�
New onset AFib
Conditions present prior to admission
Hypertension/hyperlipidemia
Diabetes
20+ tobacco history, quit around 2015
100 pound weight loss over the past year
Plan
Respiratory status stable on room air although he does endorse L-sided chest pain/back pain which is intermittent today; no evidence of PTX on CXR from yesterday or today; EKG from 03/11/2024 without new acute changes
Keep SpO2 >94%
Continue nebulizers as needed
Follow hemoptysis-minimal
Note: Sputum cytology negative for malignant cells
Lung mass on the left-requires biopsy-unable to immediately pursue while on aspirin/Plavix
Reviewed with interventional radiology-needed to be off Plavix 5 days prior to transthoracic biopsy-Dr. Levy notified interventional radiology 03/07/2024-biopsy performed on 03/10
Follow up final pathology from Bx--necrosis shown
IR indicates specimens were necrotic according to the on-site pathologist, despite repositioning the biopsy needle multiple times.
6 specimens were obtained. If final pathology is necrotic/nondiagnostic, consider PET/CT of the lesion to determine the areas of viable tumor in order to direct future biopsy.
Rescan for alternative biopsy locations
Cardiology following-correspondence reviewed
Troponin trended � peaked at 26.9 on 03/03/2024
Eventual cardiac catheterization-in part due to expected prognosis
Continue heparin gtt
Plavix restarted on 03/11/2024
New onset AFib-rapid a.m. 03/09/2024-rate control and anticoagulation
Diuresis as tolerated
Monitor renal function, electrolytes, intake/output, lower extremity edema and weight
Replace electrolytes as needed
Orthopedics following-status post debridement and partial amputation 03/06/2024
He endorses depression likely due to adjustment disorder
Continue Buspar 10mg BID, and raise or lower dose as needed
Recommend outpatient follow up with PCP +/- psychologist/psychiatrist
Monitor blood sugars with goal >100 and <180
Insulin supplementation as needed
Cultures reviewed
Wound cultures with Pseudomonas and Enterobacter
Empiric antibiotics per infectious disease - currently on Augmentin + cipro
Infectious disease following-correspondence reviewed
DVT prophylaxis-heparin gtt
Nutrition
Reviewed with nursing
Diagnostic Data
CXR 03/12/24- No pneumothorax. Stable left upper lobe opacification. New right perihilar infrahilar airspace disease concerning for pneumonia. Pulmonary edema not excluded but less likely.
03/03/24- Similar appearance of the left upper lobe consolidation. Some minimal patchy opacities within the right lung base, likely atelectasis.
CT Chest 02/11/24- Approximate 10 cm 'mass' in the left upper chest with differential slightly low attenuation densities within, slightly greater density centrally than peripherally and which extends to the left hilum. Unfortunately, as a result of
the size of this lesion, determining the exact origin and etiology is somewhat limited, pleural versus parenchymal based. Although this may represent a large lesion such as an atypical hematoma, both benign and malignant masses are also possible
including mesenchymal tumors as there appears to be a few small left hilar lymph nodes. Hemorrhage into a lesion is also possible.
ECHO 03/01/24- Limited echo performed to assess for wall motion abnormalities. Normal left ventricular size and systolic function. LV ejection fraction is 60-65% by Roblero's method of discs. Hypokinesis of the mid to distal septum. Compared to
prior study dated 02/11/2024 which was directly reviewed, septal hypokinesis is new.
-----
Total time spent today was 55 minutes for this encounter. Time includes reviewing laboratory test/imaging results, reviewing pertinent medical records, obtaining and reviewing medical history, performing an appropriate exam, ordering medications,
tests and procedures. Time also includes documentation of this encounter, coordinating patient care via TT and communicating with other healthcare professionals. Total time does not include separately billed tests performed on this date of service.
Subjective Data
-
Date of Service:
Date of Service: March 14, 2024
Chief Complaint: Pulmonary Follow Up and Dyspnea Follow Up
Subjective:
No acute events ON, remains on RA
No new complaints
Objective Data
Data Reviewed
Vital Signs / I&O / Oxygen:
Vital Signs
Temp Pulse Resp BP Pulse Ox
97.8 F 66 18 126/67 93
03/14/24 06:55 03/14/24 03:00 03/14/24 06:55 03/14/24 03:00 03/14/24 06:55
Intake and Output
03/13/24 03/14/24 03/15/24
06:59 06:59 06:59
Intake Total 306 / 306 426 / 426
Output Total 575 / 575
Balance -269 / -269 426 / 426
SaO2 93
Nasal Cannula flow liters per 2
minute
Physical Exam
General: Respiratory Distress (n), Comfortable, Good Appetite and Other (NAD)
HEENT: Normocephalic, Anicteric and Moist Mucous Membranes
Cardiovascular: S1-S2, Murmur (BONIFACIO heard best ar RUSB, grade II/), Rub (n) and Peripheral Edema (n)
Respiratory: Clear, Wheeze (n), Crackles (negative), Rhonchi (n) and Non-Labored Respirations
GI: Soft, Non Distended, Non Tender and Normal Bowel Sounds
Neurology: Awake, Alert, Oriented, AO x 3 and Tremors (n)
Skin: Warm, Dry, Cyanosis (n), Jaundice (n) and Rash (n)
Labs/Micro/Reports
Lab Data
03/14/24 04:50
03/14/24 04:50
Laboratory Results
03/14/24
04:50
APTT 94.2 H
Microbiology
03/10/24 03:47 Urine Urine Culture - Final
NO GROWTH
03/06/24 Unknown Toe Wound Culture - Final
Pseudomonas aeruginosa
Enterobacter cloacae
03/06/24 Unknown Toe Gram Stain - Final
03/06/24 Unknown Toe Anaerobic Culture - Final
NO ANAEROBES ISOLATED
--- NOTE | 2024-03-14 10:23 | W.PN.CARDCBS ---
Today's Communication / Plan
-
Continue medical management of coronary artery disease
Eventual invasive coronary angiography, timing will hinge on workup of his lung mass with goal to avoid interrupting antiplatelet therapy if an intervention is performed
Impression / Plan
-
PCP: Dr. Woodrow Bynum
Cardiology: Dr. Santosh Zepeda with [facility] ([phone])
Impression:
Chest pain
NSTEMI with Troponin peaking at 26.9 on 03/03/24
CAD
s/p 3.5 mm Xience to prox LAD 05/12/13
s/p2.75 mm Xience distal RCA 05/12/13
s/p 3.0 mm Xience to prox RCA at [facility] 05/12/13
PAD s/p left common to external iliac balloon angioplasty/stent, SFA balloon angioplasty/stent x2, TP trunk and peroneal angioplasty, anterior tibial long segment angioplasty 02/10/24
s/p left hallux amputation 02/11/24
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
Hemoptysis
Smoker
DM 2
Newly diagnosed paroxysmal Afib 03/05/24
Echo on 02/11/24: LV ejection fraction is 60-65% by Roblero's method of discs. Mild concentric left ventricular hypertrophy. Mild mitral regurgitation.Mild to moderate aortic stenosis. Trace tricuspid regurgitation. Estimated pulmonary artery
pressure of 20-25 mmHg.
Echo 03/01/24: EF 60-65%, hypokinesis mid to distal septum
Plan:
-Presented with chest pain. Troponin peaked at 26.9. Patient has known CAD and prior PCI.
-Medical management of NSTEMI with ASA/Plavix, heparin gtt, BB, statin
-Eventual invasive coronary angiography, timing will hinge on workup of his lung mass with goal to avoid interrupting antiplatelet therapy if an intervention is performed
-Newly diagnosed atrial fibrillation this admission spontaneously converted 03/09
-Maintaining NSR
-IV amio started 03/09 and transitioned to PO amiodarone 03/10.
-Continue lopressor 25mg BID. As OP was on Toprol 25mg daily.
-Continue heparin gtt for now. Eventual consideration of OAC given CHADsVASC score 4. Will need to use caution w/ hemoptysis.
-Diuresing with IV lasix 40mg daily. Creat stable.
HPI: This is a 73 year old male patient with PMH of PAD, cardiac stent 2016, NIDDM, recent admission for dry gangrene of his left first toe status post amputation on 02/10, cardiac stent in 2015 and stent placement of the left superficial femoral
artery/left common iliac artery in 2017, lung mass with concerns of chest pain. He states that at 3AM he started to feel midsternal chest pain while sleeping which he described as a dull ache. He called EMS and felt that his chest pain improved upon
being given nitroglycerin. He also has concerns of left big toe pain. He denies CP, palpitations, SOB on exertion or dizziness.
His troponin was elevated at 0.078. Cardiology consulted.
Progress Note - [employer]
Subjective
Date of Service: March 14, 2024
No acute overnight events. Patient reports some mild left-sided chest discomfort overnight which is not relieved by sublingual nitro or morphine. Also reports some scant hemoptysis.
Objective
Labs:
03/14/24 04:50
03/14/24 04:50
Labs
Hgb 10.4 g/dL (13.0-18.0) L 03/14/24 04:50
Hct 30.9 % (39.0-52.0) L 03/14/24 04:50
Plt Count 351 10^3/uL (130-400) 03/14/24 04:50
PT 14.0 Sec (11.4-14.6) 03/10/24 03:10
INR 1.08 03/10/24 03:10
APTT 94.2 Sec (23.4-35.0) H 03/14/24 04:50
Sodium 129 mmol/L (135-145) L 03/14/24 04:50
Potassium 4.1 mmol/L (3.5-5.1) 03/14/24 04:50
BUN 33 mg/dl (9-20) H 03/14/24 04:50
Creatinine 0.8 mg/dL (0.7-1.3) 03/14/24 04:50
Glucose 115 mg/dl (70-99) H 03/14/24 04:50
Troponins
03/11/24 03/12/24
17:31 02:48
Troponin I 1.640 H* 1.450 H*
Vital Signs and I&O:
Vital Signs
Temp Pulse Resp BP Pulse Ox
97.8 F 66 18 126/67 93
03/14/24 06:55 03/14/24 03:00 03/14/24 06:55 03/14/24 03:00 03/14/24 06:55
Vital Signs
Temp Pulse Resp BP Pulse Ox
97.8 F 66 18 126/67 93
03/14/24 06:55 03/14/24 03:00 03/14/24 06:55 03/14/24 03:00 03/14/24 06:55
Intake & Output
03/12/24 03/13/24 03/14/24 03/15/24
06:59 06:59 06:59 06:59
Intake Total 240 / 240 306 / 306 426 / 426
Output Total 575 / 575
Balance 240 / 240 -269 / -269 426 / 426
Physical Exam
Physical Exam
Gen: NAD, AAOx3
HEENT: NC/AT, sclera anicteric
Neck: No JVD
CV: RRR, NL s1/s2, 2 out of 6 systolic ejection murmur at the base
Lungs: CTAB
Abd: S/ND
Ext: No LE edema. Status post amputation of the left first metatarsal clean dry intact.
Skin: Warm, dry
Neuro: Non-focal
--- NOTE | 2024-03-14 10:50 | W.PN.UPDATE ---
Addendum entered and electronically signed by Taylor Grider MD 03/14/24 11:04:
I checked w/ IR - if port is needed for future treatment, can be placed after discharge, without holding ASA/Plavix
Original Note:
Update Note
Progress Note Update
Multiple lung biopsies by IR only revealed necrotic tissue, non-diagnostic. Bronchoscopic biopsy likely to be non-diagnostic as well.
LHC and coronary stenting on hold pending lung mass diagnosis, as he'll need DAPT which can't be stopped for procedures
Will check CT N/C/A/P to assess for another biopsy site (node, met, etc.) Based on results, t/c bone scan as well.
(PET would be ideal, but cannot be done inpatient)
t/c port placement prior to LHC/stent, though treatment could possibly be given via peripheral vein (will check w/ IR if port can be placed while on ASA/Plavix)
Will follow along
--- NOTE | 2024-03-14 11:21 | WOUNDNOTE ---
LIZZY RN NOTE: Followed up today along with nurse Radha for R buttock stage 2 PI. Patient reports he has had recent bouts of diarrhea, stains evident on Ultrasorb pad. Patient has 2 tiny open areas on R buttock close to rectum, suspect is due to
moisture/incontinence rather than pressure. Recommended barrier cream to nurse who will apply. L buttock is blanchable red. Foot dressing with dry dressing, sutures intact, podiatry following.
--- NOTE | 2024-03-14 11:40 | CM ---
Chart reviewed. Patient is independent of ADLS, lives alone in a 2nd floor condo, [address], ambulates with a SPC. Patient is current with [facility]. Patient's Goddaughter is coming in from [place] to stay with the patient when he goes home. Plan
is for the patient to return home with [facility]. CM to follow
[2024-03-14] MEDS: OMNIPAQUE 50 ML PO (11:48)
[2024-03-14 12:42] LABS: Glucose - Point of Care 103 mg/dl (70-99)
[2024-03-14] MEDS: NOVOLOG FLEXPEN SC ×2 (12:44→18:26)
--- NOTE | 2024-03-14 13:12 | W.PN.ID1 ---
Date of Service
Date of Service: March 14, 2024
Today's Communication
no new symptoms reported - patient is a good historian
surgical site healing well
no phlebitis
held scheduled docusate given single episdoe of fecal incontinence overnight
Assessment / Plan
Leukocytosis - persistent
- no new symptoms, patient is a good historian
- has been present throughout his hospitalization - suspect related to lung mass
- no further workup indicated at this time
- single episode of loose stool/incontinence overnight - not roxanna diarrhea
- on scheduled docusate and miralax
- held docusate
Left Diabetic Foot Infection/Surgical Site Infection
DM2 uncontrolled
- s/p 1st ray amputation 03/06 - healing well
- c/w ciprofloxacin and augmentin x 14 days through 03/19
- a1c was 8.2
- metformin and sitagliptin on hold, now on insulin
- on dc would hold sitagliptin, decrease metformin dose to 500 mg PO BID while on ciprofloxacin given prior A1c 8
Chief Complaint
-: Other (surgical site infection)
Subjective / Review of Systems
reconsulted for persistent leukocytosis
note resolving thrombocytosis
afebrile
denies: headaches, sinus tenderness, sore throat, change in cough, new sputum production, nausea, vomiting, diarrhea, constipation, new rashes, joint pains, new wounds, tenderness over PIVs
his surgical site is healing well
single episode of loose stool/incontinence overnight - not roxanna diarrhea
- on scheduled docusate and miralax
- held docusate
Vital Signs / Physical Exam
Vital Signs
Vital Signs
Temp Pulse Resp BP Pulse Ox
97.6 F 56 18 116/66 97
03/14/24 11:12 03/14/24 11:10 03/14/24 11:12 03/14/24 11:10 03/14/24 11:12
Physical Exam
Constitutional: No Acute Distress
Cardiovascular: Regular Rate and S1/S2; Negative Murmur or Rub
Pulmonary: Clear and Symmetric; Negative Wheezes or Rales
Gastrointestinal: Soft, Non Tender, Non Distended and Normal Bowel Sounds
Skin: Warm and Dry; Negative Rash or Jaundice
Wound: Other (surgical site healing no erythema, warmth, dehiscence. minimal bloody drainage)
Objective Data
Lab Data
Lab Results
03/14/24 04:50
03/14/24 04:50
PT 14.0 Sec (11.4-14.6) 03/10/24 03:10
INR 1.08 03/10/24 03:10
APTT 94.2 Sec (23.4-35.0) H 03/14/24 04:50
Estimated Creat Clear 93 ml/min 03/14/24 04:50
Lactic Acid 1.8 mmol/L (0.7-2.0) 03/03/24 05:03
Total Bilirubin 0.8 mg/dl (0.2-1.3) 03/13/24 05:37
AST 24 U/L (17-59) 03/13/24 05:37
ALT 13 U/L (0-50) 03/13/24 05:37
Alkaline Phosphatase 67 U/L (38-126) 03/13/24 05:37
Most recent labs reviewed.
Micro Results:
03/10/24 03:47 Urine Culture - Final
Urine NO GROWTH
03/06/24 Unknown Wound Culture - Final
Toe Pseudomonas aeruginosa
Enterobacter cloacae
Gram Stain - Final
03/06/24 Unknown Anaerobic Culture - Final
Toe NO ANAEROBES ISOLATED
03/01/24 10:24 Blood Culture - Final
Blood/Venous No Growth - Final Report
03/01/24 10:56 Wound Culture - Final
Abscess Enterobacter cloacae
Pseudomonas aeruginosa
Gram Stain - Final
03/01/24 13:38 MRSA Screen - Final
Nose No Methicillin Resistant Staphylococcus aureus isolated.
--- NOTE | 2024-03-14 16:50 | PTCARENOTE ---
Pt incontinent large amt loose to liquid brown stool after CT scan.
[2024-03-14 17:12] LABS: Glucose - Point of Care 117 mg/dl (70-99)
[2024-03-14 23:11] LABS: Glucose - Point of Care 117 mg/dl (70-99)
[2024-03-14] MEDS: LANTUS 0.08 UNITS SC (23:15)
[2024-03-14] MEDS: DESYREL 25 MG PO (23:15)
[2024-03-15] VITALS (12 sets, daily range): BP systolic 98–140; BP diastolic 54–74; BMI 25.0
--- NOTE | 2024-03-15 01:03 | PTCARENOTE ---
Pt received start of shift, HR SR. Heparin infusing at 1550u/hr. Pt updated on plan of care, pt states understanding. Pt appears w/ slightly flat affect. States they hate having visitors bc he doesn't like the thought of them seeing him how he is.
Comforted pt. Pt requesting to shave, informed an electric razor would be preferred while on the heparin drip. Pt states understanding. Pt denies any CP, SOB, or lightheadedness/dizziness. Informed to notify RN if any changes, call marx within
reach.
[2024-03-15 03:26] LABS: Hematocrit 33.1 % (39.0-52.0); Mean Corp Hgb Conc. 33.2 g/dL (33.0-37.0); Mean Corpuscular Hgb 26.3 pg (27.0-31.0); Mean Platelet Volume 8.7 fL (7.4-10.4); Platelet Count 353 10^3/uL (130-400); Red Blood Cell Count 4.19 10^6/uL (4.70-6.10); Red Cell Dist. Width 17.9 % (11.5-14.5); White Blood Cell Count 20.6 10^3/uL (4.8-10.8)
[2024-03-15 03:33] LABS: APTT 126.5 Sec (23.4-35.0)
[2024-03-15 03:45] LABS: ALT (SGPT) 12 U/L (0-50); AST (SGOT) 23 U/L (17-59); Alkaline Phosphatase 67 U/L (38-126); Blood Urea Nitrogen 22 mg/dl (9-20); Calcium 8.8 mg/dl (8.4-10.2); Carbon Dioxide 26 mmol/L (22-30); Chloride 95 mmol/L (98-107); Direct Bilirubin 0.4 mg/dl (0.0-0.4); Estimated Creatinine Clearance 93 ml/min; Glucose 113 mg/dl (70-99); Potassium 3.9 mmol/L (3.5-5.1); Sodium 131 mmol/L (135-145); Total Protein 5.9 g/dl (6.3-8.2); eGFR > 60.00
[2024-03-15 03:50] LABS: % Basophils 0.2 % (0-2); % Eosinophils 2.2 % (0-6); % Immature Granulocytes 0.6 % (0-0.5); % Lymphocytes 27.6 % (20.5-51.1); % Monocytes 6.1 % (1.7-9.3); % Neutrophils 63.3 % (42.2-75.2); Absolute Eosinophils 0.5 10^3/uL (0-0.7); Absolute Immature Granulocytes 0.1 10^3/uL (0-0.05); Absolute Lymphocytes 5.7 10^3/uL (1.2-3.4); Absolute Monocytes 1.3 10^3/uL (0.1-0.6); Nucleated Red Blood Cells % 0 % (-)
[2024-03-15 07:04] LABS: Glucose - Point of Care 120 mg/dl (70-99)
[2024-03-15] MEDS: NOVOLOG FLEXPEN-LOW RESISTANCE SC ×2 (07:46→11:47)
[2024-03-15] MEDS: NOVOLOG FLEXPEN SC ×2 (08:00→19:18)
--- NOTE | 2024-03-15 08:20 | W.PN.PUL3 ---
Addendum entered and electronically signed by Bonita Ballesteros DO 03/15/24 15:44:
No role for CTS here, given high risk case
Ok to proceed with cath
Can eval as OP PET/CT, and plan accordingly while DAPT on board
Original Note:
Today's Communication / Plan
-
Likely unable to perform any further diagnostic procedures that would give high yield
Will review case with CTS for definitive planning
Otherwise, discussed with heme/onc, ok to proceed with cath
Quantify hemoptysis, may need to hold AC if worsening
Discussed in detail with care team
Assessment
-
73-year-old male with history of peripheral arterial disease, status post recent left toe amputation, treated for diagram gain, history of coronary disease with stent placement 2014, and lower extremity PAD stents 2016 at [facility], now
presents with increased chest discomfort similar to prior cardiac pain. Patient started on heparin therapy. We are asked to comment on his pulmonary process
Impression:
Acute onset midsternal chest discomfort
NSTEMI
Gross hemoptysis - resumed again
History of coronary disease with stent placement at [facility]
Diastolic CHF
Leukocytosis
Anemia
Peripheral vascular disease
Peripheral arterial disease, stent placement lower extremity 2015 [facility]
Recent left first hallux amputation 02/11/2024
Hyponatremia
Hyperglycemia
10 cm left upper lobe mass s/p IR CT guided Bx (03/10/2024)
Mild left hilar adenopathy
Moderate , valve area 1 cm�
New onset AFib
Conditions present prior to admission
Hypertension/hyperlipidemia
Diabetes
20+ tobacco history, quit around 2015
100 pound weight loss over the past year
Plan
Respiratory status stable on room air although he does endorse L-sided chest pain/back pain which is not relieved with morphine/nitro
EKG from 03/11/2024 without new acute changes
Keep SpO2 >94%
Continue nebulizers as needed
Follow hemoptysis-minimal
Note: Sputum cytology negative for malignant cells
Lung mass on the left-requires biopsy-unable to immediately pursue while on aspirin/Plavix
s/p IR percutaneous 03/07/2024-biopsy performed on 03/10
Follow up final pathology from Bx--necrosis shown/final showing lung adenoca favored
IR indicates specimens were necrotic according to the on-site pathologist, despite repositioning the biopsy needle multiple times.
6 specimens were obtained. If final pathology is necrotic/nondiagnostic, consider PET/CT of the lesion to determine the areas of viable tumor in order to direct future biopsy.
Rescan for alternative biopsy locations--small LNS likely low yield on EBUS
I will review scans with CTS to see if amenable for wedge but may be high risk given untreated NSTEMI
Hemoptysis noted again, likely from tumor
Reviewed with RN to quantify for now
Cardiology following-correspondence reviewed
Troponin trended � peaked at 26.9 on 03/03/2024
Eventual cardiac catheterization-in part due to expected prognosis
Continue heparin gtt
Plavix restarted on 03/11/2024
New onset AFib-rapid a.m. 03/09/2024-rate control and anticoagulation
Diuresis as tolerated
Monitor renal function, electrolytes, intake/output, lower extremity edema and weight
Replace electrolytes as needed
Orthopedics following-status post debridement and partial amputation 03/06/2024
He endorses depression likely due to adjustment disorder
Continue Buspar 10mg BID, and raise or lower dose as needed
Recommend outpatient follow up with PCP +/- psychologist/psychiatrist
Monitor blood sugars with goal >100 and <180
Insulin supplementation as needed
Cultures reviewed
Wound cultures with Pseudomonas and Enterobacter
Empiric antibiotics per infectious disease - currently on Augmentin + cipro
Infectious disease following-correspondence reviewed
DVT prophylaxis-heparin gtt
Nutrition
Reviewed with nursing
Diagnostic Data
CXR 03/12/24- No pneumothorax. Stable left upper lobe opacification. New right perihilar infrahilar airspace disease concerning for pneumonia. Pulmonary edema not excluded but less likely.
03/03/24- Similar appearance of the left upper lobe consolidation. Some minimal patchy opacities within the right lung base, likely atelectasis.
CT Chest 02/11/24- Approximate 10 cm 'mass' in the left upper chest with differential slightly low attenuation densities within, slightly greater density centrally than peripherally and which extends to the left hilum. Unfortunately, as a result of
the size of this lesion, determining the exact origin and etiology is somewhat limited, pleural versus parenchymal based. Although this may represent a large lesion such as an atypical hematoma, both benign and malignant masses are also possible
including mesenchymal tumors as there appears to be a few small left hilar lymph nodes. Hemorrhage into a lesion is also possible.
ECHO 03/01/24- Limited echo performed to assess for wall motion abnormalities. Normal left ventricular size and systolic function. LV ejection fraction is 60-65% by Roblero's method of discs. Hypokinesis of the mid to distal septum. Compared to
prior study dated 02/11/2024 which was directly reviewed, septal hypokinesis is new.
-----
Total time spent today was 61 minutes for this encounter. Time includes reviewing laboratory test/imaging results, reviewing pertinent medical records, obtaining and reviewing medical history, performing an appropriate exam, ordering medications,
tests and procedures. Time also includes documentation of this encounter, coordinating patient care via TT and communicating with other healthcare professionals. Total time does not include separately billed tests performed on this date of service.
Subjective Data
-
Date of Service:
Date of Service: March 15, 2024
Chief Complaint: Pulmonary Follow Up and Dyspnea Follow Up
Subjective:
No acute events ON
Chest pain ongoing unresponsive to morphine/nitro
Stable on RA
Coughing up more blood
Objective Data
Data Reviewed
Vital Signs / I&O / Oxygen:
Vital Signs
Temp Pulse Resp BP Pulse Ox
97.6 F 66 18 111/59 94
03/15/24 07:00 03/15/24 07:00 03/15/24 07:00 03/15/24 06:59 03/15/24 07:00
Intake and Output
03/14/24 03/15/24 03/16/24
06:59 06:59 06:59
Intake Total 426 / 426 480 / 480
Balance 426 / 426 480 / 480
SaO2 94
Nasal Cannula flow liters per 2
minute
Physical Exam
General: Respiratory Distress (n), Comfortable, Good Appetite and Other (NAD)
HEENT: Normocephalic, Anicteric and Moist Mucous Membranes
Cardiovascular: S1-S2, Murmur (BONIFACIO heard best ar RUSB, grade II/), Rub (n) and Peripheral Edema (n)
Respiratory: Clear, Wheeze (n), Crackles (negative), Rhonchi (n) and Non-Labored Respirations
GI: Soft, Non Distended, Non Tender and Normal Bowel Sounds
Neurology: Awake, Alert, Oriented, AO x 3 and Tremors (n)
Skin: Warm, Dry, Cyanosis (n), Jaundice (n) and Rash (n)
Labs/Micro/Reports
Lab Data
03/15/24 02:54
03/15/24 02:54
Laboratory Results
03/15/24
02:54
APTT 126.5 H
--- NOTE | 2024-03-15 08:44 | PTCARENOTE ---
Received patient this morning resting in bed, IV heparin infusing at 1450 units/hr. Bloody expectorant noted in the patient's emesis basin. Patient stating he though he had gas but worried he might have been incontinent. Patient incontinent of
moderate amount of loose/soft brown stool. Sacral area excoriated, moisture barrier applied.
--- NOTE | 2024-03-15 08:50 | W.PN.ONC2 ---
Documented by User: Sea Hood DO, Resident 03/15/24 09:03
Today's Communication / Plan
-
CT negative, proceed with cardiac cath. Appreciate Cards input.
IR okay to do port after DC even if pt on Plavix/ASA
Impression
Impression
Microcytic anemia, iron studies c/w AOCD
possible transfusion reaction 03/03
Reactive leukocytosis +/- sepsis d/t left toe infection - rising over weekend
Left upper lobe mass likely malignancy, biopsy path pending
CAD, NSTEMI, PAF, HFpEF, HTN, HLD, Moderate
PAD s/p left common to external iliac balloon angioplasty/stent, SFA balloon angioplasty/stent x2, TP trunk and peroneal angioplasty, anterior tibial long segment angioplasty 02/10/24
Amputation of the first hallux 02/11/2024
Hyponatremia
Diabetes mellitus with hyperglycemia
Hemoptysis
100lb weight loss
Plan
Plan
s/p transthoracic biopsy of the 10 cm mass, follow for pathology
worsening leukocytosis/ANC/ALC over weekend, monitor for infection
CT negative, ok to proceed with cardiac cath.
IR ok to do port after DC even if pt on Plavix/ASA
AF w RVR, HFpEF, CAD management per cardiology
partial 1st ray amputation 03/06/24, on abx through 03/19
Subjective/Objective
Chief Complaint
Hematology follow up
Subjective
Pt reports feeling okay today. He had minimal sleep and continues to have poor appetite. He had a couple episodes of hemoptysis and bowel incontinence (loose stool). He reports no headaches, NV, constipation, abdominal pain, SOB, CP or dizziness. He
states he has been having some difficulty with maintaining his urinary stream
Vital Signs:
Vital Signs
Temp Pulse Resp BP Pulse Ox
97.6 F 66 18 111/59 94
03/15/24 07:00 03/15/24 07:00 03/15/24 07:00 03/15/24 06:59 03/15/24 07:00
Lab Results:
Laboratory Data
WBC 20.6 10^3/uL (4.8-10.8) H 03/15/24 02:54
Hgb 11.0 g/dL (13.0-18.0) L 03/15/24 02:54
Plt Count 353 10^3/uL (130-400) 03/15/24 02:54
PT 14.0 Sec (11.4-14.6) 03/10/24 03:10
INR 1.08 03/10/24 03:10
APTT 126.5 Sec (23.4-35.0) H 03/15/24 02:54
eGFR > 60.00 03/15/24 02:54
Physical Exam
General: AAOx3, resting in bed, conversant
Cardiology: Normal Sinus Rhythm
Pulmonary: Clear
GI: Soft and Normal Bowel Sounds
Review of Systems
Review of Systems
Constitutional: Reports Fatigue and Other (poor appetite)
Respiratory: Reports Other (hemoptysis)
Gastrointestinal: Reports Other (fecal incontinence )
Psychiatric: Reports Insomnia

Documented by User: Davie Canada MD 03/15/24 09:21
Today's Communication / Plan
-
I saw and examined the patient.
The resident's note was reviewed and I agree with the note.
Comment:
CT negative, proceed with cardiac cath. Appreciate Cards input.
IR okay to do port after DC even if pt on Plavix/ASA.
ADDENDUM:
Unfortunately, follow-up CT scan does not reveal additional areas amenable to biopsy.
At present, we have scant tissue diagnostic of malignancy suspicious for non-small carcinoma, favor adenocarcinoma (poorly differentiated).
Unfortunately, I do not think we have enough tissue for biomarkers but we we will be able to try to get additional biomarkers as part of an outpatient liquid biopsy.
HZ
[2024-03-15] MEDS: AUGMENTIN 875 MG/125 MG 1 TABLET PO ×2 (08:59→19:37)
[2024-03-15] MEDS: CIPRO 500 MG PO ×2 (09:00→19:37)
[2024-03-15] MEDS: GLUCOPHAGE 1000 MG PO (09:00)
[2024-03-15] MEDS: BUSPAR 10 MG PO ×2 (09:00→19:37)
[2024-03-15] MEDS: LOPRESSOR 25 MG PO ×2 (09:01→19:38)
[2024-03-15] MEDS: LOW STRENGTH ASPIRIN 81 MG PO (09:01)
[2024-03-15] MEDS: LIPITOR 20 MG PO (09:01)
[2024-03-15] MEDS: LASIX 40 MG IV (09:01)
[2024-03-15] MEDS: PLAVIX 75 MG PO (09:02)
[2024-03-15] MEDS: PACERONE 200 MG PO ×3 (09:02→22:31)
[2024-03-15] MEDS: MIRALAX PO (09:02)
[2024-03-15] MEDS: FLUSH (NSS) 2 FLUSH IV (09:02)
[2024-03-15] MEDS: NITROSTAT (SUBLINGUAL) 0.4 MG SL ×2 (09:56→10:08)
[2024-03-15] MEDS: MORPHINE SULFATE 2 MG IV (10:31)
--- NOTE | 2024-03-15 10:47 | PTCARENOTE ---
Patient was assisted oob to the bathroom and then was sitting oob in the chair. Complained of 7/10 left sided chest pain that he said went right through to his back and was 'intense'. Returned to bed, EKG done, VSS, given NTG x 2. The best the chest
pain was 6/10 but he had difficulty rating it. Patient seen by Dr. Garcia, plan is for cath tomorrow. Instructed to try prn IV morphine as this pain might be more from the lung mass than cardiac. Medicated with morphine 2mg IV, IV heparin infusing
as ordered, call marx in reach.
[2024-03-15 11:19] LABS: APTT 62.3 Sec (23.4-35.0)
[2024-03-15] MEDS: HEPARIN 25000 UNITS/250 ML IV (11:42)
[2024-03-15 11:45] LABS: Glucose - Point of Care 126 mg/dl (70-99)
[2024-03-15] MEDS: NOVOLOG FLEXPEN 5 UNITS SC (11:47)
--- NOTE | 2024-03-15 12:38 | W.PN.HOSP.TC ---
Today's Communication/Plan
-
Heparin drip. Antibiotics. Plan for cardiac cath in a.m.
Assessment / Plan
Assessment / Plan
General: Acutely ill, Non-toxic appearance today
HEENT: Normocephalic, Atraumatic and Moist Mucous Membranes
Respiratory: Clear to Auscultation; Negative Wheezes, Rales or Rhonchi
Cardiac: Regular Rhythm and S1/S2
GI: Soft, Nontender and Nondistended
Musculoskeletal: Left toe status post postop findings wrapped up. No Clubbing, No Cyanosis and No Edema
Neuro: Awake, Alert and Oriented, no gross neuro-deficits
Psych: Calm
A/P:
Acute hypoxic respiratory insufficiency -due to heart failure induced pulmonary edema. Continue IV Lasix per cardiology. Oxygenation improved, now on room air.
NSTEMI -still with intermittent resting chest pain, nonpleuritic. Troponins trended down. EKG last evening shows normal sinus rhythm, septal infarct age undetermined, ST and T wave abnormality. No significant change compared to previous EKG.
Repeat chest x-ray this morning shows no pneumothorax.
Continue aspirin
Plavix resumed over the weekend by Dr. Phillips. Discussed with cardiology and pulmonary and oncology today on 03/13 and will continue with DAPT for now but might hold Plavix again depending on course.
Morphine as needed for pain
Cardiology discussing with oncology and pulmonary about the best timing to move forward with invasive cardiac procedure taking into account that if he needs cardiac stenting then might not be able to stop Plavix.
Still on heparin drip.
Plan for cardiac cath tomorrow
Left lung mass and hemoptysis:
Pulmonary consult appreciated. Underwent lung biopsy on March 10, path pending. Unclear if enough sample.
Discussed with oncology as well on 03/13
Biopsy revealed necrotic tissues, nondiagnostic. Awaiting for oncology and pulmonary for further steps.
CT scan 03/14 chest abdomen pelvis and neck negative for metastatic lesions
Oncology gave okay to proceed with cardiac cath
Sepsis due to left toe infection: Wound culture shows Pseudomonas and Enterobacter.
Improving
ID changed antibiotics to ciprofloxacin and Augmentin through 03/19
Changed metformin doses due to Cipro per ID recommendations. May need to hold metformin in am after contrast for 48 hours.
Status post left partial first ray amputation on 03/06 by podiatry
I asked ID to reevaluate on 03/13 due to concerns by hematology oncology about rising leukocytosis. Appreciated ID reevaluation and they do not feel there is any new infection.
Paroxysmal atrial fibrillation, new onset:
On rate control, metoprolol tartrate 25 mg every 12 hours
On amiodarone 200 mg p.o. 3 times daily
On IV heparin drip
Deferred anticoagulation with DOAC need/indication to cardiology
Acute diastolic CHF -IV Lasix 40 mg daily by cardiology. Weight continues to trend down. Today 83.6 kg.
Anemia of chronic disease:
Hematology consult appreciated
Blood transfusion given
Hemoglobin stable.
Post blood transfusion reaction on 03/03:
He was given IV Lasix, IV steroids, and continue with broad-spectrum antibiotics.
Chronic hyponatremia -sodium 131 today. TSH is normal. Suspect SIADH induced hyponatremia. Urine osmolality 398, urine sodium 34.
Chronic limb ischemia:
Status post vascular intervention on 02/[address] Vega
DM2 with hyperglycemia - Prior to admission he was on metformin and sitagliptin. Glucose 166 this morning. Continue Lantus 8 units at bedtime, NovoLog 5 units AC, low resistance corrective scale.
Last hemoglobin A1c on 02/09 was 8.2%
He is now on ciprofloxacin which could potentially interact with sitagliptin. Sitagliptin discontinued. Continue metformin.
Essential hypertension:
Continue current antihypertensives.
Monitor blood pressure and adjust medications accordingly.
Hyperlipidemia:
Continue statins
DVT prophylaxis:
On heparin drip
CODE STATUS-DNR
Total time spent on today's encounter was 52 minutes which included time spent in counseling the patient/family regarding diagnosis and treatment plan as listed above, goals of care, and symptom management. Case was discussed with nursing staff,
specialists, and care coordinators/case management. All labs and imaging personally reviewed by me. Remainder the time spent in detailed review of previous records, lab data, imaging, and other medical provider documentation.
Anticipated Discharge: 24 - 48 hours
Subjective/Interval History
-
Date of Service: March 15, 2024
Patient still with chest pain on and off, it peaks 6 out of 10 at times. No dyspnea. Afebrile
Objective Data
-
Labs:
Laboratory Results
03/15/24 03/15/24 03/15/24
02:54 10:26 17:45
WBC 20.6 H
Hgb 11.0 L
Hct 33.1 L
Plt Count 353
APTT 126.5 H 62.3 H Pending
Sodium 131 L
Potassium 3.9
Chloride 95 L
Carbon Dioxide 26
BUN 22 H
Creatinine 0.8
Glucose 113 H
Calcium 8.8
Total Bilirubin 1.0
AST 23
ALT 12
Alkaline Phosphatase 67
Vital Signs:
Vital Signs
Temp Pulse Resp BP Pulse Ox
97.5 F 55 18 109/62 96
03/15/24 11:06 03/15/24 11:00 03/15/24 11:06 03/15/24 10:59 03/15/24 11:06
I&O
03/14/24 03/15/24 03/16/24
06:59 06:59 06:59
Intake Total 426 / 426 480 / 480 240 / 240
Balance 426 / 426 480 / 480 240 / 240
--- NOTE | 2024-03-15 12:48 | CM ---
Chart reviewed. 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 Patient is independent of ADLS, lives alone in a 2nd floor condo, [address], ambulates with a SPC. Patient is current with [facility]. Patient's Goddaughter is coming in from [place] to
stay with the patient when he goes home. Plan is for the patient to return home with [facility]. CM to follow
--- NOTE | 2024-03-15 14:03 | W.PN.CARDCBS ---
Today's Communication / Plan
-
Continue current cardiac meds
Tentative plan for left heart catheterization in a.m.
Impression / Plan
-
PCP: Dr. Woodrow Bynum
Cardiology: Dr. Santosh Zepeda with [facility] ([phone])
Impression:
Chest pain
NSTEMI with Troponin peaking at 26.9 on 03/03/24
CAD
s/p 3.5 mm Xience to prox LAD 05/12/13
s/p2.75 mm Xience distal RCA 05/12/13
s/p 3.0 mm Xience to prox RCA at [facility] 05/12/13
PAD s/p left common to external iliac balloon angioplasty/stent, SFA balloon angioplasty/stent x2, TP trunk and peroneal angioplasty, anterior tibial long segment angioplasty 02/10/24
s/p left hallux amputation 02/11/24
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
Hemoptysis
Smoker
DM 2
Newly diagnosed paroxysmal Afib 03/05/24
Echo on 02/11/24: LV ejection fraction is 60-65% by Roblero's method of discs. Mild concentric left ventricular hypertrophy. Mild mitral regurgitation.Mild to moderate aortic stenosis. Trace tricuspid regurgitation. Estimated pulmonary artery
pressure of 20-25 mmHg.
Echo 03/01/24: EF 60-65%, hypokinesis mid to distal septum
Plan:
-Presented with chest pain. Troponin peaked at 26.9. Patient has known CAD and prior PCI.
-Medical management of NSTEMI with ASA/Plavix, heparin gtt, BB, statin
-Tentative plan for invasive coronary angiography 03/16
-Newly diagnosed atrial fibrillation this admission spontaneously converted 03/09
-Maintaining NSR
-IV amio started 03/09 and transitioned to PO amiodarone 03/10
-Continue lopressor 25mg BID. As OP was on Toprol 25mg daily.
-Continue heparin gtt for now. Eventual consideration of OAC given CHADsVASC score 4. Will need to use caution w/ hemoptysis.
-Diuresing with IV lasix 40mg daily. Creat stable.
HPI: This is a 73 year old male patient with PMH of PAD, cardiac stent 2016, NIDDM, recent admission for dry gangrene of his left first toe status post amputation on 02/10, cardiac stent in 2016 and stent placement of the left superficial femoral
artery/left common iliac artery in 2017, lung mass with concerns of chest pain. He states that at 3AM he started to feel midsternal chest pain while sleeping which he described as a dull ache. He called EMS and felt that his chest pain improved upon
being given nitroglycerin. He also has concerns of left big toe pain. He denies CP, palpitations, SOB on exertion or dizziness.
His troponin was elevated at 0.078. Cardiology consulted.
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
Subjective
Date of Service: March 15, 2024
No acute overnight events. Continues to report intermittent chest discomfort which does not seem to be relieved with sublingual nitroglycerin.
Objective
Labs:
03/15/24 02:54
03/15/24 02:54
Labs
Hgb 11.0 g/dL (13.0-18.0) L 03/15/24 02:54
Hct 33.1 % (39.0-52.0) L 03/15/24 02:54
Plt Count 353 10^3/uL (130-400) 03/15/24 02:54
PT 14.0 Sec (11.4-14.6) 03/10/24 03:10
INR 1.08 03/10/24 03:10
APTT 62.3 Sec (23.4-35.0) H 03/15/24 10:26
Sodium 131 mmol/L (135-145) L 03/15/24 02:54
Potassium 3.9 mmol/L (3.5-5.1) 03/15/24 02:54
BUN 22 mg/dl (9-20) H 03/15/24 02:54
Creatinine 0.8 mg/dL (0.7-1.3) 03/15/24 02:54
Glucose 113 mg/dl (70-99) H 03/15/24 02:54
Vital Signs and I&O:
Vital Signs
Temp Pulse Resp BP Pulse Ox
97.5 F 55 18 109/62 96
03/15/24 11:06 03/15/24 11:00 03/15/24 11:06 03/15/24 10:59 03/15/24 11:06
Vital Signs
Temp Pulse Resp BP Pulse Ox
97.5 F 55 18 109/62 96
03/15/24 11:06 03/15/24 11:00 03/15/24 11:06 03/15/24 10:59 03/15/24 11:06
Intake & Output
03/13/24 03/14/24 03/15/24 03/16/24
06:59 06:59 06:59 06:59
Intake Total 306 / 306 426 / 426 480 / 480 240 / 240
Output Total 575 / 575
Balance -269 / -269 426 / 426 480 / 480 240 / 240
Physical Exam
Physical Exam
Gen: NAD, AAOx3
HEENT: NC/AT, sclera anicteric
Neck: No JVD
CV: RRR, NL s1/s2
Lungs: CTAB
Abd: S/ND
Ext: No LE edema, status post resection of the left first metatarsal
Skin: Warm, dry
Neuro: Non-focal
--- NOTE | 2024-03-15 15:24 | WOUNDNOTE ---
Wound Care Instructions Apply dry dressing to left toe daily. Follow up with Dr. Payton.
[2024-03-15 17:49] LABS: Glucose - Point of Care 158 mg/dl (70-99)
[2024-03-15] MEDS: GLUCOPHAGE 500 MG PO (17:50)
[2024-03-15 18:28] LABS: APTT 122.3 Sec (23.4-35.0)
[2024-03-15] MEDS: NOVOLOG FLEXPEN-LOW RESISTANCE 1 UNITS SC (19:18)
[2024-03-15] MEDS: TYLENOL 650 MG PO (19:43)
[2024-03-15 22:26] LABS: Glucose - Point of Care 127 mg/dl (70-99)
[2024-03-15] MEDS: LANTUS 0.08 UNITS SC (22:31)
[2024-03-15] MEDS: DESYREL 25 MG PO (22:31)
[2024-03-16] VITALS (12 sets, daily range): BP systolic 90–141; BP diastolic 49–74
--- NOTE | 2024-03-16 00:30 | PTCARENOTE ---
Pt received start of shift, HR SR. Pt c/o pain in back. Readjusted pt, towel roll placed in middle back to some relief. PRN tylenol also administered - see SEP. Pt ambulating to bathroom. L toe dressing CDI. Heparin infusing at 1550u/hr. Pt denies
any CP, informed to notify RN if any changes.
[2024-03-16 02:27] LABS: % Basophils 0.3 % (0-2); % Eosinophils 2.5 % (0-6); % Immature Granulocytes 0.5 % (0-0.5); % Monocytes 6.7 % (1.7-9.3); Absolute Basophils 0.1 10^3/uL (0-0.2); Absolute Eosinophils 0.5 10^3/uL (0-0.7); Absolute Immature Granulocytes 0.1 10^3/uL (0-0.05); Absolute Lymphocytes 5.1 10^3/uL (1.2-3.4); Absolute Monocytes 1.4 10^3/uL (0.1-0.6); Absolute Neutrophils 13.9 10^3/uL (1.4-6.5); Hematocrit 31.2 % (39.0-52.0); Hemoglobin 10.4 g/dL (13.0-18.0); Mean Corp Hgb Conc. 33.3 g/dL (33.0-37.0); Mean Corpuscular Hgb 26.7 pg (27.0-31.0); Mean Platelet Volume 8.7 fL (7.4-10.4); Nucleated Red Blood Cells % 0 % (-); Platelet Count 322 10^3/uL (130-400); Red Cell Dist. Width 18.1 % (11.5-14.5); White Blood Cell Count 21.1 10^3/uL (4.8-10.8)
[2024-03-16 02:39] LABS: APTT 108.7 Sec (23.4-35.0)
[2024-03-16 02:47] LABS: Blood Urea Nitrogen 19 mg/dl (9-20); Calcium 8.5 mg/dl (8.4-10.2); Carbon Dioxide 28 mmol/L (22-30); Chloride 95 mmol/L (98-107); Estimated Creatinine Clearance 93 ml/min; Glucose 117 mg/dl (70-99); Potassium 3.6 mmol/L (3.5-5.1); Sodium 131 mmol/L (135-145); eGFR > 60.00
[2024-03-16] MEDS: HEPARIN 25000 UNITS/250 ML IV (06:35)
[2024-03-16 07:01] LABS: Glucose - Point of Care 124 mg/dl (70-99)
[2024-03-16] MEDS: NOVOLOG FLEXPEN-LOW RESISTANCE SC ×3 (07:29→20:47)
[2024-03-16] MEDS: NOVOLOG FLEXPEN SC ×2 (07:30→20:47)
[2024-03-16] MEDS: GLUCOPHAGE PO ×2 (08:00→17:45)
[2024-03-16] MEDS: BUSPAR 10 MG PO ×2 (08:15→21:00)
[2024-03-16] MEDS: LIPITOR 20 MG PO (08:16)
[2024-03-16] MEDS: LOPRESSOR 25 MG PO ×2 (08:16→21:00)
[2024-03-16] MEDS: CIPRO 500 MG PO ×2 (08:16→21:00)
[2024-03-16] MEDS: MIRALAX PO (08:17)
[2024-03-16] MEDS: LOW STRENGTH ASPIRIN 81 MG PO (08:17)
[2024-03-16] MEDS: PACERONE 200 MG PO ×3 (08:17→22:49)
[2024-03-16] MEDS: PLAVIX 75 MG PO (08:17)
--- NOTE | 2024-03-16 08:28 | W.PN.ONC2 ---
Today's Communication / Plan
-
outpatient liquid biopsy if unable to obtain biomarkers from necrotic lung tissue
Plan for cardiac catheterization today noted
Impression
Impression
ADRIAN non-small carcinoma, poorly differentiated, favor adenocarcinoma in the background of marked necrosis. Lung biomarkers are pending, however unclear if sample adequate since most of the tissue was necrotic
Microcytic anemia, iron studies c/w AOCD
possible transfusion reaction 03/03
Reactive leukocytosis +/- sepsis d/t left toe infection
CAD, NSTEMI, PAF, HFpEF, HTN, HLD, Moderate
PAD s/p left common to external iliac balloon angioplasty/stent, SFA balloon angioplasty/stent x2, TP trunk and peroneal angioplasty, anterior tibial long segment angioplasty 02/10/24
Amputation of the first hallux 02/11/2024, partial 1st ray amputation 03/06/24,
Hyponatremia
Diabetes mellitus with hyperglycemia
Hemoptysis
100lb weight loss
Plan
Plan
s/p transthoracic biopsy of the 10 cm mass, pathology favors a non-small carcinoma, poorly differentiated in a background of marked necrosis. CT abdomen and pelvis without distant metastasis
IR ok to do port after DC even if pt on Plavix/ASA
AF w RVR, HFpEF, CAD management per cardiology-plan for cardiac catheterization today
partial 1st ray amputation 03/06/24, on abx through 03/19
Subjective/Objective
Chief Complaint
WBC slowly rising
Hemoglobin stable
Scant hemoptysis
Subjective
No new complaints
Vital Signs:
Vital Signs
Temp Pulse Resp BP Pulse Ox
97.9 F 63 20 141/74 94
03/16/24 06:53 03/16/24 07:00 03/16/24 06:53 03/16/24 06:55 03/16/24 06:55
Lab Results:
Laboratory Data
WBC 21.1 10^3/uL (4.8-10.8) H 03/16/24 02:05
Hgb 10.4 g/dL (13.0-18.0) L 03/16/24 02:05
Plt Count 322 10^3/uL (130-400) 03/16/24 02:05
PT 14.0 Sec (11.4-14.6) 03/10/24 03:10
INR 1.08 03/10/24 03:10
APTT 108.7 Sec (23.4-35.0) H 03/16/24 02:05
eGFR > 60.00 03/16/24 02:05
Physical Exam
General: AAOx3, resting in bed, conversant
Cardiology: Normal Sinus Rhythm
Pulmonary: Clear
GI: Soft and Normal Bowel Sounds
Review of Systems
Review of Systems
Review of systems notable for subjective otherwise negative
--- NOTE | 2024-03-16 09:02 | W.PN.HOSP.TC ---
Today's Communication/Plan
-
Cardiac cath today.
Assessment / Plan
Assessment / Plan
General: Acutely ill, Non-toxic appearance today
HEENT: Normocephalic, Atraumatic and Moist Mucous Membranes
Respiratory: Clear to Auscultation; Negative Wheezes, Rales or Rhonchi
Cardiac: Regular Rhythm and S1/S2
GI: Soft, Nontender and Nondistended
Musculoskeletal: Left toe status post postop findings wrapped up. No Clubbing, No Cyanosis and No Edema
Neuro: Awake, Alert and Oriented, no gross neuro-deficits
Psych: Calm
A/P:
Acute hypoxic respiratory insufficiency -due to heart failure induced pulmonary edema. Continue IV Lasix per cardiology. Oxygenation improved, now on room air.
NSTEMI -still with intermittent resting chest pain, nonpleuritic. Troponins trended down. EKG last evening shows normal sinus rhythm, septal infarct age undetermined, ST and T wave abnormality. No significant change compared to previous EKG.
Repeat chest x-ray this morning shows no pneumothorax.
Continue aspirin
Plavix resumed over the weekend by Dr. Phillips. Discussed with cardiology and pulmonary and oncology on 03/13 and will continue with DAPT for now but might hold Plavix again depending on course.
Morphine as needed for pain
Cardiology discussing with oncology and pulmonary about the best timing to move forward with invasive cardiac procedure taking into account that if he needs cardiac stenting then might not be able to stop Plavix.
Still on heparin drip.
Plan for cardiac cath today
Left lung mass and hemoptysis:
Pulmonary consult appreciated. Underwent lung biopsy on March 10, path pending. Unclear if enough sample.
Discussed with oncology as well on 03/13
Biopsy revealed necrotic tissues, nondiagnostic. Awaiting for oncology and pulmonary for further steps.
CT scan 03/14 chest abdomen pelvis and neck negative for metastatic lesions
Oncology gave okay to proceed with cardiac cath
Sepsis due to left toe infection: Wound culture shows Pseudomonas and Enterobacter.
Improving
ID changed antibiotics to ciprofloxacin and Augmentin through 03/19
Changed metformin doses due to Cipro per ID recommendations. May need to hold metformin in am after contrast for 48 hours.
Status post left partial first ray amputation on 03/06 by podiatry
I asked ID to reevaluate on 03/13 due to concerns by hematology oncology about rising leukocytosis. Appreciated ID reevaluation and they do not feel there is any new infection.
Paroxysmal atrial fibrillation, new onset:
On rate control, metoprolol tartrate 25 mg every 12 hours
On amiodarone 200 mg p.o. 3 times daily
On IV heparin drip
Deferred anticoagulation with DOAC need/indication to cardiology
Acute diastolic CHF -IV Lasix 40 mg daily by cardiology. Weight continues to trend down. Today 83.6 kg.
Anemia of chronic disease:
Hematology consult appreciated
Blood transfusion given
Hemoglobin stable.
Post blood transfusion reaction on 03/03:
He was given IV Lasix, IV steroids, and continue with broad-spectrum antibiotics.
Chronic hyponatremia -sodium 131 today. TSH is normal. Suspect SIADH induced hyponatremia. Urine osmolality 398, urine sodium 34.
Chronic limb ischemia:
Status post vascular intervention on 02/[address] Vega
DM2 with hyperglycemia - Prior to admission he was on metformin and sitagliptin. Glucose 166 this morning. Continue Lantus 8 units at bedtime, NovoLog 5 units AC, low resistance corrective scale.
Last hemoglobin A1c on 02/09 was 8.2%
He is now on ciprofloxacin which could potentially interact with sitagliptin. Sitagliptin discontinued. Continue metformin.
Essential hypertension:
Continue current antihypertensives.
Monitor blood pressure and adjust medications accordingly.
Hyperlipidemia:
Continue statins
DVT prophylaxis:
On heparin drip
CODE STATUS-DNR
Total time spent on today's encounter was 52 minutes which included time spent in counseling the patient/family regarding diagnosis and treatment plan as listed above, goals of care, and symptom management. Case was discussed with nursing staff,
specialists, and care coordinators/case management. All labs and imaging personally reviewed by me. Remainder the time spent in detailed review of previous records, lab data, imaging, and other medical provider documentation.
Anticipated Discharge: 24 - 48 hours
Subjective/Interval History
-
Date of Service: March 16, 2024
Patient symptoms discomfort. No shortness of breath. Afebrile
Objective Data
-
Labs:
Laboratory Results
03/16/24 03/16/24
02:05 08:43
WBC 21.1 H
Hgb 10.4 L
Hct 31.2 L
Plt Count 322
APTT 108.7 H Pending
Sodium 131 L
Potassium 3.6
Chloride 95 L
Carbon Dioxide 28
BUN 19
Creatinine 0.8
Glucose 117 H
Calcium 8.5
Vital Signs:
Vital Signs
Temp Pulse Resp BP Pulse Ox
97.9 F 63 20 141/74 94
03/16/24 06:53 03/16/24 07:00 03/16/24 06:53 03/16/24 06:55 03/16/24 06:55
I&O
03/15/24 03/16/24 03/17/24
06:59 06:59 06:59
Intake Total 480 / 480 240 / 240
Output Total 400 / 400
Balance 480 / 480 -160 / -160
--- NOTE | 2024-03-16 09:15 | PTCARENOTE ---
Received patient this morning resting in bed, NPO for cardiac cath today. Complaining of his inability to sleep well during the night, napping now. Explained cardiac cath procedure and plan of care, given medications with a sip of water. Heparin
infusing at 1650 units/hr, decreased now to 1550 units/hr as per protocol.
--- NOTE | 2024-03-16 11:04 | W.PN.PUL3 ---
Today's Communication / Plan
-
s/p cath, CTS obtained now for eval
No further diagnostic areas to biopsy, hold off further planning for now until seen as OP
If undergoes surgical case and transferred to CVICU, please re-consult us
Otherwise, can follow up next steps as OP
We will sign off at this time, please call with questions
Assessment
-
73-year-old male with history of peripheral arterial disease, status post recent left toe amputation, treated for diagram gain, history of coronary disease with stent placement 2014, and lower extremity PAD stents 2016 at [facility], now
presents with increased chest discomfort similar to prior cardiac pain. Patient started on heparin therapy. We are asked to comment on his pulmonary process
Impression:
Acute onset midsternal chest discomfort
NSTEMI
Gross hemoptysis - resumed again
History of coronary disease with stent placement at [facility]
Diastolic CHF
Leukocytosis
Anemia
Peripheral vascular disease
Peripheral arterial disease, stent placement lower extremity 2015 [facility]
Recent left first hallux amputation 02/11/2024
Hyponatremia
Hyperglycemia
10 cm left upper lobe mass s/p IR CT guided Bx (03/10/2024)
Mild left hilar adenopathy
Moderate , valve area 1 cm�
New onset AFib
Conditions present prior to admission
Hypertension/hyperlipidemia
Diabetes
20+ tobacco history, quit around 2015
100 pound weight loss over the past year
Plan
Respiratory status stable on room air although he does endorse L-sided chest pain/back pain which is not relieved with morphine/nitro
EKG from 03/11/2024 without new acute changes
Keep SpO2 >94%
Continue nebulizers as needed
Follow hemoptysis-minimal
Note: Sputum cytology negative for malignant cells
Lung mass on the left-requires biopsy-unable to immediately pursue while on aspirin/Plavix
s/p IR percutaneous 03/07/2024-biopsy performed on 03/10
Follow up final pathology from Bx--necrosis shown/final showing lung adenoca favored
IR indicates specimens were necrotic according to the on-site pathologist, despite repositioning the biopsy needle multiple times.
6 specimens were obtained. If final pathology is necrotic/nondiagnostic, consider PET/CT of the lesion to determine the areas of viable tumor in order to direct future biopsy.
Rescan for alternative biopsy locations--small LNS likely low yield on EBUS--no further diagnostic areas to reasonably biopsy now
Hemoptysis noted again, likely from tumor
Reviewed with RN to quantify for now
About 50cc, mixed, not all blood
Continue to quantify for now, hold any AC if worsening
Cardiology following-correspondence reviewed
Troponin trended � peaked at 26.9 on 03/03/2024
Eventual cardiac catheterization-in part due to expected prognosis
Continue heparin gtt
Plavix restarted on 03/11/2024
New onset AFib-rapid a.m. 03/09/2024-rate control and anticoagulation
Diuresis as tolerated
Monitor renal function, electrolytes, intake/output, lower extremity edema and weight
Replace electrolytes as needed
s/p LHC with severe MVCAD
Likely to consult CTS for eval
Orthopedics following-status post debridement and partial amputation 03/06/2024
He endorses depression likely due to adjustment disorder
Continue Buspar 10mg BID, and raise or lower dose as needed
Recommend outpatient follow up with PCP +/- psychologist/psychiatrist
Cultures reviewed
Wound cultures with Pseudomonas and Enterobacter
Empiric antibiotics per infectious disease - currently on Augmentin + cipro through 03/19
Infectious disease following-correspondence reviewed
DVT prophylaxis-heparin gtt
Nutrition
Reviewed with nursing
Diagnostic Data
CXR 03/12/24- No pneumothorax. Stable left upper lobe opacification. New right perihilar infrahilar airspace disease concerning for pneumonia. Pulmonary edema not excluded but less likely.
03/03/24- Similar appearance of the left upper lobe consolidation. Some minimal patchy opacities within the right lung base, likely atelectasis.
CT Chest 02/11/24- Approximate 10 cm 'mass' in the left upper chest with differential slightly low attenuation densities within, slightly greater density centrally than peripherally and which extends to the left hilum. Unfortunately, as a result of
the size of this lesion, determining the exact origin and etiology is somewhat limited, pleural versus parenchymal based. Although this may represent a large lesion such as an atypical hematoma, both benign and malignant masses are also possible
including mesenchymal tumors as there appears to be a few small left hilar lymph nodes. Hemorrhage into a lesion is also possible.
ECHO 03/01/24- Limited echo performed to assess for wall motion abnormalities. Normal left ventricular size and systolic function. LV ejection fraction is 60-65% by Roblero's method of discs. Hypokinesis of the mid to distal septum. Compared to
prior study dated 02/11/2024 which was directly reviewed, septal hypokinesis is new.
-----
Total time spent today was 52 minutes for this encounter. Time includes reviewing laboratory test/imaging results, reviewing pertinent medical records, obtaining and reviewing medical history, performing an appropriate exam, ordering medications,
tests and procedures. Time also includes documentation of this encounter, coordinating patient care via TT and communicating with other healthcare professionals. Total time does not include separately billed tests performed on this date of service.
Subjective Data
-
Date of Service:
Date of Service: March 16, 2024
Chief Complaint: Pulmonary Follow Up and Dyspnea Follow Up
Subjective:
No new events ON, remains stable on RA
s/p cath, results reviewed
No new complaints
Objective Data
Data Reviewed
Vital Signs / I&O / Oxygen:
Vital Signs
Temp Pulse Resp BP Pulse Ox
97.9 F 63 20 141/74 94
03/16/24 06:53 03/16/24 07:00 03/16/24 06:53 03/16/24 06:55 03/16/24 06:55
Intake and Output
03/15/24 03/16/24 03/17/24
06:59 06:59 06:59
Intake Total 480 / 480 240 / 240
Output Total 400 / 400
Balance 480 / 480 -160 / -160
SaO2 94
Nasal Cannula flow liters per 2
minute
Physical Exam
General: Respiratory Distress (n), Comfortable, Good Appetite and Other (NAD)
HEENT: Normocephalic, Anicteric and Moist Mucous Membranes
Cardiovascular: S1-S2, Murmur (BONIFACIO heard best ar RUSB, grade II/), Rub (n) and Peripheral Edema (n)
Respiratory: Clear, Wheeze (n), Crackles (negative), Rhonchi (n) and Non-Labored Respirations
GI: Soft, Non Distended, Non Tender and Normal Bowel Sounds
Neurology: Awake, Alert, Oriented, AO x 3 and Tremors (n)
Skin: Warm, Dry, Cyanosis (n), Jaundice (n) and Rash (n)
Labs/Micro/Reports
Lab Data
03/16/24 02:05
03/16/24 02:05
Laboratory Results
03/15/24 03/15/24 03/16/24
10:26 17:52 02:05
APTT 62.3 H 122.3 H 108.7 H
03/16/24
08:43
APTT 115.0 H
--- NOTE | 2024-03-16 12:23 | CONSULT.CT ---
Consultation
-
Date/Time Consultation Requested: 03/16/24
Date/Time Consultation Performed: 03/16/24
Requesting Provider: Gwyn
Performing Provider: Andressa Momin PA-C for Dr. David Lomas
Reason for Consultation: MVCAD
Patient History
Physicians
Family Physician: Woodrow Bynum
Inpatient Range Feeder: Jose
History of Present Illness
Pt is a 73y/oM with significant PMH of CAD s/p ALESSIA to prox LAD, prox RCA & distal RCA in 2012, PAD s/p lower extremity angiography with stents, toe gangrene s/p L toe amputation with subsequent surgical site infection currently on cipro & augmentin
thru 03/19, who was noted to have a new lung mass during hospital admission in January, but failed to follow up as an outpatient now presented to the ED on 03/01 with chest pain, acute heart failure and ruled in for NSTEMI (pk trop 26.9). Echo with normal
LV function. Currently undergoing inpatient work up for lung mass concerning for cancer with 100lb weight loss, anemia and hemoptysis. Path report from IR biopsy of ADRIAN mass on 03/06 demonstrated poorly differentiated mass, non small cell CA,
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 Pt finally was able to undergo cardiac cath today which demonstrated multivessel CAD with restenosis of his LAD stent.
Past Medical History
Past Medical History: Other
Hypertension
hyperlipidemia
DM2
PAD s/p LE stent 02/11/24 with chronic limb ischemia
L toe gangrene s/p amputation
chronic hyponatremia
recent sepsis
10cm ADRIAN mass, likely CA
acute diastolic CHF
anemia
recent unintentional wt loss (pt was ~300lbs, did 'atkins' diet and lost 100lbs a few years ago and lost 100lbs intentionally, but has continued to lose weight despite return to normal diet--describes poor appetite at home)
Past Surgical History
Past Surgical History: Other
L hallux amputiation
LE stenting
cardiac stents to LAD/RCA 2012
Social History
Alcohol: Former (former heavy drinker; quit 5 years ago)
Drug: None
Tobacco: Former Smoker (quit 5 years ago)
Personal: Single
Living: Alone
Allergies
Allergy/AdvReac Type Severity Reaction Status Date / Time
No Known Allergies Allergy Verified 03/01/24 09:15
Home Medications
�Medication �Instructions �Recorded �Confirmed �Type
acetaminophen 325 mg tablet 650 mg (2 x 325 mg) PO Q4HPRN PRN 02/13/24 03/01/24 Rx
mild pain or temp >/= 100.4 F #10
tabs
aspirin 81 mg chewable tablet 81 mg PO DAILY Blood Clot 03/01/24 03/01/24 History
Prevention/Tx
atorvastatin 10 mg tablet 20 mg PO DAILY High Cholesterol 03/01/24 03/01/24 History
clopidogrel 75 mg tablet 75 mg PO DAILY Blood Clot 03/01/24 03/01/24 History
Prevention/Tx
lisinopril 5 mg tablet 5 mg PO DAILY Blood Pressure 03/01/24 03/01/24 History
metformin 1,000 mg tablet 1,000 mg PO BID@0800,1700 Diabetes 03/01/24 03/01/24 History
metoprolol succinate 25 mg 25 mg PO DAILY Blood Pressure 03/01/24 03/01/24 History
tablet,extended release 24 hr
sitagliptin phosphate 50 mg tablet 50 mg PO DAILY Diabetes 03/01/24 03/01/24 History
(Januvia)
Review of Systems
-
History Source: Patient
General: Reports Weight Loss
HEENT: Reports No Symptoms
Respiratory: Reports SOB and RIBEIRO
Cardiac: Reports Chest Pain and CAD; Denies Diaphoresis or Edema
Abdomen/GI: Reports No Symptoms
: Reports No Symptoms
Musculoskeletal: Reports No Symptoms
Skin: Reports No Symptoms
Neurological: Denies CVA, TIA or Seizures
Vascular: Reports PVD
Physical Exam
Vital Signs
Temp 97.9 F 03/16/24 06:53
Temp route: Oral 03/16/24 06:53
Pulse 63 03/16/24 07:00
Rhythm: Normal sinus rhythm 03/16/24 08:00
With- Sinus bradycardia 03/14/24 20:10
Resp Rate 20 03/16/24 06:53
Blood pressure 141/74 03/16/24 06:55
Blood pressure extremity used: Right upper arm 03/16/24 06:53
Position: Lying 03/16/24 06:53
MAP (cuff-Rony Monitor) 94 03/16/24 06:55
SaO2 94 03/16/24 06:55
Nasal Cannula flow liters per minute 2 03/13/24 04:43
Oxygen Mode of Delivery Room air 03/16/24 06:53
% Oxygen delivered 32 03/11/24 03:39
Pulse Ox at Rest 94 03/14/24 09:45
Acceptable pain level during hospitalization? 0 03/01/24 09:15
Can the patient verbally communicate their pain? Yes 03/15/24 20:43
Pain scale ratin 03/15/24 20:43
Actual Weight 83.6 kg 03/15/24 08:42
Body Mass Index (BMI) 25.0 03/15/24 08:42
Supine- Blood Pressure 143/81 03/07/24 11:38
Supine- Pulse 81 03/14/24 09:45
Heart rate after activity 85 03/14/24 09:45
Oxygen Saturation with Activity 96 03/14/24 09:45
Labs
03/16/24 02:05
03/16/24 02:05
PT 14.0 Sec (11.4-14.6) 03/10/24 03:10
APTT 115.0 Sec (23.4-35.0) H 03/16/24 08:43
Troponin I 1.450 ng/ml H* 03/12/24 02:48
Mke-G-Ebvftgiimjo Pept > 99255 pg/ml 03/10/24 03:40
Arterial Blood Gases
pH 7.42 (7.35-7.45) 03/10/24 03:28
pCO2 32 mmHg (35-48) L 03/10/24 03:28
pO2 67 mmHg (83-108) L 03/10/24 03:28
HCO3 20.8 mmol/L (21-28) L 03/10/24 03:28
Base Excess -2.9 mmol/L 03/10/24 03:28
ABG O2 Sat (Measured) 95.2 % (94-98) 03/10/24 03:28
O2 Delivery Level 03/10/24 03:28
Urinalysis
Urine Color Carisa 03/10/24 03:47
Urine Clarity Clear (Clear) 03/10/24 03:47
Urine pH 5.0 (5.0-9.0) 03/10/24 03:47
Ur Specific Isabel 1.020 (<1.030) 03/10/24 03:47
Urine Ketones Negative (Negative) 03/10/24 03:47
Ur Occult Blood Reflex Negative (Negative) 03/10/24 03:47
Urine Bilirubin Negative (Negative) 03/10/24 03:47
Leukocyte Esterase Rfl Trace (Negative) A 03/10/24 03:47
Urine RBC 0-2 /HPF (0-2) 03/10/24 03:47
Urine WBC (Reflex) 3-5 /HPF (0-5) 03/10/24 03:47
Ur Squamous Epith Cells 21-25 /LPF (Few) 03/10/24 03:47
Amorphous Crystals Seen 03/10/24 03:47
Urine Bacteria (Reflex) Moderate (Negative) A 03/10/24 03:47
Urine Mucus Moderate 03/10/24 03:47
Urine Glucose Negative (Negative) 03/10/24 03:47
Urine Albumin (Reflex) 2+ (Neg - Trace) A 03/10/24 03:47
Exam
General: No Apparent Distress, Comfortable and Poor Appetite
HEENT: Normocephalic and Anicteric
Respiratory: Clear; Negative Wheezes, Crackles or Rhonchi
Cardiac: Regular Rhythm; Negative Murmur, Rub or Gallop
GI: Soft, Non Tender and Non Distended
Rectal: Deferred by Provider
Skin: Warm and Dry
Neuro: Nonfocal/Grossly Intact
Extremities: Negative Lower Level Edema
Lymph: No Lymphadenopathy
Psych: Calm
Assessment / Plan
-
NSTEMI
acute HFpEF
MVCAD
ADRIAN lung mass, likely cancer
Unfortunate situation with high grade ostial lesions of LAD/Lcx, not likely a great stent candidate, but with large ADRIAN lung mass CABG may not be a great option either. Will review with CT & Cards attendings for multidisciplinary approach. I will
hold on standard preop testing until further plans have been delineated. Pt currently on ASA/plavix, if surgical intervention preferred we will need to hold plavix x 5 days.
Data Reviewed
-
EKG: Report Reviewed by me
Reproduction Specialist: Image Personally Visualized and interpreted and Report Reviewed by me
Echo: Report Reviewed by me
CT Scan: Report Reviewed by me
Labs: Labs Reviewed by me
--- NOTE | 2024-03-16 13:12 | ITS.CL.CATH ---
Early Breastfeeding Care Specialist - Catheterization
Cardiac Catheterization
Procedure Report:
LEFT HEART CATHETERIZATION
Date of Procedure: March 16, 2024
Referring: Patrick Mooney
PROCEDURES:
1. Left heart catheterization, coronary angiogram.
2. Ultrasound-guided access
INDICATION: Patient is a 73-year-old gentleman with past medical history of hypertension, hyperlipidemia, active smoker, type 2 diabetes mellitus, coronary artery disease status post 3.5 mm Xience stent to proximal LAD, 2.75 mm Xience stent to
distal RCA and a 3.0 Xience stent to proximal RCA and more [facility] in April 2013, peripheral artery disease status post left common to external iliac balloon angioplasty/stent, SFA balloon angioplasty and stent x 2, TP trunk and peroneal
angioplasty, anterior tibial long segment angioplasty in December 2023, complicated by nonhealing wound status post left hallux amputation in December 2023 who presents this admission with an NSTEMI with troponin peaking at 26.9 and chest pains, normal LVEF
of 60 to 65%, with workup of left upper lobe lung mass showing concern for possible undifferentiated adenocarcinoma versus squamous cell carcinoma and new onset paroxysmal atrial fibrillation seen on March 05, 2024 who is now referred for a left
heart catheterization to rule out obstructive CAD.
ACCESS: Right radial artery, 6 Ghanaian sheath, under ultrasound guidance
HEMODYNAMICS : (mmHg)
AO (s/d) : 110/56
LV (s/d) : 118/12
LVEDP : 25
CORONARY FINDINGS
DOMINANCE: Right
LEFT MAIN: The left main artery is a large-caliber vessel which gives rise to the left anterior descending artery and the left circumflex artery. There is mild diffuse atherosclerotic plaque.
LEFT ANTERIOR DESCENDING: The left anterior descending artery is a medium caliber vessel which gives rise to 2 major diagonal branches as it courses through the anterior interventricular groove and wraps around the apex. There is ostial to proximal
up to 80% in-stent restenosis as well as 80% in-stent stenosis in the distal portion of the prior proximal LAD stent. The disease spans across 2 major diagonal branches. D1 has possible eccentric 70% ostial to proximal stenosis. D2 which is a
branching vessel and overall small to medium in caliber has has moderate diffuse atherosclerotic plaque.
CIRCUMFLEX: The left circumflex artery is a medium caliber vessel which gives rise to multiple small caliber obtuse marginal branches. There is eccentric 70 to 80% proximal left circumflex stenosis. There appears to be a chronic total occlusion of
the distal left circumflex into the left posterolateral branch with left to left collaterals. OM1 is small in caliber and has 60 to 70% proximal stenosis.
RIGHT CORONARY ARTERY: The right coronary artery is a medium caliber, dominant vessel. There is a chronic total occlusion in the mid RCA with [id number] collaterals. Distal RCA stent that was placed in 2012 appears occluded. There is up to
60-70% in-stent restenosis in the proximal RCA.
SEDATION: 46 minutes of procedural sedation was utilized. An independent medical scientific officer was present to assist with and help manage the patient's level of consciousness and physiologic status.
RADIATION SUMMARY: Fluoro Time (min): 4.6, Dose (mGy): 576.02, DAP (Gy.cm2) : 37.39
Closure Device: Vascular band over right radial artery, 10 cc of air.
CONCLUSIONS
1. Significant multivessel coronary artery disease.
2. Significantly elevated LVEDP 25 mmHg.
RECOMMENDATIONS
1. Have a heart team discussion in regards to candidacy for coronary artery bypass grafting versus high risk PCI (incomplete revascularization) versus medical management only in the setting of multiple comorbid conditions and recent diagnosis of
left upper lung undifferentiated adenocarcinoma versus, cell cancer, untreated with possible multidisciplinary discussion with oncology in regards to overall prognosis.
2. Aggressive management of cardiovascular risk factors.
3. Wean radial band per protocol.
Jelly Pascal MD, FAC, [facility]
--- NOTE | 2024-03-16 13:20 | CM ---
Chart reviewed. Patient is waiting for a cardiac cath. Patient is independent of ADLS, lives alone in a 2nd floor condo, [address], ambulates with a SPC. Patient is current with [facility]. Patient's Goddaughter is coming in from [place] to stay
with the patient when he goes home. Plan is for the patient to return home with [facility]. CM to follow
[2024-03-16 13:43] LABS: Glucose - Point of Care 127 mg/dl (70-99)
[2024-03-16] MEDS: LASIX 40 MG IV (13:46)
[2024-03-16] MEDS: AUGMENTIN 875 MG/125 MG 1 TABLET PO ×2 (13:47→21:00)
[2024-03-16] MEDS: NOVOLOG FLEXPEN 5 UNITS SC (13:48)
--- NOTE | 2024-03-16 14:59 | W.PN.UPDATE ---
Update Note
Progress Note Update
Procedure Type:�Isolated CABG
PERIOPERATIVE OUTCOME ESTIMATE %
Operative Mortality 3.69%
Morbidity & Mortality 13.4%
Stroke 2.14%
Renal Failure 2.36%
Reoperation 3.02%
Prolonged Ventilation 7.19%
Deep Sternal Wound Infection 0.311%
Long Hospital Stay (>14 days) 14.1%
Short Hospital Stay (<6 days)* 23.1%
Clinical Summary
Planned Surgery: Isolated CABG, Urgent, First cardiovascular surgery
Demographics: 73 year old, male, 83.6kg, 183cm, BMI: 25 kg/m�
Lab Values: Creatinine: 0.8 mg/dL, Hematocrit: 31.2%, WBC Count: 21.1 10�/�L, Platelet Count: 459277 cells/�L
PreOp Medications: Oral diabetes control
Substance Abuse: Former smoker
Risk Factors / Comorbidities: Diabetes Mellitus , Cancer <=5 yrs, Hypertension
Vascular RF: Peripheral Artery Disease
Cardiac Status: Acute heart failure, NYHA Class II, Ejection Fraction = 60%
Coronary Artery Disease: 3 vessels diseased, Proximal LAD Stenosis >=70%, Non-ST Elevation MT, MT: 8 to 21 Days
Arrhythmia: Recent A-fib, Paroxysmal
This does not include assessment of his carotids. Will update in the future if needed.
--- NOTE | 2024-03-16 15:26 | PTCARENOTE ---
Received patient from geoscience laboratory technician at 1215 after cardiac cath via right radial. Radial band intact with palpable pulse. Patient offers no complaints, reinforced post cath restrictions. Patient eating lunch, call marx in reach.
[2024-03-16 18:29] LABS: Glucose - Point of Care 182 mg/dl (70-99)
[2024-03-16 20:11] LABS: Glucose - Point of Care 169 mg/dl (70-99)
[2024-03-16 22:40] LABS: Glucose - Point of Care 161 mg/dl (70-99)
[2024-03-16] MEDS: LANTUS 0.08 UNITS SC (22:48)
[2024-03-16] MEDS: DESYREL 25 MG PO (22:48)
[2024-03-17] VITALS (8 sets, daily range): BP systolic 113–139; BP diastolic 57–72; O2SAT 100; BMI 25.0
[2024-03-17] MEDS: HEPARIN 25000 UNITS/250 ML IV (06:07)
[2024-03-17 06:56] LABS: Hematocrit 30.7 % (39.0-52.0); Hemoglobin 10.1 g/dL (13.0-18.0); Mean Corp Hgb Conc. 32.9 g/dL (33.0-37.0); Mean Corpuscular Hgb 25.8 pg (27.0-31.0); Mean Corpuscular Volume 78.3 fL (80.0-94.0); Mean Platelet Volume 8.4 fL (7.4-10.4); Platelet Count 302 10^3/uL (130-400); Red Blood Cell Count 3.92 10^6/uL (4.70-6.10); Red Cell Dist. Width 18.2 % (11.5-14.5); White Blood Cell Count 18.1 10^3/uL (4.8-10.8)
[2024-03-17 07:03] LABS: APTT 92.6 Sec (23.4-35.0)
[2024-03-17 07:34] LABS: Blood Urea Nitrogen 17 mg/dl (9-20); Calcium 8.7 mg/dl (8.4-10.2); Carbon Dioxide 26 mmol/L (22-30); Chloride 96 mmol/L (98-107); Estimated Creatinine Clearance 93 ml/min; Glucose 134 mg/dl (70-99); Potassium 3.6 mmol/L (3.5-5.1); Sodium 131 mmol/L (135-145); eGFR > 60.00
--- NOTE | 2024-03-17 08:04 | W.PN.UPDATE ---
Update Note
Progress Note Update
Pt discussed this morning at multidisciplinary meeting. Unfortunately we have nothing to offer him surgically from a cardiac or lung bx standpoint. Cardiology planning for pci vs medical management of his coronary disease. CT surgery will sign off.
Please call with questions/concerns.
[2024-03-17 08:06] LABS: Glucose - Point of Care 141 mg/dl (70-99)
[2024-03-17] MEDS: NOVOLOG FLEXPEN-LOW RESISTANCE SC ×3 (08:19→18:02)
[2024-03-17] MEDS: LASIX 40 MG IV (08:26)
[2024-03-17] MEDS: LOPRESSOR 25 MG PO ×2 (08:29→20:12)
[2024-03-17] MEDS: LOW STRENGTH ASPIRIN 81 MG PO (08:29)
[2024-03-17] MEDS: PACERONE 200 MG PO ×3 (08:29→22:23)
[2024-03-17] MEDS: PLAVIX 75 MG PO (08:29)
[2024-03-17] MEDS: CIPRO 500 MG PO ×2 (08:29→20:12)
[2024-03-17] MEDS: LIPITOR 20 MG PO (08:29)
[2024-03-17] MEDS: BUSPAR 10 MG PO ×2 (08:30→20:12)
[2024-03-17] MEDS: NOVOLOG FLEXPEN 5 UNITS SC ×3 (08:30→18:02)
[2024-03-17] MEDS: AUGMENTIN 875 MG/125 MG 1 TABLET PO ×2 (08:30→20:12)
[2024-03-17] MEDS: MIRALAX PO (08:33)
--- NOTE | 2024-03-17 08:58 | W.PN.CARDCBS ---
Addendum entered and electronically signed by Woodrow Fernandez MD 03/17/24 12:35:
Attending addendum:
-ATRIAL FIBRILLATION / Hemoptysis: He has been in sinus rhythm on oral amiodarone as below. Lets discontinue IV heparin. He will remain on dual antiplatelet therapy for his coronary artery disease.
-Lung Cancer: [facility] [place] radiation treatment is NOT available until April. He would have to go to [place] or maybe [facility] (?) for treatment.
He does not drive and has minimal social support. No immediate family. A cousin from [place] and a cousin closer but not local.
Clearly treatment, doctors visits, obtaining groceries, cooking, personal care will be an issue. Finances may become important as far as what help he can afford
Oncology evaluating and before any treatment would be offered a full staging effort will be needed. Dr. Engel was going to ask Dr. Alfaro to consider endobronchial biopsies for staging. IF this is necessary we may need to hold Plavix for 5
days. Will reach out to pulmonary
Original Note:
Today's Communication / Plan
-
Recommendations:
-Coronary Artery Disease: Continued medical management for CADz until we have a plan in place from Oncology
Will need to discuss with Oncology.
I truly do not think he is a surgical candidate for treatment of multivessel coronary artery disease given his overall poor prognosis
Coronary treatment in part depends of Oncology assessment of survival.
--- If oncology assesses that prognosis is very poor / around 1 year then conservative/medical therapy may be most appropriate.
---IF oncology feels survival is beyond 1 year then would consider stenting of the ostial-prox LAD and mid LAD.
--- If stent is planned then would ONLY treat with 30-35 days of DAPT followed by single antiplatelet with clopidogrel OR aspirin
--- Not sure if and when chemotherapy and/or radiation would be considered or the impact of single vs dual antiplatelet therapy would have on radiation treatment
-Atrial Fibrillation:
IV amio started 03/09 and transitioned to PO amiodarone 03/10. He has received 3,000 mg oral load in addition to IV Amiodarone.
--- I would probably treat for a full 5,000 mg then decrease dose to 200mg daily
CHA2DS VAS score is 4 so eventually would consider oral anticoagulation with DOAC. HOWEVER, it comes to bleeding risk with hemoptysis and possible single/dual antiplatelet
I wonder if we consider LINQ device for long-term monitoring for recurring atrial fibrillation. We would have to be aware of the location of the LINQ device to keep out of radiation window. This strategy may allow us to avoid oral anticoagulation
(at least for a while) but we would be able to monitor for recurrence. Fortunately, he has been stable on IV amiodarone with no more atrial fibrillation
-Lung Mass c/w poorly differentiated non-small cell carcinoma favoring adenocarcinoma of the lung:
[id number] cm mass in the left upper lobe.
Biopsy: poorly differentiated non-small cell carcinoma favoring adenocarcinoma of the lung
Will need to discuss with Oncology re: treatment plan, antiplatelet and oral anticoagulation treatment plan
-I spent >90 minutes reviewing film as part of Heart Team discussion reviewing films, discussion with cardiology, oncology, pulmonary, hospitalists as well as seeing and evaluating patient.
Impression / Plan
-
PCP: Dr. Woodrow Bynum
Cardiology: Dr. Santosh Zepeda with [facility] ([phone])
Impression:
Chest pain with catheterization on 03/16/24 notable for multivessel CADz (see below)
NSTEMI with Troponin peaking at 26.9 on 03/03/24
CAD:
Cath 03/15/24: LM: Nl, LAD: ostial-prox: 80% and 80% in-stent on the distal edge of the LAD stent, LCX: eccentric smooth 70-80% proximal LCx. Distal vessel occluded, RCA: chronic occlusion of the mid RCA
Prior stents 3.5 mm Xience to prox LAD, 2.75 mm Xience distal RCA 3.0 mm Xience prox RCA at [facility] 05/12/13
PAD s/p left common to external iliac balloon angioplasty/stent, SFA balloon angioplasty/stent x2, TP trunk and peroneal angioplasty, anterior tibial long segment angioplasty 02/10/24
s/p left hallux amputation 02/11/24
ADRIAN lung mass concerning for malignancy with hemoptysis
Hemoptysis
Smoker
DM 2
Newly diagnosed paroxysmal Afib 03/05/24
Cath 03/15/24: LM: Nl, LAD: ostial-prox: 80% and 80% in-stent on the distal edge of the LAD stent, LCX: eccentric smooth 70-80% proximal LCx. Distal vessel occluded, RCA: chronic occlusion of the mid RCA
Echo on 02/11/24: LV ejection fraction is 60-65% by Roblero's method of discs. Mild concentric left ventricular hypertrophy. Mild mitral regurgitation.Mild to moderate aortic stenosis. Trace tricuspid regurgitation. Estimated pulmonary artery
pressure of 20-25 mmHg.
Echo 03/01/24: EF 60-65%, hypokinesis mid to distal septum
Recommendations:
-Coronary Artery Disease: Continued medical management for CADz until we have a plan in place from Oncology
Will need to discuss with Oncology.
I truly do not think he is a surgical candidate for treatment of multivessel coronary artery disease given his overall poor prognosis
Coronary treatment in part depends of Oncology assessment of survival.
--- If oncology assesses that prognosis is very poor / around 1 year then conservative/medical therapy may be most appropriate.
---IF oncology feels survival is beyond 1 year then would consider stenting of the ostial-prox LAD and mid LAD.
--- If stent is planned then would ONLY treat with 30-35 days of DAPT followed by single antiplatelet with clopidogrel OR aspirin
--- Not sure if and when chemotherapy and/or radiation would be considered or the impact of single vs dual antiplatelet therapy would have on radiation treatment
-Atrial Fibrillation:
IV amio started 03/09 and transitioned to PO amiodarone 03/10. He has received 3,000 mg oral load in addition to IV Amiodarone.
--- I would probably treat for a full 5,000 mg then decrease dose to 200mg daily
CHA2DS VAS score is 4 so eventually would consider oral anticoagulation with DOAC. HOWEVER, it comes to bleeding risk with hemoptysis and possible single/dual antiplatelet
I wonder if we consider LINQ device for long-term monitoring for recurring atrial fibrillation. We would have to be aware of the location of the LINQ device to keep out of radiation window. This strategy may allow us to avoid oral anticoagulation
(at least for a while) but we would be able to monitor for recurrence. Fortunately, he has been stable on IV amiodarone with no more atrial fibrillation
-Lung Mass c/w poorly differentiated non-small cell carcinoma favoring adenocarcinoma of the lung:
[id number] cm mass in the left upper lobe.
Biopsy: poorly differentiated non-small cell carcinoma favoring adenocarcinoma of the lung
Will need to discuss with Oncology re: treatment plan, antiplatelet and oral anticoagulation treatment plan
HPI: This is a 73 year old male patient with PMH of PAD, cardiac stent 2016, NIDDM, recent admission for dry gangrene of his left first toe status post amputation on 02/10, cardiac stent in 2016 and stent placement of the left superficial femoral
artery/left common iliac artery in 2017, lung mass with concerns of chest pain. He states that at 3AM he started to feel midsternal chest pain while sleeping which he described as a dull ache. He called EMS and felt that his chest pain improved upon
being given nitroglycerin. He also has concerns of left big toe pain. He denies CP, palpitations, SOB on exertion or dizziness.
His troponin was elevated at 0.078. Cardiology consulted.
Progress Note - Nuclear Medicine Chief Technologist
Subjective
Date of Service: March 17, 2024
Left sided 'chest heaviness' that has been ongoing since admission. Sometimes worse and sometimes better
Total Time Spent with Patient (in minutes): 90 min
Objective
Labs:
03/17/24 06:38
03/17/24 06:38
Labs
Hgb 10.1 g/dL (13.0-18.0) L 03/17/24 06:38
Hct 30.7 % (39.0-52.0) L 03/17/24 06:38
Plt Count 302 10^3/uL (130-400) 03/17/24 06:38
PT 14.0 Sec (11.4-14.6) 03/10/24 03:10
INR 1.08 03/10/24 03:10
APTT 92.6 Sec (23.4-35.0) H 03/17/24 06:38
Sodium 131 mmol/L (135-145) L 03/17/24 06:38
Potassium 3.6 mmol/L (3.5-5.1) 03/17/24 06:38
BUN 17 mg/dl (9-20) 03/17/24 06:38
Creatinine 0.8 mg/dL (0.7-1.3) 03/17/24 06:38
Glucose 134 mg/dl (70-99) H 03/17/24 06:38
Vital Signs and I&O:
Vital Signs
Temp Pulse Resp BP Pulse Ox
97.5 F 66 12 139/72 95
03/17/24 07:00 03/17/24 08:29 03/17/24 07:00 03/17/24 08:29 03/17/24 07:00
Vital Signs
Temp Pulse Resp BP Pulse Ox
97.5 F 66 12 139/72 95
03/17/24 07:00 03/17/24 08:29 03/17/24 07:00 03/17/24 08:29 03/17/24 07:00
Intake & Output
03/14/24 03/15/24 03/16/24 03/17/24
23:59 23:59 23:59 23:59
Intake Total 666 / 666 480 / 480 615 / 615 240 / 240
Output Total 400 / 400
Balance 666 / 666 80 / 80 615 / 615 240 / 240
Physical Exam
Physical Exam
Gen: awake and interactive
HEENT: NC/AT, sclera anicteric
Lungs: Scattered wheezing both lung lópez
CV: RRR with crescendo-decrescendo murmur USB
Ext: No edema. Femoral pulses are palpable bilaterally.
[2024-03-17] MEDS: MORPHINE SULFATE 2 MG IV (09:27)
[2024-03-17] MEDS: FLUSH (NSS) 1 FLUSH IV (09:29)
--- NOTE | 2024-03-17 09:30 | PTCARENOTE ---
PATIENT C/O CHEST BACK PAIN 8 OUT OF 10, MORPHINE iv GIVEN ORDERED.
--- NOTE | 2024-03-17 10:01 | W.PN.HOSP.TC ---
Today's Communication/Plan
-
IV Lasix. Pain control. PT OT.
Assessment / Plan
Assessment / Plan
General: Acutely ill, Non-toxic appearance today
HEENT: Normocephalic, Atraumatic and Moist Mucous Membranes
Respiratory: Clear to Auscultation; Negative Wheezes, Rales or Rhonchi
Cardiac: Regular Rhythm and S1/S2
GI: Soft, Nontender and Nondistended
Musculoskeletal: Left toe status post postop findings wrapped up. No Clubbing, No Cyanosis and No Edema
Neuro: Awake, Alert and Oriented, no gross neuro-deficits
Psych: Calm
A/P:
Acute hypoxic respiratory insufficiency -due to heart failure induced pulmonary edema. Continue IV Lasix per cardiology. Oxygenation improved, now on room air.
NSTEMI -still with intermittent resting chest pain, nonpleuritic. Troponins trended down. EKG last evening shows normal sinus rhythm, septal infarct age undetermined, ST and T wave abnormality. No significant change compared to previous EKG.
Continue aspirin
Plavix resumed over the weekend by Dr. Phillips. Discussed with cardiology and pulmonary and oncology on 03/13 and will continue with DAPT for now but might hold Plavix again depending on course.
Morphine as needed for pain
Cardiac cath revealed multivessel CAD. Complex situation. Cardiothoracic surgery consulted as well.
Cardiology discussed with pulmonary before next steps moving forward.
Will transfer to telemetry and have PT OT eval and caseworker to start working on discharge disposition
Left lung mass and hemoptysis:
Pulmonary consult appreciated. Underwent lung biopsy on March 10, path pending. Unclear if enough sample.
Discussed with oncology as well on 03/13
Biopsy revealed necrotic tissues, nondiagnostic. Awaiting for oncology and pulmonary for further steps.
CT scan 03/14 chest abdomen pelvis and neck negative for metastatic lesions
Oncology gave okay to proceed with cardiac cath
Sepsis due to left toe infection: Wound culture shows Pseudomonas and Enterobacter.
Improving
ID changed antibiotics to ciprofloxacin and Augmentin through 03/19
Changed metformin doses due to Cipro per ID recommendations. May need to hold metformin in am after contrast for 48 hours.
Status post left partial first ray amputation on 03/06 by podiatry
I asked ID to reevaluate on 03/13 due to concerns by hematology oncology about rising leukocytosis. Appreciated ID reevaluation and they do not feel there is any new infection.
Paroxysmal atrial fibrillation, new onset:
On rate control, metoprolol tartrate 25 mg every 12 hours
On amiodarone 200 mg p.o. 3 times daily
On IV heparin drip
Deferred anticoagulation with DOAC need/indication to cardiology
Acute diastolic CHF -IV Lasix 40 mg daily by cardiology. Weight continues to trend down. Today 83.6 kg.
Anemia of chronic disease:
Hematology consult appreciated
Blood transfusion given
Hemoglobin stable.
Post blood transfusion reaction on 03/03:
He was given IV Lasix, IV steroids, and continue with broad-spectrum antibiotics.
Chronic hyponatremia -sodium 131 today. TSH is normal. Suspect SIADH induced hyponatremia. Urine osmolality 398, urine sodium 34.
Chronic limb ischemia:
Status post vascular intervention on 02/[address] Vega
DM2 with hyperglycemia - Prior to admission he was on metformin and sitagliptin. Glucose 166 this morning. Continue Lantus 8 units at bedtime, NovoLog 5 units AC, low resistance corrective scale.
Last hemoglobin A1c on 02/09 was 8.2%
He is now on ciprofloxacin which could potentially interact with sitagliptin. Sitagliptin discontinued. Continue metformin.
Essential hypertension:
Continue current antihypertensives.
Monitor blood pressure and adjust medications accordingly.
Hyperlipidemia:
Continue statins
DVT prophylaxis:
On heparin drip
CODE STATUS-DNR
Total time spent on today's encounter was 52 minutes which included time spent in counseling the patient/family regarding diagnosis and treatment plan as listed above, goals of care, and symptom management. Case was discussed with nursing staff,
specialists, and care coordinators/case management. All labs and imaging personally reviewed by me. Remainder the time spent in detailed review of previous records, lab data, imaging, and other medical provider documentation.
Anticipated Discharge: 24 - 48 hours
Subjective/Interval History
-
Date of Service: March 17, 2024
Patient with some chest discomfort on and off. No shortness of breath. Afebrile
Objective Data
-
Labs:
Laboratory Results
03/17/24 03/17/24
00:40 06:38
WBC 18.1 H
Hgb 10.1 L
Hct 30.7 L
Plt Count 302
APTT 75.0 H 92.6 H
Sodium 131 L
Potassium 3.6
Chloride 96 L
Carbon Dioxide 26
BUN 17
Creatinine 0.8
Glucose 134 H
Calcium 8.7
Vital Signs:
Vital Signs
Temp Pulse Resp BP Pulse Ox
97.5 F 68 12 139/72 95
03/17/24 07:00 03/17/24 09:00 03/17/24 07:00 03/17/24 08:29 03/17/24 08:30
I&O
03/16/24 03/17/24 03/18/24
06:59 06:59 06:59
Intake Total 240 / 240 615 / 615 240 / 240
Output Total 400 / 400
Balance -160 / -160 615 / 615 240 / 240
--- NOTE | 2024-03-17 11:28 | W.PN.ONC2 ---
Documented by User: CRISS Damon 03/17/24 13:07
Today's Communication / Plan
-
NSCLC with slightly enlarged lymph nodes in the left suprahilar and hilar region on CT, suspicious for neoplastic lymphadenopathy. Suboptimal staging in absence of PET or EBUS so unable to comment on overall prognosis, however, No distant mets in
the abdomen/pelvis. Dr. Engel d/w cardiology
Radiation oncology consult -d/w Dr. Ren
Consider IP EBUS discussed with IR pulmonary via tiger text
MRI head
Defer to cardiology regarding CAD management
Impression
Impression
ADRIAN non-small carcinoma, poorly differentiated, favor adenocarcinoma in the background of marked necrosis. Lung biomarkers are pending, however unclear if sample adequate since most of the tissue was necrotic
Microcytic anemia, iron studies c/w AOCD
possible transfusion reaction 03/03
Reactive leukocytosis +/- sepsis d/t left toe infection
CAD, NSTEMI, PAF, HFpEF, HTN, HLD, Moderate
PAD s/p left common to external iliac balloon angioplasty/stent, SFA balloon angioplasty/stent x2, TP trunk and peroneal angioplasty, anterior tibial long segment angioplasty 02/10/24
Amputation of the first hallux 02/11/2024, partial 1st ray amputation 03/06/24,
Hyponatremia
Diabetes mellitus with hyperglycemia
Hemoptysis
100lb weight loss
Plan
Plan
s/p transthoracic biopsy of the 10 cm mass, pathology favors a non-small carcinoma, poorly differentiated in a background of marked necrosis. CT abdomen and pelvis without distant metastasis
IR ok to do port after DC even if pt on Plavix/ASA
AF w RVR, HFpEF, CAD.
partial 1st ray amputation 03/06/24, on abx through 03/19
Goals remain restorative
Subjective/Objective
Chief Complaint
no new complaints
continues with scant intermittent hemoptysis
Subjective
no new complaints
Vital Signs:
Vital Signs
Temp Pulse Resp BP Pulse Ox
97.8 F 68 14 139/72 97
03/17/24 11:00 03/17/24 09:00 03/17/24 11:00 03/17/24 08:29 03/17/24 11:00
Lab Results:
Laboratory Data
WBC 18.1 10^3/uL (4.8-10.8) H 03/17/24 06:38
Hgb 10.1 g/dL (13.0-18.0) L 03/17/24 06:38
Plt Count 302 10^3/uL (130-400) 03/17/24 06:38
PT 14.0 Sec (11.4-14.6) 03/10/24 03:10
INR 1.08 03/10/24 03:10
APTT 92.6 Sec (23.4-35.0) H 03/17/24 06:38
eGFR > 60.00 03/17/24 06:38
Physical Exam
General: AAOx3, resting in bed, conversant
Cardiology: Normal Sinus Rhythm
Pulmonary: Clear
GI: Soft and Normal Bowel Sounds
Review of Systems
Review of Systems
ROS notable for subjective, otherwise negative

Documented by User: Jacoby Engel MD 03/17/24 13:26
Plan
Plan
s/p transthoracic biopsy of the 10 cm mass, pathology favors a non-small carcinoma, poorly differentiated in a background of marked necrosis. CT abdomen and pelvis without distant metastasis
IR ok to do port after DC even if pt on Plavix/ASA
AF w RVR, HFpEF, CAD.
partial 1st ray amputation 03/06/24, on abx through 03/19
Goals remain restorative
Oncology Addendum:
Patient seen and evaluated and agree w/ FIXED ASSETS ACCOUNTANT note and plan as outlined
-discussed pathology and oncologic diagnosis of at least locally advanced NSCLC w/ patient in detail
-additional staging would be need to determine treatment plan - as well as better assessment of prognosis
-if staging were to determine that this is c/w stage III NSCLC - concurrent chemo/XRT would be a potential tx approach
-patient does not appear to be an ideal surgical candidate
-this was reviewed w/ the patient and his cousin today and he expressed interest in staging w/u and potentially treatment of feasible
-bronchoscopy could be considered to assess left suprahilar and hilar regions
-PET/CT would be recommended as well as MRI brain
-once staging is complete a full oncologic treatment plan could be established as well as prognostic assessment
Will continue to follow with you.
[2024-03-17 12:38] LABS: Glucose - Point of Care 131 mg/dl (70-99)
--- NOTE | 2024-03-17 14:07 | PTCARENOTE ---
D/C'd, IV heparin as per order.
--- NOTE | 2024-03-17 15:59 | CM ---
Chart reviewed. Patient is independent of ADLS, lives alone in a 2nd floor condo,, [address], has a SPC at home. Patient's goddaughter willing to stay with the patient when he goes home. Patient is current with VN. Patient feels weak and
deconditioned, saying he can't go home. PT evaluation recommending SNF vs Home PT. Patient expressed his wished of going to [facility]. Referrals sent to [place], [facility] and [place]. All facilities accept [employer]. Plan
is for the patient to go to SNF once medically stable for discharge. CM to follow
--- NOTE | 2024-03-17 16:07 | PTCARENOTE ---
To MRI via stretcher accompanied by vol. services.
[2024-03-17 17:35] LABS: Glucose - Point of Care 134 mg/dl (70-99)
[2024-03-17 21:17] LABS: Glucose - Point of Care 116 mg/dl (70-99)
[2024-03-17] MEDS: DESYREL 25 MG PO (22:23)
[2024-03-17] MEDS: LANTUS 0.08 UNITS SC (22:23)
--- NOTE | 2024-03-18 01:22 | PTCARENOTE ---
Pt rec'd at beginning of shift awake,alert no complaints. Sinus on telemetry. Pt continues to cough up dark sputum in specimen cup. no sob noted at rest.
[2024-03-18 04:54] VITALS: BP 134/67
[2024-03-18 05:38] VITALS: BMI 24.3
--- NOTE | 2024-03-18 05:39 | PTCARENOTE ---
Pt awoken for am labs and vs. Pt then assisted to bathroom. pt found to be incont of stool in bed and leaked stool on the way to bathroom. partial bath given. After sitting on toilet pt stated he was unable to void. Bladder scan performed result
621. pt straight cath at this time / 525 ml lainey urine
[2024-03-18 05:49] LABS: Hematocrit 31.2 % (39.0-52.0); Hemoglobin 10.3 g/dL (13.0-18.0); Mean Corpuscular Hgb 26.3 pg (27.0-31.0); Mean Corpuscular Volume 79.8 fL (80.0-94.0); Mean Platelet Volume 8.7 fL (7.4-10.4); Platelet Count 318 10^3/uL (130-400); Red Blood Cell Count 3.91 10^6/uL (4.70-6.10); Red Cell Dist. Width 17.9 % (11.5-14.5); White Blood Cell Count 17.1 10^3/uL (4.8-10.8)
[2024-03-18 06:02] LABS: APTT 34.6 Sec (23.4-35.0)
[2024-03-18 06:18] LABS: Blood Urea Nitrogen 17 mg/dl (9-20); Calcium 8.6 mg/dl (8.4-10.2); Carbon Dioxide 27 mmol/L (22-30); Chloride 96 mmol/L (98-107); Estimated Creatinine Clearance 106 ml/min; Glucose 118 mg/dl (70-99); Potassium 3.6 mmol/L (3.5-5.1); Sodium 133 mmol/L (135-145); eGFR > 60.00
[2024-03-18 07:42] VITALS: BP 147/71
[2024-03-18 07:46] LABS: Glucose - Point of Care 133 mg/dl (70-99)
[2024-03-18] MEDS: NOVOLOG FLEXPEN SC (07:51)
--- NOTE | 2024-03-18 09:14 | W.PN.HOSP.TC ---
Today's Communication/Plan
-
Continue current management
Assessment / Plan
Assessment / Plan
General: Acutely ill, Non-toxic appearance today
HEENT: Normocephalic, Atraumatic and Moist Mucous Membranes
Respiratory: Clear to Auscultation; Negative Wheezes, Rales or Rhonchi
Cardiac: Regular Rhythm and S1/S2
GI: Soft, Nontender and Nondistended
Musculoskeletal: Left toe status post postop findings wrapped up. No Clubbing, No Cyanosis and No Edema
Neuro: Awake, Alert and Oriented, no gross neuro-deficits
Psych: Calm
A/P:
Non-small cell lung cancer with brain metastases and brain edema associated with hemoptysis:
Biopsy left upper lobe mass non-small cell carcinoma poorly differentiated favoring adenocarcinoma with marked necrosis, biomarkers pending but unclear if sample is adequate.
Enlarged lymph nodes in the left suprahilar and hilar region
Pending PET scan as outpatient
Oncology consult and follow-up appreciated
Radiation oncology consulted
MRI of the brain shows metastatic brain disease-->Start IV dexamethasone and increase meal coverage insulin.
CT scan 03/14 chest abdomen pelvis and neck negative for other metastatic lesions
Oncology and cardiology referred to pulmonary to consider inpatient EBUS
Discussed with oncology today and they want me to ask neurosurgery consultation. [place] texted neurosurgery today
NSTEMI -still with intermittent resting chest pain, nonpleuritic. Troponins trended down.
Continue with DAPT for now but might hold Plavix again depending on course.
Morphine as needed for pain
Cardiac cath revealed multivessel CAD. Complex situation. Cardiothoracic surgery consulted as well.
Cardiology discussing with pulmonary before next steps moving forward.
At this juncture on medical management to continue.
Acute hypoxic respiratory insufficiency -due to heart failure induced pulmonary edema as well as lung cancer. Continue IV Lasix per cardiology. Oxygenation improved, now on room air.
Leukocytosis-reactive
Sepsis due to left toe infection: Wound culture shows Pseudomonas and Enterobacter.
Improved
ID managing antibiotics, ciprofloxacin and Augmentin through 03/19
Changed metformin doses due to Cipro per ID recommendations. May need to hold metformin in am after contrast for 48 hours.
Status post left partial first ray amputation on 03/06 by podiatry
I asked ID to reevaluate on 03/13 due to concerns by hematology oncology about rising leukocytosis. Appreciated ID reevaluation and they do not feel there is any new infection.
Paroxysmal atrial fibrillation, new onset:
On rate control, metoprolol tartrate 25 mg every 12 hours
On amiodarone 200 mg p.o. 3 times daily
Deferred anticoagulation with DOAC need/indication to cardiology
Acute diastolic CHF -IV Lasix 40 mg daily by cardiology. Weight continues to trend down. Today 83.6 kg.
Anemia of chronic disease:
Hematology consult appreciated
Blood transfusion given
Hemoglobin stable.
Post blood transfusion reaction on 03/03:
He was given IV Lasix, IV steroids, and continue with broad-spectrum antibiotics.
Chronic hyponatremia -sodium 133 today. TSH is normal. Suspect SIADH induced hyponatremia. Urine osmolality 398, urine sodium 34.
Chronic limb ischemia:
Status post vascular intervention on 02/[address] Vega
DM2 with hyperglycemia - Prior to admission he was on metformin and sitagliptin. Continue Lantus 8 units at bedtime, NovoLog increased to 10 units AC while on steroids, low resistance corrective scale.
Last hemoglobin A1c on 02/09 was 8.2%
He is now on ciprofloxacin which could potentially interact with sitagliptin. Sitagliptin discontinued. Continue metformin but decrease doses as well. After finishing antibiotics can go back to sitagliptin and increased doses of metformin.
Essential hypertension:
Continue current antihypertensives.
Monitor blood pressure and adjust medications accordingly.
Hyperlipidemia:
Continue statins
DVT prophylaxis:
On heparin drip
CODE STATUS-DNR
Total time spent on today's encounter was 52 minutes which included time spent in counseling the patient/family regarding diagnosis and treatment plan as listed above, goals of care, and symptom management. Case was discussed with nursing staff,
specialists, and care coordinators/case management. All labs and imaging personally reviewed by me. Remainder the time spent in detailed review of previous records, lab data, imaging, and other medical provider documentation.
Anticipated Discharge: > 48 hours
Subjective/Interval History
-
Date of Service: March 18, 2024
Chest discomfort on and off. No shortness of breath. Very weak and deconditioned. Afebrile
Objective Data
-
Labs:
Laboratory Results
03/18/24
05:03
WBC 17.1 H
Hgb 10.3 L
Hct 31.2 L
Plt Count 318
APTT 34.6
Sodium 133 L
Potassium 3.6
Chloride 96 L
Carbon Dioxide 27
BUN 17
Creatinine 0.7
Glucose 118 H
Calcium 8.6
Vital Signs:
Vital Signs
Temp Pulse Resp BP Pulse Ox
97.7 F 62 18 147/71 97
03/18/24 07:48 03/18/24 08:00 03/18/24 07:48 03/18/24 07:42 03/18/24 07:48
I&O
03/17/24 03/18/24 03/19/24
06:59 06:59 06:59
Intake Total 615 / 615 340 / 340
Output Total 1050 / 1050
Balance 615 / 615 -710 / -710
--- NOTE | 2024-03-18 09:49 | W.PN.CARDCBS ---
Addendum entered and electronically signed by Abdirahman Shannon MD 03/18/24 12:28:
Patient seen, interviewed and examined by me.
Well-appearing, no acute distress
Regular rate and rhythm with normal S1 and S2, no S3 no S4. There is a grade 1/6 apical holosystolic murmur and no rubs. PMI is normally placed.
Lungs are clear to auscultation bilaterally without wheezes rales or rhonchi.
Abdomen soft nontender nondistended with normoactive bowel sounds
Extremities show trace pretibial edema bilaterally no clubbing or cyanosis.
Neurologic exam is grossly nonfocal.
Agree with advanced practice professionals assessment and plan as noted below.
Additionally:
Have discussed case with oncology. MRI shows large brain mets 1 with intra tumor hemorrhage. Given the hemorrhage it is felt that ongoing antiplatelet therapy is very high risk.
Will stop Plavix and asa given intracranial hemorrhage
If plan for tissue sampling/biopsy he would be high overall risk from a CV standpoint, however if tissue sampling would be expected to reasonably alter prognosis/treatment course would proceed
Overall however it appears as though we are approaching overall medical futility and focus on comfort may be most appropriate.
Original Note:
Today's Communication / Plan
-
Now with brain mets on MRI
Decrease amio to 200 mg BID
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
Impression / Plan
-
PCP: Dr. Woodrow Bynum
Cardiology: Dr. Santosh Zepeda with [facility] ([phone])
Impression:
Chest pain with catheterization on 03/16/24 notable for multivessel CADz (see below)
NSTEMI with Troponin peaking at 26.9 on 03/03/24
CAD:
s/p 3.5 mm Xience to prox LAD 05/12/13
s/p 2.75 mm Xience distal RCA 05/12/13
s/p 3.0 mm Xience to prox RCA at [facility] 05/12/13
Cath 03/15/24: LM: Nl, LAD: ostial-prox: 80% and 80% in-stent on the distal edge of the LAD stent, LCX: eccentric smooth 70-80% proximal LCx. Distal vessel occluded, RCA: chronic occlusion of the mid RCA
PAD s/p left common to external iliac balloon angioplasty/stent, SFA balloon angioplasty/stent x2, TP trunk and peroneal angioplasty, anterior tibial long segment angioplasty 02/10/24
s/p left hallux amputation 02/11/24
ADRIAN lung mass concerning for malignancy with hemoptysis
MRI brain with large 4.5 cm met right frontal lobe with severe surrounding vasogenic edema 03/17/24
Hemoptysis
Smoker
DM 2
Newly diagnosed paroxysmal Afib 03/05/24
Cath 03/15/24: LM: Nl, LAD: ostial-prox: 80% and 80% in-stent on the distal edge of the LAD stent, LCX: eccentric smooth 70-80% proximal LCx. Distal vessel occluded, RCA: chronic occlusion of the mid RCA
Echo on 02/11/24: LV ejection fraction is 60-65% by Roblero's method of discs. Mild concentric left ventricular hypertrophy. Mild mitral regurgitation.Mild to moderate aortic stenosis. Trace tricuspid regurgitation. Estimated pulmonary artery
pressure of 20-25 mmHg.
Echo 03/01/24: EF 60-65%, hypokinesis mid to distal septum
Recommendations:
-Patient had admission to 02/10/24 until 02/13/24 for left great toe gangrene and during that admission he had left hallux amputation and LLE LOCATION WORKER and stent. Patient was d/c'd to home on aspirin and Plavix. Also during that admission patient was
found to have a new ADRIAN mass and was recommended, but patient no-showed for her pulmonology appts as an outpatient. Patient then came to [facility] with chest pain 03/01/24. Troponin peaked at 26.9. Echo with new septal hypokinesis. Chest pain did not
improve with Nitro, but did eventually improve with morphine. Patient was awaiting a transthoracic biopsy and had to have Plavix washout, finally had biopsy on 03/10/24 that showed mostly necrosis, but minute fragment of NSCLC that favored
adenocarcinoma as a diagnosis. Oncology is following and without PET or additional histology they feel they cannot give an accurate prognosis. Pulm feels that there are no further diagnostic areas to biopsy and that yield of EBUS would be low. From
a cardiac standpoint if he is to be considered for LAD PCI then his life expectancy should be more than 1 year.
-If oncology assesses that prognosis is very poor / around 1 year then conservative/medical therapy may be most appropriate. IF oncology feels survival is beyond 1 year then would consider stenting of the ostial-prox LAD and mid LAD. If stent is
planned then would ONLY treat with 30-35 days of DAPT followed by single antiplatelet with clopidogrel OR aspirin. Not sure if and when chemotherapy and/or radiation would be considered or the impact of single vs dual antiplatelet therapy would have
on radiation treatment
-Cont aspirin and Plavix for recent LLE LOCATION WORKER and stent last admission plus NSTEMI this admission
-Afib is a new diagnosis this admission and patient has had 2 episodes this admission, but is in SR on 03/18/24.
-Patient has received a 6.8 gram load of amiodarone PO as of 03/18/24 AM. Will reduce amiodarone to 200 mg PO BID as of 03/18/24 AM.
-Patient is not currently anticoagulated. Should be considered for the future given SRI Vasc of 4.
-Outpatient dose of Toprol XL 25 mg daily changed to Lopressor 25 mg PO BID.
HPI: This is a 73 year old male patient with PMH of PAD, cardiac stent 2016, NIDDM, recent admission for dry gangrene of his left first toe status post amputation on 02/10, cardiac stent in 2016 and stent placement of the left superficial femoral
artery/left common iliac artery in 2017, lung mass with concerns of chest pain. He states that at 3AM he started to feel midsternal chest pain while sleeping which he described as a dull ache. He called EMS and felt that his chest pain improved upon
being given nitroglycerin. He also has concerns of left big toe pain. He denies CP, palpitations, SOB on exertion or dizziness.
His troponin was elevated at 0.078. Cardiology consulted.
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
Subjective
Date of Service: March 18, 2024
Wants to go home, but also feels too weak to be at home
Objective
Labs:
03/18/24 05:03
03/18/24 05:03
Labs
Hgb 10.3 g/dL (13.0-18.0) L 03/18/24 05:03
Hct 31.2 % (39.0-52.0) L 03/18/24 05:03
Plt Count 318 10^3/uL (130-400) 03/18/24 05:03
PT 14.0 Sec (11.4-14.6) 03/10/24 03:10
INR 1.08 03/10/24 03:10
APTT 34.6 Sec (23.4-35.0) 03/18/24 05:03
Sodium 133 mmol/L (135-145) L 03/18/24 05:03
Potassium 3.6 mmol/L (3.5-5.1) 03/18/24 05:03
BUN 17 mg/dl (9-20) 03/18/24 05:03
Creatinine 0.7 mg/dL (0.7-1.3) 03/18/24 05:03
Glucose 118 mg/dl (70-99) H 03/18/24 05:03
Vital Signs and I&O:
Vital Signs
Temp Pulse Resp BP Pulse Ox
97.7 F 62 18 147/71 97
03/18/24 07:48 03/18/24 08:00 03/18/24 07:48 03/18/24 07:42 03/18/24 07:48
Vital Signs
Temp Pulse Resp BP Pulse Ox
97.7 F 62 18 147/71 97
03/18/24 07:48 03/18/24 08:00 03/18/24 07:48 03/18/24 07:42 03/18/24 07:48
Intake & Output
03/16/24 03/17/24 03/18/24 03/19/24
06:59 06:59 06:59 06:59
Intake Total 240 / 240 615 / 615 340 / 340
Output Total 400 / 400 1050 / 1050
Balance -160 / -160 615 / 615 -710 / -710
Physical Exam
Physical Exam
GEN: AAOx3
HEENT: mmm
LUNGS: No audible wheeze
CV: SR on tele
ABD: ND
EXT: No edema
NEURO: Gross non-focal
SKIN: No rash
[2024-03-18] MEDS: AUGMENTIN 875 MG/125 MG 1 TABLET PO ×2 (10:12→19:42)
[2024-03-18] MEDS: PLAVIX 75 MG PO (10:12)
[2024-03-18] MEDS: LOW STRENGTH ASPIRIN 81 MG PO (10:12)
[2024-03-18] MEDS: BUSPAR 10 MG PO ×2 (10:12→19:42)
[2024-03-18] MEDS: PACERONE 200 MG PO ×3 (10:12→22:45)
[2024-03-18] MEDS: CIPRO 500 MG PO ×2 (10:12→19:42)
[2024-03-18] MEDS: LOPRESSOR 25 MG PO ×2 (10:13→19:43)
[2024-03-18] MEDS: DECADRON 4 MG IV (10:14)
[2024-03-18] MEDS: LASIX 40 MG IV (10:14)
[2024-03-18] MEDS: NOVOLOG FLEXPEN-LOW RESISTANCE SC (10:14)
[2024-03-18] MEDS: FLUSH (NSS) 2 FLUSH IV (10:17)
[2024-03-18] MEDS: LIPITOR 20 MG PO (10:17)
[2024-03-18] MEDS: NOVOLOG FLEXPEN 10 UNITS SC ×3 (10:18→17:52)
[2024-03-18] MEDS: MIRALAX PO (10:19)
--- NOTE | 2024-03-18 11:16 | W.PN.ONC2 ---
Today's Communication / Plan
-
Brain mets noted.
I do not think he would tolerate treatment other than targeted therapy. Tumor specimen in Pathology is mostly necrotic, doubt it is appropriate for NGS.
May be at point of medical futility with needing an additional procedure for tissue but high-risk if off antiplatelet therapy.
D/w other providers.
Impression
Impression
ADRIAN non-small carcinoma, poorly differentiated, favor adenocarcinoma in the background of marked necrosis
Multiple brain metastases
Microcytic anemia, iron studies c/w AOCD
Possible transfusion reaction 03/03
Reactive leukocytosis +/- sepsis d/t left toe infection
CAD, NSTEMI, PAF, HFpEF, HTN, HLD, Moderate
PAD s/p left common to external iliac balloon angioplasty/stent, SFA balloon angioplasty/stent x2, TP trunk and peroneal angioplasty, anterior tibial long segment angioplasty 02/10/24
Amputation of the first hallux 02/11/2024, partial 1st ray amputation 03/06/24,
Hyponatremia
Diabetes mellitus with hyperglycemia
Hemoptysis
100lb weight loss
Plan
Plan
Personally reviewed MRI brain showing at least three large masses: one cystic 4.5 cm in R frontal lobe with moderate vasogenic edema, one 2.6 in L basal ganglia, one 2.7 cm in medial L occipital lobe containing intratumoral hemorrhage. Also noted
to have small acute ischemic infarcts in cortical pineda matter of R parietal lobe and L temporal lobe.
Pt denies symptoms related to the brain mets.
Ideally, we would have tissue amenable to NGS so we could determine whether he is a candidate for a targeted therapy, if PS adequate (hard to assess with him in hospital for the last two weeks.
Case d/w Neurosurgery via secure text, requested consultation. Preliminary impression is that the frontal lobe met could be removed but he would need to be off antiplatelet therapy, and if high risk, radiation would be best option.
My gestalt: optimize cardiac status medically over the next few days. If not ready for D/C on Wednesday (after holiday weekend) then transfer to [facility] for inpt palliative radiation, then d/c to care home for hospice.
Subjective/Objective
Chief Complaint
Lung cancer, adenocarcinoma favored, now metastatic to brain
Subjective
Denies KOENIG, nausea, change in strength or balance
Vital Signs:
Vital Signs
Temp Pulse Resp BP Pulse Ox
97.7 F 62 18 147/71 97
03/18/24 07:48 03/18/24 08:00 03/18/24 07:48 03/18/24 07:42 03/18/24 07:48
Lab Results:
Laboratory Data
WBC 17.1 10^3/uL (4.8-10.8) H 03/18/24 05:03
Hgb 10.3 g/dL (13.0-18.0) L 03/18/24 05:03
Plt Count 318 10^3/uL (130-400) 03/18/24 05:03
PT 14.0 Sec (11.4-14.6) 03/10/24 03:10
INR 1.08 03/10/24 03:10
APTT 34.6 Sec (23.4-35.0) 03/18/24 05:03
eGFR > 60.00 03/18/24 05:03
Physical Exam
Awake, alert, on room air
HEENT: Moist Mucous Membranes; No Jaundice
Cardiology: S1 and S2
Pulmonary: Other (decreased anteriorly)
GI: Soft and Normal Bowel Sounds
Extremities: No C/C/E
Neuro: Non Focal
Review of Systems
Review of Systems
Constitutional: Denies Fever or Fatigue
Head: Denies Sore Throat or Hearing Loss
Respiratory: Reports Dyspnea, Cough and Other (hemoptysis)
Cardiovascular: Denies Chest Pain or Palpitations
Gastrointestinal: Denies Nausea/Vomiting or Diarrhea
Genitourinary: Denies Hematuria
Skin: Denies Rash or Pruritis
Neurological: Denies Headache or Numbness
Psychiatric: Denies Depression or Insomnia
Hem/Lymphatic: Denies Easy Bruising or Night Sweats
Orders
Orders
Orders From Last 24 Hours
03/18/24 20:00
Dexamethasone [Decadron] 4 mg PO Q12
[2024-03-18 11:54] VITALS: BP 123/61
--- NOTE | 2024-03-18 12:00 | PTCARENOTE ---
Received patient this morning resting in bed, slept later and was able to eat a light breakfast. Patient seen by oncology and was informed of the MRI of his brain results. Patient telephoning family and giving them the news, emotional support given.
--- NOTE | 2024-03-18 13:12 | W.PN.PUL3 ---
Today's Communication / Plan
-
Continue with current care
Antiplatelets and anticoagulation on hold
Waiting from neurosurgical evaluation
Any pulmonary procedures will require general anesthesia, very high risk situation with unprotected coronary artery disease with multivessel involvement of all antiplatelets and anticoagulation for at least 7 days due to hemorrhagic brain metastasis
.
Agree that we are approaching medical futility.
Assessment
-
73-year-old male with history of peripheral arterial disease, status post recent left toe amputation, treated for diagram gain, history of coronary disease with stent placement 2014, and lower extremity PAD stents 2016 at [facility], now
presents with increased chest discomfort similar to prior cardiac pain. Patient started on heparin therapy. We are asked to comment on his pulmonary process
Impression:
Acute onset midsternal chest discomfort
NSTEMI
Gross hemoptysis - resumed again
History of coronary disease with stent placement at [facility]
Diastolic CHF
Leukocytosis
Anemia
Peripheral vascular disease
Peripheral arterial disease, stent placement lower extremity 2015 [facility]
Recent left first hallux amputation 02/11/2024
Hyponatremia
Hyperglycemia
10 cm left upper lobe mass s/p IR CT guided Bx (03/10/2024)
Mild left hilar adenopathy
Moderate , valve area 1 cm�
New onset AFib
Conditions present prior to admission
Hypertension/hyperlipidemia
Diabetes
20+ tobacco history, quit around 2015
100 pound weight loss over the past year
Plan
Respiratory status stable on room air although he does endorse L-sided chest pain/back
Keep SpO2 >94%
Continue nebulizers as needed
Follow hemoptysis-minimal
Note: Sputum cytology negative for malignant cells
Lung mass on the left-requires biopsy-unable to immediately pursue while on aspirin/Plavix
s/p IR percutaneous 03/07/2024-biopsy performed on 03/10
Follow up final pathology from B[facility]--necrosis shown/final showing ?lung adenoca favored-tissue mostly necrotic not enough for special testing.
IR indicates specimens were necrotic according to the on-site pathologist, despite repositioning the biopsy needle multiple times.
6 specimens were obtained. If final pathology is necrotic/nondiagnostic, consider PET/CT of the lesion to determine the areas of viable tumor in order to direct future biopsy.
Repeat CT chest 03/14/2024: Reviewed there is a hilar lymph node of about 1.8 station 10L. May be approachable by EBUS.
New development with an MRI with large brain metastasis with hemorrhage.03/17/2024.
Now antiplatelets on hold indefinitely.
Unlikely that this patient will tolerate aggressive therapy other than targeted therapy,
Neurosurgery has been consulted: Will evaluate the patient in the afternoon. Recommended at least stopping antiplatelets for 7 days.
High risk intubation with underlying cardiac issues.
-
From the pulmonary perspective bronchoscopy with EBUS may be possible but at very high risk for above issues(coronary artery disease/atrial fibrillation of anticoagulation/hemorrhagic brain metastasis). Including multivessel coronary artery disease
that has not been addressed.
I agree that possibly reaching medical futility. Discussion is ongoing.
Will wait for neurosurgical evaluation.
-
Hemoptysis noted again, likely from tumor
Not severe
Now antiplatelets and anticoagulation on hold
Cardiology following-correspondence reviewed
Pulmonary edema pattern on CAT scan from 03/15/2024. Less likely lymphangitic spread.
Troponin trended � peaked at 26.9 on 03/03/2024
Cardiac catheterization 03/16/2024: Correspondence reviewed. Multivessel coronary artery disease. May be a candidate for CABG versus high risk PCI. Clinically due to metastatic carcinoma/hemorrhagic brain metastasis- not candidate for either
Off antiplatelets as of 03/18/2024, off heparin due to brain metastatic disease with hemorrhagic conversion
New onset AFib-rapid a.m. 03/09/2024-rate control. Off anticoagulation due to brain metastatic disease.
Diuresis as tolerated
Orthopedics following-status post debridement and partial amputation 03/06/2024
Cultures reviewed
Wound cultures with Pseudomonas and Enterobacter
Empiric antibiotics per infectious disease - currently on Augmentin + cipro through 03/19
Per infectious
DVT prophylaxis-SCD
-
Prognosis is guarded

Diagnostic Data
CXR 03/12/24- No pneumothorax. Stable left upper lobe opacification. New right perihilar infrahilar airspace disease concerning for pneumonia. Pulmonary edema not excluded but less likely.
03/03/24- Similar appearance of the left upper lobe consolidation. Some minimal patchy opacities within the right lung base, likely atelectasis.
CT Chest 02/11/24- Approximate 10 cm 'mass' in the left upper chest with differential slightly low attenuation densities within, slightly greater density centrally than peripherally and which extends to the left hilum. Unfortunately, as a result of
the size of this lesion, determining the exact origin and etiology is somewhat limited, pleural versus parenchymal based. Although this may represent a large lesion such as an atypical hematoma, both benign and malignant masses are also possible
including mesenchymal tumors as there appears to be a few small left hilar lymph nodes. Hemorrhage into a lesion is also possible.
ECHO 03/01/24- Limited echo performed to assess for wall motion abnormalities. Normal left ventricular size and systolic function. LV ejection fraction is 60-65% by Roblero's method of discs. Hypokinesis of the mid to distal septum. Compared to
prior study dated 02/11/2024 which was directly reviewed, septal hypokinesis is new.
-----
Total time spent today was 51 minutes for this encounter. Time includes reviewing laboratory test/imaging results, reviewing pertinent medical records, obtaining and reviewing medical history, performing an appropriate exam, ordering medications,
tests and procedures. Time also includes documentation of this encounter, coordinating patient care via TT and communicating with other healthcare professionals. Total time does not include separately billed tests performed on this date of service.
Subjective Data
-
Date of Service:
Date of Service: March 18, 2024
Chief Complaint: Pulmonary Follow Up and Dyspnea Follow Up
Subjective:
Patient has no new complaints
Denies headache or blurry vision
Denies shortness of breath at rest
Review of Systems
General: Fever (n)
Cardiopulmonary: Dyspnea (none at rest)
GI: Abdominal Pain (n) and Nausea (n)
Neuro: Headache (n)
Objective Data
Data Reviewed
Vital Signs / I&O / Oxygen:
Vital Signs
Temp Pulse Resp BP Pulse Ox
97.8 F 79 16 123/61 97
03/18/24 12:00 03/18/24 12:00 03/18/24 12:00 03/18/24 11:54 03/18/24 12:00
Intake and Output
03/17/24 03/18/24 03/19/24
06:59 06:59 06:59
Intake Total 615 / 615 340 / 340
Output Total 1050 / 1050
Balance 615 / 615 -710 / -710
SaO2 97
Nasal Cannula flow liters per 2
minute
Physical Exam
General: Respiratory Distress (n), Comfortable, Good Appetite and Other (NAD)
HEENT: Normocephalic, Anicteric and Moist Mucous Membranes
Cardiovascular: S1-S2, Murmur (BONIFACIO heard best ar RUSB, grade II/), Rub (n) and Peripheral Edema (n)
Respiratory: Clear, Wheeze (n), Crackles (negative), Rhonchi (n) and Non-Labored Respirations
GI: Soft, Non Distended, Non Tender and Normal Bowel Sounds
Neurology: Awake, Alert, Oriented, AO x 3 and Tremors (n)
Skin: Warm, Dry, Cyanosis (n), Jaundice (n) and Rash (n)
Labs/Micro/Reports
Lab Data
03/18/24 05:03
03/18/24 05:03
Laboratory Results
03/18/24
05:03
APTT 34.6
[2024-03-18 13:45] LABS: Glucose - Point of Care 259 mg/dl (70-99)
[2024-03-18] MEDS: MORPHINE SULFATE 2 MG IV (14:09)
[2024-03-18] MEDS: NOVOLOG FLEXPEN-LOW RESISTANCE 3 UNITS SC (14:09)
--- NOTE | 2024-03-18 14:30 | CON.NS ---
Consultation
-
Date/Time Consultation Performed: 14:30; 03/18/2024
Performing Provider: Viviana
Chief Complaint
History of Present Illness
This is a neurosurgical consultation on a 73-year-old gentleman who presented with acute chest pain, on 03/01/2024, in the setting of recently diagnosed lung mass. He was found to have an NSTEMI, still with intermittent resting chest pain. His
hospital course, from a cardiac standpoint has been complicated by intermittent episodes of chest pain, atrial fibrillation, found on this admission, ongoing evaluation for possible revascularization of his severe coronary artery disease which,
ultimately was felt by cardiology that he was such high risk that he would benefit from medical management rather than CABG for his multivessel coronary artery disease.
Additionally, the patient also has peripheral arterial disease, status post lower extremity angioplasty/stent most recently February 10, 2024. He is status post left foot amputation at that time as well.
Due to his severe peripheral vascular disease, he is on aspirin and Plavix. He was found to have a new left upper lobe mass and it was felt that he may benefit from outpatient biopsy. However, when he presented with chest pain, and troponin
elevation, it was felt that he may benefit from a transthoracic biopsy while in house. He ultimately did have his biopsy on 03/10/2024, that was demonstrative of necrosis, with minute fragment of non-small cell lung cancer favoring adenocarcinoma.
Ultimately, pulmonary feels that there are no further diagnostic areas to biopsy. From a cardiac standpoint, it is noted here that he may be considered for PCI, if his life expectancy should be more than 1 year.
Patient recently had a brain MRI performed, even though he was not necessarily symptomatic as it appears from chart review. It was potentially done for completion of staging, and for prognostic assessment. This demonstrated multiple brain lesions,
consistent with metastasis, with 1 lesion being hemorrhagic, and another lesion in the right frontal lobe being significantly large. Given MRI results, neurosurgery consulted.
Patient seen and examined. Denies any headache. Denies any roxanna/asymmetric weakness. Does report that he feels diffusely weak all over.
Review of Systems
-
10 point review of systems was performed, including constitutional, ENT, cardiovascular, respiratory, GI, , hematologic, endocrinologic, musculoskeletal, neurologic, which is negative, except for stated in HPI.
Medication and Allergies
Home Medications
Home Medications
�Medication �Instructions �Recorded
acetaminophen 325 mg tablet 650 mg (2 x 325 mg) PO Q4HPRN PRN 02/13/24
mild pain or temp >/= 100.4 F #10
tabs
aspirin 81 mg chewable tablet 81 mg PO DAILY Blood Clot 03/01/24
Prevention/Tx
atorvastatin 10 mg tablet 20 mg PO DAILY High Cholesterol 03/01/24
clopidogrel 75 mg tablet 75 mg PO DAILY Blood Clot 03/01/24
Prevention/Tx
lisinopril 5 mg tablet 5 mg PO DAILY Blood Pressure 03/01/24
metformin 1,000 mg tablet 1,000 mg PO BID@0800,1700 Diabetes 03/01/24
metoprolol succinate 25 mg 25 mg PO DAILY Blood Pressure 03/01/24
tablet,extended release 24 hr
sitagliptin phosphate 50 mg tablet 50 mg PO DAILY Diabetes 03/01/24
(Januvia)
Allergies
Allergies
Allergy/AdvReac Type Severity Reaction Status Date / Time
No Known Allergies Allergy Verified 03/01/24 09:15
Physical Exam
-
Exam:
Awake, alert, conversant
Pupils are equal and reactive to light.
Extraocular movements are full
Face is symmetric
Tongue is midline
Motor: 5/5 strength bilaterally in upper extremities and lower extremities, with subtle right-sided pronator drift
Sensation to light touch is intact bilaterally in upper and lower extremities.
Head is normocephalic/atraumatic
Neck is supple
Breathing nonlabored
Abdomen is soft
Cardiac :regular rate and rhythm
Extremities are warm, nonedematous, left foot is bandaged
MRI brain with without contrast performed on 03/17/2024 was reviewed. There is evidence of several contrast-enhancing brain lesions that are noted including 2 within the left occipital lobe, 1 within the left deep white matter/basal ganglia, large
4 cm cystic lesion in the right frontal lobe with an adjacent hemorrhagic lesion just anterior to it. On my preliminary count, I see at least 6 metastatic lesions.
Problems
-
Problem Status Onset Code
Acute non-ST elevation myocardial infarction (NSTEMI) I21.4
Amputation stump infection T87.40
Assessment / Plan
-
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 He has complex medical comorbidities, including severe coronary artery disease,
multivessel, as well as peripheral vascular disease. He is on aspirin and Plavix.
He denies having any obvious headaches and is relatively asymptomatic with minimal findings on neurological examination.
At present time, I do not recommend surgical intervention for his cranial lesions, in light of his severe cardiac history, high perioperative morbidity risk, as well as given his extensive lung mass. Would favor radiotherapy for his cranial lesions.
With regards to his dual antiplatelet therapy, discussion held with cardiology, and hematology/oncology, and hospital medicine via secure text.
Would recommend holding Plavix for approximately 5 days, continue with aspirin [address] in approximately 5 days. If this is stable, and patient's neurological condition remains stable, okay to resume Plavix.
Okay for chemical DVT prophylaxis.
Start dexamethasone 4 mg twice daily.
[2024-03-18 16:36] VITALS: BP 105/62
[2024-03-18 17:52] LABS: Glucose - Point of Care 231 mg/dl (70-99)
[2024-03-18] MEDS: NOVOLOG FLEXPEN-LOW RESISTANCE 2 UNITS SC (17:52)
[2024-03-18] MEDS: GLUCOPHAGE 500 MG PO (17:53)
--- NOTE | 2024-03-18 18:02 | PTCARENOTE ---
Patient unable to urinate this afternoon, bladder scan > 400, patient straight cathed for 650ml lainey urine. Complained of left sided chest discomfort and medicated with morphine 2mg IV with some relief.
[2024-03-18 19:39] VITALS: BP 111/62
[2024-03-18] MEDS: TYLENOL 650 MG PO (19:43)
[2024-03-18] MEDS: DECADRON 4 MG PO (19:43)
[2024-03-18] MEDS: MUCINEX 600 MG PO (20:45)
[2024-03-18 20:51] LABS: Glucose - Point of Care 196 mg/dl (70-99)
[2024-03-18 22:43] VITALS: BP 113/66
[2024-03-18] MEDS: DESYREL 25 MG PO (22:45)
[2024-03-18] MEDS: LANTUS 0.08 UNITS SC (22:45)
[2024-03-19] VITALS (9 sets, daily range): BP systolic 106–130; BP diastolic 58–75; PULSE 60; BMI 23.2
--- NOTE | 2024-03-19 00:04 | PTCARENOTE ---
pt rec'd at change of shift awake, alert oriented. Pt spoke with niece via phone; overheard stating ' the cancer went to my brain but I'm going to get treatment at [facility] because I'm not ready to give up'. Pt with harsh cough with dark blood tinged
sputum. Pt stated he is unable to bring up sputum like he was before. Mucinex order obtained from [employer] and given. no urine output noted since previous straight cath on day shift at 1400. Bladder scan performed at 1999 with 263ml noted , then
repeated at 2253 with 328 ml noted. Pt denies discomfort. Incont of loose stool. Pt states incontinence worse now with coughing. Sinus on telemetry. Back pain (center) still present, slightly improved after receiving Tylenol at change of shift.
[2024-03-19 05:14] LABS: Hematocrit 30.2 % (39.0-52.0); Hemoglobin 10.1 g/dL (13.0-18.0); Mean Corp Hgb Conc. 33.4 g/dL (33.0-37.0); Mean Corpuscular Hgb 26.6 pg (27.0-31.0); Mean Corpuscular Volume 79.7 fL (80.0-94.0); Mean Platelet Volume 8.5 fL (7.4-10.4); Platelet Count 305 10^3/uL (130-400); Red Blood Cell Count 3.79 10^6/uL (4.70-6.10); Red Cell Dist. Width 17.8 % (11.5-14.5); White Blood Cell Count 20.1 10^3/uL (4.8-10.8)
[2024-03-19 05:38] LABS: Blood Urea Nitrogen 23 mg/dl (9-20); Calcium 8.5 mg/dl (8.4-10.2); Carbon Dioxide 27 mmol/L (22-30); Chloride 95 mmol/L (98-107); Estimated Creatinine Clearance 106 ml/min; Glucose 189 mg/dl (70-99); Potassium 3.9 mmol/L (3.5-5.1); Sodium 132 mmol/L (135-145); eGFR > 60.00
[2024-03-19 07:12] LABS: Glucose - Point of Care 213 mg/dl (70-99)
[2024-03-19] MEDS: LASIX 40 MG IV (08:36)
[2024-03-19] MEDS: LOPRESSOR 25 MG PO ×2 (08:37→20:29)
[2024-03-19] MEDS: FLUSH (NSS) 1 FLUSH IV (08:37)
[2024-03-19] MEDS: CIPRO 500 MG PO ×2 (08:37→20:29)
[2024-03-19] MEDS: DECADRON 4 MG PO ×2 (08:37→20:29)
[2024-03-19] MEDS: AUGMENTIN 875 MG/125 MG 1 TABLET PO ×2 (08:37→20:29)
[2024-03-19] MEDS: BUSPAR 10 MG PO ×2 (08:38→20:29)
[2024-03-19] MEDS: MIRALAX PO (08:38)
[2024-03-19] MEDS: LIPITOR 20 MG PO (08:38)
[2024-03-19] MEDS: MUCINEX 600 MG PO ×2 (08:38→20:29)
[2024-03-19] MEDS: PACERONE 200 MG PO ×3 (08:38→22:42)
[2024-03-19] MEDS: GLUCOPHAGE 500 MG PO ×2 (08:38→17:51)
[2024-03-19] MEDS: NOVOLOG FLEXPEN 10 UNITS SC ×3 (08:39→17:49)
[2024-03-19] MEDS: NOVOLOG FLEXPEN-LOW RESISTANCE 2 UNITS SC (08:39)
--- NOTE | 2024-03-19 09:00 | W.PN.CARDCBS ---
Today's Communication / Plan
-
consideration for hospice discussions if consultants are in agreement regarding the poor prognosis and limited diagnostic/treatment options
Impression / Plan
-
PCP: Dr. Woodrow Bynum
Cardiology: Dr. Santosh Zepeda with [facility] ([phone])
Impression:
Chest pain with catheterization on 03/16/24 notable for multivessel CADz (see below)
NSTEMI with Troponin peaking at 26.9 on 03/03/24
CAD:
s/p 3.5 mm Xience to prox LAD 05/12/13
s/p 2.75 mm Xience distal RCA 05/12/13
s/p 3.0 mm Xience to prox RCA at [facility] 05/12/13
Cath 03/15/24: LM: Nl, LAD: ostial-prox: 80% and 80% in-stent on the distal edge of the LAD stent, LCX: eccentric smooth 70-80% proximal LCx. Distal vessel occluded, RCA: chronic occlusion of the mid RCA
PAD s/p left common to external iliac balloon angioplasty/stent, SFA balloon angioplasty/stent x2, TP trunk and peroneal angioplasty, anterior tibial long segment angioplasty 02/10/24
s/p left hallux amputation 02/11/24
ADRIAN lung mass concerning for malignancy with hemoptysis
MRI brain with large 4.5 cm met right frontal lobe with severe surrounding vasogenic edema as well as surrounding hemorrhage 03/17/24
Hemoptysis
Smoker
DM 2
Newly diagnosed paroxysmal Afib 03/05/24
MRI brain with without contrast performed on 03/17/2024: There is evidence of several contrast-enhancing brain lesions that are noted including 2 within the left occipital lobe, 1 within the left deep white matter/basal ganglia, large 4 cm cystic
lesion in the right frontal lobe with an adjacent hemorrhagic lesion just anterior to it. At least 6 metastatic lesions.
Cath 03/15/24: LM: Nl, LAD: ostial-prox: 80% and 80% in-stent on the distal edge of the LAD stent, LCX: eccentric smooth 70-80% proximal LCx. Distal vessel occluded, RCA: chronic occlusion of the mid RCA
Echo on 02/11/24: LV ejection fraction is 60-65% by Roblero's method of discs. Mild concentric left ventricular hypertrophy. Mild mitral regurgitation.Mild to moderate aortic stenosis. Trace tricuspid regurgitation. Estimated pulmonary artery
pressure of 20-25 mmHg.
Echo 03/01/24: EF 60-65%, hypokinesis mid to distal septum
Recommendations:
Patient had admission to 02/10/24 until 02/13/24 for left great toe gangrene and during that admission he had left hallux amputation and [employer]PERATOR and stent. Patient was d/c'd to home on aspirin and Plavix. Also during that admission patient was
found to have a new ADRIAN mass and was recommended, but patient no-showed for her pulmonology appts as an outpatient. Patient then came to [facility] with chest pain 03/01/24. Troponin peaked at 26.9. Echo with new septal hypokinesis. Chest pain did not
improve with Nitro, but did eventually improve with morphine. Patient was awaiting a transthoracic biopsy and had to have Plavix washout, finally had biopsy on 03/10/24 that showed mostly necrosis, but minute fragment of NSCLC that favored
adenocarcinoma as a diagnosis.
Cath 03/15/24: LM: Nl, LAD: ostial-prox: 80% and 80% in-stent on the distal edge of the LAD stent, LCX: eccentric smooth 70-80% proximal LCx. Distal vessel occluded, RCA: chronic occlusion of the mid RCA. There has been some consideration for
intervention versus conservative management. Given his multiple comorbidities, hemoptysis, high bleeding risk which now also includes intracranial hemorrhage surrounding his brain metastases and likely poor 1 year survival a conservative approach
would be best.
- Regarding his brain lesions, likely metastases with surrounding hemorrhage:
Have discussed case with oncology and neurosurgery:
MRI shows large brain mets 1 with intra tumor hemorrhage. Dexamethasone has been initiated.
Plavix stopped, resuming asa 81 mg
Hold Plavix for 5 days then repeat a CT scan in 5 days and if stable imaging and stable neurologic status then felt to be reasonable to add back Plavix.
- Regarding his lung mass and likely malignancy with metastases:
Pulmonary evaluation finds that any potential procedure for additional sampling would require general anesthesia and would be considered very high risk. Furthermore patient would need to be off of all antiplatelet therapy and off of anticoagulation
for at least 7 days prior to any consideration for tissue sampling.
If plan for tissue sampling/biopsy he would be high risk from a CV standpoint
However if tissue sampling would be expected to reasonably improve prognosis/treatment course, would proceed with understanding that he is very high risk of major CV complications.
- From a cardiology standpoint
Regarding coronary artery disease: our recommendation is conservative medical therapy for his coronary artery disease. Additionally there is likely a chest pain component from the chest mass.
Aspirin 81 mg added back today, consideration for resuming Plavix as noted above
Maintain beta-alvin
Maintain statin
Regarding atrial fibrillation: he is not an anticoagulation candidate given his brain metastases and intracranial hemorrhage
Maintain amiodarone
Maintain beta-alvin
Not a safe candidate for anticoagulation
Continue IV Lasix for now particularly that he is now receiving steroids which can lead to intravascular volume retention, follow renal function, lytes, I/Os and weights
- Regarding his peripheral arterial disease:
Recent [employer]PERATOR
While dual antiplatelet therapy is preferable, need to hold Plavix given the intracranial hemorrhage and will continue aspirin 81 mg daily
Continue statin
- Overall given the complexity of his comorbidities as well as very poor support system, it appears as though we are approaching overall medical futility and focus on comfort may be most appropriate.
Recommend primary service consideration for hospice discussions if consultants are in agreement regarding the poor prognosis and limited diagnostic/treatment options
Total time spent today was 60 minutes
HPI: This is a 73 year old male patient with PMH of PAD, cardiac stent 2016, NIDDM, recent admission for dry gangrene of his left first toe status post amputation on 02/10, cardiac stent in 2016 and stent placement of the left superficial femoral
artery/left common iliac artery in 2017, lung mass with concerns of chest pain. He states that at 3AM he started to feel midsternal chest pain while sleeping which he described as a dull ache. He called EMS and felt that his chest pain improved upon
being given nitroglycerin. He also has concerns of left big toe pain. He denies CP, palpitations, SOB on exertion or dizziness.
His troponin was elevated at 0.078. Cardiology consulted.
Progress Note - Green Inspector
Subjective
Date of Service: March 19, 2024
He tells me he has no chest pain today.
Objective
Labs:
03/19/24 04:55
03/19/24 04:55
Labs
Hgb 10.1 g/dL (13.0-18.0) L 03/19/24 04:55
Hct 30.2 % (39.0-52.0) L 03/19/24 04:55
Plt Count 305 10^3/uL (130-400) 03/19/24 04:55
PT 14.0 Sec (11.4-14.6) 03/10/24 03:10
INR 1.08 03/10/24 03:10
APTT 34.6 Sec (23.4-35.0) 03/18/24 05:03
Sodium 132 mmol/L (135-145) L 03/19/24 04:55
Potassium 3.9 mmol/L (3.5-5.1) 03/19/24 04:55
BUN 23 mg/dl (9-20) H 03/19/24 04:55
Creatinine 0.7 mg/dL (0.7-1.3) 03/19/24 04:55
Glucose 189 mg/dl (70-99) H 03/19/24 04:55
Vital Signs and I&O:
Vital Signs
Temp Pulse Resp BP Pulse Ox
97.7 F 60 20 126/75 97
03/19/24 07:04 03/19/24 08:38 03/19/24 07:04 03/19/24 08:38 03/19/24 07:04
Vital Signs
Temp Pulse Resp BP Pulse Ox
97.7 F 60 20 126/75 97
03/19/24 07:04 03/19/24 08:38 03/19/24 07:04 03/19/24 08:38 03/19/24 07:04
Intake & Output
03/17/24 03/18/24 03/19/24 03/20/24
06:59 06:59 06:59 06:59
Intake Total 615 / 615 340 / 340
Output Total 1050 / 1050 1300 / 1300
Balance 615 / 615 -710 / -710 -1300 / -1300
Physical Exam
Physical Exam
Ill-appearing, fatigued appearing no acute distress
Regular rate and rhythm with normal S1 and S2, no S3 no S4 there is a grade 1/6 apical holosystolic murmur no rubs. PMI is normally placed
Lungs are clear bilaterally
Abdomen soft nontender nondistended with normoactive bowel sounds
Extremities show trace pretibial edema bilaterally
[2024-03-19] MEDS: ASPIR LOW (ENTERIC COATED) 81 MG PO (09:26)
--- NOTE | 2024-03-19 10:52 | W.PN.HOSP.TC ---
Today's Communication/Plan
-
Continue current management.
Assessment / Plan
Assessment / Plan
General: Acutely ill, Non-toxic appearance today
HEENT: Normocephalic, Atraumatic and Moist Mucous Membranes
Respiratory: Clear to Auscultation; Negative Wheezes, Rales or Rhonchi
Cardiac: Regular Rhythm and S1/S2
GI: Soft, Nontender and Nondistended
Musculoskeletal: Left toe status post postop findings wrapped up. No Clubbing, No Cyanosis and No Edema
Neuro: Awake, Alert and Oriented, no gross neuro-deficits
Psych: Calm
A/P:
Non-small cell lung cancer with brain metastases and brain hemorrhage and brain edema associated with hemoptysis:
Biopsy left upper lobe mass non-small cell carcinoma poorly differentiated favoring adenocarcinoma with marked necrosis, biomarkers pending but unclear if sample is adequate.
Enlarged lymph nodes in the left suprahilar and hilar region
Pending PET scan as outpatient
Oncology consult and follow-up appreciated
Radiation oncology consulted
MRI of the brain shows metastatic brain disease--> continue steroids but switch IV dexamethasone to oral dexamethasone.
CT scan 03/14 chest abdomen pelvis and neck negative for other metastatic lesions
Oncology and cardiology deferred to pulmonary to consider inpatient EBUS
Neurosurgery consulted
Hospice was consulted by myself a few days ago and he did not want to pursue hospice. We may need to revisit.
Urinary retention-he had required multiple straight catheterization so we will put a Prater catheter today.
NSTEMI -still with intermittent resting chest pain, nonpleuritic. Troponins trended down.
Cardiology decided on aspirin alone after discussion with neurosurgery. Plavix has been discontinued due to hemorrhagic versions of stroke and neurosurgery will clear him when to restart--> plan to hold for [address] of the head.
Morphine as needed for pain
Cardiac cath revealed multivessel CAD. Complex situation. Cardiothoracic surgery consulted as well but not a candidate.
Cardiology discussing with pulmonary before next steps moving forward.
At this juncture on medical management to continue.
Acute hypoxic respiratory insufficiency -due to heart failure induced pulmonary edema as well as lung cancer. Continue IV Lasix per cardiology. Oxygenation improved, now on room air.
Leukocytosis-reactive. WBC 20.1 today
Sepsis due to left toe infection: Wound culture shows Pseudomonas and Enterobacter.
Improved
ID managing antibiotics, ciprofloxacin and Augmentin through today 03/19
Changed metformin doses due to Cipro per ID recommendations.
Status post left partial first ray amputation on 03/06 by podiatry
I asked ID to reevaluate on 03/13 due to concerns by hematology oncology about rising leukocytosis. Appreciated ID reevaluation and they do not feel there is any new infection.
Paroxysmal atrial fibrillation, new onset:
On rate control, metoprolol tartrate 25 mg every 12 hours
On amiodarone 200 mg p.o. 3 times daily
Deferred anticoagulation with DOAC need/indication to cardiology
Acute diastolic CHF -IV Lasix 40 mg daily by cardiology. Weight continues to trend down.
Anemia of chronic disease:
Hematology consult appreciated
Blood transfusion given
Hemoglobin stable.
Today hemoglobin 10.1
Post blood transfusion reaction on 03/03:
He was given IV Lasix, IV steroids, and continue with broad-spectrum antibiotics.
Chronic hyponatremia -sodium 133 today. TSH is normal. Suspect SIADH induced hyponatremia. Urine osmolality 398, urine sodium 34.
Chronic limb ischemia:
Status post vascular intervention on 02/[address] Vega
DM2 with hyperglycemia - Prior to admission he was on metformin and sitagliptin. Increase Lantus to 15 units at bedtime, NovoLog increased to 10 units AC yesterday while on steroids, increase to moderate resistance corrective scale.
Last hemoglobin A1c on 02/09 was 8.2%
He is now on ciprofloxacin which could potentially interact with sitagliptin. Sitagliptin discontinued. Continue metformin but decrease doses as well. After finishing antibiotics can go back to sitagliptin and increased doses of metformin.
Essential hypertension:
Continue current antihypertensives.
Monitor blood pressure and adjust medications accordingly.
Hyperlipidemia:
Continue statins
DVT prophylaxis:
SCD. Pharmacological prophylaxis when cleared by neurosurgery.
CODE STATUS-DNR
Total time spent on today's encounter was 52 minutes which included time spent in counseling the patient/family regarding diagnosis and treatment plan as listed above, goals of care, and symptom management. Case was discussed with nursing staff,
specialists, and care coordinators/case management. All labs and imaging personally reviewed by me. Remainder the time spent in detailed review of previous records, lab data, imaging, and other medical provider documentation.
Anticipated Discharge: > 48 hours
Subjective/Interval History
-
Date of Service: March 19, 2024
Denies chest pain or shortness of breath today. Afebrile.
Objective Data
-
Labs:
Laboratory Results
03/19/24
04:55
WBC 20.1 H
Hgb 10.1 L
Hct 30.2 L
Plt Count 305
Sodium 132 L
Potassium 3.9
Chloride 95 L
Carbon Dioxide 27
BUN 23 H
Creatinine 0.7
Glucose 189 H
Calcium 8.5
Vital Signs:
Vital Signs
Temp Pulse Resp BP Pulse Ox
97.7 F 60 20 126/75 96
03/19/24 07:04 03/19/24 08:38 03/19/24 07:04 03/19/24 08:38 03/19/24 08:30
I&O
03/18/24 03/19/24 03/20/24
06:59 06:59 06:59
Intake Total 340 / 340
Output Total 1050 / 1050 1300 / 1300 500 / 500
Balance -710 / -710 -1300 / -1300 -500 / -500
--- NOTE | 2024-03-19 11:39 | PTCARENOTE ---
received patient this am, patient was talking about his prognosis, offered emotional support. Monitor shows NSR, VSS. patient had 543cc in bladder, Dr. Chavira on unit, Prater placed, draining lainey urine. pneumatics placed bilat. as ordered. patient
repositioned frequently in bed for comfort.
--- NOTE | 2024-03-19 12:15 | W.PN.PUL3 ---
Today's Communication / Plan
-
Unfortunately, no good diagnostic or therapeutic approaches in this case.
Will defer to oncology whether palliative radiation may be an option.
From the pulmonary perspective very high risk for any interventional procedures.
Continue with current care.
Poor prognosis.
Assessment
-
73-year-old male with history of peripheral arterial disease, status post recent left toe amputation, treated for diagram gain, history of coronary disease with stent placement 2014, and lower extremity PAD stents [address] [facility], now
presents with increased chest discomfort similar to prior cardiac pain. Patient started on heparin therapy. We are asked to comment on his pulmonary process
Impression:
Acute onset midsternal chest discomfort
NSTEMI
Gross hemoptysis - resumed again
History of coronary disease with stent placement at [facility]
Diastolic CHF
Leukocytosis
Anemia
Peripheral vascular disease
Peripheral arterial disease, stent placement lower extremity 2015 [facility]
Recent left first hallux amputation 02/11/2024
Hyponatremia
Hyperglycemia
10 cm left upper lobe mass s/p IR CT guided Bx (03/10/2024)
Mild left hilar adenopathy
Moderate , valve area 1 cm�
New onset AFib
Conditions present prior to admission
Hypertension/hyperlipidemia
Diabetes
20+ tobacco history, quit around 2015
100 pound weight loss over the past year
Plan
No change in clinical conditions from overnight.
Respiratory status stable on room air although he does endorse L-sided chest pain/back-on and off.
Continue nebulizers as needed
Follow hemoptysis-no significant
Note: Sputum cytology negative for malignant cells
Lung mass on the left
s/p IR percutaneous 03/07/2024-biopsy performed on 03/10
Follow up final pathology from Bx--necrosis shown/final showing ?lung adenoca favored-tissue mostly necrotic not enough for special testing.
IR indicates specimens were necrotic according to the on-site pathologist, despite repositioning the biopsy needle multiple times.
6 specimens were obtained. Favors lung, tissue not enough for further analysis. Very small fragment of non-small cell carcinoma poorly differentiated, favors adenocarcinoma in the background of marked necrosis.
Repeat CT chest 03/14/2024: Reviewed there is a hilar lymph node of about 1.8 station 10L. May be approachable by EBUS.
New development with an MRI with large brain metastasis with hemorrhage.03/17/2024.
Now antiplatelets on hold indefinitely.
Unlikely that this patient will tolerate aggressive therapy other than targeted therapy,
Neurosurgery has been consulted: Antiplatelets on hold. No plan for brain surgery at this point.? Palliative brain radiation necessary
-
From the pulmonary perspective bronchoscopy with EBUS may be possible but at very high risk for above issues(coronary artery disease/atrial fibrillation of anticoagulation/hemorrhagic brain metastasis). Including multivessel coronary artery disease
that has not been addressed.
I agree that possibly reaching medical futility. Discussion is ongoing.
High risk for /cardiac event with any interventional procedure at this point.
-
Hemoptysis noted again, likely from tumor
Not severe
Now antiplatelets and anticoagulation on hold
Cardiology following-correspondence reviewed
Pulmonary edema pattern on CAT scan from 03/15/2024. Less likely lymphangitic spread.
Troponin trended � peaked at 26.9 on 03/03/2024
Cardiac catheterization 03/16/2024: Correspondence reviewed. Multivessel coronary artery disease. May be a candidate for CABG versus high risk PCI. Clinically due to metastatic carcinoma/hemorrhagic brain metastasis- not candidate for either
Off antiplatelets as of 03/18/2024, off heparin due to brain metastatic disease with hemorrhagic conversion
New onset AFib-rapid a.m. 03/09/2024-rate control. Off anticoagulation due to brain metastatic disease.
Diuresis as tolerated
Orthopedics following-status post debridement and partial amputation 03/06/2024
Wound cultures with Pseudomonas and Enterobacter
Empiric antibiotics per infectious disease - currently on Augmentin + cipro through 03/19
Per infectious
DVT prophylaxis-SCD
-
Prognosis is poor going forward

Diagnostic Data
CXR 03/12/24- No pneumothorax. Stable left upper lobe opacification. New right perihilar infrahilar airspace disease concerning for pneumonia. Pulmonary edema not excluded but less likely.
03/03/24- Similar appearance of the left upper lobe consolidation. Some minimal patchy opacities within the right lung base, likely atelectasis.
CT Chest 02/11/24- Approximate 10 cm 'mass' in the left upper chest with differential slightly low attenuation densities within, slightly greater density centrally than peripherally and which extends to the left hilum. Unfortunately, as a result of
the size of this lesion, determining the exact origin and etiology is somewhat limited, pleural versus parenchymal based. Although this may represent a large lesion such as an atypical hematoma, both benign and malignant masses are also possible
including mesenchymal tumors as there appears to be a few small left hilar lymph nodes. Hemorrhage into a lesion is also possible.
ECHO 03/01/24- Limited echo performed to assess for wall motion abnormalities. Normal left ventricular size and systolic function. LV ejection fraction is 60-65% by Roblero's method of discs. Hypokinesis of the mid to distal septum. Compared to
prior study dated 02/11/2024 which was directly reviewed, septal hypokinesis is new.
-----
Subjective Data
-
Date of Service:
Date of Service: March 19, 2024
Chief Complaint: Pulmonary Follow Up and Dyspnea Follow Up
Subjective:
No new complaints
Denies headache or blurry vision
Denies shortness of breath at rest
Objective Data
Data Reviewed
Vital Signs / I&O / Oxygen:
Vital Signs
Temp Pulse Resp BP Pulse Ox
97.7 F 59 16 130/63 95
03/19/24 11:55 03/19/24 12:00 03/19/24 11:55 03/19/24 11:55 03/19/24 11:55
Intake and Output
03/18/24 03/19/24 03/20/24
06:59 06:59 06:59
Intake Total 340 / 340
Output Total 1050 / 1050 1300 / 1300 500 / 500
Balance -710 / -710 -1300 / -1300 -500 / -500
SaO2 95
Nasal Cannula flow liters per 2
minute
Physical Exam
General: Respiratory Distress (n), Comfortable, Good Appetite and Other (NAD)
HEENT: Normocephalic, Anicteric and Moist Mucous Membranes
Cardiovascular: S1-S2, Murmur (BONIFACIO heard best ar RUSB, grade II/), Rub (n) and Peripheral Edema (n)
Respiratory: Clear, Wheeze (n), Crackles (negative), Rhonchi (n) and Non-Labored Respirations
GI: Soft, Non Distended, Non Tender and Normal Bowel Sounds
Neurology: Awake, Alert, Oriented, AO x 3 and Tremors (n)
Skin: Warm, Dry, Cyanosis (n), Jaundice (n) and Rash (n)
Labs/Micro/Reports
Lab Data
03/19/24 04:55
03/19/24 04:55
[2024-03-19 12:26] LABS: Glucose - Point of Care 187 mg/dl (70-99)
[2024-03-19] MEDS: MORPHINE SULFATE 2 MG IV (13:27)
--- NOTE | 2024-03-19 13:39 | PTOTSP ---
Currently, the patient has a weight bearing status of heel weight bearing only on the LLE. He does not have a forefoot off loader semiconductor dies shoe, only a [employer] shoe which does not assist patient in keeping his toes off the ground. When he ambulates he is not
receptive to keeping his toes off the ground so the weight bearing status is not being maintained. The patient was educated regarding why he needs to follow this weight bearing restriction, however he continues to be unreceptive to trying. Recommend
that a forefoot off loader semiconductor dies shoe be ordered so that patient can ambulate while maintaining his weight bearing restriction.
[2024-03-19] MEDS: NOVOLOG FLEXPEN-MODERATE RESISTANCE 1 UNITS SC ×2 (13:46→17:49)
--- NOTE | 2024-03-19 13:50 | PTCARENOTE ---
OT/PT working with patient, patient presently sitting up in a chair, c/o chest/back pain, morphine IV given as ordered.
[2024-03-19 17:49] LABS: Glucose - Point of Care 172 mg/dl (70-99)
--- NOTE | 2024-03-19 20:57 | PTCARENOTE ---
received patient at the change of shift. patient states 'I got some bad news yesterday and im going to go to [facility].' patient states he is only nervous about going home alone. doesn't know how he will be able to handle cooking/medications on his
own. comfort measures provided. educated patient on support services. SB/SR on tele. bp stable. denies any pain at this time. patient states coughing but unable to bring up the mucous. elmore catheter for retention, yellow urine. educated patient to
inform RN with any changes. made comfortable in bed. call marx in reach.
[2024-03-19 21:08] LABS: Glucose - Point of Care 143 mg/dl (70-99)
--- NOTE | 2024-03-19 22:40 | W.PN.ONC2 ---
Today's Communication / Plan
-
Pt appropriate for hospice but awake, alert and not actively dying.
If he can be optimized for D/C to senior living, he could potentially see as outpt for liquid biopsy to determine whether he may be a candidate for targeted therapy.
If not able to be D/C'd then would transfer to [facility] for palliative RT to brain mets, then senior living placement for hospice vs. best supportive care.
Impression
Impression
ADRIAN non-small carcinoma, poorly differentiated, favor adenocarcinoma in the background of marked necrosis
Multiple brain metastases
Microcytic anemia, iron studies c/w AOCD
Possible transfusion reaction 03/03
Reactive leukocytosis +/- sepsis d/t left toe infection
CAD, NSTEMI, PAF, HFpEF, HTN, HLD, Moderate
PAD s/p left common to external iliac balloon angioplasty/stent, SFA balloon angioplasty/stent x2, TP trunk and peroneal angioplasty, anterior tibial long segment angioplasty 02/10/24
Amputation of the first hallux 02/11/2024, partial 1st ray amputation 03/06/24,
Hyponatremia
Diabetes mellitus with hyperglycemia
Hemoptysis
100lb weight loss
Plan
Plan
Personally reviewed MRI brain showing at least three large masses: one cystic 4.5 cm in R frontal lobe with moderate vasogenic edema, one 2.6 in L basal ganglia, one 2.7 cm in medial L occipital lobe containing intratumoral hemorrhage. Also noted
to have small acute ischemic infarcts in cortical pineda matter of R parietal lobe and L temporal lobe.
Pt denies symptoms related to the brain mets.
Ideally, we would have tissue amenable to NGS so we could determine whether he is a candidate for a targeted therapy, if PS adequate (hard to assess with him in hospital for the last two weeks.
My gestalt: optimize cardiac status medically over the next few days. If not ready for D/C on Wednesday (after holiday ) then transfer to [facility] for inpt palliative radiation, then d/c to senior living for hospice.
Subjective/Objective
Chief Complaint
Non-small cell lung cancer metastatic to brain
Subjective
Denies new complaint today. Hoping for palliative RT.
Vital Signs:
Vital Signs
Temp Pulse Resp BP Pulse Ox
97.6 F 52 20 112/60 94
03/19/24 22:33 03/19/24 17:00 03/19/24 22:33 03/19/24 16:07 03/19/24 22:33
Lab Results:
Laboratory Data
WBC 20.1 10^3/uL (4.8-10.8) H 03/19/24 04:55
Hgb 10.1 g/dL (13.0-18.0) L 03/19/24 04:55
Plt Count 305 10^3/uL (130-400) 03/19/24 04:55
PT 14.0 Sec (11.4-14.6) 03/10/24 03:10
INR 1.08 03/10/24 03:10
APTT 34.6 Sec (23.4-35.0) 03/18/24 05:03
eGFR > 60.00 03/19/24 04:55
Physical Exam
Awake, alert, non-toxic appearing
[2024-03-19] MEDS: DESYREL 25 MG PO (22:43)
[2024-03-19] MEDS: LANTUS 0.15 UNITS SC (22:43)
[2024-03-20] VITALS (7 sets, daily range): BP systolic 108–124; BP diastolic 53–74
[2024-03-20 04:51] LABS: % Basophils 0.1 % (0-2); % Eosinophils 0.1 % (0-6); % Immature Granulocytes 1.1 % (0-0.5); % Lymphocytes 19.1 % (20.5-51.1); % Monocytes 3.8 % (1.7-9.3); % Neutrophils 75.8 % (42.2-75.2); Absolute Immature Granulocytes 0.3 10^3/uL (0-0.05); Absolute Lymphocytes 4.4 10^3/uL (1.2-3.4); Absolute Monocytes 0.9 10^3/uL (0.1-0.6); Absolute Neutrophils 17.5 10^3/uL (1.4-6.5); Hematocrit 30.9 % (39.0-52.0); Hemoglobin 10.2 g/dL (13.0-18.0); Mean Corpuscular Volume 78.6 fL (80.0-94.0); Mean Platelet Volume 8.6 fL (7.4-10.4); Nucleated Red Blood Cells % 0 % (-); Platelet Count 362 10^3/uL (130-400); Red Blood Cell Count 3.93 10^6/uL (4.70-6.10); Red Cell Dist. Width 17.8 % (11.5-14.5); White Blood Cell Count 23.1 10^3/uL (4.8-10.8)
[2024-03-20 05:03] LABS: Blood Urea Nitrogen 30 mg/dl (9-20); Calcium 8.9 mg/dl (8.4-10.2); Carbon Dioxide 28 mmol/L (22-30); Chloride 95 mmol/L (98-107); Estimated Creatinine Clearance 82 ml/min; Glucose 156 mg/dl (70-99); Potassium 4.4 mmol/L (3.5-5.1); Sodium 134 mmol/L (135-145); eGFR > 60.00
[2024-03-20 07:03] LABS: Glucose - Point of Care 198 mg/dl (70-99)
--- NOTE | 2024-03-20 08:29 | W.PN.HOSP.TC ---
Addendum entered and electronically signed by Alan Tello DO 03/20/24 15:02:
Family showed up from [place] and I spoke to them regarding their concerns.
They are requesting transfer to [facility] for oncologic care.
I spoke with [facility] transfer [facility] and they have accepted the patient. Accepting doctor is Dr. Pryor of the oncology service.
Addendum entered and electronically signed by Alan Tello DO 03/20/24 12:24:
Accepted in transfer to [facility] for cranial irradiation therapy, Dr. Jonny Baptiste. Case discussed on the phone. [phone].
Discussed with Dr. Iqbal, oncology.
Patient agreeable to transfer.
Original Note:
Today's Communication/Plan
-
Continue current care
Assessment / Plan
Assessment / Plan
General: Acutely ill, Non-toxic appearance today
HEENT: Normocephalic, Atraumatic and Moist Mucous Membranes
Respiratory: Clear to Auscultation; Negative Wheezes, Rales or Rhonchi
Cardiac: Regular Rhythm and S1/S2
GI: Soft, Nontender and Nondistended
Musculoskeletal: Left toe status post postop findings wrapped up. No Clubbing, No Cyanosis and No Edema
Neuro: Awake, Alert and Oriented, no gross neuro-deficits
Psych: Calm
Non-small cell lung cancer with brain metastases and brain hemorrhage and brain edema associated with hemoptysis:
Biopsy left upper lobe mass non-small cell carcinoma poorly differentiated favoring adenocarcinoma with marked necrosis, biomarkers pending but unclear if sample is adequate.
Enlarged lymph nodes in the left suprahilar and hilar region
Pending PET scan as outpatient
Oncology consult and follow-up appreciated
Radiation oncology consulted
MRI of the brain shows metastatic brain disease--> continue steroids but switch IV dexamethasone to oral dexamethasone.
CT scan 03/14 chest abdomen pelvis and neck negative for other metastatic lesions
Oncology and cardiology deferred to pulmonary to consider inpatient EBUS
Neurosurgery consulted
Hospice was consulted by myself a few days ago and he did not want to pursue hospice. We may need to revisit.
Urinary retention-he had required multiple straight catheterization so we will put a Prater catheter today.
NSTEMI -still with intermittent resting chest pain, nonpleuritic. Troponins trended down.
Cardiology decided on aspirin alone after discussion with neurosurgery. Plavix has been discontinued due to hemorrhagic versions of stroke and neurosurgery will clear him when to restart--> plan to hold for [address] of the head.
Morphine as needed for pain
Cardiac cath revealed multivessel CAD. Complex situation. Cardiothoracic surgery consulted as well but not a candidate.
Cardiology discussing with pulmonary before next steps moving forward.
At this juncture on medical management to continue.
Acute hypoxic respiratory insufficiency -due to heart failure induced pulmonary edema as well as lung cancer. Continue IV Lasix per cardiology. Oxygenation improved, now on room air.
Leukocytosis -suspect leukemoid process related to malignancy and other active issues.
Sepsis due to left toe infection: Wound culture shows Pseudomonas and Enterobacter.
Improved
Completed course of antibiotics.
Changed metformin doses due to Cipro per ID recommendations.
Status post left partial first ray amputation on 03/06 by podiatry
I asked ID to reevaluate on 03/13 due to concerns by hematology oncology about rising leukocytosis. Appreciated ID reevaluation and they do not feel there is any new infection.
Paroxysmal atrial fibrillation, new onset:
On rate control, metoprolol tartrate 25 mg every 12 hours
On amiodarone 200 mg p.o. 3 times daily
Deferred anticoagulation with DOAC need/indication to cardiology
Acute diastolic CHF -IV Lasix 40 mg daily by cardiology. Weight continues to trend down.
Anemia of chronic disease:
Hematology consult appreciated
Blood transfusion given
Hemoglobin stable.
Today hemoglobin 10.1
Post blood transfusion reaction on 03/03:
He was given IV Lasix, IV steroids, and continue with broad-spectrum antibiotics.
Chronic hyponatremia -sodium stable. TSH is normal. Suspect SIADH induced hyponatremia. Urine osmolality 398, urine sodium 34.
Chronic limb ischemia:
Status post vascular intervention on 02/[address] Vega
DM2 with hyperglycemia - Prior to admission he was on metformin and sitagliptin. Increase Lantus to 15 units at bedtime, NovoLog increased to 10 units AC yesterday while on steroids, increase to moderate resistance corrective scale.
Last hemoglobin A1c on 02/09 was 8.2%
He is now on ciprofloxacin which could potentially interact with sitagliptin. Sitagliptin discontinued. Continue metformin but decrease doses as well. After finishing antibiotics can go back to sitagliptin and increased doses of metformin.
Essential hypertension:
Continue current antihypertensives.
Monitor blood pressure and adjust medications accordingly.
Hyperlipidemia:
Continue statins
DVT prophylaxis:
SCD. Pharmacological prophylaxis when cleared by neurosurgery.
CODE STATUS-DNR
Dispo -patient prefers to go to [facility] to start cranial irradiation for his [employer] metastasis. Does not want to go to SNF. I have reached out to oncology (Dr. Iqbal) and they will look into it.
Anticipated Discharge: 24 - 48 hours
Subjective/Interval History
-
Date of Service: March 20, 2024
Patient seen and examined. No complaints.
Objective Data
-
Labs:
Laboratory Results
03/20/24
04:25
WBC 23.1 H
Hgb 10.2 L
Hct 30.9 L
Plt Count 362
Sodium 134 L
Potassium 4.4
Chloride 95 L
Carbon Dioxide 28
BUN 30 H
Creatinine 0.9
Glucose 156 H
Calcium 8.9
Vital Signs:
Vital Signs
Temp Pulse Resp BP Pulse Ox
97.8 F 56 18 123/74 97
03/20/24 06:55 03/20/24 06:00 03/20/24 06:55 03/20/24 04:22 03/20/24 06:55
I&O
03/19/24 03/20/24 03/21/24
06:59 06:59 06:59
Output Total 1300 / 1300 1999
Balance -1300 / -1300 -1999
Review of Systems
-
History Source: Patient
All other systems: Reviewed and negative
[2024-03-20] MEDS: LIPITOR 20 MG PO (08:33)
[2024-03-20] MEDS: LOPRESSOR 25 MG PO ×2 (08:33→20:29)
[2024-03-20] MEDS: ASPIR LOW (ENTERIC COATED) 81 MG PO (08:33)
[2024-03-20] MEDS: GLUCOPHAGE 500 MG PO ×2 (08:33→16:34)
[2024-03-20] MEDS: DECADRON 4 MG PO ×2 (08:33→20:29)
[2024-03-20] MEDS: BUSPAR 10 MG PO ×2 (08:33→20:29)
[2024-03-20] MEDS: LASIX 40 MG IV (08:34)
[2024-03-20] MEDS: NOVOLOG FLEXPEN-MODERATE RESISTANCE 1 UNITS SC ×2 (08:34→18:27)
[2024-03-20] MEDS: MUCINEX 600 MG PO ×2 (08:37→20:29)
[2024-03-20] MEDS: PACERONE 200 MG PO ×3 (08:38→22:49)
[2024-03-20] MEDS: MIRALAX PO (08:44)
[2024-03-20] MEDS: NOVOLOG FLEXPEN 10 UNITS SC ×3 (08:45→18:26)
[2024-03-20] MEDS: FLUSH (NSS) 1 FLUSH IV ×2 (08:50→16:40)
--- NOTE | 2024-03-20 12:05 | W.PN.PUL3 ---
Today's Communication / Plan
-
Continue current care
Eventual transfer to [place] [facility] for radiation of the brain metastasis
No plan for bronchoscopic intervention-see above
Sign off
Assessment
-
73-year-old male with history of peripheral arterial disease, status post recent left toe amputation, treated for diagram gain, history of coronary disease with stent placement 2014, and lower extremity PAD stents 2016 at [facility], now
presents with increased chest discomfort similar to prior cardiac pain. Patient started on heparin therapy. We are asked to comment on his pulmonary process
Impression:
Acute onset midsternal chest discomfort
NSTEMI
Gross hemoptysis - resumed again
History of coronary disease with stent placement at [facility]
Diastolic CHF
Leukocytosis
Anemia
Peripheral vascular disease
Peripheral arterial disease, stent placement lower extremity 2015 [facility]
Recent left first hallux amputation 02/11/2024
Hyponatremia
Hyperglycemia
10 cm left upper lobe mass s/p IR CT guided Bx (03/10/2024)
Mild left hilar adenopathy
Moderate , valve area 1 cm�
New onset AFib
Conditions present prior to admission
Hypertension/hyperlipidemia
Diabetes
20+ tobacco history, quit around 2015
100 pound weight loss over the past year
Plan
Pulmonary status remains stable
No significant hemoptysis
Not shortness of breath
Not on supplemental
Note: Sputum cytology negative for malignant cells
Lung mass on the left
s/p IR percutaneous 03/07/2024-biopsy performed on 03/10
Follow up final pathology from Bx--necrosis shown/final showing ?lung adenoca favored-tissue mostly necrotic not enough for special testing.
IR indicates specimens were necrotic according to the on-site pathologist, despite repositioning the biopsy needle multiple times.
6 specimens were obtained. Favors lung, tissue not enough for further analysis. Very small fragment of non-small cell carcinoma poorly differentiated, favors adenocarcinoma in the background of marked necrosis.
Repeat CT chest 03/14/2024: Reviewed there is a hilar lymph node of about 1.8 station 10L. May be approachable by EBUS.
New development with an MRI with large brain metastasis with hemorrhage.03/17/2024.
Now antiplatelets on hold indefinitely.
Unlikely that this patient will tolerate aggressive therapy other than targeted therapy,
Neurosurgery has been consulted: Antiplatelets on hold. No plan for brain surgery at this point.? Palliative brain radiation necessary
-
From the pulmonary perspective bronchoscopy with EBUS may be possible but at very high risk for above issues(coronary artery disease/atrial fibrillation of anticoagulation/hemorrhagic brain metastasis). Including multivessel coronary artery disease
that has not been addressed.
High risk for /cardiac event with any interventional procedure at this point.
No plans for bronchoscopic procedure at this point
-
Patient eventually will be transferred to [facility] for brain radiation.
Hospice/palliative care may be an option. Oncology discussing.
-
Hemoptysis noted again, likely from tumor
Not severe
Now antiplatelets and anticoagulation on hold indefinitely due to brain metastatic disease
Cardiology following-correspondence reviewed
Pulmonary edema pattern on CAT scan from 03/15/2024. Less likely lymphangitic spread.
Troponin trended � peaked at 26.9 on 03/03/2024
Cardiac catheterization 03/16/2024: Correspondence reviewed. Multivessel coronary artery disease. May be a candidate for CABG versus high risk PCI. Clinically due to metastatic carcinoma/hemorrhagic brain metastasis- not candidate for either
Off antiplatelets as of 03/18/2024, off heparin due to brain metastatic disease with hemorrhagic conversion
New onset AFib-rapid a.m. 03/09/2024-rate control. Off anticoagulation due to brain metastatic disease.
Orthopedics following-status post debridement and partial amputation 03/06/2024
Wound cultures with Pseudomonas and Enterobacter
Antibiotics per infectious disease
DVT prophylaxis-SCD
-
Prognosis is poor going forward
No additional recommendation from the pulmonary perspective.
At this point I will sign off.
Please call with questions

Diagnostic Data
CXR 03/12/24- No pneumothorax. Stable left upper lobe opacification. New right perihilar infrahilar airspace disease concerning for pneumonia. Pulmonary edema not excluded but less likely.
03/03/24- Similar appearance of the left upper lobe consolidation. Some minimal patchy opacities within the right lung base, likely atelectasis.
CT Chest 02/11/24- Approximate 10 cm 'mass' in the left upper chest with differential slightly low attenuation densities within, slightly greater density centrally than peripherally and which extends to the left hilum. Unfortunately, as a result of
the size of this lesion, determining the exact origin and etiology is somewhat limited, pleural versus parenchymal based. Although this may represent a large lesion such as an atypical hematoma, both benign and malignant masses are also possible
including mesenchymal tumors as there appears to be a few small left hilar lymph nodes. Hemorrhage into a lesion is also possible.
ECHO 03/01/24- Limited echo performed to assess for wall motion abnormalities. Normal left ventricular size and systolic function. LV ejection fraction is 60-65% by Roblero's method of discs. Hypokinesis of the mid to distal septum. Compared to
prior study dated 02/11/2024 which was directly reviewed, septal hypokinesis is new.
-----
Subjective Data
-
Date of Service:
Date of Service: March 20, 2024
Chief Complaint: Pulmonary Follow Up and Dyspnea Follow Up
Subjective:
No new complaints
Denies shortness of breath
No significant hemoptysis
Denies headache or blurry vision
Review of Systems
Cardiopulmonary: Dyspnea (Not at rest)
GI: Abdominal Pain (n), Nausea (n) and Vomiting (n)
Objective Data
Data Reviewed
Vital Signs / I&O / Oxygen:
Vital Signs
Temp Pulse Resp BP Pulse Ox
97.7 F 56 18 123/74 97
03/20/24 11:51 03/20/24 06:00 03/20/24 11:51 03/20/24 04:22 03/20/24 11:51
Intake and Output
03/19/24 03/20/24 03/21/24
06:59 06:59 06:59
Output Total 1300 / 1300 2000 / 2000 800 / 800
Balance -1300 / -1300 -2000 / -2000 -800 / -800
SaO2 97
Nasal Cannula flow liters per 2
minute
Physical Exam
General: Respiratory Distress (n), Comfortable, Good Appetite and Other (NAD)
HEENT: Normocephalic, Anicteric and Moist Mucous Membranes
Cardiovascular: S1-S2, Murmur (BONIFACIO heard best ar RUSB, grade II/), Rub (n) and Peripheral Edema (n)
Respiratory: Clear, Wheeze (n), Crackles (negative), Rhonchi (n) and Non-Labored Respirations
GI: Soft, Non Distended, Non Tender and Normal Bowel Sounds
Neurology: Awake, Alert, Oriented, AO x 3 and Tremors (n)
Skin: Warm, Dry, Cyanosis (n), Jaundice (n) and Rash (n)
Labs/Micro/Reports
Lab Data
03/20/24 04:25
03/20/24 04:25
[2024-03-20 12:06] LABS: Glucose - Point of Care 221 mg/dl (70-99)
[2024-03-20] MEDS: NOVOLOG FLEXPEN-MODERATE RESISTANCE 3 UNITS SC (12:20)
[2024-03-20] MEDS: PREVNAR 20 0.5 ML IM (13:45)
--- NOTE | 2024-03-20 14:41 | W.PN.CARDCBS ---
Today's Communication / Plan
-
Continue current cardiac meds
Consider adding back Plavix when safe from a neurosurgery standpoint
Impression / Plan
-
PCP: Dr. Woodrow Bynum
Cardiology: Dr. Santosh Zepeda with [facility] ([phone])
Impression:
Chest pain with catheterization on 03/16/24 notable for multivessel CADz (see below)
NSTEMI with Troponin peaking at 26.9 on 03/03/24
CAD:
s/p 3.5 mm Xience to prox LAD 05/12/13
s/p 2.75 mm Xience distal RCA 05/12/13
s/p 3.0 mm Xience to prox RCA at [facility] 05/12/13
Cath 03/15/24: LM: Nl, LAD: ostial-prox: 80% and 80% in-stent on the distal edge of the LAD stent, LCX: eccentric smooth 70-80% proximal LCx. Distal vessel occluded, RCA: chronic occlusion of the mid RCA
PAD s/p left common to external iliac balloon angioplasty/stent, SFA balloon angioplasty/stent x2, TP trunk and peroneal angioplasty, anterior tibial long segment angioplasty 02/10/24
s/p left hallux amputation 02/11/24
ADRIAN lung mass concerning for malignancy with hemoptysis
MRI brain with large 4.5 cm met right frontal lobe with severe surrounding vasogenic edema as well as surrounding hemorrhage 03/17/24
Hemoptysis
Smoker
DM 2
Newly diagnosed paroxysmal Afib 03/05/24
MRI brain with without contrast performed on 03/17/2024: There is evidence of several contrast-enhancing brain lesions that are noted including 2 within the left occipital lobe, 1 within the left deep white matter/basal ganglia, large 4 cm cystic
lesion in the right frontal lobe with an adjacent hemorrhagic lesion just anterior to it. At least 6 metastatic lesions.
Cath 03/15/24: LM: Nl, LAD: ostial-prox: 80% and 80% in-stent on the distal edge of the LAD stent, LCX: eccentric smooth 70-80% proximal LCx. Distal vessel occluded, RCA: chronic occlusion of the mid RCA
Echo on 02/11/24: LV ejection fraction is 60-65% by Roblero's method of discs. Mild concentric left ventricular hypertrophy. Mild mitral regurgitation.Mild to moderate aortic stenosis. Trace tricuspid regurgitation. Estimated pulmonary artery
pressure of 20-25 mmHg.
Echo 03/01/24: EF 60-65%, hypokinesis mid to distal septum
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 Patient was d/c'd to home on aspirin and Plavix. Also during that admission patient was
found to have a new ADRIAN mass and was recommended, but patient no-showed for her pulmonology appts as an outpatient. Patient then came to [facility] with chest pain 03/01/24. Troponin peaked at 26.9. Echo with new septal hypokinesis. Chest pain did not
improve with Nitro, but did eventually improve with morphine. Patient was awaiting a transthoracic biopsy and had to have Plavix washout, finally had biopsy on 03/10/24 that showed mostly necrosis, but minute fragment of NSCLC that favored
adenocarcinoma as a diagnosis.
Cath 03/15/24: LM: Nl, LAD: ostial-prox: 80% and 80% in-stent on the distal edge of the LAD stent, LCX: eccentric smooth 70-80% proximal LCx. Distal vessel occluded, RCA: chronic occlusion of the mid RCA. There has been some consideration for
intervention versus conservative management. Given his multiple comorbidities, hemoptysis, high bleeding risk which now also includes intracranial hemorrhage surrounding his brain metastases and likely poor 1 year survival a conservative approach
would be best.
Recommendations:
Brain lesions, likely metastases with surrounding hemorrhage, dexamethasone has been initiated
Cont ASA 81 mg
Tentatively plan to hold Plavix for 5 days then repeat a CT scan in 5 days and if stable imaging consider adding back Plavix.
Coronary artery disease: our recommendation is conservative medical therapy for his coronary artery disease. Additionally there is likely a chest pain component from the chest mass.
Aspirin 81 mg daily, consideration for resuming Plavix as noted above
Maintain beta-alvin
Maintain statin
Atrial fibrillation: he is not an anticoagulation candidate given his brain metastases and intracranial hemorrhage
Maintain amiodarone
Maintain beta-alvin
Not a safe candidate for anticoagulation
Continue IV Lasix for now particularly that he is now receiving steroids which can lead to intravascular volume retention, follow renal function, lytes, I/Os and weights
HPI: This is a 73 year old male patient with PMH of PAD, cardiac stent 2016, NIDDM, recent admission for dry gangrene of his left first toe status post amputation on 02/10, cardiac stent in 2015 and stent placement of the left superficial femoral
artery/left common iliac artery in 2017, lung mass with concerns of chest pain. He states that at 3AM he started to feel midsternal chest pain while sleeping which he described as a dull ache. He called EMS and felt that his chest pain improved upon
being given nitroglycerin. He also has concerns of left big toe pain. He denies CP, palpitations, SOB on exertion or dizziness.
His troponin was elevated at 0.078. Cardiology consulted.
Progress Note - Senior Tax Analyst
Subjective
Date of Service: March 20, 2024
No acute overnight events. Patient tells me no further chest discomfort today, seems to improved with IV morphine when it does occur. Breathing is comfortable.
Objective
Labs:
03/20/24 04:25
03/20/24 04:25
Labs
Hgb 10.2 g/dL (13.0-18.0) L 03/20/24 04:25
Hct 30.9 % (39.0-52.0) L 03/20/24 04:25
Plt Count 362 10^3/uL (130-400) 03/20/24 04:25
PT 14.0 Sec (11.4-14.6) 03/10/24 03:10
INR 1.08 03/10/24 03:10
APTT 34.6 Sec (23.4-35.0) 03/18/24 05:03
Sodium 134 mmol/L (135-145) L 03/20/24 04:25
Potassium 4.4 mmol/L (3.5-5.1) 03/20/24 04:25
BUN 30 mg/dl (9-20) H 03/20/24 04:25
Creatinine 0.9 mg/dL (0.7-1.3) 03/20/24 04:25
Glucose 156 mg/dl (70-99) H 03/20/24 04:25
Vital Signs and I&O:
Vital Signs
Temp Pulse Resp BP Pulse Ox
97.7 F 51 18 108/61 97
03/20/24 11:51 03/20/24 12:00 03/20/24 11:51 03/20/24 11:50 03/20/24 11:51
Vital Signs
Temp Pulse Resp BP Pulse Ox
97.7 F 51 18 108/61 97
03/20/24 11:51 03/20/24 12:00 03/20/24 11:51 03/20/24 11:50 03/20/24 11:51
Intake & Output
03/18/24 03/19/24 03/20/24 03/21/24
06:59 06:59 06:59 06:59
Intake Total 340 / 340
Output Total 1050 / 1050 1300 / 1300 1999 / 1999 800 / 800
Balance -710 / -710 -1300 / -1300 -2000 / -2000 -800 / -800
Physical Exam
Physical Exam
Gen: NAD, AAOx3
HEENT: NC/AT, sclera anicteric
Neck: No JVD
CV: RRR, NL s1/s2, no M/R/G
Lungs: CTAB
Abd: S/ND
Ext: No LE edema
Skin: Warm, dry
Neuro: Non-focal
[2024-03-20] MEDS: MORPHINE SULFATE 2 MG IV (16:39)
[2024-03-20 18:18] LABS: Glucose - Point of Care 187 mg/dl (70-99)
--- NOTE | 2024-03-20 19:03 | PTCARENOTE ---
Pt c/o of chest pain today radiating to his back. Medicated with morphine as ordered with relief. Pt refused to sit out of bed in the chair stating he gets chest pain when he sits in the chair. Left foot dressing changed as ordered. Sutures dry and
intact to left foot. Pt to be transferred to [facility]. Awaiting bed availability.
[2024-03-20] MEDS: DESYREL 25 MG PO (22:49)
[2024-03-20] MEDS: LANTUS 0.15 UNITS SC (22:51)
[2024-03-20 22:52] LABS: Glucose - Point of Care 260 mg/dl (70-99)
--- NOTE | 2024-03-20 23:11 | PTCARENOTE ---
received patient at the change of shift. AAOx3. patient states having a good day. eager to go to [place] for further treatment. SB on tele. bp stable. no complaints at this time. elmore care provided. reviewed plan of care and verbalized understanding.
calls appropriately.
[2024-03-21] VITALS (8 sets, daily range): BP systolic 104–117; BP diastolic 50–76; BMI 24.7
[2024-03-21 06:53] LABS: Glucose - Point of Care 243 mg/dl (70-99)
--- NOTE | 2024-03-21 08:39 | W.PN.HOSP.TC ---
Today's Communication/Plan
-
transfer
Assessment / Plan
Assessment / Plan
General: Acutely ill, Non-toxic appearance today
HEENT: Normocephalic, Atraumatic and Moist Mucous Membranes
Respiratory: Clear to Auscultation; Negative Wheezes, Rales or Rhonchi
Cardiac: Regular Rhythm and S1/S2
GI: Soft, Nontender and Nondistended
Musculoskeletal: Left toe status post postop findings wrapped up. No Clubbing, No Cyanosis and No Edema
Neuro: Awake, Alert and Oriented, no gross neuro-deficits
Psych: Calm
Non-small cell lung cancer with brain metastases and brain hemorrhage and brain edema associated with hemoptysis:
Biopsy left upper lobe mass non-small cell carcinoma poorly differentiated favoring adenocarcinoma with marked necrosis, biomarkers pending but unclear if sample is adequate.
Enlarged lymph nodes in the left suprahilar and hilar region
Pending PET scan as outpatient
Oncology recommends palliative cranial irradiation. Plan to transfer to [facility] for treatment. Accepted by Dr. Pryor.
MRI of the brain shows metastatic brain disease--> continue steroids but switch IV dexamethasone to oral dexamethasone.
CT scan 03/14 chest abdomen pelvis and neck negative for other metastatic lesions
Oncology and cardiology deferred to pulmonary to consider inpatient EBUS
Neurosurgery consulted
Patient not interested in hospice.
Urinary retention-he had required multiple straight catheterization so we will put a Prater catheter today.
NSTEMI -still with intermittent resting chest pain, nonpleuritic. Troponins trended down.
Cardiology decided on aspirin alone after discussion with neurosurgery. Plavix has been discontinued due to hemorrhagic versions of stroke and neurosurgery will clear him when to restart--> plan to hold for [address] of the head.
Morphine as needed for pain
Cardiac cath revealed multivessel CAD. Complex situation. Cardiothoracic surgery consulted as well but not a candidate.
Cardiology discussing with pulmonary before next steps moving forward.
At this juncture on medical management to continue.
Acute hypoxic respiratory insufficiency -due to heart failure induced pulmonary edema as well as lung cancer. Continue IV Lasix per cardiology. Oxygenation improved, now on room air.
Leukocytosis -suspect leukemoid process related to malignancy and other active issues.
Sepsis due to left toe infection: Wound culture shows Pseudomonas and Enterobacter.
Improved
Completed course of antibiotics.
Changed metformin doses due to Cipro per ID recommendations.
Status post left partial first ray amputation on 03/06 by podiatry
I asked ID to reevaluate on 03/13 due to concerns by hematology oncology about rising leukocytosis. Appreciated ID reevaluation and they do not feel there is any new infection.
Paroxysmal atrial fibrillation, new onset:
On rate control, metoprolol tartrate 25 mg every 12 hours
On amiodarone 200 mg p.o. 3 times daily
Deferred anticoagulation with DOAC need/indication to cardiology
Acute diastolic CHF -IV Lasix 40 mg daily by cardiology. Weight continues to trend down.
Anemia of chronic disease:
Hematology consult appreciated
Blood transfusion given
Hemoglobin stable.
Today hemoglobin 10.1
Post blood transfusion reaction on 03/03:
He was given IV Lasix, IV steroids, and continue with broad-spectrum antibiotics.
Chronic hyponatremia -sodium stable. TSH is normal. Suspect SIADH induced hyponatremia. Urine osmolality 398, urine sodium 34.
Chronic limb ischemia:
Status post vascular intervention on 02/[address] Vega
DM2 with hyperglycemia - Prior to admission he was on metformin and sitagliptin. Increase Lantus to 15 units at bedtime, NovoLog increased to 10 units AC yesterday while on steroids, increase to moderate resistance corrective scale.
Last hemoglobin A1c on 02/09 was 8.2%
He is now on ciprofloxacin which could potentially interact with sitagliptin. Sitagliptin discontinued. Continue metformin but decrease doses as well. After finishing antibiotics can go back to sitagliptin and increased doses of metformin.
Essential hypertension:
Continue current antihypertensives.
Monitor blood pressure and adjust medications accordingly.
Hyperlipidemia:
Continue statins
DVT prophylaxis:
SCD. Pharmacological prophylaxis when cleared by neurosurgery.
CODE STATUS-DNR
Dispo -await transfer to [place].
Anticipated Discharge: Today
Subjective/Interval History
-
Date of Service: March 21, 2024
Patient seen and examined. No complaints.
Objective Data
-
Vital Signs:
Vital Signs
Temp Pulse Resp BP Pulse Ox
97.5 F 56 18 110/76 96
03/21/24 06:55 03/21/24 07:00 03/21/24 06:55 03/21/24 06:57 03/21/24 06:55
I&O
03/20/24 03/21/24 03/22/24
06:59 06:59 06:59
Output Total 1999 1700 / 1700
Balance -1999 / -1999 -1700 / -1700
Review of Systems
-
History Source: Patient
All other systems: Reviewed and negative
[2024-03-21] MEDS: NOVOLOG FLEXPEN 10 UNITS SC ×3 (09:01→17:49)
[2024-03-21] MEDS: NOVOLOG FLEXPEN-MODERATE RESISTANCE 3 UNITS SC (09:02)
[2024-03-21] MEDS: MUCINEX 600 MG PO ×2 (09:02→20:14)
[2024-03-21] MEDS: ASPIR LOW (ENTERIC COATED) 81 MG PO (09:03)
[2024-03-21] MEDS: DECADRON 4 MG PO ×2 (09:03→20:14)
[2024-03-21] MEDS: GLUCOPHAGE 500 MG PO ×2 (09:03→17:50)
[2024-03-21] MEDS: PACERONE 200 MG PO ×3 (09:03→22:53)
[2024-03-21] MEDS: LOPRESSOR 25 MG PO ×2 (09:03→20:14)
[2024-03-21] MEDS: LIPITOR 20 MG PO (09:03)
[2024-03-21] MEDS: BUSPAR 10 MG PO ×2 (09:03→20:14)
[2024-03-21] MEDS: LASIX 40 MG IV (09:03)
[2024-03-21] MEDS: FLUSH (NSS) 2 FLUSH IV (09:04)
[2024-03-21] MEDS: MIRALAX PO (09:04)
--- NOTE | 2024-03-21 12:07 | CM ---
Chart reviewed. Patient is independent of ADLS, lives on 2nd floor [facility], with 14 [address], ambulates with a SPC and is current with [facility]. Patient with brain metastases. Patient waiting for a bed at [facility] for radiation therapy. Plan is for the patient
to be transferred to [facility] once a bed is available. CM to follow
[2024-03-21 12:41] LABS: Glucose - Point of Care 262 mg/dl (70-99)
--- NOTE | 2024-03-21 12:52 | W.PN.CARDCBS ---
Addendum entered and electronically signed by Jaydon Trejo MD 03/21/24 17:29:
I saw and examined the patient.
The Power Plant Installer's note was reviewed and I agree with the note.
Comment:
GEN: No distress, awake, Ox3
HEENT: supple, anicteric, mmm
LUNGS: CTA, no wheezes/rales
CV: Reg, S1/S2, 1/6 syst LSB, no gallop
ABD: soft, BS+, NT/ND
EXT: No edema
NEURO: Gross non-focal
SKIN: No rash
Plan:
Okay for transfer to [place]. Continue medical therapy for coronary artery disease.
Continue aspirin, atorvastatin, metoprolol, and amiodarone.
With switch over to oral Lasix in a.m.
Original Note:
Today's Communication / Plan
-
for transfer to [place]
continue asa, statin, BB, amio
med mgmt of CAD. resume plavix when ok per neurosurg
remains on IV lasix
Impression / Plan
-
PCP: Dr. Woodrow Bynum
Cardiology: Dr. Santosh Zepeda with [facility] ([phone])
Impression:
Chest pain with catheterization on 03/16/24 notable for multivessel CADz (see below)
NSTEMI with Troponin peaking at 26.9 on 03/03/24
CAD:
s/p 3.5 mm Xience to prox LAD 05/12/13
s/p 2.75 mm Xience distal RCA 05/12/13
s/p 3.0 mm Xience to prox RCA at [facility] 05/12/13
Cath 03/15/24: LM: Nl, LAD: ostial-prox: 80% and 80% in-stent on the distal edge of the LAD stent, LCX: eccentric smooth 70-80% proximal LCx. Distal vessel occluded, RCA: chronic occlusion of the mid RCA
PAD s/p left common to external iliac balloon angioplasty/stent, SFA balloon angioplasty/stent x2, TP trunk and peroneal angioplasty, anterior tibial long segment angioplasty 02/10/24
s/p left hallux amputation 02/11/24
ADRIAN lung mass concerning for malignancy with hemoptysis
MRI brain with large 4.5 cm met right frontal lobe with severe surrounding vasogenic edema as well as surrounding hemorrhage 03/17/24
Hemoptysis
Smoker
DM 2
Newly diagnosed paroxysmal Afib 03/05/24
MRI brain with without contrast performed on 03/17/2024: There is evidence of several contrast-enhancing brain lesions that are noted including 2 within the left occipital lobe, 1 within the left deep white matter/basal ganglia, large 4 cm cystic
lesion in the right frontal lobe with an adjacent hemorrhagic lesion just anterior to it. At least 6 metastatic lesions.
Cath 03/15/24: LM: Nl, LAD: ostial-prox: 80% and 80% in-stent on the distal edge of the LAD stent, LCX: eccentric smooth 70-80% proximal LCx. Distal vessel occluded, RCA: chronic occlusion of the mid RCA
Echo on 02/11/24: LV ejection fraction is 60-65% by Roblero's method of discs. Mild concentric left ventricular hypertrophy. Mild mitral regurgitation.Mild to moderate aortic stenosis. Trace tricuspid regurgitation. Estimated pulmonary artery
pressure of 20-25 mmHg.
Echo 03/01/24: EF 60-65%, hypokinesis mid to distal septum
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 Patient was d/c'd to home on aspirin and Plavix. Also during that admission patient was
found to have a new ADRIAN mass and was recommended, but patient no-showed for her pulmonology appts as an outpatient. Patient then came to [facility] with chest pain 03/01/24. Troponin peaked at 26.9. Echo with new septal hypokinesis. Chest pain did not
improve with Nitro, but did eventually improve with morphine. Patient was awaiting a transthoracic biopsy and had to have Plavix washout, finally had biopsy on 03/10/24 that showed mostly necrosis, but minute fragment of NSCLC that favored
adenocarcinoma as a diagnosis.
Cath 03/15/24: LM: Nl, LAD: ostial-prox: 80% and 80% in-stent on the distal edge of the LAD stent, LCX: eccentric smooth 70-80% proximal LCx. Distal vessel occluded, RCA: chronic occlusion of the mid RCA. There has been some consideration for
intervention versus conservative management. Given his multiple comorbidities, hemoptysis, high bleeding risk which now also includes intracranial hemorrhage surrounding his brain metastases and likely poor 1 year survival a conservative approach
would be best.
Recommendations:
-patient with lung mass, now found on imaging to have brain lesions felt to be most consistent with mets.
-plan for transfer to [place] for palliative brain radiation
-Plan for medical therapy of multivessel coronary disease at this time. He continues with intermittent chest pain, felt in part to be related to his large chest mass, relieved by morphine
-continue asa, statin, BB
-Plavix discontinued due to hemorrhagic component of stroke�neurosurgery will clear to resume after repeat CT scan
-In sinus rhythm on review of tele. Not presently an anticoagulation candidate given brain mets/intracranial hemorrhage. Continue amiodarone 200mg TID
-Remains on IV Lasix 40mg daily. Cr stable
HPI: This is a 73 year old male patient with PMH of PAD, cardiac stent 2016, NIDDM, recent admission for dry gangrene of his left first toe status post amputation on 02/10, cardiac stent in 2016 and stent placement of the left superficial femoral
artery/left common iliac artery in 2017, lung mass with concerns of chest pain. He states that at 3AM he started to feel midsternal chest pain while sleeping which he described as a dull ache. He called EMS and felt that his chest pain improved upon
being given nitroglycerin. He also has concerns of left big toe pain. He denies CP, palpitations, SOB on exertion or dizziness.
His troponin was elevated at 0.078. Cardiology consulted.
Progress Note - Aspnet Developer
Subjective
Date of Service: March 21, 2024
for transfer to [place]
Objective
Labs:
03/20/24 04:25
03/20/24 04:25
Labs
Hgb 10.2 g/dL (13.0-18.0) L 03/20/24 04:25
Hct 30.9 % (39.0-52.0) L 03/20/24 04:25
Plt Count 362 10^3/uL (130-400) 03/20/24 04:25
PT 14.0 Sec (11.4-14.6) 03/10/24 03:10
INR 1.08 03/10/24 03:10
APTT 34.6 Sec (23.4-35.0) 03/18/24 05:03
Sodium 134 mmol/L (135-145) L 03/20/24 04:25
Potassium 4.4 mmol/L (3.5-5.1) 03/20/24 04:25
BUN 30 mg/dl (9-20) H 03/20/24 04:25
Creatinine 0.9 mg/dL (0.7-1.3) 03/20/24 04:25
Glucose 156 mg/dl (70-99) H 03/20/24 04:25
Vital Signs and I&O:
Vital Signs
Temp Pulse Resp BP Pulse Ox
97.3 F 56 18 110/76 98
03/21/24 11:48 03/21/24 07:00 03/21/24 11:48 03/21/24 06:57 03/21/24 11:48
Vital Signs
Temp Pulse Resp BP Pulse Ox
97.3 F 56 18 110/76 98
03/21/24 11:48 03/21/24 07:00 03/21/24 11:48 03/21/24 06:57 03/21/24 11:48
Intake & Output
03/19/24 03/20/24 03/21/24 03/22/24
07:59 07:59 07:59 07:59
Output Total 1300 / 1800 1999 / 1999 1700 / 1700 900 / 900
Balance -1300 / -1800 -1999 / -1999 -1700 / -1700 -900 / -900
[2024-03-21] MEDS: NOVOLOG FLEXPEN-MODERATE RESISTANCE 2 UNITS SC (13:06)
[2024-03-21 17:13] LABS: Glucose - Point of Care 171 mg/dl (70-99)
--- NOTE | 2024-03-21 17:28 | PTCARENOTE ---
The patient's vital signs have been stable all shift. Sinus amy noted on the monitor. He has had no complaints of pain or discomfort. Prater catheter is draining clear yellow urine. I notified the surgical butcher helper about suture removal on the
patient's left foot. Sutures will be removed tomorrow per the surgeon. Wound care to his left foot provided. The patient's appetite has improved since last week. Update given to [facility] and awaiting for a open bed.
[2024-03-21] MEDS: NOVOLOG FLEXPEN-MODERATE RESISTANCE 1 UNITS SC (17:49)
[2024-03-21 22:21] LABS: Glucose - Point of Care 159 mg/dl (70-99)
[2024-03-21] MEDS: LANTUS 0.15 UNITS SC (22:53)
[2024-03-21] MEDS: DESYREL 25 MG PO (22:54)
[2024-03-22] VITALS (7 sets, daily range): BP systolic 109–141; BP diastolic 53–79; PULSE 51; BMI 24.5
--- NOTE | 2024-03-22 01:53 | PTCARENOTE ---
Tele remains Sinus amy, HR in the 50-60s at rest. Denies any chest discomfort. Pt w/ frequent moist cough. Pulse ox sating 93-96% RA. Pt aware of POC, and can make needs known. Call marx within reach.
[2024-03-22 07:01] LABS: Glucose - Point of Care 170 mg/dl (70-99)
--- NOTE | 2024-03-22 07:05 | PTCARENOTE ---
Prater removed per doctors order. Patient due to void at 1300.
[2024-03-22] MEDS: BUSPAR 10 MG PO ×2 (07:34→19:50)
[2024-03-22] MEDS: DECADRON 4 MG PO ×2 (07:34→19:50)
[2024-03-22] MEDS: PACERONE 200 MG PO ×2 (07:34→19:50)
[2024-03-22] MEDS: LOPRESSOR 25 MG PO ×2 (07:34→19:50)
[2024-03-22] MEDS: MUCINEX 600 MG PO ×2 (07:34→19:50)
[2024-03-22] MEDS: LIPITOR 20 MG PO (07:34)
[2024-03-22] MEDS: ASPIR LOW (ENTERIC COATED) 81 MG PO (07:34)
[2024-03-22] MEDS: GLUCOPHAGE 500 MG PO ×2 (07:34→18:36)
[2024-03-22] MEDS: FLUSH (NSS) 1 FLUSH IV (07:35)
--- NOTE | 2024-03-22 07:57 | W.PN.UPDATE ---
Update Note
Progress Note Update
Patient seen and evaluated. He is over 2 weeks out from his left great toe amp. He reports he has been doing well, and generally denies any pain in the foot.
Incision is healing well. Well approximated with sutures without erythema, drainage or dehiscence. Sutures removed without difficulty and steri-strips applied. ABD and ingris placed. Patient dilma to wiggle toes and plantar/dorsiflex ankle. Cap refill
<2 seconds.
Patient awaiting transfer to [place]. Orthopedics will sign off. Please reengage with any additional questions or concerns.
--- NOTE | 2024-03-22 08:15 | W.PN.HOSP.TC ---
Today's Communication/Plan
-
await transfer
Assessment / Plan
Assessment / Plan
General: NAD, alert and oriented x 3
HEENT: Normocephalic, Atraumatic and Moist Mucous Membranes
Respiratory: Clear to Auscultation; Negative Wheezes, Rales or Rhonchi
Cardiac: Regular Rhythm and S1/S2
GI: Soft, Nontender and Nondistended
Musculoskeletal: Left toe status post postop findings wrapped up. No Clubbing, No Cyanosis and No Edema
Neuro: Awake, Alert and Oriented, no gross neuro-deficits
Psych: Calm
Non-small cell lung cancer with brain metastases and brain hemorrhage and brain edema associated with hemoptysis:
Biopsy left upper lobe mass non-small cell carcinoma poorly differentiated favoring adenocarcinoma with marked necrosis, biomarkers pending but unclear if sample is adequate.
Enlarged lymph nodes in the left suprahilar and hilar region
Pending PET scan as outpatient
Oncology recommends palliative cranial irradiation. Plan to transfer to [facility] for treatment. Accepted by Dr. Pryor.
MRI of the brain shows metastatic brain disease--> continue steroids but switch IV dexamethasone to oral dexamethasone.
CT scan 03/14 chest abdomen pelvis and neck negative for other metastatic lesions
Oncology and cardiology deferred to pulmonary to consider inpatient EBUS
Neurosurgery consulted, recommend holding Plavix for [address] head on March 23. If repeat CT is stable then okay to resume Plavix according to Dr. Michelle.
Patient not interested in hospice.
Urinary retention-he had required multiple straight catheterization, now has a Prater.
NSTEMI -still with intermittent resting chest pain, nonpleuritic. Troponins trended down.
Cardiology decided on aspirin alone after discussion with neurosurgery. Plavix has been discontinued due to hemorrhagic versions of stroke and neurosurgery will clear him when to restart--> plan to hold for [address] of the head.
Morphine as needed for pain
Cardiac cath revealed multivessel CAD. Complex situation. Cardiothoracic surgery consulted as well but not a candidate.
Cardiology discussing with pulmonary before next steps moving forward.
At this juncture on medical management to continue.
Acute hypoxic respiratory insufficiency -due to heart failure induced pulmonary edema as well as lung cancer. Continue IV Lasix per cardiology. Oxygenation improved, now on room air.
Leukocytosis -suspect leukemoid process related to malignancy and other active issues.
Sepsis due to left toe infection: Wound culture shows Pseudomonas and Enterobacter.
Improved
Completed course of antibiotics.
Changed metformin doses due to Cipro per ID recommendations.
Status post left partial first ray amputation on 03/06 by podiatry, sutures removed on 03/22 by podiatry.
I asked ID to reevaluate on 03/13 due to concerns by hematology oncology about rising leukocytosis. Appreciated ID reevaluation and they do not feel there is any new infection.
Paroxysmal atrial fibrillation, new onset:
On rate control, metoprolol tartrate 25 mg every 12 hours
On amiodarone 200 mg p.o. 3 times daily
Deferred anticoagulation with DOAC need/indication to cardiology
Acute diastolic CHF -Lasix changed to 40 mg p.o. daily.
Anemia of chronic disease:
Hematology consult appreciated
Blood transfusion given
Hemoglobin stable.
Today hemoglobin 10.1
Post blood transfusion reaction on 03/03:
He was given IV Lasix, IV steroids, and continue with broad-spectrum antibiotics.
Chronic hyponatremia -sodium stable. TSH is normal. Suspect SIADH induced hyponatremia. Urine osmolality 398, urine sodium 34.
Chronic limb ischemia:
Status post vascular intervention on 02/[address] Vega
DM2 with hyperglycemia - Prior to admission he was on metformin and sitagliptin. Increase Lantus to 15 units at bedtime, NovoLog increased to 10 units AC yesterday while on steroids, increase to moderate resistance corrective scale.
Last hemoglobin A1c on 02/09 was 8.2%
He is now on ciprofloxacin which could potentially interact with sitagliptin. Sitagliptin discontinued. Continue metformin but decrease doses as well. After finishing antibiotics can go back to sitagliptin and increased doses of metformin.
Essential hypertension:
Continue current antihypertensives.
Monitor blood pressure and adjust medications accordingly.
Hyperlipidemia:
Continue statins
DVT prophylaxis:
SCD. Pharmacological prophylaxis when cleared by neurosurgery.
CODE STATUS-DNR
Dispo -await transfer to [place].
Anticipated Discharge: Within 24 hours
Subjective/Interval History
-
Date of Service: March 22, 2024
Patient seen and examined. Complaining of insomnia.
Objective Data
-
Labs:
Laboratory Results
03/22/24
07:30
Sodium Pending
Potassium Pending
Chloride Pending
Carbon Dioxide Pending
BUN Pending
Creatinine Pending
Glucose Pending
Calcium Pending
Vital Signs:
Vital Signs
Temp Pulse Resp BP Pulse Ox
98 F 54 20 134/68 93
03/22/24 06:58 03/22/24 07:00 03/22/24 06:58 03/22/24 06:58 03/22/24 06:58
I&O
03/21/24 03/22/24 03/23/24
06:59 06:59 06:59
Intake Total 360 / 360
Output Total 1700 / 1700 1850 / 1850
Balance -1700 / -1700 -1490 / -1490
Review of Systems
-
History Source: Patient
All other systems: Reviewed and negative
[2024-03-22] MEDS: LASIX 40 MG PO (08:27)
[2024-03-22] MEDS: NOVOLOG FLEXPEN 10 UNITS SC ×3 (08:29→18:36)
[2024-03-22] MEDS: NOVOLOG FLEXPEN-MODERATE RESISTANCE 1 UNITS SC (08:30)
--- NOTE | 2024-03-22 08:33 | W.PN.ONC2 ---
Today's Communication / Plan
-
Awaiting [place] transfer.
Impression
Impression
ADRIAN non-small carcinoma, poorly differentiated, favor adenocarcinoma in the background of marked necrosis
Multiple brain metastases
Microcytic anemia, iron studies c/w AOCD
Possible transfusion reaction 03/03
Reactive leukocytosis +/- sepsis d/t left toe infection
CAD, NSTEMI, PAF, HFpEF, HTN, HLD, Moderate
PAD s/p left common to external iliac balloon angioplasty/stent, SFA balloon angioplasty/stent x2, TP trunk and peroneal angioplasty, anterior tibial long segment angioplasty 02/10/24
Amputation of the first hallux 02/11/2024, partial 1st ray amputation 03/06/24,
Hyponatremia
Diabetes mellitus with hyperglycemia
Hemoptysis
100lb weight loss
Plan
Plan
Personally reviewed MRI brain showing at least three large masses: one cystic 4.5 cm in R frontal lobe with moderate vasogenic edema, one 2.6 in L basal ganglia, one 2.7 cm in medial L occipital lobe containing intratumoral hemorrhage. Also noted
to have small acute ischemic infarcts in cortical pineda matter of R parietal lobe and L temporal lobe.
Pt denies symptoms related to the brain mets.
Ideally, we would have tissue amenable to NGS so we could determine whether he is a candidate for a targeted therapy, if PS adequate (hard to assess with him in hospital for the last two weeks.
My gestalt: optimize cardiac status medically over the next few days. If not ready for D/C on Wednesday (after holiday weekend) then transfer to [facility] for inpt palliative radiation, then [facility] for [facility].
Plan changed to now transfer to [place] for XRT.
Subjective/Objective
Chief Complaint
ACS Heme Onc
Subjective
No complaints. Awaiting transfer to [place] (bed availability). Accepted by Dr. Live.
Vital Signs:
Vital Signs
Temp Pulse Resp BP Pulse Ox
98 F 54 20 134/68 93
03/22/24 06:58 03/22/24 07:00 03/22/24 06:58 03/22/24 06:58 03/22/24 06:58
Lab Results:
Laboratory Data
WBC 23.1 10^3/uL (4.8-10.8) H 03/20/24 04:25
Hgb 10.2 g/dL (13.0-18.0) L 03/20/24 04:25
Plt Count 362 10^3/uL (130-400) 03/20/24 04:25
PT 14.0 Sec (11.4-14.6) 03/10/24 03:10
INR 1.08 03/10/24 03:10
APTT 34.6 Sec (23.4-35.0) 03/18/24 05:03
eGFR > 60.00 03/20/24 04:25
Physical Exam
Cardiology: S1 and S2
Pulmonary: Clear
--- NOTE | 2024-03-22 09:05 | W.PN.CARDCBS ---
Addendum entered and electronically signed by Jaydon Trejo MD 03/22/24 10:01:
I saw and examined the patient.
The Communication Center Coordinator's note was reviewed and I agree with the note.
Comment:
GEN: No distress, awake, Ox3
HEENT: supple, anicteric, mmm
LUNGS: scatt rhonchi
CV: Reg, S1/S2, 1/6 syst LSB, no gallop
ABD: soft, BS+, NT/ND
EXT: No edema
NEURO: Gross non-focal
SKIN: No rash
Plan:
Continue medical therapy for coronary artery disease. Will switch to Lasix 40 mg p.o. daily.
Okay for transfer to [place].
Decrease amiodarone 200 mg p.o. twice daily for 2 weeks and then 200 mg daily.
Continue metoprolol, atorvastatin, and aspirin.
Original Note:
Today's Communication / Plan
-
po lasix
awaiting transfer to [place]
med mgmt of CAD
Impression / Plan
-
PCP: Dr. Woodrow Bynum
Cardiology: Dr. Santosh Zepeda with [facility] ([phone])
Impression:
Chest pain with catheterization on 03/16/24 notable for multivessel CADz (see below)
NSTEMI with Troponin peaking at 26.9 on 03/03/24
CAD:
s/p 3.5 mm Xience to prox LAD 05/12/13
s/p 2.75 mm Xience distal RCA 05/12/13
s/p 3.0 mm Xience to prox RCA at [facility] 05/12/13
Cath 03/15/24: LM: Nl, LAD: ostial-prox: 80% and 80% in-stent on the distal edge of the LAD stent, LCX: eccentric smooth 70-80% proximal LCx. Distal vessel occluded, RCA: chronic occlusion of the mid RCA
PAD s/p left common to external iliac balloon angioplasty/stent, SFA balloon angioplasty/stent x2, TP trunk and peroneal angioplasty, anterior tibial long segment angioplasty 02/10/24
s/p left hallux amputation 02/11/24
ADRIAN lung mass concerning for malignancy with hemoptysis
MRI brain with large 4.5 cm met right frontal lobe with severe surrounding vasogenic edema as well as surrounding hemorrhage 03/17/24
Hemoptysis
Smoker
DM 2
Newly diagnosed paroxysmal Afib 03/05/24
MRI brain with without contrast performed on 03/17/2024: There is evidence of several contrast-enhancing brain lesions that are noted including 2 within the left occipital lobe, 1 within the left deep white matter/basal ganglia, large 4 cm cystic
lesion in the right frontal lobe with an adjacent hemorrhagic lesion just anterior to it. At least 6 metastatic lesions.
Cath 03/15/24: LM: Nl, LAD: ostial-prox: 80% and 80% in-stent on the distal edge of the LAD stent, LCX: eccentric smooth 70-80% proximal LCx. Distal vessel occluded, RCA: chronic occlusion of the mid RCA
Echo on 02/11/24: LV ejection fraction is 60-65% by Roblero's method of discs. Mild concentric left ventricular hypertrophy. Mild mitral regurgitation.Mild to moderate aortic stenosis. Trace tricuspid regurgitation. Estimated pulmonary artery
pressure of 20-25 mmHg.
Echo 03/01/24: EF 60-65%, hypokinesis mid to distal septum
Patient had admission to 02/10/24 until 02/13/24 for left great toe gangrene and during that admission he had left hallux amputation and LLE MANAGER OF DISTRIBUTION and stent. Patient was d/c'd to home on aspirin and Plavix. Also during that admission patient was
found to have a new ADRIAN mass and was recommended, but patient no-showed for her pulmonology appts as an outpatient. [facility]. Troponin peaked at 26.9. Echo with new septal hypokinesis. Chest pain did not
improve with Nitro, but did eventually improve with morphine. Patient was awaiting a transthoracic biopsy and had to have Plavix washout, finally had biopsy on 03/10/24 that showed mostly necrosis, but minute fragment of NSCLC that favored
adenocarcinoma as a diagnosis.
Cath 03/15/24: LM: Nl, LAD: ostial-prox: 80% and 80% in-stent on the distal edge of the LAD stent, LCX: eccentric smooth 70-80% proximal LCx. Distal vessel occluded, RCA: chronic occlusion of the mid RCA. There has been some consideration for
intervention versus conservative management. Given his multiple comorbidities, hemoptysis, high bleeding risk which now also includes intracranial hemorrhage surrounding his brain metastases and likely poor 1 year survival a conservative approach
would be best.
Recommendations:
-patient with lung mass, now found on imaging to have brain lesions felt to be most consistent with mets.
-plan for transfer to [place] for palliative brain radiation when bed available
-Plan for medical therapy of multivessel coronary disease at this time. no chest pain overnight.
-continue asa, statin, BB
-Plavix discontinued due to hemorrhagic component of stroke�neurosurgery will clear to resume after repeat CT scan
-In sinus rhythm on review of tele. Not presently an anticoagulation candidate given brain mets/intracranial hemorrhage. Continue amiodarone 200mg TID
-Cr pending 03/22. transitioned from IV lasix to 40mg po lasix daily.
-will follow peripherally
-d/w nursing
HPI: This is a 73 year old male patient with PMH of PAD, cardiac stent 2016, NIDDM, recent admission for dry gangrene of his left first toe status post amputation on 02/10, cardiac stent in 2016 and stent placement of the left superficial femoral
artery/left common iliac artery in 2017, lung mass with concerns of chest pain. He states that at 3AM he started to feel midsternal chest pain while sleeping which he described as a dull ache. He called EMS and felt that his chest pain improved upon
being given nitroglycerin. He also has concerns of left big toe pain. He denies CP, palpitations, SOB on exertion or dizziness.
His troponin was elevated at 0.078. Cardiology consulted.
Progress Note - Biology Specialist
Subjective
Date of Service: March 22, 2024
no issues overnight. awaiting transfer
Objective
Labs:
03/20/24 04:25
Labs
Hgb 10.2 g/dL (13.0-18.0) L 03/20/24 04:25
Hct 30.9 % (39.0-52.0) L 03/20/24 04:25
Plt Count 362 10^3/uL (130-400) 03/20/24 04:25
PT 14.0 Sec (11.4-14.6) 03/10/24 03:10
INR 1.08 03/10/24 03:10
APTT 34.6 Sec (23.4-35.0) 03/18/24 05:03
Sodium 134 mmol/L (135-145) L 03/20/24 04:25
Potassium 4.4 mmol/L (3.5-5.1) 03/20/24 04:25
BUN 30 mg/dl (9-20) H 03/20/24 04:25
Creatinine 0.9 mg/dL (0.7-1.3) 03/20/24 04:25
Glucose 156 mg/dl (70-99) H 03/20/24 04:25
Vital Signs and I&O:
Vital Signs
Temp Pulse Resp BP Pulse Ox
98 F 54 20 134/68 93
03/22/24 06:58 03/22/24 07:00 03/22/24 06:58 03/22/24 06:58 03/22/24 06:58
Vital Signs
Temp Pulse Resp BP Pulse Ox
98 F 54 20 134/68 93
03/22/24 06:58 03/22/24 07:00 03/22/24 06:58 03/22/24 06:58 03/22/24 06:58
Intake & Output
03/20/24 03/21/24 03/22/24 03/23/24
07:59 07:59 07:59 07:59
Intake Total 360 / 360
Output Total 1999 1700 / 1700 1850 / 1850
Balance -1999 -1700 / -1700 -1490 / -1490
Physical Exam
Physical Exam
GEN: No distress, awake, alert, oriented x3
HEENT: supple, anicteric, mmm, eomi
LUNGS: CTA B/L, no wheezes/rales
CV: Reg, S1/S2, 1/6 syst LSB
ABD: soft, BS+, NT/ND
EXT: No cyanosis, clubbing, edema
NEURO: Gross non-focal
SKIN: Warm, pink, dry. No rash. L foot dressing c/d/i
[2024-03-22] MEDS: MIRALAX PO (09:33)
--- NOTE | 2024-03-22 11:35 | PTCARENOTE ---
The patient rang the call marx after spending 5 minutes in the chair. He stated that he had to urinate. He ambulated to the bathroom x1 assist using a RW. He voided 275ml of clear lainey urine. He did not want to get back in the chair stating that
he'll 'try again later.' I bladder scanned him for 136ml of residual urine.
--- NOTE | 2024-03-22 12:00 | CM ---
CM following for DC planning needs.
Attempted to meet w/ patient at bedside but patient was asleep; did not disturb.
Plan is awaiting transfer to [facility] for further treatment.
CM to remain avail. as needed for DC planning.
[2024-03-22 12:56] LABS: Glucose - Point of Care 213 mg/dl (70-99)
[2024-03-22 13:07] LABS: Blood Urea Nitrogen 40 mg/dl (9-20); Calcium 8.6 mg/dl (8.4-10.2); Carbon Dioxide 25 mmol/L (22-30); Chloride 94 mmol/L (98-107); Estimated Creatinine Clearance 93 ml/min; Glucose 205 mg/dl (70-99); Potassium 4.4 mmol/L (3.5-5.1); Sodium 131 mmol/L (135-145); eGFR > 60.00
[2024-03-22] MEDS: NOVOLOG FLEXPEN-MODERATE RESISTANCE 3 UNITS SC (13:25)
[2024-03-22] MEDS: ANESTHETIC LOZENGE 1 LOZENGE PO ×2 (17:32→21:34)
--- NOTE | 2024-03-22 17:33 | PTCARENOTE ---
The patient complained of a sore throat and asked he if could have something for it. Contacted Dr. Tello and an order was put in for Cepacol. Cepacol was given as per order.
[2024-03-22 17:35] LABS: Glucose - Point of Care 282 mg/dl (70-99)
[2024-03-22] MEDS: NOVOLOG FLEXPEN-MODERATE RESISTANCE 5 UNITS SC (18:37)
[2024-03-22 22:20] LABS: Glucose - Point of Care 160 mg/dl (70-99)
[2024-03-22] MEDS: DESYREL 25 MG PO (22:25)
[2024-03-22] MEDS: LANTUS 0.15 UNITS SC (22:25)
[2024-03-23] VITALS (7 sets, daily range): BP systolic 104–136; BP diastolic 49–72; BMI 24.6
--- NOTE | 2024-03-23 02:07 | PTCARENOTE ---
Pt received start of shift, HR SB. Pt still c/o sore throat, cepacol PRN administered - see SEP. Pt understands plan of care. Pt denies any pain besides sore throat. Informed to notify RN if any changes, call marx within reach.
[2024-03-23] MEDS: ANESTHETIC LOZENGE 1 LOZENGE PO (04:09)
--- NOTE | 2024-03-23 07:00 | PTCARENOTE ---
report received at change of shift. Pt resting in bed, AAOX3. pt reports mid back pain- requested prn morphine. SR/SB on telemetry heart rate 50-60s. pulses palpable. left foot dressing cdi. pt on room air, intermittent moist cough. lung sounds
diminished. active bowel sounds, pt refused miralax this am. voiding in urinal. see worklist for full nursing assessment and interventions.
[2024-03-23 07:26] LABS: Glucose - Point of Care 144 mg/dl (70-99)
[2024-03-23] MEDS: MIRALAX PO (07:42)
[2024-03-23] MEDS: MORPHINE SULFATE 2 MG IV (07:42)
[2024-03-23] MEDS: GLUCOPHAGE 500 MG PO ×2 (07:44→17:33)
[2024-03-23] MEDS: BUSPAR 10 MG PO ×2 (07:44→19:20)
[2024-03-23] MEDS: PACERONE 200 MG PO ×2 (07:44→19:20)
[2024-03-23] MEDS: DECADRON 4 MG PO ×2 (07:44→19:20)
[2024-03-23] MEDS: MUCINEX 600 MG PO ×2 (07:44→19:20)
[2024-03-23] MEDS: LASIX 40 MG PO (07:44)
[2024-03-23] MEDS: LOPRESSOR 25 MG PO ×2 (07:45→19:19)
[2024-03-23] MEDS: ASPIR LOW (ENTERIC COATED) 81 MG PO (07:45)
[2024-03-23] MEDS: LIPITOR 20 MG PO (07:45)
[2024-03-23] MEDS: NOVOLOG FLEXPEN-MODERATE RESISTANCE SC (08:26)
[2024-03-23] MEDS: NOVOLOG FLEXPEN 10 UNITS SC ×3 (08:27→18:22)
--- NOTE | 2024-03-23 12:26 | CM ---
CM following for DC planning needs.
Plan is to transfer to [facility] when bed becomes avail. Continued to await bed.
Will remain available for DC planning needs.
--- NOTE | 2024-03-23 13:07 | W.PN.HOSP.TC ---
Addendum entered and electronically signed by Alan Tello DO 03/23/24 14:37:
CT head today shows stability of hemorrhages. I spoke with neurosurgery Dr. Michelle, okay to resume Plavix.
Original Note:
Today's Communication/Plan
-
CT head
Assessment / Plan
Assessment / Plan
General: NAD, alert and oriented x 3
HEENT: Normocephalic, Atraumatic and Moist Mucous Membranes
Respiratory: Clear to Auscultation; Negative Wheezes, Rales or Rhonchi
Cardiac: Regular Rhythm and S1/S2
GI: Soft, Nontender and Nondistended
Musculoskeletal: Left toe status post postop findings wrapped up. No Clubbing, No Cyanosis and No Edema
Neuro: Awake, Alert and Oriented, no gross neuro-deficits
Psych: Calm
Non-small cell lung cancer with brain metastases and brain hemorrhage and brain edema associated with hemoptysis:
Biopsy left upper lobe mass non-small cell carcinoma poorly differentiated favoring adenocarcinoma with marked necrosis, biomarkers pending but unclear if sample is adequate.
Enlarged lymph nodes in the left suprahilar and hilar region
Pending PET scan as outpatient
Oncology recommends palliative cranial irradiation. Plan to transfer to [facility] for treatment. Accepted by Dr. Pryor.
MRI of the brain shows metastatic brain disease--> continue steroids but switch IV dexamethasone to oral dexamethasone.
CT scan 03/14 chest abdomen pelvis and neck negative for other metastatic lesions
Oncology and cardiology deferred to pulmonary to consider inpatient EBUS
Neurosurgery consulted, recommend holding Plavix for [address] head on March 23. If repeat CT is stable then okay to resume Plavix according to Dr. Michelle.
Patient not interested in hospice.
Urinary retention-he had required multiple straight catheterization, now has a Prater.
NSTEMI -still with intermittent resting chest pain, nonpleuritic. Troponins trended down.
Cardiology decided on aspirin alone after discussion with neurosurgery. Plavix has been discontinued due to hemorrhagic versions of stroke and neurosurgery will clear him when to restart--> plan to hold for [address] of the head.
Morphine as needed for pain
Cardiac cath revealed multivessel CAD. Complex situation. Cardiothoracic surgery consulted as well but not a candidate.
Cardiology discussing with pulmonary before next steps moving forward.
At this juncture on medical management to continue.
Acute hypoxic respiratory insufficiency -due to heart failure induced pulmonary edema as well as lung cancer. Continue IV Lasix per cardiology. Oxygenation improved, now on room air.
Leukocytosis -suspect leukemoid process related to malignancy and other active issues.
Sepsis due to left toe infection: Wound culture shows Pseudomonas and Enterobacter.
Improved
Completed course of antibiotics.
Changed metformin doses due to Cipro per ID recommendations.
Status post left partial first ray amputation on 03/06 by podiatry, sutures removed on 03/22 by podiatry.
I asked ID to reevaluate on 03/13 due to concerns by hematology oncology about rising leukocytosis. Appreciated ID reevaluation and they do not feel there is any new infection.
Paroxysmal atrial fibrillation, new onset:
On rate control, metoprolol tartrate 25 mg every 12 hours
On amiodarone 200 mg p.o. 3 times daily
Deferred anticoagulation with DOAC need/indication to cardiology
Acute diastolic CHF -Lasix changed to 40 mg p.o. daily.
Anemia of chronic disease:
Hematology consult appreciated
Blood transfusion given
Hemoglobin stable.
Today hemoglobin 10.1
Post blood transfusion reaction on 03/03:
He was given IV Lasix, IV steroids, and continue with broad-spectrum antibiotics.
Chronic hyponatremia -sodium stable. TSH is normal. Suspect SIADH induced hyponatremia. Urine osmolality 398, urine sodium 34.
Chronic limb ischemia:
Status post vascular intervention on 02/[address] Vega
DM2 with hyperglycemia - Prior to admission he was on metformin and sitagliptin. Increase Lantus to 15 units at bedtime, NovoLog increased to 10 units AC yesterday while on steroids, increase to moderate resistance corrective scale.
Last hemoglobin A1c on 02/09 was 8.2%
He is now on ciprofloxacin which could potentially interact with sitagliptin. Sitagliptin discontinued. Continue metformin but decrease doses as well. After finishing antibiotics can go back to sitagliptin and increased doses of metformin.
Essential hypertension:
Continue current antihypertensives.
Monitor blood pressure and adjust medications accordingly.
Hyperlipidemia:
Continue statins
CODE STATUS-DNR
Dispo -await transfer to [place]. Check CT head today per neurosurgery recommendation to decide on resumption of Plavix.
Anticipated Discharge: Within 24 hours
Subjective/Interval History
-
Date of Service: March 23, 2024
Patient seen and examined. No complaints.
Objective Data
-
Vital Signs:
Vital Signs
Temp Pulse Resp BP Pulse Ox
97.9 F 51 20 136/70 98
03/23/24 11:22 03/23/24 10:00 03/23/24 11:22 03/23/24 07:44 03/23/24 11:22
I&O
03/22/24 03/23/24 03/24/24
06:59 06:59 06:59
Intake Total 360 / 360 240 / 240 480 / 480
Output Total 1850 / 1850 1275 / 1275 400 / 400
Balance -1490 / -1490 -1035 / -1035 80 / 80
Review of Systems
-
History Source: Patient
All other systems: Reviewed and negative
[2024-03-23 13:09] LABS: Glucose - Point of Care 176 mg/dl (70-99)
[2024-03-23] MEDS: NOVOLOG FLEXPEN-MODERATE RESISTANCE 1 UNITS SC (15:04)
[2024-03-23] MEDS: LOVENOX 40 MG SC (17:32)
[2024-03-23] MEDS: NOVOLOG FLEXPEN SC (17:50)
[2024-03-23 18:15] LABS: Glucose - Point of Care 215 mg/dl (70-99)
[2024-03-23] MEDS: NOVOLOG FLEXPEN-MODERATE RESISTANCE 3 UNITS SC (18:18)
[2024-03-23 21:22] LABS: Glucose - Point of Care 135 mg/dl (70-99)
[2024-03-23] MEDS: DESYREL 25 MG PO (22:40)
[2024-03-23] MEDS: LANTUS 0.15 UNITS SC (22:40)
[2024-03-24] VITALS (11 sets, daily range): BP systolic 103–142; BP diastolic 43–71; PULSE 53; BMI 24.6
--- NOTE | 2024-03-24 00:18 | PTCARENOTE ---
Pt received start of shift, HR SB. Pt c/o back pain 8/10 in middle back from bed. Repositioned pt with towel roll behind back - pain down to 10/26. Refusing any medication for pain at this time.
[2024-03-24 06:52] LABS: Glucose - Point of Care 191 mg/dl (70-99)
--- NOTE | 2024-03-24 07:00 | PTCARENOTE ---
pt received at change of shift. resting in bed comfortably. denies pain. SB on telemetry. pt on room air. intermittent moist cough. active bowel sounds, reports two BMs overnight. voiding without difficulty. left foot dressing CDI. see worklist for
full nursing assessment and interventions. pt updated on plan of care.
[2024-03-24] MEDS: MUCINEX 600 MG PO ×2 (07:55→20:18)
[2024-03-24] MEDS: BUSPAR 10 MG PO ×2 (07:55→20:18)
[2024-03-24] MEDS: LASIX 40 MG PO (07:55)
[2024-03-24] MEDS: GLUCOPHAGE 500 MG PO ×2 (07:55→16:18)
[2024-03-24] MEDS: ASPIR LOW (ENTERIC COATED) 81 MG PO (07:55)
[2024-03-24] MEDS: PACERONE 200 MG PO ×2 (07:55→20:18)
[2024-03-24] MEDS: PLAVIX 75 MG PO (07:55)
[2024-03-24] MEDS: LOPRESSOR 25 MG PO ×2 (07:56→20:17)
[2024-03-24] MEDS: LIPITOR 20 MG PO (07:56)
[2024-03-24] MEDS: NOVOLOG FLEXPEN-MODERATE RESISTANCE 1 UNITS SC ×2 (07:56→17:51)
[2024-03-24] MEDS: DECADRON 4 MG PO ×2 (07:56→20:18)
[2024-03-24] MEDS: NOVOLOG FLEXPEN 10 UNITS SC ×2 (07:57→17:51)
[2024-03-24] MEDS: MIRALAX PO (08:01)
--- NOTE | 2024-03-24 08:34 | W.PN.HOSP.TC ---
Today's Communication/Plan
-
Increase trazodone dose
Await transfer to [facility]
Assessment / Plan
Assessment / Plan
General: NAD, alert and oriented x 3
HEENT: Normocephalic, Atraumatic and Moist Mucous Membranes
Respiratory: Clear to Auscultation; Negative Wheezes, Rales or Rhonchi
Cardiac: Regular Rhythm and S1/S2
GI: Soft, Nontender and Nondistended
Musculoskeletal: Left toe status post postop findings wrapped up. No Clubbing, No Cyanosis and No Edema
Neuro: Awake, Alert and Oriented, no gross neuro-deficits
Psych: Calm
Non-small cell lung cancer with brain metastases and brain hemorrhage and brain edema associated with hemoptysis:
Biopsy left upper lobe mass non-small cell carcinoma poorly differentiated favoring adenocarcinoma with marked necrosis, biomarkers pending but unclear if sample is adequate.
Enlarged lymph nodes in the left suprahilar and hilar region
Pending PET scan as outpatient
Oncology recommends palliative cranial irradiation. Plan to transfer to [facility] for treatment. Accepted by Dr. Pryor.
MRI of the brain shows metastatic brain disease--> continue steroids but switch IV dexamethasone to oral dexamethasone.
CT scan 03/14 chest abdomen pelvis and neck negative for other metastatic lesions
Oncology and cardiology deferred to pulmonary to consider inpatient EBUS
Repeat CT head 03/23 negative for hemorrhage, Plavix resumed. Discussed with neurosurgery service.
Urinary retention-he had required multiple straight catheterization, now has a Prater.
NSTEMI -still with intermittent resting chest pain, nonpleuritic. Troponins trended down.
Cardiology decided on aspirin alone after discussion with neurosurgery. Plavix has been discontinued due to hemorrhagic versions of stroke and neurosurgery will clear him when to restart--> plan to hold for [address] of the head.
Morphine as needed for pain
Cardiac cath revealed multivessel CAD. Complex situation. Cardiothoracic surgery consulted as well but not a candidate.
Cardiology discussing with pulmonary before next steps moving forward.
At this juncture on medical management to continue.
Acute hypoxic respiratory insufficiency -due to heart failure induced pulmonary edema as well as lung cancer. Continue IV Lasix per cardiology. Oxygenation improved, now on room air.
Leukocytosis -suspect leukemoid process related to malignancy and other active issues.
Sepsis due to left toe infection: Wound culture shows Pseudomonas and Enterobacter.
Improved
Completed course of antibiotics.
Changed metformin doses due to Cipro per ID recommendations.
Status post left partial first ray amputation on 03/06 by podiatry, sutures removed on 03/22 by podiatry.
I asked ID to reevaluate on 03/13 due to concerns by hematology oncology about rising leukocytosis. Appreciated ID reevaluation and they do not feel there is any new infection.
Paroxysmal atrial fibrillation, new onset:
On rate control, metoprolol tartrate 25 mg every 12 hours
On amiodarone 200 mg p.o. 3 times daily
Deferred anticoagulation with DOAC need/indication to cardiology
Acute diastolic CHF -Lasix changed to 40 mg p.o. daily.
Anemia of chronic disease:
Hematology consult appreciated
Blood transfusion given
Hemoglobin stable.
Today hemoglobin 10.1
Post blood transfusion reaction on 03/03:
He was given IV Lasix, IV steroids, and continue with broad-spectrum antibiotics.
Chronic hyponatremia -sodium stable. TSH is normal. Suspect SIADH induced hyponatremia. Urine osmolality 398, urine sodium 34.
Chronic limb ischemia:
Status post vascular intervention on 02/[address] Vega
DM2 with hyperglycemia - Prior to admission he was on metformin and sitagliptin. Increase Lantus to 15 units at bedtime, NovoLog increased to 10 units AC yesterday while on steroids, increase to moderate resistance corrective scale.
Last hemoglobin A1c on 02/09 was 8.2%
He is now on ciprofloxacin which could potentially interact with sitagliptin. Sitagliptin discontinued. Continue metformin but decrease doses as well. After finishing antibiotics can go back to sitagliptin and increased doses of metformin.
Essential hypertension:
Continue current antihypertensives.
Monitor blood pressure and adjust medications accordingly.
Hyperlipidemia:
Continue statins
Insomnia -on low-dose trazodone 25 mg at bedtime. Can increase to 50 mg.
CODE STATUS-DNR
Dispo -await transfer to [facility].
Anticipated Discharge: Today
Subjective/Interval History
-
Date of Service: March 24, 2024
Patient seen and examined. Complaining of insomnia.
Objective Data
-
Vital Signs:
Vital Signs
Temp Pulse Resp BP Pulse Ox
97.5 F 56 18 126/71 94
03/24/24 06:44 03/24/24 07:56 03/24/24 06:44 03/24/24 07:56 03/24/24 06:44
I&O
03/23/24 03/24/24 03/25/24
06:59 06:59 06:59
Intake Total 240 / 240 480 / 480
Output Total 1275 / 1275 925 / 925
Balance -1035 / -1035 -445 / -445
Review of Systems
-
History Source: Patient
All other systems: Reviewed and negative
--- NOTE | 2024-03-24 11:28 | CM ---
CM following for DC planning needs.
Pt. awaiting transfer to [facility].
Call to [facility], . Patient is on the list to transfer and insurance has been 'cleared' but no bed has been assigned yet.
Continue to await transfer to [facility].
CM will cont. to follow.
[2024-03-24] MEDS: MORPHINE SULFATE 2 MG IV (11:29)
[2024-03-24 11:57] LABS: Glucose - Point of Care 275 mg/dl (70-99)
[2024-03-24] MEDS: NOVOLOG FLEXPEN SC (13:26)
[2024-03-24] MEDS: NOVOLOG FLEXPEN-MODERATE RESISTANCE 5 UNITS SC (13:27)
[2024-03-24] MEDS: ANESTHETIC LOZENGE 1 LOZENGE PO (16:18)
[2024-03-24] MEDS: LOVENOX 40 MG SC (17:49)
[2024-03-24 17:52] LABS: Glucose - Point of Care 164 mg/dl (70-99)
--- NOTE | 2024-03-24 18:15 | PTCARENOTE ---
Rec'd report at 16:45 from Previous RN. Pt sinus bradycardiac on TELE monitor with VSS and AAO*3. Pt denies any pain and sitting in bed eating dinner with call marx in reach.
[2024-03-24 22:16] LABS: Glucose - Point of Care 123 mg/dl (70-99)
[2024-03-24] MEDS: DESYREL 50 MG PO (22:30)
[2024-03-24] MEDS: LANTUS 0.15 UNITS SC (22:30)
[2024-03-25 04:22] VITALS: BP 107/73
[2024-03-25 04:33] VITALS: BMI 24.0
--- NOTE | 2024-03-25 04:58 | PTCARENOTE ---
Bladder scan for 436ml. Pt denies pain or urgency to urinate. Pt refused straight cath and stated that he'll 'try urinate later'
[2024-03-25 07:05] VITALS: BP 126/66
[2024-03-25 07:07] LABS: Glucose - Point of Care 154 mg/dl (70-99)
--- NOTE | 2024-03-25 07:57 | W.PN.HOSP.TC ---
Addendum entered and electronically signed by Alan Tello DO 03/25/24 13:18:
Informed by case management that the [facility] cannot take this patient as insurance will not allow inpatient radiation therapy. Will need to get radiation therapy as an outpatient.
Plan will be to discharge to SNF when bed available.
Updated patient regarding the plans. All questions answered. Understandably, he is disappointed.
Original Note:
Today's Communication/Plan
-
Await transfer to [place]
Assessment / Plan
Assessment / Plan
General: NAD, alert and oriented x 3
HEENT: Normocephalic, Atraumatic and Moist Mucous Membranes
Respiratory: Clear to Auscultation; Negative Wheezes, Rales or Rhonchi
Cardiac: Regular Rhythm and S1/S2
GI: Soft, Nontender and Nondistended
Musculoskeletal: Left toe status post postop findings wrapped up. No Clubbing, No Cyanosis and No Edema
Neuro: Awake, Alert and Oriented, no gross neuro-deficits
Psych: Calm
Non-small cell lung cancer with brain metastases and brain hemorrhage and brain edema associated with hemoptysis:
Biopsy left upper lobe mass non-small cell carcinoma poorly differentiated favoring adenocarcinoma with marked necrosis, biomarkers pending but unclear if sample is adequate.
Enlarged lymph nodes in the left suprahilar and hilar region
Pending PET scan as outpatient
Oncology recommends palliative cranial irradiation. Plan to transfer to [facility] for treatment. Accepted by Dr. Pryor.
MRI of the brain shows metastatic brain disease--> continue steroids but switch IV dexamethasone to oral dexamethasone.
CT scan 03/14 chest abdomen pelvis and neck negative for other metastatic lesions
Oncology and cardiology deferred to pulmonary to consider inpatient EBUS
Repeat CT head 03/23 negative for hemorrhage, Plavix resumed. Discussed with neurosurgery service.
Urinary retention-he had required multiple straight catheterization, now has a Prater.
NSTEMI -still with intermittent resting chest pain, nonpleuritic. Troponins trended down.
Cardiology decided on aspirin alone after discussion with neurosurgery. Plavix has been discontinued due to hemorrhagic versions of stroke and neurosurgery will clear him when to restart--> plan to hold for [address] of the head.
Morphine as needed for pain
Cardiac cath revealed multivessel CAD. Complex situation. Cardiothoracic surgery consulted as well but not a candidate.
Cardiology discussing with pulmonary before next steps moving forward.
At this juncture on medical management to continue.
Acute hypoxic respiratory insufficiency -due to heart failure induced pulmonary edema as well as lung cancer. Continue IV Lasix per cardiology. Oxygenation improved, now on room air.
Leukocytosis -suspect leukemoid process related to malignancy and other active issues.
Sepsis due to left toe infection: Wound culture shows Pseudomonas and Enterobacter.
Improved
Completed course of antibiotics.
Changed metformin doses due to Cipro per ID recommendations.
Status post left partial first ray amputation on 03/06 by podiatry, sutures removed on 03/22 by podiatry.
I asked ID to reevaluate on 03/13 due to concerns by hematology oncology about rising leukocytosis. Appreciated ID reevaluation and they do not feel there is any new infection.
Paroxysmal atrial fibrillation, new onset:
On rate control, metoprolol tartrate 25 mg every 12 hours
On amiodarone 200 mg p.o. 3 times daily
Deferred anticoagulation with DOAC need/indication to cardiology
Acute diastolic CHF -Lasix changed to 40 mg p.o. daily.
Anemia of chronic disease:
Hematology consult appreciated
Blood transfusion given
Hemoglobin stable.
Today hemoglobin 10.1
Post blood transfusion reaction on 03/03:
He was given IV Lasix, IV steroids, and continue with broad-spectrum antibiotics.
Chronic hyponatremia -sodium stable. TSH is normal. Suspect SIADH induced hyponatremia. Urine osmolality 398, urine sodium 34.
Chronic limb ischemia:
Status post vascular intervention on 02/[address] Vega
DM2 with hyperglycemia - Prior to admission he was on metformin and sitagliptin. Increase Lantus to 15 units at bedtime, NovoLog increased to 10 units AC yesterday while on steroids, increase to moderate resistance corrective scale.
Last hemoglobin A1c on 02/09 was 8.2%
He is now on ciprofloxacin which could potentially interact with sitagliptin. Sitagliptin discontinued. Continue metformin but decrease doses as well. After finishing antibiotics can go back to sitagliptin and increased doses of metformin.
Essential hypertension:
Continue current antihypertensives.
Monitor blood pressure and adjust medications accordingly.
Hyperlipidemia:
Continue statins
Insomnia -continue trazodone 50 mg at bedtime.
CODE STATUS-DNR
Dispo -await transfer to [place].
Anticipated Discharge: 24 - 48 hours
Subjective/Interval History
-
Date of Service: March 25, 2024
Patient seen and examined. Complaining of insomnia. Eager to be transferred to [place].
Objective Data
-
Vital Signs:
Vital Signs
Temp Pulse Resp BP Pulse Ox
97.5 F 56 22 107/73 97
03/25/24 07:03 03/25/24 04:22 03/25/24 07:03 03/25/24 04:22 03/25/24 07:03
I&O
03/24/24 03/25/24 03/26/24
06:59 06:59 06:59
Intake Total 480 / 480 680 / 680
Output Total 925 / 925
Balance -445 / -445 680 / 680
Review of Systems
-
History Source: Patient
All other systems: Reviewed and negative
[2024-03-25] MEDS: LASIX 40 MG PO (09:41)
[2024-03-25] MEDS: ASPIR LOW (ENTERIC COATED) 81 MG PO (09:41)
[2024-03-25] MEDS: LOPRESSOR 25 MG PO ×2 (09:41→20:09)
[2024-03-25] MEDS: DECADRON 4 MG PO ×2 (09:41→20:09)
[2024-03-25] MEDS: BUSPAR 10 MG PO ×2 (09:41→20:09)
[2024-03-25] MEDS: LIPITOR 20 MG PO (09:42)
[2024-03-25] MEDS: PLAVIX 75 MG PO (09:42)
[2024-03-25] MEDS: GLUCOPHAGE 500 MG PO ×2 (09:42→18:14)
[2024-03-25] MEDS: PACERONE 200 MG PO ×2 (09:42→20:09)
[2024-03-25] MEDS: NOVOLOG FLEXPEN-MODERATE RESISTANCE 1 UNITS SC (09:43)
[2024-03-25] MEDS: NOVOLOG FLEXPEN 10 UNITS SC ×2 (09:43→12:42)
[2024-03-25] MEDS: MIRALAX PO (09:46)
[2024-03-25] MEDS: MUCINEX 600 MG PO ×2 (09:52→20:09)
[2024-03-25 11:32] VITALS: BP 131/69
[2024-03-25] MEDS: MORPHINE SULFATE 2 MG IV (12:37)
[2024-03-25] MEDS: NOVOLOG FLEXPEN-MODERATE RESISTANCE 300 UNITS SC (12:41)
[2024-03-25 12:42] LABS: Glucose - Point of Care 269 mg/dl (70-99)
--- NOTE | 2024-03-25 13:22 | CM ---
called from community service patrol officer stating that [facility] would like pt to go to [facility] and they will need auth. called the admissions coordind and was then told that after review the MD at [facility] said that the proced the pt is coming for (gamma knife)
is outpatient only and they will not accept the transfer. she gave me the contact at [facility] Dr Emperatriz Agarwal [phone] for the pt to call and arrange outpt treatments. disucssed with pt at bedside and family on the phone- pt is too weak to go
directly home and is willing to go to rehab first, he would like 1-[facility], 2- [facility], 3- [facility] . referrals faxed. cm to get auth and and awaiting bed avalibility
[2024-03-25] MEDS: NITROSTAT (SUBLINGUAL) 0.4 MG SL (14:53)
[2024-03-25 16:06] VITALS: BP 114/59
[2024-03-25 16:17] LABS: Glucose - Point of Care 351 mg/dl (70-99)
[2024-03-25] MEDS: LOVENOX 40 MG SC (18:14)
[2024-03-25] MEDS: NOVOLOG FLEXPEN 5 UNITS SC (18:15)
[2024-03-25] MEDS: NOVOLOG FLEXPEN-MODERATE RESISTANCE 9 UNITS SC (18:15)
[2024-03-25 20:04] VITALS: BP 112/58
[2024-03-25 22:38] VITALS: BP 117/58
[2024-03-25 22:42] LABS: Glucose - Point of Care 205 mg/dl (70-99)
[2024-03-25] MEDS: TYLENOL 650 MG PO (22:45)
[2024-03-25] MEDS: LANTUS 0.15 UNITS SC (22:45)
[2024-03-25] MEDS: DESYREL 50 MG PO (22:45)
[2024-03-25] MEDS: LIDOCAINE 4% PATCH 1 PATCH TOPICAL (23:31)
[2024-03-26] VITALS (8 sets, daily range): BP systolic 107–136; BP diastolic 57–74; BMI 24.0
[2024-03-26] MEDS: ANESTHETIC LOZENGE 1 LOZENGE PO (04:39)
[2024-03-26 08:03] LABS: Glucose - Point of Care 183 mg/dl (70-99)
[2024-03-26] MEDS: NOVOLOG FLEXPEN 10 UNITS SC ×3 (08:07→17:34)
[2024-03-26] MEDS: NOVOLOG FLEXPEN-MODERATE RESISTANCE 1 UNITS SC ×2 (08:08→17:34)
[2024-03-26] MEDS: GLUCOPHAGE 500 MG PO ×2 (08:37→16:46)
[2024-03-26] MEDS: LOPRESSOR 25 MG PO ×2 (08:37→20:26)
[2024-03-26] MEDS: PLAVIX 75 MG PO (08:38)
[2024-03-26] MEDS: MUCINEX 600 MG PO ×2 (08:38→20:26)
[2024-03-26] MEDS: ASPIR LOW (ENTERIC COATED) 81 MG PO (08:38)
[2024-03-26] MEDS: LIPITOR 20 MG PO (08:38)
[2024-03-26] MEDS: PACERONE 200 MG PO ×2 (08:38→20:26)
[2024-03-26] MEDS: LASIX 40 MG PO (08:38)
[2024-03-26] MEDS: DECADRON 4 MG PO ×2 (08:38→20:26)
[2024-03-26] MEDS: MIRALAX PO (08:38)
[2024-03-26] MEDS: BUSPAR 10 MG PO ×2 (08:38→20:26)
--- NOTE | 2024-03-26 09:18 | W.PN.HOSP.TC ---
Today's Communication/Plan
-
Out of bed to chair
Discharge planning
Assessment / Plan
Assessment / Plan
General: NAD, alert and oriented x 3
HEENT: Normocephalic, Atraumatic and Moist Mucous Membranes
Respiratory: Clear to Auscultation; Negative Wheezes, Rales or Rhonchi
Cardiac: Regular Rhythm and S1/S2
GI: Soft, Nontender and Nondistended
Musculoskeletal: Left toe status post postop findings wrapped up. No Clubbing, No Cyanosis and No Edema
Neuro: Awake, Alert and Oriented, no gross neuro-deficits
Psych: Calm
Non-small cell lung cancer with brain metastases and brain hemorrhage and brain edema associated with hemoptysis:
Biopsy left upper lobe mass non-small cell carcinoma poorly differentiated favoring adenocarcinoma with marked necrosis, biomarkers pending but unclear if sample is adequate.
Enlarged lymph nodes in the left suprahilar and hilar region
Pending PET scan as outpatient
Oncology recommends palliative cranial irradiation. Plan to transfer to [facility] for treatment. Accepted by Dr. Pryor.
MRI of the brain shows metastatic brain disease--> continue steroids but switch IV dexamethasone to oral dexamethasone.
CT scan 03/14 chest abdomen pelvis and neck negative for other metastatic lesions
Oncology and cardiology deferred to pulmonary to consider inpatient EBUS
Repeat CT head 03/23 negative for hemorrhage, Plavix resumed. Discussed with neurosurgery service.
Urinary retention-he had required multiple straight catheterization, now has a Prater.
NSTEMI -still with intermittent resting chest pain, nonpleuritic. Troponins trended down.
Cardiology decided on aspirin alone after discussion with neurosurgery. Plavix has been discontinued due to hemorrhagic versions of stroke and neurosurgery will clear him when to restart--> plan to hold for [address] of the head.
Morphine as needed for pain
Cardiac cath revealed multivessel CAD. Complex situation. Cardiothoracic surgery consulted as well but not a candidate.
Acute hypoxic respiratory insufficiency -due to heart failure induced pulmonary edema as well as lung cancer. Oxygenation improved, now on room air.
Leukocytosis -suspect leukemoid process related to malignancy and other active issues.
Sepsis due to left toe infection: Wound culture shows Pseudomonas and Enterobacter.
Improved
Completed course of antibiotics.
Changed metformin doses due to Cipro per ID recommendations.
Status post left partial first ray amputation on 03/06 by podiatry, sutures removed on 03/22 by podiatry.
I asked ID to reevaluate on 03/13 due to concerns by hematology oncology about rising leukocytosis. Appreciated ID reevaluation and they do not feel there is any new infection.
Paroxysmal atrial fibrillation, new onset:
On rate control, metoprolol tartrate 25 mg every 12 hours
On amiodarone 200 mg p.o. 3 times daily
Deferred anticoagulation with DOAC need/indication to cardiology
Acute diastolic CHF -Lasix changed to 40 mg p.o. daily.
Anemia of chronic disease:
Hematology consult appreciated
Blood transfusion given
Hemoglobin stable.
Today hemoglobin 10.1
Post blood transfusion reaction on 03/03:
He was given IV Lasix, IV steroids, and continue with broad-spectrum antibiotics.
Chronic hyponatremia -sodium stable. TSH is normal. Suspect SIADH induced hyponatremia. Urine osmolality 398, urine sodium 34.
Chronic limb ischemia:
Status post vascular intervention on 02/[address] Vega
DM2 with hyperglycemia - Prior to admission he was on metformin and sitagliptin. Increase Lantus to 15 units at bedtime, NovoLog increased to 10 units AC yesterday while on steroids, increase to moderate resistance corrective scale.
Last hemoglobin A1c on 02/09 was 8.2%
He is now on ciprofloxacin which could potentially interact with sitagliptin. Sitagliptin discontinued. Continue metformin but decrease doses as well. After finishing antibiotics can go back to sitagliptin and increased doses of metformin.
Essential hypertension:
Continue current antihypertensives.
Monitor blood pressure and adjust medications accordingly.
Hyperlipidemia:
Continue statins
Insomnia -continue trazodone 50 mg at bedtime.
CODE STATUS-DNR
Dispo -await discharge to SNF when bed available. Case management aware. Medically stable for discharge.
Anticipated Discharge: Within 24 hours
Subjective/Interval History
-
Date of Service: March 26, 2024
Patient seen and examined. Complaining of back pain.
Objective Data
-
Vital Signs:
Vital Signs
Temp Pulse Resp BP Pulse Ox
97.5 F 55 18 122/60 98
03/26/24 08:05 03/26/24 08:37 03/26/24 08:05 03/26/24 08:05 03/26/24 08:05
I&O
03/25/24 03/26/24 03/27/24
06:59 06:59 06:59
Intake Total 680 / 680 240 / 240
Output Total 650 / 650
Balance 680 / 680 -410 / -410
Review of Systems
-
History Source: Patient
All other systems: Reviewed and negative
[2024-03-26 13:09] LABS: Glucose - Point of Care 245 mg/dl (70-99)
[2024-03-26] MEDS: NOVOLOG FLEXPEN-MODERATE RESISTANCE 3 UNITS SC (13:09)
[2024-03-26] MEDS: FLOMAX 0.4 MG PO (13:16)
[2024-03-26] MEDS: MORPHINE SULFATE 2 MG IV (14:39)
--- NOTE | 2024-03-26 15:04 | PTCARENOTE ---
03/26/24 [id number] Patient assisted into bathroom to void/BM. Patient assisted to sink to brush teeth, while RN fixing bed. Pt felt he was loosing his balance and placed himself on toilet. No injury occurred. PT outside of room came in, assisted RN with
patient. Pt was able to stand up from toilet. Pt walked with walker and PT back into room to end of bed and then to chair. Pt w/minimal assist. Pt with no complaints of headache or dizziness. Pt complained of chronic chest to back pain that he has
been having. Pt offered ordered Morphine 2mg. Pt then was assisted back to bed by RN with walker. Pt resting comfortably in bed. Will monitor throughout shift.
[2024-03-26 17:30] LABS: Glucose - Point of Care 180 mg/dl (70-99)
[2024-03-26] MEDS: LOVENOX 40 MG SC (17:35)
[2024-03-26 22:28] LABS: Glucose - Point of Care 245 mg/dl (70-99)
[2024-03-26] MEDS: DESYREL 50 MG PO (22:32)
[2024-03-26] MEDS: LIDOCAINE 4% PATCH 1 PATCH TOPICAL (22:32)
[2024-03-26] MEDS: LANTUS 0.15 UNITS SC (22:32)
[2024-03-27] VITALS (9 sets, daily range): BP systolic 105–146; BP diastolic 53–95; PULSE 52; O2SAT 99; BMI 24.0
--- NOTE | 2024-03-27 00:06 | PTCARENOTE ---
Bladder scan 448ml. Post void residual 287ml
[2024-03-27 07:11] LABS: Glucose - Point of Care 178 mg/dl (70-99)
--- NOTE | 2024-03-27 08:33 | W.PN.ONC2 ---
Today's Communication / Plan
-
Discharge planning underway
Recommend palliative care in the out patient setting to assist with advanced care planning and continue GOC advocacy
Impression
Impression
ADRIAN non-small carcinoma, poorly differentiated, favor adenocarcinoma in the background of marked necrosis
Multiple brain metastases
Microcytic anemia, iron studies c/w AOCD
Possible transfusion reaction 03/03
Reactive leukocytosis +/- sepsis d/t left toe infection
CAD, NSTEMI, PAF, HFpEF, HTN, HLD, Moderate
PAD s/p left common to external iliac balloon angioplasty/stent, SFA balloon angioplasty/stent x2, TP trunk and peroneal angioplasty, anterior tibial long segment angioplasty 02/10/24
Amputation of the first hallux 02/11/2024, partial 1st ray amputation 03/06/24,
Hyponatremia
Diabetes mellitus with hyperglycemia
Hemoptysis
100lb weight loss
Plan
Plan
MRI brain showing at least three large masses: one cystic 4.5 cm in R frontal lobe with moderate vasogenic edema, one 2.6 in L basal ganglia, one 2.7 cm in medial L occipital lobe containing intratumoral hemorrhage. Also noted to have small acute
ischemic infarcts in cortical pineda matter of R parietal lobe and L temporal lobe. Pt denies symptoms related to the brain mets.
Ideally, we would have tissue amenable to NGS so we could determine whether he is a candidate for a targeted therapy, if PS adequate
optimize cardiac status medically
OP follow up with [facility]
Subjective/Objective
Chief Complaint
no new complaints
Subjective
afebrile, no hypoxia or hypotension
Vital Signs:
Vital Signs
Temp Pulse Resp BP Pulse Ox
97.4 F 49 20 136/73 97
03/27/24 07:05 03/27/24 07:08 03/27/24 07:05 03/27/24 07:08 03/27/24 07:08
Lab Results:
Laboratory Data
WBC 23.1 10^3/uL (4.8-10.8) H 03/20/24 04:25
Hgb 10.2 g/dL (13.0-18.0) L 03/20/24 04:25
Plt Count 362 10^3/uL (130-400) 03/20/24 04:25
PT 14.0 Sec (11.4-14.6) 03/10/24 03:10
INR 1.08 03/10/24 03:10
APTT 34.6 Sec (23.4-35.0) 03/18/24 05:03
eGFR > 60.00 03/22/24 12:35
Physical Exam
HEENT: Moist Mucous Membranes; No Jaundice
Cardiology: S1 and S2
Pulmonary: Other (diminished b/l bx)
GI: Soft
Extremities: Other (Left foot with dressing/EVELYN wrap)
Neuro: Other (speech clear)
Review of Systems
Review of Systems
ROS notable for subjective otherwise negative
[2024-03-27] MEDS: NOVOLOG FLEXPEN-MODERATE RESISTANCE 1 UNITS SC ×2 (08:49→17:23)
[2024-03-27] MEDS: NOVOLOG FLEXPEN 10 UNITS SC ×3 (08:49→17:23)
[2024-03-27] MEDS: ASPIR LOW (ENTERIC COATED) 81 MG PO (08:50)
[2024-03-27] MEDS: PLAVIX 75 MG PO (08:50)
[2024-03-27] MEDS: MUCINEX 600 MG PO ×2 (08:50→20:31)
[2024-03-27] MEDS: FLOMAX 0.4 MG PO (08:50)
[2024-03-27] MEDS: BUSPAR 10 MG PO ×2 (08:51→20:30)
[2024-03-27] MEDS: LOPRESSOR 25 MG PO ×2 (08:51→20:30)
[2024-03-27] MEDS: GLUCOPHAGE 500 MG PO (08:52)
[2024-03-27] MEDS: LASIX 40 MG PO (08:52)
[2024-03-27] MEDS: PACERONE 200 MG PO ×2 (08:52→20:31)
[2024-03-27] MEDS: DECADRON 4 MG PO ×2 (08:52→20:31)
[2024-03-27] MEDS: LIPITOR 20 MG PO (08:53)
[2024-03-27] MEDS: MIRALAX PO (08:53)
--- NOTE | 2024-03-27 09:31 | W.PN.HOSP.TC ---
Today's Communication/Plan
-
Palliative care consult. Oncology reeval. Discharge planning in progress.
Assessment / Plan
Assessment / Plan
General: NAD, alert and oriented x 3
HEENT: Normocephalic, Atraumatic and Moist Mucous Membranes
Respiratory: Clear to Auscultation; Negative Wheezes, Rales or Rhonchi
Cardiac: Regular Rhythm and S1/S2
GI: Soft, Nontender and Nondistended
Musculoskeletal: Left toe status post postop findings wrapped up. No Clubbing, No Cyanosis and No Edema
Neuro: Awake, Alert and Oriented, no gross neuro-deficits
Psych: Calm
Non-small cell lung cancer with brain metastases and brain hemorrhage and brain edema associated with hemoptysis:
Biopsy left upper lobe mass non-small cell carcinoma poorly differentiated favoring adenocarcinoma with marked necrosis, biomarkers pending but unclear if sample is adequate.
Enlarged lymph nodes in the left suprahilar and hilar region
Pending PET scan as outpatient
Oncology recommends palliative cranial irradiation. Plan to transfer to [facility] for treatment initially as inpatient but [facility] called back and recommends outpatient. Accepted by Dr. Pryor-->again now efforts as outpatient
MRI of the brain shows metastatic brain disease--> continue steroids but switch IV dexamethasone to oral dexamethasone.
CT scan 03/14 chest abdomen pelvis and neck negative for other metastatic lesions
Oncology and cardiology deferred to pulmonary to consider inpatient EBUS
Repeat CT head 03/23 negative for hemorrhage, Plavix resumed. Discussed with neurosurgery service.
Discussed with oncology services today and they recommended palliative care as inpatient. Palliative care consulted.
Urinary retention-he had required multiple straight catheterization, now has a Prater.
NSTEMI -still with intermittent resting chest pain, nonpleuritic. Troponins trended down.
Cardiology decided on aspirin alone after discussion with neurosurgery. Plavix has been discontinued due to hemorrhagic versions of stroke and neurosurgery will clear him when to restart--> plan to hold for [address] of the head.
Morphine as needed for pain
Cardiac cath revealed multivessel CAD. Complex situation. Cardiothoracic surgery consulted as well but not a candidate.
Acute hypoxic respiratory insufficiency -due to heart failure induced pulmonary edema as well as lung cancer. Oxygenation improved, now on room air.
Leukocytosis -suspect leukemoid process related to malignancy and other active issues.
Sepsis due to left toe infection: Wound culture shows Pseudomonas and Enterobacter.
Improved
Completed course of antibiotics.
Changed metformin doses due to Cipro per ID recommendations.
Status post left partial first ray amputation on 03/06 by podiatry, sutures removed on 03/22 by podiatry.
I asked ID to reevaluate on 03/13 due to concerns by hematology oncology about rising leukocytosis. Appreciated ID reevaluation and they do not feel there is any new infection.
Paroxysmal atrial fibrillation, new onset:
On rate control, metoprolol tartrate 25 mg every 12 hours
On amiodarone 200 mg p.o. 3 times daily
Deferred anticoagulation with DOAC need/indication to cardiology
Acute diastolic CHF -Lasix changed to 40 mg p.o. daily.
Anemia of chronic disease:
Hematology consult appreciated
Blood transfusion given
Hemoglobin stable.
Today hemoglobin 10.1
Post blood transfusion reaction on 03/03:
He was given IV Lasix, IV steroids, and continue with broad-spectrum antibiotics.
Chronic hyponatremia -sodium stable. TSH is normal. Suspect SIADH induced hyponatremia. Urine osmolality 398, urine sodium 34.
Chronic limb ischemia:
Status post vascular intervention on 02/[address] Vega
DM2 with hyperglycemia - Prior to admission he was on metformin and sitagliptin. Increase Lantus to 15 units at bedtime, NovoLog increased to 10 units AC, increase to moderate resistance corrective scale.
Last hemoglobin A1c on 02/09 was 8.2%
Since he finished antibiotics changed back to sitagliptin and increased doses of metformin. No need for Januvia since on lantus/novolog.
Essential hypertension:
Continue current antihypertensives.
Monitor blood pressure and adjust medications accordingly.
Hyperlipidemia:
Continue statins
Insomnia -continue trazodone 50 mg at bedtime.
CODE STATUS-DNR
Dispo -await discharge to SNF when bed available. Case management aware. Medically stable for discharge.
Time spent 51-minute
Anticipated Discharge: > 48 hours
Subjective/Interval History
-
Date of Service: March 27, 2024
Patient not in a good mood today. Afebrile.
Objective Data
-
Vital Signs:
Vital Signs
Temp Pulse Resp BP Pulse Ox
97.4 F 49 20 136/73 97
03/27/24 07:05 03/27/24 07:08 03/27/24 07:05 03/27/24 07:08 03/27/24 07:08
I&O
03/26/24 03/27/24 03/28/24
06:59 06:59 06:59
Intake Total 240 / 240
Output Total 650 / 650 550 / 550
Balance -410 / -410 -550 / -550
[2024-03-27 11:35] LABS: Glucose - Point of Care 278 mg/dl (70-99)
[2024-03-27] MEDS: MORPHINE SULFATE 2 MG IV (11:59)
[2024-03-27] MEDS: FLUSH (NSS) 1 FLUSH IV (12:01)
[2024-03-27] MEDS: NOVOLOG FLEXPEN-MODERATE RESISTANCE 5 UNITS SC (12:07)
--- NOTE | 2024-03-27 13:27 | PTCARENOTE ---
Assumed care of the patient at 1100, patient upset over prolonged hospitalization and cancellation of transfer to [place] this past weekend. Complained of left chest discomfort that he is unable to rate, medicated with morphine IV as ordered. Patient
did report an episode of hemoptysis. Patient seen by case management and plan if for SNF when bed is available at [facility], patient in agreement.
--- NOTE | 2024-03-27 15:13 | W.CON.PAL ---
Consultation
-
Date/Time Consultation Requested: 03/27/2024
Date/Time Consultation Performed: 03/27/2024
Requesting Provider: Dr. Chavira
Performing Provider: Dr. Zhao
Reason for Consult: Goals of Care Discussion
Primary Diagnosis: Stage IV Lung Cancer
Related Diagnosis: CAD, PAD
Consult Requested By: Patient's Physician (Oncology )
Reason for Admission
Illness Course/HPI
Pavel is a 73 y/o male who was prior to january living independently on minimal medications (did not follow up with primary care physician regularly). He had hospital visit 02/09 due to left toe discoloration, found to have significant PAD, s/p
endovasculrization. During that hospital stay found to have ADRIAN lung mass. He was discharged home with homecare. He was rehospitalized 03/01 with chest pain, and over the last several weeks in [facility] hospital required Left big toe amputation, lung
biopsy (positive for adenocaricnoma), cardiac cath (demonstrated severe multivessel CAD, not a surgical candidate), and most recently found to have multiple brain mets. Over the last week, he was overall medically stable, awaiting tranfer to [place]
which was turned down. Palliative care was consulted to address goals of care.
Functional Status & Support Systems
Current Functional Status:
At his baseline he is independent of adls/iadls. He lives in a 1bedroom appartment on the 2nd floor (1 flight of stairs to access home), he no longer has a car. He orders his groceries online, and manages his day to day needs independently. uses no
assistive device at baseline.
he is feeling weak and would be unable to manage independnetly at this time.
His next of kin is his first cousin Tylor who lives in [place], followed by his cousin/god-daughter Leyla who lives in [place], [place]. He is supported by a good friend who lives nearby and could take him to appointmetns if needed. He believes he has access
to some transportation assistance through [employer] or would use [employer] transport if needed.
ADLS: Significant Assistance (baseline independent)
IADLS: Significant Assistance (baseline independent)
Review of Advanced Directives
Advanced Care Documentation Status: Incomplete
Location of Advanced Care Documentation: Has not filled out, blank copy given
Surrogate Decision Maker (name & contact): He states to call Tylor first followed by Leyla.
Preferences Regarding Medical Care at End of Life: At the very end of life would want to focus on comfort, at this time he would like to know about treatment options for the cancer
Preferences Regarding Resuscitation at End of Life: DNR
Goals of Care Discussion
Patient Goals & Values Discussion
Summary of Patient's Goals of Care [Text6]:
Patient's goals are treatment oriented. he would want radiation treatment, rehab, and then to see what can be further done for his cancer as an outpatient.
WE discussed palliative care - agreeable to outpatient palliative care visits, not interested in hospice at this time
Pain & Symptom Assessment
Patient Symptoms
Patient Symptoms: Pain (denies pain at rest), Dyspnea (denies at rest) and Other (hemomptysis present)
Objective Data
-
Objective Data:
Vital Signs
Temp Pulse Resp BP Pulse Ox
97.8 F 56 20 138/64 99
03/27/24 11:25 03/27/24 11:27 03/27/24 11:25 03/27/24 11:27 03/27/24 11:27
Laboratory Results
03/20/24 04:25
03/22/24 12:35
PT 14.0 Sec (11.4-14.6) 03/10/24 03:10
INR 1.08 03/10/24 03:10
APTT 34.6 Sec (23.4-35.0) 03/18/24 05:03
Total Protein 5.9 g/dl (6.3-8.2) L 03/15/24 02:54
Albumin 3.0 g/dl (3.5-5.0) L 03/15/24 02:54
Urine Color Carisa 03/10/24 03:47
Urine Clarity Clear (Clear) 03/10/24 03:47
Urine pH 5.0 (5.0-9.0) 03/10/24 03:47
Ur Specific [place] 1.020 (<1.030) 03/10/24 03:47
Urine Ketones Negative (Negative) 03/10/24 03:47
Urine Bilirubin Negative (Negative) 03/10/24 03:47
Palliative Performance Scale
Palliative Performance Scale:
PPS Level Ambulation Activity & Evidence of Disease Self Care Intake Conscious Level
100% Full Normal Activity & Work; Full Intake Full
No Evidence of Disease
90% Full Normal Activity & Work; Full Normal Full
Some Evidence of Disease
80% Full Normal Activity with Effort Full Normal or Full
Some Evidence of Disease Reduced
70% Reduced Unable Normal Job/Work Full Normal or Full
Significant Disease Reduced
60% Reduced Unable Hobby/Housework Occasional Normal or Full or Confusion
Significant Disease Assistance Reduced
50% Mainly Sit/Lie Unable to do Any Work Considerable Normal or Full or Confusion
Extensive Disease Assistance Req'd Reduced
40% Mainly in Bed Unable to do Most Activity Mainly Assistance Normal or Full or Drowsy;
Extensive Disease Reduced +/- Confusion
30% Totally Bed Unable to do Any Activity Total Care Normal or Full or Drowsy;
Bound Extensive Disease Reduced +/- Confusion
20% Totally Bed Bound Unable to do Any Activity Total Care Minimal to Full or Drowsy;
Extensive Disease Sips +/- Confusion
10% Totally Bed Bound Unable to do Any Activity Total Care Mouth Care Drowsy or Coma;
Extensive Disease Only +/- Confusion
0%
PPS Score Level: 50
Physical Exam
-
General: Well Developed, Well Nourished, No Apparent Distress and Conversant
Respiratory: Other (hemoptysis with cough)
Neuro: Awake, Alert and Oriented
Psych: Calm
Assessment / Plan
-
Assessment/Plan:
Patient's goals are treatment oriented at this time.
He understands that there are a lot health things going on at once - cardiac, lung, bleeding, brain mets, cancer.
He is open to radiation followed by rehab for the current time
Care Reviewed
Data Reviewed
Medical Tests: I reviewed
Reviewed with: Patient and Physician (attending, oncology )
--- NOTE | 2024-03-27 16:10 | CM ---
spoke to pt and family, pt remains agreeable to to go [facility] rehab, awaiting [employer] auth, bed is avail for tomorrow.
[2024-03-27 17:23] LABS: Glucose - Point of Care 175 mg/dl (70-99)
[2024-03-27] MEDS: GLUCOPHAGE 1000 MG PO (17:26)
[2024-03-27] MEDS: LOVENOX 40 MG SC (17:26)
--- NOTE | 2024-03-27 18:08 | PTCARENOTE ---
Patient having several episodes of hemoptysis, occasional cough and expectorating bright red blood tinged mucous. Dr. Chavira notified, patient given specimen cups to quantify hemoptysis.
[2024-03-27 21:40] LABS: Glucose - Point of Care 279 mg/dl (70-99)
[2024-03-27] MEDS: DESYREL 50 MG PO (21:46)
[2024-03-27] MEDS: LANTUS 0.15 UNITS SC (21:46)
[2024-03-27] MEDS: LIDOCAINE 4% PATCH 1 PATCH TOPICAL (21:46)
[2024-03-28 04:43] VITALS: BP 128/70
[2024-03-28 07:16] LABS: Glucose - Point of Care 199 mg/dl (70-99)
[2024-03-28 08:02] VITALS: BP 139/76
[2024-03-28 08:09] VITALS: BP 139/76
[2024-03-28] MEDS: NOVOLOG FLEXPEN-MODERATE RESISTANCE 1 UNITS SC (08:15)
[2024-03-28] MEDS: NOVOLOG FLEXPEN 10 UNITS SC ×2 (08:16→11:31)
[2024-03-28] MEDS: ASPIR LOW (ENTERIC COATED) 81 MG PO (08:17)
[2024-03-28] MEDS: FLOMAX 0.4 MG PO (08:18)
[2024-03-28] MEDS: DECADRON 4 MG PO (08:18)
[2024-03-28] MEDS: BUSPAR 10 MG PO (08:18)
[2024-03-28] MEDS: LOPRESSOR 25 MG PO (08:19)
[2024-03-28] MEDS: LIPITOR 20 MG PO (08:19)
[2024-03-28] MEDS: GLUCOPHAGE 1000 MG PO ×2 (08:19→18:08)
[2024-03-28] MEDS: LASIX 40 MG PO (08:19)
[2024-03-28] MEDS: MUCINEX 600 MG PO (08:20)
[2024-03-28] MEDS: PLAVIX 75 MG PO (08:20)
[2024-03-28] MEDS: PACERONE 200 MG PO (08:20)
--- NOTE | 2024-03-28 08:50 | W.PN.ONC2 ---
Today's Communication / Plan
-
XRT at [facility] planning underway
Impression
Impression
ADRIAN non-small carcinoma, poorly differentiated, favor adenocarcinoma in the background of marked necrosis
Multiple brain metastases
Microcytic anemia, iron studies c/w AOCD
Possible transfusion reaction 03/03
Reactive leukocytosis +/- sepsis d/t left toe infection
CAD, NSTEMI, PAF, HFpEF, HTN, HLD, Moderate
PAD s/p left common to external iliac balloon angioplasty/stent, SFA balloon angioplasty/stent x2, TP trunk and peroneal angioplasty, anterior tibial long segment angioplasty 02/10/24
Amputation of the first hallux 02/11/2024, partial 1st ray amputation 03/06/24,
Hyponatremia
Diabetes mellitus with hyperglycemia
Hemoptysis
100lb weight loss
Plan
Plan
-MRI brain showing at least three large masses: one cystic 4.5 cm in R frontal lobe with moderate vasogenic edema, one 2.6 in L basal ganglia, one 2.7 cm in medial L occipital lobe containing intratumoral hemorrhage. Also noted to have small acute
ischemic infarcts in cortical pineda matter of R parietal lobe and L temporal lobe. Pt denies symptoms related to the brain mets.
-Ideally, we would have tissue amenable to NGS so we could determine whether he is a candidate for a targeted therapy, if PS adequate
optimize cardiac status medically
-Plan for brain XRT, however, requires SNF or rehab at [facility] to work on PS and XRT concurrently if appropriate medically and covered by insurance, if not then could initiate hospital transfer to [facility] for IP XRT. If hospital-hospital transfer
denied then plan would be for SNF and OP XRT. discussed with primary service, palliative care, and case management at . I also reviewed case with Dr. Dorado XRT and hospitalist at [facility].
Goals remain restorative
>50% of visit was spent on education, counseling, and coordination of care
Subjective/Objective
Chief Complaint
no new complaints
Subjective
afebrile, no hypotension
ambulating with physical therapy
Vital Signs:
Vital Signs
Temp Pulse Resp BP Pulse Ox
98 F 60 18 139/76 97
03/28/24 08:09 03/28/24 08:19 03/28/24 08:09 03/28/24 08:19 03/28/24 08:09
Lab Results:
Laboratory Data
WBC 23.1 10^3/uL (4.8-10.8) H 03/20/24 04:25
Hgb 10.2 g/dL (13.0-18.0) L 03/20/24 04:25
Plt Count 362 10^3/uL (130-400) 03/20/24 04:25
PT 14.0 Sec (11.4-14.6) 03/10/24 03:10
INR 1.08 03/10/24 03:10
APTT 34.6 Sec (23.4-35.0) 03/18/24 05:03
eGFR > 60.00 03/22/24 12:35
Physical Exam
HEENT: Moist Mucous Membranes; No Jaundice
Cardiology: S1 and S2
Pulmonary: Other (diminished b/l bx)
GI: Soft
Extremities: Other (Left foot with dressing/EVELYN wrap)
Neuro: Other (speech clear)
Review of Systems
Review of Systems
ROS notable for
[2024-03-28] MEDS: MIRALAX PO (09:04)
--- NOTE | 2024-03-28 09:04 | W.PN.HOSP.TC ---
Today's Communication/Plan
-
Discharge planning in progress
Assessment / Plan
Assessment / Plan
General: NAD, alert and oriented x 3
HEENT: Normocephalic, Atraumatic and Moist Mucous Membranes
Respiratory: Clear to Auscultation; Negative Wheezes, Rales or Rhonchi
Cardiac: Regular Rhythm and S1/S2
GI: Soft, Nontender and Nondistended
Musculoskeletal: Left toe status post postop findings wrapped up. No Clubbing, No Cyanosis and No Edema
Neuro: Awake, Alert and Oriented, no gross neuro-deficits
Psych: Calm
A/P:
Non-small cell lung cancer with brain metastases and brain hemorrhage and brain edema associated with hemoptysis:
Biopsy left upper lobe mass non-small cell carcinoma poorly differentiated favoring adenocarcinoma with marked necrosis, biomarkers pending but unclear if sample is adequate.
Enlarged lymph nodes in the left suprahilar and hilar region
Pending PET scan as outpatient
Oncology recommends palliative cranial irradiation. Plan to transfer to [facility] for treatment initially as inpatient but [facility] called back and recommends outpatient. Accepted by Dr. Pryor-->again now efforts as outpatient.
Discussed with oncology and palliative care today and 3 options were--> acute rehab at [facility], inpatient at [facility], and halfway facility and outpatient radiation if able and consider hospice down the road. Out of the 3 options,
although not ideal the most feasible as the last one.
MRI of the brain shows metastatic brain disease--> continue steroids but switch IV dexamethasone to oral dexamethasone.
CT scan 03/14 chest abdomen pelvis and neck negative for other metastatic lesions
Oncology and cardiology deferred to pulmonary to consider inpatient EBUS
Repeat CT head 03/23 negative for hemorrhage, Plavix resumed. Discussed with neurosurgery service.
Discussed with oncology services today and they recommended palliative care as inpatient. Palliative care consulted.
Urinary retention-he had required multiple straight catheterization, now has a Prater.
NSTEMI -still with intermittent resting chest pain, nonpleuritic. Troponins trended down.
Cardiology decided on aspirin alone after discussion with neurosurgery. Plavix has been discontinued due to hemorrhagic versions of stroke and neurosurgery will clear him when to restart--> plan to hold for [address] of the head.
Morphine as needed for pain
Cardiac cath revealed multivessel CAD. Complex situation. Cardiothoracic surgery consulted as well but not a candidate.
Acute hypoxic respiratory insufficiency -due to heart failure induced pulmonary edema as well as lung cancer. Oxygenation improved, now on room air.
Leukocytosis -suspect leukemoid process related to malignancy and other active issues.
Sepsis due to left toe infection: Wound culture shows Pseudomonas and Enterobacter.
Improved
Completed course of antibiotics.
Changed metformin doses due to Cipro per ID recommendations.
Status post left partial first ray amputation on 03/06 by podiatry, sutures removed on 03/22 by podiatry.
I asked ID to reevaluate on 03/13 due to concerns by hematology oncology about rising leukocytosis. Appreciated ID reevaluation and they do not feel there is any new infection.
Paroxysmal atrial fibrillation, new onset:
On rate control, metoprolol tartrate 25 mg every 12 hours
On amiodarone 200 mg p.o. 3 times daily
Deferred anticoagulation with DOAC need/indication to cardiology
Acute diastolic CHF -Lasix changed to 40 mg p.o. daily.
Anemia of chronic disease:
Hematology consult appreciated
Blood transfusion given
Hemoglobin stable.
Today hemoglobin 10.1
Post blood transfusion reaction on 03/03:
He was given IV Lasix, IV steroids, and continue with broad-spectrum antibiotics.
Chronic hyponatremia -sodium stable. TSH is normal. Suspect SIADH induced hyponatremia. Urine osmolality 398, urine sodium 34.
Chronic limb ischemia:
Status post vascular intervention on 02/[address] Vega
DM2 with hyperglycemia - Prior to admission he was on metformin and sitagliptin. Increase Lantus to 15 units at bedtime, NovoLog increased to 10 units AC, increase to moderate resistance corrective scale.
Last hemoglobin A1c on 02/09 was 8.2%
Since he finished antibiotics changed back to sitagliptin and increased doses of metformin. No need for Januvia since on lantus/novolog.
Essential hypertension:
Continue current antihypertensives.
Monitor blood pressure and adjust medications accordingly.
Hyperlipidemia:
Continue statins
Insomnia -continue trazodone 50 mg at bedtime.
CODE STATUS-DNR
Dispo -await discharge to SNF when bed available. Case management aware. Medically stable for discharge.
Anticipated Discharge: Today
Subjective/Interval History
-
Date of Service: March 28, 2024
Patient upset that he is in the hospital and wants to move on to next step.
Objective Data
-
Vital Signs:
Vital Signs
Temp Pulse Resp BP Pulse Ox
98 F 60 18 139/76 97
03/28/24 08:09 03/28/24 08:19 03/28/24 08:09 03/28/24 08:19 03/28/24 08:09
I&O
03/27/24 03/28/24 03/29/24
06:59 06:59 06:59
Intake Total 730 / 730
Output Total 550 / 550
Balance -550 / -550 730 / 730
--- NOTE | 2024-03-28 09:14 | PTCARENOTE ---
Received patient at shift change. Sinus Edwardo on the monitor, HR in the 50s. Foot dressing CDI. Pt is frustrated and upset about still being here. Call marx within reach.
--- NOTE | 2024-03-28 10:50 | W.PN.PAL2 ---
Today's Communication
-
73 y/o male with IV Lung cancer with brain mets, CAD with multivessel disease, PAD with Left toe amputation, poor social supports.
Overall prognosis is poor, is appropriate for hospice, however patient not in agreement.
Patient would benefit from radiation treatment, ideally this should be done as an inpatient or at rehab - Oncology trying to facilitate transfer to [facility] for this, but need insurance approval. Patient aware that to qualify for inpatient rehab he would
first need to demonstrate ability to tolerate inpatient rehab. Alternatively, the next option is discharge to rehab, return home, and then try for outpatient radiation therapy, however this will be physically and logistically challenging for him at
this time, and there is a high likelihood that he will not be able to do this. Palliative care can do home visits once he has returned home, to assist with goals of care, symptom management, and treatment planning if still feasible. He was given
instructions to call us when he gets home so that we can setup outpatient home visit.
Assessment / Plan
-
Assessment/Plan:
73 y/o male with IV Lung cancer with brain mets, CAD with multivessel disease, PAD with Left toe amputation, poor social supports.
Overall prognosis is poor, is appropriate for hospice, however patient not in agreement.
Patient would benefit from radiation treatment, ideally this should be done as an inpatient or at rehab - Oncology trying to facilitate transfer to [facility] for this, but need insurance approval. Patient aware that to qualify for inpatient rehab he would
first need to demonstrate ability to tolerate inpatient rehab. Alternatively, the next option is discharge to rehab, return home, and then try for outpatient radiation therapy, however this will be physically and logistically challenging for him at
this time, and there is a high likelihood that he will not be able to do this. Palliative care can do home visits once he has returned home, to assist with goals of care, symptom management, and treatment planning if still feasible. He was given
instructions to call us when he gets home so that we can setup outpatient home visit.
Reason for Admission
Illness Course/HPI
03/27 HPI: Pavel is a 73 y/o male who was prior to january living independently on minimal medications (did not follow up with primary care physician regularly). He had hospital visit 02/09 due to left toe discoloration, found to have significant PAD,
s/p revascularization. During that hospital stay found to have ADRIAN lung mass. He was discharged home with homecare. He was rehospitalized 03/01 with chest pain, and over the last several weeks in [facility] required Left big toe amputation, lung
biopsy (positive for adenocarcinoma), cardiac cath (demonstrated severe multivessel CAD, not a surgical candidate), and most recently found to have multiple brain mets. Over the last week, he was overall medically stable, awaiting transfer to [facility]
which was turned down. Palliative care was consulted to address goals of care.
Functional Status & Support Systems
Current Functional Status:
At his baseline he is independent of adls/iadls. He lives in a 1bedroom appartment on the 2nd floor (1 flight of stairs to access home), he no longer has a car. He orders his groceries online, and manages his day to day needs independently. uses no
assistive device at baseline.
he is feeling weak and would be unable to manage independnetly at this time.
His next of kin is his first cousin Tylor who lives in [place], followed by his cousin/god-daughter Leyla who lives in [facility]. He is supported by a good friend who lives nearby and could take him to appointmetns if needed. He believes he has access
to some transportation assistance through [employer] or would use [facility] transport if needed.
ADLS: Significant Assistance (baseline independent)
IADLS: Significant Assistance (baseline independent)
Review of Advanced Directives
Advanced Care Documentation Status: Incomplete
Location of Advanced Care Documentation: Has not filled out, blank copy given
Surrogate Decision Maker (name & contact): He states to call Tylor first followed by Leyla.
Preferences Regarding Medical Care at End of Life: At the very end of life would want to focus on comfort, at this time he would like to know about treatment options for the cancer
Preferences Regarding Resuscitation at End of Life: DNR
Goals of Care Discussion
Patient Goals & Values Discussion
Summary of Patient's Goals of Care [Text6]:
Patient is not interested in hospice care at this time
Pain & Symptom Assessment
Patient Symptoms
Patient Symptoms: Other (patient denies symptoms at rest, , has been having hemoptysis over past 48 -72 hours. )
Objective Data
-
Objective Data:
Vital Signs
Temp Pulse Resp BP Pulse Ox
98 F 60 18 139/76 97
03/28/24 08:09 03/28/24 08:19 03/28/24 08:09 03/28/24 08:19 03/28/24 08:09
Laboratory Results
03/20/24 04:25
03/22/24 12:35
PT 14.0 Sec (11.4-14.6) 03/10/24 03:10
INR 1.08 03/10/24 03:10
APTT 34.6 Sec (23.4-35.0) 03/18/24 05:03
Total Protein 5.9 g/dl (6.3-8.2) L 03/15/24 02:54
Albumin 3.0 g/dl (3.5-5.0) L 03/15/24 02:54
Urine Color [place] 03/10/24 03:47
Urine Clarity Clear (Clear) 03/10/24 03:47
Urine pH 5.0 (5.0-9.0) 03/10/24 03:47
Ur Specific [place] 1.020 (<1.030) 03/10/24 03:47
Urine Ketones Negative (Negative) 03/10/24 03:47
Urine Bilirubin Negative (Negative) 03/10/24 03:47
Palliative Performance Scale
Palliative Performance Scale:
PPS Level Ambulation Activity & Evidence of Disease Self Care Intake Conscious Level
100% Full Normal Activity & Work; Full Intake Full
No Evidence of Disease
90% Full Normal Activity & Work; Full Normal Full
Some Evidence of Disease
80% Full Normal Activity with Effort Full Normal or Full
Some Evidence of Disease Reduced
70% Reduced Unable Normal Job/Work Full Normal or Full
Significant Disease Reduced
60% Reduced Unable Hobby/Housework Occasional Normal or Full or Confusion
Significant Disease Assistance Reduced
50% Mainly Sit/Lie Unable to do Any Work Considerable Normal or Full or Confusion
Extensive Disease Assistance Req'd Reduced
40% Mainly in Bed Unable to do Most Activity Mainly Assistance Normal or Full or Drowsy;
Extensive Disease Reduced +/- Confusion
30% Totally Bed Unable to do Any Activity Total Care Normal or Full or Drowsy;
Bound Extensive Disease Reduced +/- Confusion
20% Totally Bed Bound Unable to do Any Activity Total Care Minimal to Full or Drowsy;
Extensive Disease Sips +/- Confusion
10% Totally Bed Bound Unable to do Any Activity Total Care Mouth Care Drowsy or Coma;
Extensive Disease Only +/- Confusion
0%
PPS Score Level: 50
Physical Exam
-
General: Well Developed, No Apparent Distress and Appears Chronically Ill
Neuro: Awake
patient upset at being woken up.
Care Reviewed
Data Reviewed
Medical Tests: I reviewed
Reviewed with: Patient, Physician, Nurse and Other (Case management)
[2024-03-28 10:52] VITALS: PULSE 52; O2SAT 98
[2024-03-28 11:30] LABS: Glucose - Point of Care 262 mg/dl (70-99)
[2024-03-28] MEDS: NOVOLOG FLEXPEN-MODERATE RESISTANCE 5 UNITS SC (11:32)
[2024-03-28 12:19] VITALS: BP 124/59
--- NOTE | 2024-03-28 13:42 | W.DCSUMMARY ---
Discharge Summary
Discharge Data
Date of Admission: 03/01/24
Date of Discharge: 03/28/24
-
Pending Results: No
Hospital Course
Patient 73 years old male history of peripheral vascular disease, CAD, hypertension, diabetes mellitus, hyperlipidemia presented to the hospital with acute non-STEMI. Patient had a prolonged hospital course and multiple complications. While he had
an ID he also was in sepsis due to postop first toe gangrene. He was treated with antibiotics. Treated conservatively initially from cardiac standpoint. He was also found to have left upper mass. His cardiac procedure could not be performed until
biopsy of his lung was done. 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 He also had cardiac catheterization that revealed multivessel coronary artery disease and cardiothoracic surgery evaluated him
and not a candidate for any heart surgery. He completed course of antibiotics; he had amputation of first ray. He also had paroxysmal atrial fibrillation. He also had acute diastolic congestive heart failure. He also had anemia requiring
transfusion. He had brain edema and hemorrhagic conversion from his metastatic lesions for which Plavix was held and then restarted later on after follow-up images were stable. Palliative care was consulted. There were discussion of transfer to
[facility] but he did not meet criteria for inpatient care. There was also discussion about transfer to [facility] but [facility] also recommended outpatient treatment. There was also discussion about transfer to acute rehab at [facility] but
he did not meet criteria for acute rehab either. Ultimately it was decided to go to care home facility with a goal of returning home if possible and then outpatient radiation to brain metastasis. His CODE STATUS has been changed to DNR. He
is a hospice candidate but he declined hospice at this moment but will need to be reevaluated as outpatient. Palliative care will continue to follow him as outpatient. Prognosis remains poor overall.
Discharge duration: 42 minutes
Discharge Plan
-
Patient Disposition: [facility]
Discharge Diagnosis/Procedures: Non-small cell lung cancer, acute myocardial infarction, sepsis, atrial fibrillation cardiac cath
Condition: Fair
Diet: Low Fat and Low Cholesterol
Activity: With assistance
Driving Restrictions: No driving
Bathing Restrictions: None
Blood Work: Please PCP to order CBC, CMP within 1 week.
Activity Restrictions/Additional Instructions:
Wound Care Instructions Wound Care Instructions Apply dry dressing to left toe daily. Follow up with Dr. Payton when discharged.
Stand Alone Forms: DC Instructions- Cath/EP Lab
Referrals:
[facility] [Outside]
Ed Myers DO [Active] - in two to four weeks
Luis Hdz MD [Active] - in one to two months
Patrick Mooney MD [Active] - in two to four weeks
Luis Humphreys DPM [Active] - in four to six weeks
Woodrow Bynum MD [Family Provider] - in less than 1 week
Kim Zhao MD [Active] - (please call office after your discharge from [facility] to set up a home visit.)
Jennie Goss MD [Active] - in one to two months
Prescriptions:
New
amiodarone 200 mg Tablet
200 mg PO BID 30 Days Qty: 60 0RF
insulin aspart U-100 100 unit/mL (3 mL) Insulin Pen
10 unit SC AC Qty: 15 0RF
furosemide 40 mg Tablet
40 mg PO DAILY 30 Days Qty: 30 0RF
trazodone 50 mg Tablet
50 mg PO HS 30 Days Qty: 30 0RF
tamsulosin 0.4 mg Capsule
0.4 mg PO DAILY 30 Days Qty: 30 0RF
buspirone 10 mg Tablet
10 mg PO BID 30 Days Qty: 60 0RF
metoprolol tartrate 25 mg Tablet
25 mg PO BID 30 Days Qty: 60 0RF
Insulin Glargine Lantus [Lantus] 15 UNITS
Subcutaneous Insulin Syringe [Syringe-Insulin] 0 UNIT
As Directed mls/hr SC HS
Ordered By: Chavira,Saul Rosalio, MD
Last Taken: 03/27/24 21:46 0.15 mls
dexamethasone 1.5 mg (21 tabs) tablets,dose pack
1.5 mg PO DAILY Qty: 21 0RF
Continued
acetaminophen 325 mg Tablet
650 mg PO Q4HPRN PRN (Reason: mild pain or temp >/= 100.4 F) Qty: 10 0RF
atorvastatin 10 mg tablet
20 mg PO DAILY
clopidogrel 75 mg tablet
75 mg PO DAILY
metformin 1,000 mg tablet
1,000 mg PO BID@0800,1700
aspirin 81 mg tablet,chewable
81 mg PO DAILY
Discontinued
lisinopril 5 mg tablet
5 mg PO DAILY
metoprolol succinate 25 mg tablet extended release 24 hr
25 mg PO DAILY
Januvia 50 mg tablet
50 mg PO DAILY
Discharge Orders:
Discharge Patient (As Directed); Ordered 03/28/24
Ordered By: Saul Chavira
Care Plan Goals
Care Plan Goals:
Problem: Readiness for enhanced knowledge related to diagnosis and treatment plan
Goal: Understand your diagnosis and treatment plan needs, including medications if applicable.
Instructions: Know your diagnosis, underlying causes and treatment plan options, including medications if applicable. Consult with your health care team to learn about your diagnosis and treatment plan, including medications if applicable.
Discharge Date and Time
Discharge Date/Time: 03/28/24 18:26
Print Language: HUNGARIAN
--- NOTE | 2024-03-28 15:18 | CM ---
[facility] called cousins Tylor and Leyla with update. pt is agreeable to this plan.
[2024-03-28 15:36] VITALS: BP 96/69
[2024-03-28] MEDS: NOVOLOG FLEXPEN SC (18:08)
[2024-03-28] MEDS: NOVOLOG FLEXPEN-MODERATE RESISTANCE SC (18:08)
[2024-03-28] MEDS: LOVENOX SC (18:09)
--- NOTE | 2024-03-28 18:23 | PTCARENOTE ---
Transport delayed, telephoned them at 1640 regarding [address]. Apparently ambulance was not notified by transport, patient very frustrated but eventually transferred by [facility] at 1820, belongings sent with the patient.
== END 2024-03-28 18:26 | DRG 856 ==
LOC: IVU 11:29
PROVIDERS: Hospitalist; Internal Medicine; Internal Medicine Cardiovascular Disease; Internal Medicine Interventional Cardiology; Nurse Practitioner Adult Health; Nurse Practitioner Family; Nurse Practitioner Gerontology; Physician Assistant; Physician Assistant Medical; Radiology Diagnostic Radiology; Radiology Vascular & Interventional Radiology; Registered Nurse; ADMITTING PHYSICIAN Hospitalist; CONSULT PHYSICIAN Internal Medicine Cardiovascular Disease; CONSULT PHYSICIAN Internal Medicine Critical Care Medicine; CONSULT PHYSICIAN Internal Medicine Hematology & Oncology; CONSULT PHYSICIAN Internal Medicine Hospice and Palliative Medicine; CONSULT PHYSICIAN Student in an Organized Health Care Education/Training Program; EMERGENCY PHYSICIAN Student in an Organized Health Care Education/Training Program; FAMILY PHYSICIAN Family Medicine; OTHER PHYSICIAN Neurological Surgery; OTHER PHYSICIAN Thoracic Surgery (Cardiothoracic Vascular Surgery)
PROC: 30233N1 Transfusion of Nonautologous Red Blood Cells into Peripheral Vein, Percutaneous Approach (ICD-10-PCS; 2024-03-03)
PROC: 0Y6N0Z9 Detachment at Left Foot, Partial 1st Ray, Open Approach (ICD-10-PCS; 2024-03-06)
PROC: 0BBG3ZX Excision of Left Upper Lung Lobe, Percutaneous Approach, Diagnostic (ICD-10-PCS; 2024-03-10)
PROC: 4A023N7 Measurement of Cardiac Sampling and Pressure, Left Heart, Percutaneous Approach (ICD-10-PCS; 2024-03-16)
PROC: B2111ZZ Fluoroscopy of Multiple Coronary Arteries using Low Osmolar Contrast (ICD-10-PCS; 2024-03-16)
DX: T81.49XA Infection following a procedure, other surgical site, initial encounter (principal); A41.9 Sepsis, unspecified organism; G93.6 Cerebral edema; I21.4 Non-ST elevation (NSTEMI) myocardial infarction; I50.31 Acute diastolic (congestive) heart failure; I61.9 Nontraumatic intracerebral hemorrhage, unspecified; E11.52 Type 2 diabetes mellitus with diabetic peripheral angiopathy with gangrene; M86.9 Osteomyelitis, unspecified; R04.2 Hemoptysis; E22.2 Syndrome of inappropriate secretion of antidiuretic hormone; C79.31 Secondary malignant neoplasm of brain; C34.12 Malignant neoplasm of upper lobe, left bronchus or lung; Z66 Do not resuscitate; Z51.5 Encounter for palliative care; I08.2 Rheumatic disorders of both aortic and tricuspid valves; E11.69 Type 2 diabetes mellitus with other specified complication; E11.628 Type 2 diabetes mellitus with other skin complications; I11.0 Hypertensive heart disease with heart failure; E11.65 Type 2 diabetes mellitus with hyperglycemia; D50.9 Iron deficiency anemia, unspecified; B96.5 Pseudomonas (aeruginosa) (mallei) (pseudomallei) as the cause of diseases classified elsewhere; B96.89 Other specified bacterial agents as the cause of diseases classified elsewhere; Y83.8 Other surgical procedures as the cause of abnormal reaction of the patient, or of later complication, without mention of misadventure at the time of the procedure; E78.00 Pure hypercholesterolemia, unspecified; I25.10 Atherosclerotic heart disease of native coronary artery without angina pectoris; I48.0 Paroxysmal atrial fibrillation; R59.0 Localized enlarged lymph nodes; Z89.422 Acquired absence of other left toe(s); Z79.02 Long term (current) use of antithrombotics/antiplatelets; Z79.82 Long term (current) use of aspirin; Z79.84 Long term (current) use of oral hypoglycemic drugs; Z79.899 Other long term (current) drug therapy; Z87.891 Personal history of nicotine dependence; Z95.5 Presence of coronary angioplasty implant and graft
CPT/HCPCS: 88304; 88305; 88311; 93308; 32408; 36600; 70450; 70491; 70553; 71045; 71046; 71260; 73620; 74177; 80048; 80053; 80076; 80202; 81003; 81015; 81459; 82378; 82728; 82805; 82947; 82962; 83540; 83550; 83605; 83735; 83880; 83930; 83935; 84145; 84300; 84443; 84484; 85014; 85018; 85025; 85027; 85610; 85730; 86803; 86850; 86900; 86901; 86920; 87040; 87070; 87075; 87077; 87086; 87186; 87205; 87811; 88112; 88333; 88334; 88341; 88342; 90677; 93005; 93458; 93970; 94640; 96365; 96366; 96367; 96375; 97110; 97116; 97163; 97166; 97530; 97535; 99152; 99153; 99285; A9575; C1894; G0009; P9016; Q9950; Q9967